=== PATIENT | male | born 1960 | race Caucasian/White ===

== ENCOUNTER 2018-10-13 10:47 | Emergency (ER) | payer MEDICAID, SELFPAY ==
[2018-10-13 10:48] VITALS: BP 120/100; PULSE 90; RESP 16; TEMP 36.6; O2SAT 99; BMI 32.3
--- NOTE | 2018-10-13 11:01 | RAD_ITS ---
STUDY: X-RAY - RIGHT KNEE REASON FOR EXAM: Male, 58 years old. Medial knee pain following a fall. TECHNIQUE: 4 view(s) of the knee. COMPARISON: None. FINDINGS: Normal visualized distal femur. Normal visualized proximal tibia and fibula. Normal proximal tibiofibular articulation. There is mild degenerative arthrosis of the medial femorotibial compartment. Normal lateral femorotibial compartment. Normal patellofemoral articulation. The soft tissue structures are unremarkable. RAD/Knee 4 or More Views IMPRESSION: Degenerative arthrosis. Electronically Signed: Jean-Claude Taylor MD at 11:28 EST Tel [phone], Service support ,
--- NOTE | 2018-10-13 12:12 | ED.VISSUMM ---
- ER Visit Summary Date of Service: 10/13/18 Chief Complaint: Right knee pain History of Present Illness: The patient is a 58 M who presents with right knee pain that began after falling out of a truck bed 2 weeks ago. Patient states the truck was not moving. Patient states the pain is worse over the medial aspect of his knee. Patient describes the pain as aching and throbbing. Patient states the pain is worse with ambulation, complete extension, and flexion. Patient denies any paresthesias or weakness. Patient denies any other injuries. Physical Examination: Vital signs are stable. Patient is afebrile. Patient is in no acute distress. Musculoskeletal exam reveals tenderness over the medial aspect of the right knee. There is a mild effusion noted. There is no obvious deformity noted. Range of motion was limited and complete extension and flexion of the right knee secondary to pain. There is no laxity appreciated. Varus and valgus stress tests were negative. There is pain with valgus stressing however. There is some pain with Ursula testing as well. Sensation was intact to light touch in all dermatomes of the lower extremity. The remaining physical exam is within normal limits. Test Results: X-rays of the right knee were obtained. There is no acute fracture. Emergency Department Course and Treatment: Patient was instructed to ice and elevate the right knee. Patient was given 1 dose of Pres[place] here. Patient was given a prescription for Naprosyn. Patient was advised that this is most likely a meniscus injury. Patient was instructed to follow-up with his primary care physician in 5-7 days for further evaluation. Patient understood and was agreeable with the plan. All questions were answered. Disposition: Discharged home Impression: Right knee sprain This note was generated with [employer] dictation software. It may contain incorrect words, spelling, and punctuation that were not noted in review of the chart prior to signing ED Disposition - Plan for ED Patient: Disposition: Home or Assisted Living Chief Complaint: Lower Extremity Injury Diagnosis: Right knee sprain Instructions: ED Sprain Knee Prescriptions: Naproxen [Naprosyn] 500 mg PO BID PRN #20 tab Referrals: Care Physician,No Primary [Primary Care Provider] -
[2018-10-13] MEDS: HYDROcodone Bitartrate/Apap 5/325 Tablet PO (12:23)
--- OUTSIDE RECORDS SUMMARY | 2018-11-29 07:31 | XMS RPT_ITS ---
:1960 Author Organization [facility] Care Team Providers Name Role Phone Primay Care Physicia, No Primary Care Unavailable Randy Magana Attending Unavailable PROBLEMS PROBLEMS No Problem Records FoundPROCEDURES PROCEDURES No Procedure Records FoundRESULTS RESULTS EMERGENCY DEPARTMENT Observed: 10/13/2018 Status: F Source: [place] SUMMARY 12:16 PM [facility] REPOSITORY [facility] Medical Records Department [address] [place] [address] Emergency Department Summary 10/13/18 1212 MR#: [id number] Acct: [id number] Name: SOLOMON JAIME Rep #: [id number] : 1960 58 From: Randy Magana DO PCP: Care Physician, No Primary Status: PRE ER - ER Visit Summary Date of Service: 10/13/18 Chief Complaint: Right knee pain History of Present Illness: The patient is a 58 M who presents with right knee pain that began after falling out of a truck bed 2 weeks ago. Patient states the truck was not moving. Patient states the pain is worse over the medial aspect of his knee. Patient describes the pain as aching and throbbing. Patient states the pain is worse with ambulation, complete extension, and flexion. Patient denies any paresthesias or weakness. Patient denies any other injuries. Physical Examination: Vital signs are stable. Patient is afebrile. Patient is in no acute distress. Musculoskeletal exam reveals tenderness over the medial aspect of the right knee. There is a mild effusion noted. There is no obvious deformity noted. Range of motion was limited and complete extension and flexion of the right knee secondary to pain. There is no laxity appreciated. Varus and valgus stress tests were negative. There is pain with valgus stressing however. There is some pain with Ursula testing as well. Sensation was intact to light touch in all dermatomes of the lower extremity. The remaining physical exam is within normal limits. Test Results: X-rays of the right knee were obtained. There is no acute fracture. Emergency Department Course and Treatment: Patient was instructed to ice and elevate the right knee. Patient was given 1 dose of [place] here. Patient was given a prescription for Naprosyn. Patient was advised that this is most likely a meniscus injury. Patient was instructed to follow-up with his primary care physician in 5-7 days for further evaluation. Patient understood and was agreeable with the plan. All questions were answered. Disposition: Discharged home Impression: Right knee sprain This note was generated with [employer] dictation software. It may contain incorrect words, spelling, and punctuation that were not noted in review of the chart prior to signing ED Disposition - Plan for ED Patient: Disposition: Home or Assisted Living Chief Complaint: Lower Extremity Injury Diagnosis: Right knee sprain Instructions: ED Sprain Knee Prescriptions: Naproxen [Naprosyn] 500 mg PO BID PRN #20 tab Referrals: Care Physician,No Primary [Primary Care Provider] - What to do if you have Problems For any increased pain, shortness of breath, bleeding, nausea or vomiting, chest pain, or any unexpected problems, contact your Primary Care Provider. Call [facility] ([phone]) or report to the closest Emergency Room. Call 911 if necessary. 10/13/18 1216 <Electronically signed by Randy Magana DO> Date Randy Magana DO Cosigner Signature (If Indicated): Date CC: No Primary Care Physician KNEE 4 OR MORE Observed: 10/13/2018 Status: F Source: [place] VIEWS 10:57 AM [facility] Imaging Services [address] [place] [address] Knee 4 or More Views MR#: [id number] Acct: [id number] Name: SOLOMON JAIME Rep #: [id number] : 1960 M 58 From: Jean-Claude Taylor MD PCP: Care Physician, No Primary Status: PRE ER Study: Knee 4 or More Views Date of Exam: 10/13/18 Exam# [id number] Ordering Dr: Randy Magana DO STUDY: X-RAY - RIGHT KNEE REASON FOR EXAM: Male, 58 years old. Medial knee pain following a fall. TECHNIQUE: 4 view(s) of the knee. COMPARISON: None. FINDINGS: Normal visualized distal femur. Normal visualized proximal tibia and fibula. Normal proximal tibiofibular articulation. There is mild degenerative arthrosis of the medial femorotibial compartment. Normal lateral femorotibial compartment. Normal patellofemoral articulation. The soft tissue structures are unremarkable. RAD/Knee 4 or More Views IMPRESSION: Degenerative arthrosis. Electronically Signed: Jean-Claude Taylor MD at 11:28 EST Tel [phone], Service support , CC: No Primary Care Physician; Randy Magana DO Director Of Graduate Admissions: Signed ALLERGIES ALLERGIES DATE TYPE / CODE NAME / CODE REACTION SEVERITY SOURCE 10/13/2018 Drug No Known Unknown [facility] Allergy/4160 Allergies/F00 Hospital 64372(SNOMED [id number](RXNOR Repository CT) M) ENCOUNTERS ENCOUNTERS ADMIT/DISCHARGE ACCOUNT ADMITTING ENCOUNTER LOCATION SOURCE NUMBER CLASS 10/13/2018/ [id number] Emergency [address] ing:ED Repository PAYERS PAYERS ENCOUNTER GUARANTOR PAYER SUBSCRIBER SOURCE 10/13/2018 SOLOMON Chavez Primary SOLOMON Kathy Yury [id number] Insurance:[facility]NOXDOB: [facility] Number: [id number] [id number] Repository 16639Ltp: [phone]) Date:5801-02-52MU [phone] () [id number], [place] [address]KV: 10/13/2018 Secondary NOT GIVENSILVANA Sher Insurance:SELF PAY [facility] Number: Effective Repository Date:2018-10-13
== END 2018-10-13 12:36 | disposition home or self-care (01) ==
LOC: ED 12:28
PROVIDERS: Emergency Provider Emergency Medicine
DX: S83.91XA Sprain of unspecified site of right knee, initial encounter (principal); W17.89XA Other fall from one level to another, initial encounter; Y93.9 Activity, unspecified; Y92.812 Truck as the place of occurrence of the external cause
CPT/HCPCS: 73564; 99283

== ENCOUNTER 2019-02-17 10:09 | Observation (INO) | payer MEDICAID, SELFPAY ==
[2019-02-17] VITALS (11 sets, daily range): BP systolic 113–149; BP diastolic 79–89; PULSE 73–160; RESP 16–21; TEMP 36.5–36.9; O2SAT 95–98; BMI 30.6; BMI 29.4
--- NOTE | 2019-02-17 10:13 | EKG12_ITS ---
Test Reason : CP Blood Pressure : / mmHG Vent. Rate : 096 BPM Atrial Rate : 096 BPM P-R Int : 152 ms QRS Dur : 080 ms QT Int : 354 ms P-R-T Axes : 055 009 053 degrees QTc Int : 447 ms Normal sinus rhythm Normal ECG Confirmed by DUANE ARECHIGA, ([id number]), deputy editor in chief SRAVANTHI FLORES ([id number]) on 02/20/2019 10:43:35 AM Referred By: Yassine Katz Confirmed By:PAUL ZEPEDA MD
--- NOTE | 2019-02-17 10:20 | RAD_ITS ---
STUDY: X-RAY CHEST REASON FOR EXAM: Male, 58 years old. Chest pain. TECHNIQUE: Single AP portable view of the chest. COMPARISON: Comparison is made with prior study dated October 18, 2015. FINDINGS: EKG electrodes are seen. The lungs are clear and expanded. Scattered calcified granulomas. There is no demonstrated pleural abnormality. Normal size heart. Normal mediastinum and laura. Normal visualized pulmonary arteries. Normal visualized aortic arch and descending thoracic aorta. Normal visualized thoracic spine. Normal visualized ribs, clavicles, and shoulders. There is no demonstrated abnormality of the visualized soft tissue structures of the upper abdomen. RAD/Chest 1 View (Portable) IMPRESSION: Normal x-ray examination of the chest. Electronically Signed: Jean-Claude Taylor, at 10:52 EDT , Service support ,
--- NOTE | 2019-02-17 10:33 | ED.VIS.GEN ---
History of Present Illness Chief Complaint: Chest Pain Informant: Patient Onset: Days - Midsternal chest pressure past 3 days Context: Sudden Onset Timing: Intermittent - Duration 15-20 minutes Quality: Pressure with radiation right shoulder Location: Substernal Current Severity: - - Presently no chest discomfort Maximum Severity: Severe Worsened by: Nothing Relieved by: Nothing Associated Symptoms: Dyspnea and diaphoresis. There is also radiation right shoulder. Narrative: Middle-aged male with history of hypercholesterolemia and hypertension who presents with intermittent midsternal/substernal chest tightness and heaviness radiating to the right shoulder associated with diaphoresis and dyspnea the past 3 days. Duration of discomfort 15-20 minutes. Patient was a smoker of 1 pack/day. He quit 6 months ago. There is a remote history of DVT. He denies pleuritic chest pain. He states when he has the discomfort he has trouble breathing. He denies leg swelling or discoloration. Prior similar symptoms: No Recent Illness/Hospitalization: No - Past Medical History (1) History of hypertension Status: Acute (2) History of hypercholesterolemia Status: Acute Past Medical History - Allergies and Home Meds Allergies/Adverse Reactions: Allergies No Known Allergies Allergy (Verified 02/17/19 10:10) Primary Care Physician: Care Physician,No Primary [Primary Care Provider] - Prior records reviewed: Yes Surgical History: noncontributory Lives: Alone Smoking Status: Former smoker Drugs: None Review of Systems General: Denies: Chills, Fever, Sweats Eyes: Denies: Visual changes - bilaterally, Diplopia ENT: Denies: Rhinorrhea, Sore throat Cardiovascular: Reports: Chest pain. Denies: Palpitations, Heart racing Respiratory: Reports: Dyspnea. Denies: Cough, Sputum, Dyspnea on exertion, Orthopnea, Paroxysmal nocturnal dyspnea Gastrointestinal: Denies: Abdominal pain, Nausea, Vomiting, Diarrhea, Melena, Hematochezia Genitourinary: Denies: Dysuria, Hematuria, Frequency Musculoskeletal: Denies: Back pain, Extremity Pain Skin: Denies: Rash, Wounds Neurological: Denies: Headache, Weakness, Numbness Hematologic: Denies: Easy bruising, Easy bleeding Allergy: Denies: Uticaria Physical Exam Vital Signs/Narrative: Vital Signs Temp Pulse Resp BP Pulse Ox 02/17/19 10:11 98.4 F 160 H 18 134/82 H 95 Inital Vital Signs reviewed: Yes General: Well nourished, Well developed, No Acute Distress Head: Normocephalic - Systems, Atraumatic Eyes: Perrl, EOMI. Negative for: Pale conjunctiva, Scleral icterus, - ENT: Moist mucous membranes, No rhinorrhea Neck: Supple, Nontender Cardiovascular: Regular rate, Regular rhythm, No murmurs, Normal S1, Normal S2 Respiratory: No distress, CTA bilaterally, Chest nontender Abdomen: Soft, Nontender, Nondistended, Normal bowel sounds, No masses. Negative for: Juan's sign Back: Nontender, Normal Inspection Extremities: Nontender, No edema, - - There is no asymmetry, swelling, discoloration, leg vein distention, palpable cords or tenderness along the distribution of the deep venous system. Skin: Normal color, No rash Neurological: Alert, Oriented x3, Cranial nerves II-XII grossly intact, Normal Strength, Normal Sensation Psychological: Normal affect, Normal Mood Diagnostic/Tx/Re-eval Chest X-Ray - ED: 1 View, Read by ED Physician, Normal, Heart, Lungs, Mediastinum, Bony Structures, No Acute Disease Impressions Chest X-Ray 02/17/19 10:20 IMPRESSION: Normal x-ray examination of the chest. Electronically Signed: Jean-Claude Claudia, at 10:52 EDT , Service support , 02/17/19 10:20 Chest 1 View (Portable) [RAD] Stat Laboratory Results 02/17/19 02/17/19 10:23 10:23 WBC 9.4 RBC 4.86 Hgb 15.8 Hct 44.8 MCV 92.2 MCH 32.5 H MCHC 35.3 RDW 12.8 RDW Differential 42.6 Plt Count 244 MPV 10.6 Immature Gran % (Auto) 0.100 Neut % (Auto) 62.8 Lymph % (Auto) 26.5 [place] % (Auto) 8.0 Eos % (Auto) 2.0 Baso % (Auto) 0.6 Absolute Neuts (auto) 5.9 Absolute Lymphs (auto) 2.49 Total Counted Not Reportable Sodium 137 Potassium 4.0 Chloride 105 Carbon Dioxide 24.0 Anion Gap 8 BUN 25 H Creatinine 1.08 Estim Creat Clear Calc 78.86 Est GFR (MDRD) Af Amer 91 Est GFR (MDRD) Non-Af 75 BUN/Creatinine Ratio 23.1 H Glucose 147 H Calcium 8.3 L Troponin I < 0.015 - Rhythm Strip Rhythm Strip: Sinus Rhythm Rate: 92 Ectopy: None - EKG Initial EKG Interpretation: Sinus Rhythm - Ventricular rate 96. ME interval, Q mormonism, QT interval and axis are normal. - Medical Decision Making With associated diaphoresis and radiation to right shoulder increases likelihood for cardiac etiology. Noncardiac etiologies would include reflux, esophagitis, biliary disease. Patient's workup was unremarkable. The hospitalist was paged for further testing. ED Disposition - Plan for ED Patient: Disposition: Acute Care Hospital [facility] Diagnosis: Central chest pain, History of hypercholesterolemia, History of hypertension Referrals: Care Physician,No Primary [Primary Care Provider] -
--- NOTE | 2019-02-17 10:37 | ED.DCSUM_ITS ---
History of Present Illness Chief Complaint: Chest Pain Informant: Patient Onset: Days - Midsternal chest pressure past 3 days Context: Sudden Onset Timing: Intermittent - Duration 15-20 minutes Quality: Pressure with radiation right shoulder Location: Substernal Current Severity: - - Presently no chest discomfort Maximum Severity: Severe Worsened by: Nothing Relieved by: Nothing Associated Symptoms: Dyspnea and diaphoresis. There is also radiation right shoulder. Narrative: Middle-aged male with history of hypercholesterolemia and hypertension who presents with intermittent midsternal/substernal chest tightness and heaviness radiating to the right shoulder associated with diaphoresis and dyspnea the past 3 days. Duration of discomfort 15-20 minutes. Patient was a smoker of 1 pack/day. He quit 6 months ago. There is a remote history of DVT. He denies pleuritic chest pain. He states when he has the discomfort he has trouble breathing. He denies leg swelling or discoloration. Prior similar symptoms: No Recent Illness/Hospitalization: No - Past Medical History (1) History of hypertension Status: Acute (2) History of hypercholesterolemia Status: Acute Past Medical History - Allergies and Home Meds Allergies/Adverse Reactions: Allergies No Known Allergies Allergy (Verified 02/17/19 10:10) Primary Care Physician: Care Physician,No Primary [Primary Care Provider] - Prior records reviewed: Yes Surgical History: noncontributory Lives: Alone Smoking Status: Former smoker Drugs: None Review of Systems General: Denies: Chills, Fever, Sweats Eyes: Denies: Visual changes - bilaterally, Diplopia ENT: Denies: Rhinorrhea, Sore throat Cardiovascular: Reports: Chest pain. Denies: Palpitations, Heart racing Respiratory: Reports: Dyspnea. Denies: Cough, Sputum, Dyspnea on exertion, Orthopnea, Paroxysmal nocturnal dyspnea Gastrointestinal: Denies: Abdominal pain, Nausea, Vomiting, Diarrhea, Melena, Hematochezia Genitourinary: Denies: Dysuria, Hematuria, Frequency Musculoskeletal: Denies: Back pain, Extremity Pain Skin: Denies: Rash, Wounds Neurological: Denies: Headache, Weakness, Numbness Hematologic: Denies: Easy bruising, Easy bleeding Allergy: Denies: Uticaria Physical Exam Vital Signs/Narrative: Vital Signs Temp Pulse Resp BP Pulse Ox 02/17/19 10:11 98.4 F 160 H 18 134/82 H 95 Inital Vital Signs reviewed: Yes General: Well nourished, Well developed, No Acute Distress Head: Normocephalic - Systems, Atraumatic Eyes: Perrl, EOMI. Negative for: Pale conjunctiva, Scleral icterus, - ENT: Moist mucous membranes, No rhinorrhea Neck: Supple, Nontender Cardiovascular: Regular rate, Regular rhythm, No murmurs, Normal S1, Normal S2 Respiratory: No distress, CTA bilaterally, Chest nontender Abdomen: Soft, Nontender, Nondistended, Normal bowel sounds, No masses. Negative for: Juan's sign Back: Nontender, Normal Inspection Extremities: Nontender, No edema, - - There is no asymmetry, swelling, discoloration, leg vein distention, palpable cords or tenderness along the distribution of the deep venous system. Skin: Normal color, No rash Neurological: Alert, Oriented x3, Cranial nerves II-XII grossly intact, Normal Strength, Normal Sensation Psychological: Normal affect, Normal Mood Diagnostic/Tx/Re-eval Chest X-Ray - ED: 1 View, Read by ED Physician, Normal, Heart, Lungs, Mediastinum, Bony Structures, No Acute Disease Impressions Chest X-Ray 02/17/19 10:20 IMPRESSION: Normal x-ray examination of the chest. Electronically Signed: Jean-Claude Claudia, at 10:52 EDT , Service support , 02/17/19 10:20 Chest 1 View (Portable) [RAD] Stat Laboratory Results 02/17/19 02/17/19 10:23 10:23 WBC 9.4 RBC 4.86 Hgb 15.8 Hct 44.8 MCV 92.2 MCH 32.5 H MCHC 35.3 RDW 12.8 RDW Differential 42.6 Plt Count 244 MPV 10.6 Immature Gran % (Auto) 0.100 Neut % (Auto) 62.8 Lymph % (Auto) 26.5 [place] % (Auto) 8.0 Eos % (Auto) 2.0 Baso % (Auto) 0.6 Absolute Neuts (auto) 5.9 Absolute Lymphs (auto) 2.49 Total Counted Not Reportable Sodium 137 Potassium 4.0 Chloride 105 Carbon Dioxide 24.0 Anion Gap 8 BUN 25 H Creatinine 1.08 Estim Creat Clear Calc 78.86 Est GFR (MDRD) Af Amer 91 Est GFR (MDRD) Non-Af 75 BUN/Creatinine Ratio 23.1 H Glucose 147 H Calcium 8.3 L Troponin I < 0.015 - Rhythm Strip Rhythm Strip: Sinus Rhythm Rate: 92 Ectopy: None - EKG Initial EKG Interpretation: Sinus Rhythm - Ventricular rate 96. CT interval, Q christian, QT interval and axis are normal. - Medical Decision Making With associated diaphoresis and radiation to right shoulder increases likelihood for cardiac etiology. Noncardiac etiologies would include reflux, esophagitis, biliary disease. Patient's workup was unremarkable. The hospitalist was paged for further testi ng. ED Disposition - Plan for ED Patient: Disposition: Acute Care Hospital [facility] Diagnosis: Central chest pain, History of hypercholesterolemia, History of hypertension Referrals: Care Physician,No Primary [Primary Care Provider] -
[2019-02-17 10:40] LABS: Absolute Lymphocyte Count 2.49 X10^3/ul (0.83-4.51); Absolute Neutrophil Count 5.9 X10^3/uL (2.0-7.7); Basophil# 0.06 X10^3/uL; Basophil% 0.6 % (0-1); Eosinophil# 0.19 X10^3/uL; Hematocrit 44.8 % (40-54); Hemoglobin 15.8 g/dl (13.0-16.5); Lymphocyte # 2.49 X10^3/ul (4.0); Lymphocyte % 26.5 % (19-41); Mean Corp Hgb Conc 35.3 g/gl (32-36); Mean Corpuscular Hgb 32.5 pg (27.0-32.0); Mean Corpuscular Volume 92.2 fL (80-94); Mean Platelet Vol. 10.6 fl (6.2-12.0); Monocyte# 0.75 X10^3/uL; Neutrophil # 5.89 X10^3/uL (2.7-7.7); Neutrophil % 62.8 % (47-70); POSITIVE COUNT NO; POSITIVE DIFFERENTIAL NO; POSITIVE MORPHOLOGY NO; Platelet Count 244 K/mm3 (150-450); RBC Distribution Width CV 12.8 % (11.6-14.6); RBC Distribution Width SD 42.6 fl (35.1-43.9); Red Blood Count 4.86 M/mm3 (4.6-6.2); White Blood Count 9.4 K/mm3 (4.4-11.0)
[2019-02-17 10:52] LABS: Anion Gap 8 (5-15); BUN 25 mg/dL (7-18); BUN/Creat Ratio 23.1 RATIO (10-20); Calcium,Total 8.3 mg/dL (8.5-10.1); Chloride 105 mmol/L (98-107); Creatinine, Serum 1.08 mg/dL (0.70-1.30); EST Glomerular Filtration Rate 75 mL/min (>60); Est Glom Filt Rate - Afr Amer 91 mL/min (>60); Estimated Creatinine Clearance 78.86 ml/min; Glucose 147 mg/dL (74-106); Sodium Level 137 mmol/L (136-145)
[2019-02-17] MEDS: Aspirin 81 MG TAB.CHEW 324 MG PO (11:01)
--- NOTE | 2019-02-17 11:35 | CASEMGMT ---
RN CM Assessment Introduced role of RN CM to patient.? Patient is alert, oriented and able?to participate in RN CM Assessment. ?Care providers, pharmacy, and demographics verified. Presentation: Chest tightness/heaviness, Dyspnea Re-Admit: No Barriers/Issues: No PCP established, PCP list given to patient. PCP: None Specialists: None [facility]acy[facility] Insurance: Medicaid Rx Benefit: Yes? LNOK: Mother Jennie Florentino LW/HPOA: None, Declined offered information Living Arrangements:? Lives alone in a SS Home, 6 steps to enter ADL?s: Independent with ambulation and ADL's Transportation: Patient drives, DC with Dtr DME: None HHC: None SNF: None Goal: Home DC PLAN: Home with no anticipated needs identified at this time. KELSEY Ambrose
--- NOTE | 2019-02-17 13:42 | EKG12_ITS ---
Test Reason : CP ADMISSION Blood Pressure : / mmHG Vent. Rate : 091 BPM Atrial Rate : 091 BPM P-R Int : 154 ms QRS Dur : 086 ms QT Int : 390 ms P-R-T Axes : 052 018 040 degrees QTc Int : 479 ms Normal sinus rhythm Normal ECG When compared with ECG of 17-FEB-2019 10:19, MANUAL COMPARISON REQUIRED, DATA IS UNCONFIRMED Confirmed by JAMES GAYTAN ([id number]), commercial production editor SRAVANTHI FLORES ([id number]) on 02/23/2019 11:05:38 AM Referred By: Yassine Katz Confirmed By:JAMES GAYTAN
[2019-02-17] MEDS: Morphine 4 MG/ML Syringe IV ×2 (16:27→21:12)
--- NOTE | 2019-02-17 19:52 | HP.PCM_ITS ---
Problem List (1) Central chest pain Status: Acute (2) Right flank discomfort Status: Acute History of Present Illness Date of Admission: 02/17/19 Chief Complaint: Precordial chest pain, right flank pain The patient is a 58 year old M who was seen in the emergency room at [facility] with a chief complaint of precordial chest discomfort which she described as pressure-like in nature lasting upwards of 45 minutes at a time over the last 3 days. He states that the discomfort radiated into his right shoulder and down his right arm, he said it was accompanied by shortness of breath and diaphoresis. Patient states it is not related to any activity and can occur at rest. Patient also complains of right lower back and right flank discomfort over the past 24 hours which is worse on movement. Patient denies any urinary frequency or blood in the urine. Work-up in the emergency room revealed a normal white blood cell count, chemistry panel was remarkable for a BUN of 25, glucose was 147, and troponin was unremarkable. Patient's chest x-ray was normal. EKG shows normal sinus rhythm without evidence of ischemic changes. Patient will be placed in observation status on PCU, enzymes will be cycled, and patient will undergo an exercise nuclear stress test tomorrow if the enzymes remain normal. I have ordered a urinalysis on the patient, his complaints of right flank and right lower back pain appear to be musculoskeletal by his description and on exam he is tender over the muscle areas in the vicinity of the right lower back and flank area. Past Medical History Allergies No Known Allergies Allergy (Verified 02/17/19 10:10) Home Medications: Ambulatory Orders Medication Instructions Recorded Aspirin 81 mg PO DAILY 02/17/19 Atorvastatin Calcium 40 mg PO QHS 02/17/19 Hydrochlorothiazide 12.5 mg PO DAILY 02/17/19 Metoprolol Succinate [Toprol Xl] 25 mg PO DAILY 02/17/19 Surgical History: no surgical history Psychiatric History: No pertinent psych hx Lives: Alone Smoking Status: Former smoker Tobacco Use: Non-smoker Alcohol: Rare Drugs: None - *Family History Maternal History Items: Diabetes, Unknown Review of Systems Constitutional: Denies: Anorexia, Chills, Fever, Night Sweats, Malaise, Weakness, Weight Change, Fatigue Eyes: Denies: Cataracts, Conjunctivae Inflammation, Double vision, Drainage HEENT: Denies: Difficulty Hearing, Difficulty Swallowing, Dysphasia, Ear Pain, Eye Pain, Hearing Changes, Nasal bleeding, Nasal Congestion, Post Nasal Drip Cardiovascular: Reports: Chest Pain, Chest Pressure. Denies: Claudication, Edema, Heaviness, Light Headedness, Orthopnea, Palpitations, Paroxysmal Noc. Dyspnea, Syncope Respiratory: Reports: Shortness of Breath, Shortness of breath at rest. Denies: Cough, Hemoptysis, Pleuritic Pain, Shortness of breath upon exertion, Sputum production, Wheezing Gastrointestinal: Denies: Abdominal Pain, Constipation, Diarrhea, Hematemesis, Hematochezia, Nausea, Melena, Vomiting Genitourinary: Denies: Dysuria, Frequency, Hematuria, Hesitancy, Urgency Musculoskeletal: Reports: Back Pain - Right lower back and flank pain x24 hours. Denies: Foot Pain, Hand Pain, Joint Pain, Joint stiffness, Joint swelling, Joint Tenderness, Leg Pain, Neck Pain Skin: Denies: Dryness, Jaundice, Pruritis, Rash Neurological: Denies: Blurred vision, Double vision, Slurred speech, Difficulty swallowing, Focal weakness, Headaches, Incoordination, Numbness, Tingling Psychiatric: Denies: Anxiety, Depression, Homicidal Ideations, Suicidal Ideations Endocrine: Denies: Change in Body Habitus, Heat/ Cold Intolerance, Polydipsia, Polyuria Hematologic/ Lymphatic: Reports: Hx of blood clot - Past history of PE several years ago. Denies: Adenopathy, Anemia, Easy Bruising, Easy Bleeding, Petechiae, Purpura VTE Information - Inpt Only VTE Present on Admission: No VTE Mechan Device Prophylaxis: None VTE Pharm Prophylaxis ordered?: No Reason prophylaxis not ordered:: Treatment Not Indicated Patient Problems: Active and Suspected Problems History of hypertension (Acute) History of hypercholesterolemia (Acute) Central chest pain (Acute) Right flank discomfort (Acute) - Physical Exam General: Alert, Oriented x3, Cooperative, No apparent distress, Well developed, Well nourished HEENT: Atraumatic, PERRLA, EOMI, Normocephalic Oral: Moist Mucosa Neck: Supple, No JVD, Negative Carotid Bruits, No Nuchal Rigidity, Trachea Midline, Thyroid Normal Size and Texture Lungs: Clear to auscultation, Normal air movement, No rhonchi, No wheeze, No rales Cardiovascular: Regular rate, Regular Rhythm, Normal S1, Normal S2, No murmurs, No Ectopic Activity, PMI Normal, No rub noted, No Gallop Abdomen: Bowel Sounds Present, Soft, Non Tender, Non-Distended, No hernias noted Extremities: No clubbing, No cyanosis, No edema, Capillary Refill Less than 3 Seconds Skin: No rashes, No breakdown Musculoskeletal: Tenderness - There is tenderness to palpation over the right lower lateral back area and flank area Neurological: Cranial nerves II-XII grossly intact, Neuro grossly intact, Sensory exam intact to light touch and pain, Coordination normal Psych/Mental Status: Normal Affect, Appropriate Vital Signs Temp Pulse Resp BP Pulse Ox 97.8 F 76 18 136/88 H 96 02/17/19 16:21 02/17/19 19:01 02/17/19 16:21 02/17/19 16:21 02/17/19 16:21 Oxygen Flow Rate (L/min) 2 Oxygen Delivery Method Room Air Weight: 95.708 kg Body Mass Index (BMI) 29.4 Intake and Output for Last 24 Hours 02/15/19 02/16/19 02/17/19 23:59 23:59 23:59 Intake Total 700 / 700 Balance 700 / 700 Laboratory Tests Past 24 Hrs 02/17/19 02/17/19 02/17/19 10:23 10:23 13:40 WBC 9.4 RBC 4.86 Hgb 15.8 Hct 44.8 MCV 92.2 MCH 32.5 H MCHC 35.3 RDW 12.8 RDW Differential 42.6 Plt Count 244 MPV 10.6 Immature Gran % (Auto) 0.100 Neut % (Auto) 62.8 Lymph % (Auto) 26.5 [place] % (Auto) 8.0 Eos % (Auto) 2.0 Baso % (Auto) 0.6 Absolute Neuts (auto) 5.9 Absolute Lymphs (auto) 2.49 Total Counted Not Reportable Sodium 137 Potassium 4.0 Chloride 105 Carbon Dioxide 24.0 Anion Gap 8 BUN 25 H Creatinine 1.08 Estim Creat Clear Calc 78.86 Est GFR (MDRD) Af Amer 91 Est GFR (MDRD) Non-Af 75 BUN/Creatinine Ratio 23.1 H Glucose 147 H Calcium 8.3 L Troponin I < 0.015 < 0.015 02/17/19 17:05 WBC RBC Hgb Hct MCV MCH MCHC RDW RDW Differential Plt Count MPV Immature Gran % (Auto) Neut % (Auto) Lymph % (Auto) [place] % (Auto) Eos % (Auto) Baso % (Auto) Absolute Neuts (auto) Absolute Lymphs (auto) Total Counted Sodium Potassium Chloride Carbon Dioxide Anion Gap BUN Creatinine Estim Creat Clear Calc Est GFR (MDRD) Af Amer Est GFR (MDRD) Non-Af BUN/Creatinine Ratio Glucose Calcium Troponin I < 0.015 Assessment/Plan All Active Problems History of hypertension (Acute) History of hypercholesterolemia (Acute) Central chest pain (Acute) Right flank discomfort (Acute) #1 precordial chest pressure-etiology unclear, patient will be placed in observation status on PCU, serial cardiac enzymes will be obtained, if these enzymes remain negative, patient will have an exercise nuclear stress test tomorrow #2 right flank/right lower back pain-probably musculoskeletal in nature, UA will be obtained, if the patient's back discomfort continues, plain lumbar x-rays may be obtained tomorrow #3 hypertension #4 hyperlipidemia Code Visit OBSV E&M: 46225 Initial observation care L3
[2019-02-17] MEDS: Atorvastatin Calcium 40 MG Tablet PO (21:13)
[2019-02-18] VITALS (15 sets, daily range): BP systolic 121–148; BP diastolic 77–96; PULSE 83–119; RESP 16–18; TEMP 36.4–36.9; O2SAT 95–97
[2019-02-18 02:44] LABS: Bacteria 0 SEEN /hpf (None Seen); Mucous, Urine 0 SEEN /hpf (<or=2+); Red Blood Cells-Urine 0 SEEN /hpf (0-5); White Blood Cells 0 SEEN /hpf (0-5)
[2019-02-18 02:46] LABS: Color, Urine Yellow (Yellow); Glucose, Dipstick Normal (Normal); Ketone-Dipstick Negative (Negative); Leukocyte Esterase-Dipstick Negative /ul (Negative); Nitrite-Dipstick Negative (Negative); Occult Blood-Urine Negative /ul (Negative); Protein-Dipstick Negative (Negative); Urine Bilirubin Dipstick Negative (Negative); Urine Clarity Clear (Clear); Urine Urobilinogen Normal (Normal); Urine pH 6.5 (5.0 - 8.0)
[2019-02-18 02:58] LABS: Squamous Epithelial Cells - UA 0-5 SEEN /hpf (0-5)
--- NOTE | 2019-02-18 05:55 | EKG12_ITS ---
Test Reason : AM EKG Blood Pressure : / mmHG Vent. Rate : 088 BPM Atrial Rate : 088 BPM P-R Int : 148 ms QRS Dur : 084 ms QT Int : 372 ms P-R-T Axes : 051 026 067 degrees QTc Int : 450 ms Normal sinus rhythm Normal ECG When compared with ECG of 17-FEB-2019 13:39, MANUAL COMPARISON REQUIRED, DATA IS UNCONFIRMED Confirmed by JAMES GAYTAN ([id number]), associate editor SRAVANTHI FLORES ([id number]) on 02/23/2019 11:07:41 AM Referred By: Yassine Katz Confirmed By:JAMES GAYTAN
[2019-02-18] MEDS: Aspirin 81 MG TAB.CHEW PO (05:59)
[2019-02-18 06:51] LABS: Absolute Lymphocyte Count 1.86 X10^3/ul (0.83-4.51); Absolute Neutrophil Count 4.9 X10^3/uL (2.0-7.7); Basophil# 0.06 X10^3/uL; Basophil% 0.8 % (0-1); Eosinophil# 0.22 X10^3/uL; Eosinophils% 2.8 % (0-5); Hemoglobin 15.9 g/dl (13.0-16.5); Lymphocyte # 1.86 X10^3/ul (4.0); Mean Corp Hgb Conc 34.6 g/gl (32-36); Mean Corpuscular Hgb 31.6 pg (27.0-32.0); Mean Corpuscular Volume 91.5 fL (80-94); Mean Platelet Vol. 11.3 fl (6.2-12.0); Monocyte# 0.75 X10^3/uL; Monocyte% 9.7 % (0-10); Neutrophil # 4.85 X10^3/uL (2.7-7.7); Neutrophil % 62.4 % (47-70); Platelet Count 227 K/mm3 (150-450); RBC Distribution Width CV 12.9 % (11.6-14.6); RBC Distribution Width SD 42.5 fl (35.1-43.9); Red Blood Count 5.03 M/mm3 (4.6-6.2); White Blood Count 7.8 K/mm3 (4.4-11.0)
[2019-02-18 06:55] LABS: POSITIVE COUNT NO; POSITIVE DIFFERENTIAL NO; POSITIVE MORPHOLOGY NO; Prothrombin Time (Protime)PT. 13.1 SECONDS (11.7-14.9)
[2019-02-18 06:56] LABS: Partial Thromboplast Time 33.5 Seconds (24.1-36.2)
[2019-02-18 06:59] LABS: BUN 20 mg/dL (7-18); Creatinine, Serum 0.91 mg/dL (0.70-1.30); EST Glomerular Filtration Rate 92 mL/min (>60); Estimated Creatinine Clearance 96.54 ml/min; Glucose 111 mg/dL (74-106)
[2019-02-18 07:00] LABS: Anion Gap 7 (5-15); Calcium,Total 8.4 mg/dL (8.5-10.1); Chloride 108 mmol/L (98-107); Est Glom Filt Rate - Afr Amer 111 mL/min (>60); Potassium 4.3 mmol/L (3.5-5.1); Sodium Level 138 mmol/L (136-145)
--- NOTE | 2019-02-18 10:18 | ECHOD_ITS ---
Reason For Study: CP Procedure This was a 2D Doppler, Color Flow transthoracic echocardiogram. The exam was of adequate technical quality. Exam performed portable in patient room. Left Ventricle Normal LV size. Mild to moderate global left ventricular systolic dysfunction. The estimated ejection fraction is 40 %. Transmitral doppler flow suggestive of impaired relaxation of left ventricle. Right Ventricle Normal RV size. Normal systolic function. Atria Normal left atrium. Normal right atrium. No doppler evidence for ASD. Mitral Valve There is no mitral annular calcification. Normal mitral valve. Trivial mitral valve insufficiency. Tricuspid Valve Normal tricuspid valve. Trivial tricuspid valve insufficiency. Aortic Valve Trisinus/trileaflet aortic valve. Normal aortic valve. Pulmonic Valve The pulmonic valve is not well visualized. Great Vessels Normal sized aortic root. Pericardium/Pleural No pericardial effusion. MMode/2D Measurements & Calculations LVIDd: 3.9 cm IVSd: 1.5 cm Ao root diam: 3.5 cm LVIDs: 3.0 cm LVPWd: 1.1 cm LA dimension: 3.5 cm FS: 21.8 % LAV(MOD-bp): 37.9 ml LVAd ap4: 40.5 cm2 SV(MOD-sp4): 37.5 ml LAV(MOD-bp) Indexed: 17.6 ml/m2 EDV(MOD-sp4): 126.7 ml LAV(MOD-sp2): 33.5 ml EDV(sp4-el): 132.6 ml LAV(MOD-sp4): 35.6 ml LVAs ap4: 31.0 cm2 ESV(MOD-sp4): 89.2 ml ESV(sp4-el): 89.2 ml EF(MOD-sp4): 29.6 % EF(sp4-el): 32.7 % SV(sp4-el): 43.3 ml LA A4 area: 15.4 cm2 RA A4 area: 10.5 cm2 Time Measurements MV dec time: 0.30 sec Doppler Measurements & Calculations MV E max jamshid: 41.5 cm/sec Lat Peak E' Jamshid: 10.8 cm/sec Med Peak E' Jamshid: 7.6 cm/sec MV A max jamshid: 66.1 cm/sec E/E' lat: 3.9 E/E' med: 5.5 MV E/A: 0.63 MV V2 max: 86.7 cm/sec MV P1/2t max jamshid: 56.3 cm/sec Ao V2 max: 104.6 cm/sec MV max P.0 mmHg MV P1/2t: 77.0 msec Ao max P.4 mmHg MV V2 mean: 45.8 cm/sec MV mean P.98 mmHg MV dec slope: 214.1 cm/sec2 MV V2 VTI: 15.1 cm MVA(P1/2t): 2.9 cm2 LV V1 max: 87.6 cm/sec PA V2 max: 110.7 cm/sec LV V1 max P.1 mmHg Interpretation Summary Mild to moderate global left ventricular systolic dysfunction. The estimated ejection fraction is 40 %. Trivial mitral valve insufficiency. Trivial tricuspid valve insufficiency. Transmitral doppler flow suggestive of impaired relaxation of left ventricle Ordering Physician: Yassine Katz Referring Physician: Yassine Katz Performed By: Nithin Gonzalez RCS
--- NOTE | 2019-02-18 10:59 | STRESSREP_ITS ---
Stress Test Report Date: Procedure: Exercise tolerance test/imaging study Indications: Chest pain; dyspnea on exertion Consent: Per the patient Procedure: The patient exercised on a Seth protocol for 3 minutes completing Stage I achieving a peak heart rate of 131 bpm (79 % predicted maximal heart rate) with a peak blood pressure 152/90 mmHg and a peak MET capacity of 4 METs. The baseline ECG demonstrated normal sinus rhythm. The peak exercise ECG demonstrated no obvious ECG changes at the heart rate achieved. There were no cardiac dysrhythmias pretest, during exercise, or recovery. The functional capacity was considered decreased. There was no complaint of chest discomfort during exercise or recovery. The examination was discontinued secondary to dyspnea. Impression: 1. Technically adequate (percent predicted maximal heart rate greater than 85%) exercise tolerance test 2. Peak exercise ECG with no obvious ECG changes at the heart rate achieved 3. There were no cardiac dysrhythmias pretest, during exercise, or recovery 4. Pharmacologic (Regadenoson) evaluation pending Procedure: Pharmacologic stress nuclear imaging study Consent: Per the patient Procedure: The patient underwent pharmacologic (Regadenoson) evaluation with a peak heart rate of 113 beats per minute (68 %predicted maximal heart rate) and a peak blood pressure of 138/80 mmHg. The baseline ECG demonstrated normal sinus rhythm. The peak pharmacologic ECG demonstrated no obvious ECG changes. There were no cardiac dysrhythmias pretest, during pharmacologic infusion, or recovery. There was no complaint of chest discomfort during pharmacologic infusion or recovery. The examination was discontinued secondary to completion of protocol. Impression: 1. Pharmacologic (Regadenoson) evaluation 2. Peak pharmacologic ECG with no obvious ECG changes. 3. There were no cardiac dysrhythmias pretest, during pharmacologic infusion, or recovery. 4. Nuclear images pending Myocardial perfusion imaging study: Technique: The patient was injected with 11.9 millicuries of technetium 99m Cardiolite and subsequently rest SPECT Cardiolite nuclear imaging was obtained in the horizontal long, vertical long, and short axis views. The patient exercised on a Seth protocol for 3 minutes completing Stage I achieving a peak heart rate of 131 bpm (79 % predicted maximal heart rate) with a peak blood pressure 152/90 mmHg and a peak MET capacity of 4 METs. The patient underwent pharmacologic (Regadenoson) evaluation with a peak heart rate of 113 beats per minute (68 %predicted maximal heart rate) and a peak blood pressure of 138/80 mmHg. The patient was injected with 36 millicuries of technetium 99m Cardiolite and subsequently stress SPECT Cardiolite nuclear imaging was obtained in the horizontal long, vertical long, and short axis views. A gated Cardiolite study at peak stress was obtained. Interpretation: Rest and stress SPECT Cardiolite nuclear imaging status post realignment and normalization correction demonstrate during raw image evaluation the possibility of underlying body motion and subsequently the notation at both rest and stress an area of diminished tracer uptake in portions of the basal inferior segments which at rest appear to proceed into the mid to distal inferior segments but following stress appear to be less prominent and/or normalized. However following stress there appears to be somewhat more prominent diminished tracer uptake in portions of the basal to mid inferolateral segments. There is diminished and systolic thickening and brightening in areas of the inferior and inferolateral segments. The gated Cardiolite study demonstrates somewhat diminished myocardial thickening and inward wall motion globally. The reported LVEF is 37 %. Impression: 1. Rest and stress SPECT cardiac nuclear imaging demonstrate myocardial perfusion changes appearing concerning for an element of possible body motion during image acquisition as well as possible shifting soft tissue attenuation/artifact being more prominent at rest as opposed to stress. Of note, an area of stress-induced myocardial ischemia involving portions of the basal towards mid inferolateral segments cannot necessarily be excluded. 2. The gated Cardiolite study suggests a somewhat globally diminished myocardial thickening and inward wall motion and reports an LVEF of 37 %. This note was generated with [employer] software. It may contain incorrect words, spelling, and punctuation that were not noted in checking the note before signing.
[2019-02-18] MEDS: hydroCHLOROthiazide 12.5mg 12.5 MG PO (11:18)
[2019-02-18] MEDS: Metoprolol(XL)Succ 25 MG Tablet PO (11:18)
--- NOTE | 2019-02-18 12:34 | RAD_ITS ---
STUDY: X-RAY - LUMBAR SPINE REASON FOR EXAM: Male, 58 years old. Back pain TECHNIQUE: 3 view(s) of the lumbar spine were obtained. COMPARISON: None FINDINGS: There is straightening of the normal lumbar lordosis. There is no substantial scoliosis. There is a normal alignment of the vertebrae. Normal vertebral bodies and endplates. There is mild L4-L5 degenerative disc disease. The soft tissue structures are unremarkable. RAD/Lumbar Spine 2 or 3 Views IMPRESSION: Straightening of the lumbar lordosis. Mild degenerative disc disease. Electronically Signed: Kristy Cordova, at 13:31 EDT Tel , Service support ,
[2019-02-18] MEDS: 0.9% NaCl Peripheral Flush Adult/Peds IV ×3 (12:37→23:47)
[2019-02-18] MEDS: Morphine 4 MG/ML Syringe IV ×3 (12:37→23:48)
--- NOTE | 2019-02-18 16:43 | PCM.PROGNOTE ---
Patient Problems: Active and Suspected Problems History of hypertension (Acute) History of hypercholesterolemia (Acute) Central chest pain (Acute) Right flank discomfort (Acute) Subjective: Patient was seen and examined today, he continues to complain of right lower flank pain along with right lower back pain area. I did an x-ray of his lumbar spine which showed mild degenerative changes, patient's UA was unremarkable. Patient had a pharmacological nuclear stress test today that could not exclude ischemia, there was noted be a decreased ejection fraction and the patient had an echocardiogram which showed an EF of 40%. Cardiology told me that the patient inform them that he was told in the past he had a bad heart. I talked to the patient about treatment options and told him that he could be discharged and follow-up as an outpatient to get a cardiac catheterization or he could stay in the hospital until Wednesday and undergo cath at that time. Patient opted to stay in the hospital and undergo the cardiac catheterization on Wednesday. I will consult cardiology to see the patient tomorrow. - Physical Exam General: Alert, Oriented x3, Cooperative, No apparent distress, Well developed HEENT: Atraumatic, PERRLA, EOMI, Normocephalic Oral: Moist Mucosa Neck: Supple, No Nuchal Rigidity, Trachea Midline, Thyroid Normal Size and Texture Lungs: Clear to auscultation, Normal air movement, No rhonchi, No wheeze, No rales Cardiovascular: Regular rate, Regular Rhythm, Normal S1, Normal S2, No murmurs, No Ectopic Activity Abdomen: Bowel Sounds Present, Soft, Non Tender, Non-Distended Extremities: No clubbing, No cyanosis, No edema, Capillary Refill Less than 3 Seconds Skin: No rashes, No breakdown Musculoskeletal: Tenderness - There is tenderness to palpation noted in the paravertebral area of the lumbar spine on the right Neurological: Cranial nerves II-XII grossly intact, Neuro grossly intact Psych/Mental Status: Normal Affect, Appropriate, Alert and oriented to time, place, person, mood and affect Vital Signs Temp Pulse Resp BP Pulse Ox 97.8 F 106 H 18 134/87 H 97 02/18/19 11:16 02/18/19 15:33 02/18/19 11:16 02/18/19 12:39 02/18/19 11:16 Oxygen Flow Rate (L/min) 2 Oxygen Delivery Method Room Air Weight: 95.708 kg Body Mass Index (BMI) 29.4 Intake and Output for Last 24 Hours 02/16/19 02/17/19 02/18/19 23:59 23:59 23:59 Intake Total 1197 / 1197 150 / 150 Balance 1197 / 1197 150 / 150 Laboratory Tests Past 24 Hrs 02/17/19 02/17/19 02/18/19 17:05 21:55 05:13 WBC 7.8 RBC 5.03 Hgb 15.9 Hct 46.0 MCV 91.5 MCH 31.6 MCHC 34.6 RDW 12.9 RDW Differential 42.5 Plt Count 227 MPV 11.3 Immature Gran % (Auto) 0.300 Neut % (Auto) 62.4 Lymph % (Auto) 24.0 [place] % (Auto) 9.7 Eos % (Auto) 2.8 Baso % (Auto) 0.8 Absolute Neuts (auto) 4.9 Absolute Lymphs (auto) 1.86 Total Counted Not Reportable PT INR APTT Sodium Potassium Chloride Carbon Dioxide Anion Gap BUN Creatinine Estim Creat Clear Calc Est GFR (MDRD) Af Amer Est GFR (MDRD) Non-Af BUN/Creatinine Ratio Glucose Calcium Troponin I < 0.015 Urine Color Yellow Urine Clarity Clear Urine pH 6.5 Ur Specific [place] 1.010 Urine Protein Negative Urine Glucose (UA) Normal Urine Ketones Negative Urine Occult Blood Negative Urine Nitrite Negative Urine Bilirubin Negative Urine Urobilinogen Normal Ur Leukocyte Esterase Negative Urine RBC 0 SEEN Urine WBC 0 SEEN Ur Squamous Epith Cells 0-5 SEEN Urine Bacteria 0 SEEN Urine Mucus 0 SEEN 02/18/19 02/18/19 05:13 05:13 WBC RBC Hgb Hct MCV MCH MCHC RDW RDW Differential Plt Count MPV Immature Gran % (Auto) Neut % (Auto) Lymph % (Auto) [place] % (Auto) Eos % (Auto) Baso % (Auto) Absolute Neuts (auto) Absolute Lymphs (auto) Total Counted PT 13.1 INR 1.0 APTT 33.5 Sodium 138 Potassium 4.3 Chloride 108 H Carbon Dioxide 23.0 Anion Gap 7 BUN 20 H Creatinine 0.91 Estim Creat Clear Calc 96.54 Est GFR (MDRD) Af Amer 111 Est GFR (MDRD) Non-Af 92 BUN/Creatinine Ratio 22.0 H Glucose 111 H Calcium 8.4 L Troponin I Urine Color Urine Clarity Urine pH Ur Specific [place] Urine Protein Urine Glucose (UA) Urine Ketones Urine Occult Blood Urine Nitrite Urine Bilirubin Urine Urobilinogen Ur Leukocyte Esterase Urine RBC Urine WBC Ur Squamous Epith Cells Urine Bacteria Urine Mucus Medical Necessity - Tobacco Use Smoking Status: Former smoker Tobacco Use: Non-smoker Assessment/Plan All Active Problems History of hypertension (Acute) History of hypercholesterolemia (Acute) Central chest pain (Acute) Right flank discomfort (Acute) #1 precordial chest pressure-etiology unclear, patient stress test is indeterminate, he will need to undergo a cardiac catheterization on Wednesday #2 right flank/right lower back pain-probably musculoskeletal in nature, will continue to monitor his discomfort #3 hypertension #4 hyperlipidemia #5 cardiomyopathy-etiology unclear at this point, patient will be placed on a beta-robbie and RYNE inhibitor, I will also place patient on a statin, Plavix, and an aspirin Code Visit OBSV E&M: 21079 Subsequent observation care L3
--- NOTE | 2019-02-18 16:52 | CT_ITS ---
STUDY: CT ABDOMEN AND PELVIS WITHOUT CONTRAST REASON FOR EXAM: Male, 58 years old. Right flank and back pain RADIATION DOSAGE (If Supplied By Facility): CTDIvol = ( 11.90 ) mGy, DLP = ( 624.53 ) mGycm TECHNIQUE: Transaxial images were obtained from the dome of the diaphragm to the symphysis pubis without oral contrast, and without intravenous contrast. Sagittal and coronal images were reconstructed. Individualized dose optimization techniques were used for this CT. COMPARISON: None. FINDINGS: The visualized lung bases are unremarkable. The visualized portions of the heart are within normal limits. Normal liver. Normal gallbladder and extrahepatic biliary system. Normal spleen. Normal pancreas. Normal bilateral adrenal glands. Normal right kidney. Normal left kidney. Normal visualized stomach. Normal small intestine. There are multiple colonic diverticula consistent with diverticulosis. There is moderate fecal retention throughout the colon. No pericolonic stranding. The appendix is visualized and appears normal. Normal abdominal aorta. Normal inferior vena cava. Normal retroperitoneum. Normal urinary bladder. Prostate is mildly enlarged. Prostate calcifications are present. There is a small umbilical hernia containing fat. Anterior spondylosis and degenerative disc narrowing at multiple levels, most conspicuous at L4-L5 with discogenic sclerosis of the adjacent endplates. CT/Abdomen/Pelvis without Cont IMPRESSION: 1. No hydronephrosis or urinary tract calcifications. Electronically Signed: Charly Marina MD at 17:30 EDT , Service support ,
[2019-02-18] MEDS: Clopidogrel Bisulfate 300 MG Tablet PO (19:14)
[2019-02-18] MEDS: Lisinopril 5 MG Tablet PO (19:14)
[2019-02-18] MEDS: Magnesium Citrate 300 ML 150 ML PO (19:25)
[2019-02-18] MEDS: Atorvastatin Calcium 40 MG Tablet PO (21:59)
[2019-02-18] MEDS: Carvedilol 6.25 MG Tablet PO (21:59)
[2019-02-19] VITALS (11 sets, daily range): BP systolic 100–137; BP diastolic 54–77; PULSE 73–105; RESP 16–18; TEMP 36.4–36.6; O2SAT 96–99
--- NOTE | 2019-02-19 03:26 | NURSING ---
This RN has found the patients heart monitor off two times tonight. Patient states the patch falls off, so he just takes it off. This RN explained to the patient that he needs to leave it on so we can monitor his heart.
[2019-02-19] MEDS: Morphine 4 MG/ML Syringe IV ×2 (03:57→14:43)
[2019-02-19] MEDS: 0.9% NaCl Peripheral Flush Adult/Peds IV ×3 (03:58→14:43)
[2019-02-19] MEDS: Acetaminophen 325 MG Tablet 650 MG PO ×2 (07:44→22:11)
[2019-02-19] MEDS: Aspirin 81 MG TAB.CHEW PO (07:45)
[2019-02-19] MEDS: Morphine 2 MG/ML Syringe IV (09:48)
[2019-02-19] MEDS: Clopidogrel Bisulfate 75 MG Tablet PO (09:52)
[2019-02-19] MEDS: Carvedilol 6.25 MG Tablet PO ×2 (09:52→21:56)
[2019-02-19] MEDS: hydroCHLOROthiazide 12.5mg 12.5 MG PO (09:52)
[2019-02-19] MEDS: Metoprolol(XL)Succ 25 MG Tablet PO (09:53)
[2019-02-19] MEDS: Lisinopril 5 MG Tablet PO (09:53)
--- NOTE | 2019-02-19 10:25 | CON.PCM_ITS ---
Problem List (1) Chest pain Status: Acute Reason for Consult Date of Consultation: 02/19/19 History of Present Illness: The patient is a 58 year old M with past medical history significant for hypertension and dyslipidemia. He also has history of smoking and quit about a year ago. He presented to the emergency room with complaints of anterior chest discomfort. This was perceived as tightness. There was radiation to the right arm shoulder and right side of the neck. Intermittent. [place] to the patient, it would last 10-15 minutes at a time to relieve on its own and then recur. Recently asymptomatic. Positive associated shortness of breath. No diaphoresis. Denies any relationship to activity. Per patient, for the last 3 months, he has been feeling increasingly short of breath with exertion. Denies any orthopnea. Occasional PND. According to him, it feels like as if he stops breathing at night and then wakes up. Patient has had an echocardiogram done. It shows mild global hypokinesis with a left ventricular systolic ejection fraction of around 40%. A pharmacological stress test was also performed. It is reported as not being able to exclude inferolateral ischemia. Upon presentation, patient also complained of right lower back/flank pain. Workup for that has been negative so far. [] Past Medical History Allergies/Adverse Reactions: Allergies No Known Allergies Allergy (Verified 02/17/19 10:10) Home Medications: Ambulatory Orders Medication Instructions Recorded Aspirin 81 mg PO DAILY 02/17/19 Atorvastatin Calcium 40 mg PO QHS 02/17/19 Hydrochlorothiazide 12.5 mg PO DAILY 02/17/19 Metoprolol Succinate [Toprol Xl] 25 mg PO DAILY 02/17/19 Surgical History: no surgical history Psychiatric History: No pertinent psych hx - *Family History Maternal History Items: Diabetes, Unknown Lives: Alone Smoking Status: Former smoker Tobacco Use: Non-smoker Alcohol: Rare Drugs: None Review of Systems - Review of Systems General: Denies: Fever, Chills, Night Sweats HEENT: Denies: Head Aches Cardiovascular: Reports: Chest Discomfort at Rest, Chest Pressure, Chest Tightness, Shortness of Breath with Exertion, PND. Denies: Orthopnea, Peripheral Edema, Palpitations, Near Syncope, Syncope Respiratory: Reports: Shortness of Breath. Denies: Hemoptysis, Wheezing Gastrointestinal: Denies: Abdominal Discomfort, Jaundice, Nausea, Hematemesis, Hematochezia, Melena Neurological: Denies: History of TIA, History of CVA Endocrine: Denies: Heat Intolerance, Cold Intolerance Hematologic/ Lymphatic: Denies: Easy Brusing, Easy Bleeding Subjectve: Appears comfortable. No distress. Objective: Vital Signs Temp Pulse Resp BP Pulse Ox 97.8 F 88 18 123/77 H 97 02/19/19 09:47 02/19/19 09:53 02/19/19 09:47 02/19/19 09:47 02/19/19 09:47 Oxygen Flow Rate (L/min) 2 Oxygen Delivery Method Room Air Weight: 95.708 kg Body Mass Index (BMI) 29.4 Intake and Output for Last 24 Hours 02/17/19 02/18/19 02/19/19 23:59 23:59 23:59 Intake Total 1197 / 1197 1120 / 1120 240 / 240 Balance 1197 / 1197 1120 / 1120 240 / 240 General: Healthy Appearing, Awake, Alert, Oriented x 3, Cooperative, No Acute Distress HEENT: Atraumatic, Normocephalic Oral: Moist Mucosa Neck: Supple, No JVD Lungs: Clear to auscultation Cardiovascular: Regular Rhythm, Normal S1, Normal S2 Abdomen: Bowel Sounds Present, Soft Extremities: No edema Neurological: No Focal Motor or Sensory Deficit Psych/Mental Status: Appropriate Rhythm: Normal sinus rhythm EKG: Normal sinus rhythm. No ischemic changes ECHO: Stress Test: Cardiac Cath: PCI: CT Surgery: Holter monitor: EPS: PPM: CXR: Chest CT Scan: Assessment/Plan 1. Intermittent chest discomfort, radiating to the right neck, shoulder and right arm. Stress test with possibility of inferolateral ischemia. Consider angina pectoris. Advised cardiac catheterization with coronary angiography and possible revascularization. Risks benefits and alternatives explained. He understands these and wishes to proceed. Agree with antiplatelet therapy, beta blockers. Add nitrates. 2. Cardiomyopathy. Functional class II. Continue beta-blockers and RYNE inhibitor. For cardiac catheterization as noted above. 3. Hypertension. 4. Dyslipidemia. 5. Consider workup for sleep apnea. Follow as per internal medicine 6. Lower flank/back pain. Manage as per internal medicine
[2019-02-19] MEDS: Nitroglycerin Oint 1 INCH PACKET TRANSDERM. ×2 (12:51→21:56)
--- NOTE | 2019-02-19 19:30 | PCM.PROGNOTE ---
Patient Problems: Active and Suspected Problems History of hypertension (Acute) History of hypercholesterolemia (Acute) Central chest pain (Acute) Right flank discomfort (Acute) Chest pain (Acute) Subjective: Patient was seen and examined today, he did not complain of any chest pain or shortness of breath. Patient does continue to have some discomfort in his right lower back and flank area, CAT scan done yesterday did not show any pathology to account for this-he does have some mild arthritis in his lower back, it may be that he has musculoskeletal lower back pain. - Physical Exam General: Alert, Oriented x3, Cooperative, No apparent distress, Well developed HEENT: Atraumatic, PERRLA, EOMI, Normocephalic Oral: Moist Mucosa Neck: Supple, No JVD, Trachea Midline, Thyroid Normal Size and Texture Lungs: Clear to auscultation, Normal air movement, No rhonchi, No wheeze, No rales Cardiovascular: Regular rate, Regular Rhythm, Normal S1, Normal S2, No murmurs, No Ectopic Activity, PMI Normal, No rub noted, No Gallop Abdomen: Bowel Sounds Present, Soft, Non Tender, Non-Distended, No hernias noted Extremities: No clubbing, No cyanosis, No edema, Capillary Refill Less than 3 Seconds Skin: No rashes, No breakdown Musculoskeletal: No Tenderness to Palpation of Joints or Extremities Neurological: Cranial nerves II-XII grossly intact, Neuro grossly intact, Sensory exam intact to light touch and pain, Coordination normal Psych/Mental Status: Normal Affect, Appropriate, Alert and oriented to time, place, person, mood and affect Vital Signs Temp Pulse Resp BP Pulse Ox 97.5 F L 82 16 100/54 L 99 02/19/19 18:29 02/19/19 18:29 02/19/19 18:29 02/19/19 18:29 02/19/19 18:29 Oxygen Flow Rate (L/min) 2 Oxygen Delivery Method Room Air Weight: 95.708 kg Body Mass Index (BMI) 29.4 Intake and Output for Last 24 Hours 02/17/19 02/18/19 02/19/19 23:59 23:59 23:59 Intake Total 1197 / 1197 1120 / 1120 1790 / 1790 Balance 1197 / 1197 1120 / 1120 1790 / 1790 Medical Necessity - Tobacco Use Smoking Status: Former smoker Tobacco Use: Non-smoker Assessment/Plan All Active Problems History of hypertension (Acute) History of hypercholesterolemia (Acute) Central chest pain (Acute) Right flank discomfort (Acute) Chest pain (Acute) #1 precordial chest pressure-etiology unclear, patient stress test is indeterminate, he will need to undergo a cardiac catheterization tomorrow #2 right flank/right lower back pain-probably musculoskeletal in nature #3 hypertension #4 hyperlipidemia #5 cardiomyopathy-etiology unclear at this point, continue present medications Code Visit OBSV E&M: 20051 Subsequent observation care L3
[2019-02-19] MEDS: Atorvastatin Calcium 40 MG Tablet PO (21:56)
[2019-02-20] VITALS (12 sets, daily range): BP systolic 107–137; BP diastolic 63–82; PULSE 75–98; RESP 16–18; TEMP 36.5–36.9; O2SAT 95–98
[2019-02-20 05:46] LABS: Prothrombin Time (Protime)PT. 13.2 SECONDS (11.7-14.9)
[2019-02-20 05:47] LABS: Partial Thromboplast Time 33.3 Seconds (24.1-36.2)
[2019-02-20] MEDS: 0.9% Normal Saline 1,000 ML 15 ML IV (05:54)
--- NOTE | 2019-02-20 05:55 | EKG12_ITS ---
Test Reason : AM EKG Blood Pressure : / mmHG Vent. Rate : 073 BPM Atrial Rate : 073 BPM P-R Int : 166 ms QRS Dur : 094 ms QT Int : 398 ms P-R-T Axes : 059 014 051 degrees QTc Int : 438 ms Normal sinus rhythm Normal ECG When compared with ECG of 18-FEB-2019 05:01, MANUAL COMPARISON REQUIRED, DATA IS UNCONFIRMED Confirmed by JAMES GAYTAN ([id number]), publication editor SRAVANTHI FLORES ([id number]) on 02/23/2019 11:10:04 AM Referred By: Yassine Katz Confirmed By:JAMES GAYTAN
[2019-02-20 05:56] LABS: Hematocrit 44.6 % (40-54); Hemoglobin 15.6 g/dl (13.0-16.5); Mean Corpuscular Hgb 32.3 pg (27.0-32.0); Mean Corpuscular Volume 92.3 fL (80-94); Mean Platelet Vol. 10.5 fl (6.2-12.0); Platelet Count 220 K/mm3 (150-450); RBC Distribution Width CV 12.8 % (11.6-14.6); RBC Distribution Width SD 42.9 fl (35.1-43.9); Red Blood Count 4.83 M/mm3 (4.6-6.2); White Blood Count 6.2 K/mm3 (4.4-11.0)
[2019-02-20] MEDS: Aspirin 81 MG TAB.CHEW PO (05:56)
[2019-02-20] MEDS: Carvedilol 6.25 MG Tablet PO (05:56)
[2019-02-20] MEDS: Metoprolol(XL)Succ 25 MG Tablet PO (05:56)
[2019-02-20] MEDS: Clopidogrel Bisulfate 75 MG Tablet PO (05:56)
[2019-02-20] MEDS: Morphine 2 MG/ML Syringe IV ×3 (05:57→11:43)
[2019-02-20] MEDS: Lisinopril 5 MG Tablet PO (05:57)
[2019-02-20] MEDS: 0.9% NaCl Peripheral Flush Adult/Peds IV ×2 (05:58→06:07)
[2019-02-20 06:01] LABS: Anion Gap 5 (5-15); BUN 20 mg/dL (7-18); BUN/Creat Ratio 20.9 RATIO (10-20); Calcium,Total 8.8 mg/dL (8.5-10.1); Chloride 109 mmol/L (98-107); Creatinine, Serum 0.96 mg/dL (0.70-1.30); EST Glomerular Filtration Rate 86 mL/min (>60); Est Glom Filt Rate - Afr Amer 105 mL/min (>60); Estimated Creatinine Clearance 91.51 ml/min; Glucose 108 mg/dL (74-106); Potassium 4.3 mmol/L (3.5-5.1); Sodium Level 139 mmol/L (136-145)
[2019-02-20 06:15] LABS: Scan Indicated on CBC? Y/N NO
--- NOTE | 2019-02-20 08:52 | CASEMGMT ---
According to the [facility] website, the following are in-network tertiary facilities: [facility], [facility], [place], [facility], [facility], [facility], [place], [facility], and . [place] JOSEPH CM
[2019-02-20] MEDS: hydroCHLOROthiazide 12.5mg 12.5 MG PO (10:25)
--- NOTE | 2019-02-20 11:16 | PCM.DC ---
- Discharge Diagnoses Current Active Problems: Current Active and Chronic Problems History of hypertension (Acute) History of hypercholesterolemia (Acute) Central chest pain (Acute) Right flank discomfort (Acute) Chest pain (Acute) You will use the following diet at home:: Cardiac Allergies/Adverse Reactions: Allergies No Known Allergies Allergy (Verified 02/17/19 10:10) Medications to take at Discharge Aspirin 81 mg PO DAILY 02/17/19 Atorvastatin Calcium 40 mg PO QHS 02/17/19 Hydrochlorothiazide 12.5 mg PO DAILY 02/17/19 Metoprolol Succinate [Toprol Xl] 25 mg PO DAILY 02/17/19 Clopidogrel Bisulfate [Plavix] 75 mg PO DAILY #60 tablet 02/20/19 Lisinopril [Zestril] 5 mg PO DAILY #60 tablet 02/20/19 The following prescriptions were given: Clopidogrel Bisulfate [Plavix] 75 mg PO DAILY #60 tablet Lisinopril [Zestril] 5 mg PO DAILY #60 tablet Primary Care Physician: Care Physician,No Primary [Primary Care Provider] - Please follow up with your Primary Care Physician in: in 1-2 weeks Test Results: Test results from this visit will be discussed in further detail at your follow-up appointment, if applicable. Proposed Discharge Date: 02/20/19
--- NOTE | 2019-02-20 11:21 | DCINST_ITS ---
- Discharge Diagnoses Current Active Problems: Current Active and Chronic Problems History of hypertension (Acute) History of hypercholesterolemia (Acute) Central chest pain (Acute) Right flank discomfort (Acute) Chest pain (Acute) You will use the following diet at home:: Cardiac Allergies/Adverse Reactions: Allergies No Known Allergies Allergy (Verified 02/17/19 10:10) Medications to take at Discharge Aspirin 81 mg PO DAILY 02/17/19 Atorvastatin Calcium 40 mg PO QHS 02/17/19 Hydrochlorothiazide 12.5 mg PO DAILY 02/17/19 Metoprolol Succinate [Toprol Xl] 25 mg PO DAILY 02/17/19 Clopidogrel Bisulfate [Plavix] 75 mg PO DAILY #60 tablet 02/20/19 Lisinopril [Zestril] 5 mg PO DAILY #60 tablet 02/20/19 The following prescriptions were given: Clopidogrel Bisulfate [Plavix] 75 mg PO DAILY #60 tablet Lisinopril [Zestril] 5 mg PO DAILY #60 tablet Primary Care Physician: Care Physician,No Primary [Primary Care Provider] - Please follow up with your Primary Care Physician in: in 1-2 weeks Test Results: Test results from this visit will be discussed in further detail at your follow- up appointment, if applicable. Proposed Discharge Date: 02/20/19
--- NOTE | 2019-02-20 11:25 | PCM.DC.SUM ---
Discharge Date and Diagnosis - Problem List Patient Problems: Active and Suspected Problems History of hypertension (Acute) History of hypercholesterolemia (Acute) Central chest pain (Acute) Right flank discomfort (Acute) Chest pain (Acute) Date of Admission: 02/17/19 Date of Discharge: 02/20/19 - Primary Discharge Diagnosis Active and Suspected Problems History of hypertension (Acute) History of hypercholesterolemia (Acute) Central chest pain (Acute) Right flank discomfort (Acute) Chest pain (Acute) Hospital Course and Treatment Summary of Care Provided: The patient is a 58 year old M admitted with chest pain 1. Chest pain patient was placed on a monitored bed [place] was ruled out with serial cardiac enzymes underwent a nuclear stress test which was read as indeterminate consult subsequently placed to cardiology patient underwent left heart catheterization performed on 02/20/2019 which demonstrated only mild CAD cardiology recommended optimization of medical therapy 2. Hypertension-blood pressure controlled, home medications continued with dose adjustment as needed 3. Dyslipidemia-patient is on statin therapy, continued at home dose 4. Cardiomyopathy with an ejection fraction of 40% patient was discharged home on RYNE inhibitors Patient Problems: Active and Suspected Problems History of hypertension (Acute) History of hypercholesterolemia (Acute) Central chest pain (Acute) Right flank discomfort (Acute) Chest pain (Acute) - Physical Exam General: Alert Neck: Supple Lungs: Clear to auscultation Extremities: No clubbing Neurological: Neuro grossly intact Psych/Mental Status: Normal Affect Vital Signs Temp Pulse Resp BP Pulse Ox 97.7 F L 89 18 131/78 H 96 02/20/19 05:51 02/20/19 10:44 02/20/19 10:44 02/20/19 10:44 02/20/19 10:44 Oxygen Flow Rate (L/min) 2 Oxygen Delivery Method Room Air Weight: 95.708 kg Body Mass Index (BMI) 29.4 Intake and Output for Last 24 Hours 02/18/19 02/19/19 02/20/19 23:59 23:59 23:59 Intake Total 1120 / 1120 1790 / 1790 520 / 520 Balance 1120 / 1120 1790 / 1790 520 / 520 Laboratory Tests Past 24 Hrs 02/20/19 02/20/19 02/20/19 05:05 05:05 05:05 WBC 6.2 RBC 4.83 Hgb 15.6 Hct 44.6 MCV 92.3 MCH 32.3 H MCHC 35.0 RDW 12.8 RDW Differential 42.9 Plt Count 220 MPV 10.5 PT 13.2 INR 1.0 APTT 33.3 Sodium 139 Potassium 4.3 Chloride 109 H Carbon Dioxide 25.0 Anion Gap 5 BUN 20 H Creatinine 0.96 Estim Creat Clear Calc 91.51 Est GFR (MDRD) Af Amer 105 Est GFR (MDRD) Non-Af 86 BUN/Creatinine Ratio 20.9 H Glucose 108 H Calcium 8.8 Discharge Diet: No Restrictions Home Medications: Medications to take at Discharge Aspirin 81 mg PO DAILY 02/17/19 Atorvastatin Calcium 40 mg PO QHS 02/17/19 Hydrochlorothiazide 12.5 mg PO DAILY 02/17/19 Metoprolol Succinate [Toprol Xl] 25 mg PO DAILY 02/17/19 Clopidogrel Bisulfate [Plavix] 75 mg PO DAILY #60 tablet 02/20/19 Lisinopril [Zestril] 5 mg PO DAILY #60 tablet 02/20/19 Following Prescrptions Were Given to Patient: Clopidogrel Bisulfate [Plavix] 75 mg PO DAILY #60 tablet Lisinopril [Zestril] 5 mg PO DAILY #60 tablet Primary Care Physician: Care Physician,No Primary [Primary Care Provider] - Please follow up with your Primary Care Physician in: in 1-2 weeks Disposition: Home Minutes spent on discharge:: 35 Patient Condition:: Stable Medical Necessity - Tobacco Use Smoking Status: Former smoker Tobacco Use: Non-smoker Meaningful Use Info Meaningful Use Diagnoses (Choose all that apply): None applicable Code Visit Inpatient E&M: 99283 Disch Hosp
--- NOTE | 2019-02-20 11:55 | PHA.DC.MC ---
Pharmacy Service has performed discharge medication reconciliation and counseling for this patient. The patient's discharge medication list was reviewed for discrepancies and discrepancies were resolved. The patient was counseled on the following discharge medications and changes in medications for homegoing were reviewed. 1. PLAVIX 2. LISINOPRIL The Reason for Use, instructions for use, and potential side effects were reviewed for all new medications. The patient's questions regarding all of their medications were answered. The patient was able to verbally demonstrate an understanding of their discharge medications. Home Medications Aspirin 81 mg PO DAILY 02/17/19 Atorvastatin Calcium 40 mg PO QHS 02/17/19 Hydrochlorothiazide 12.5 mg PO DAILY 02/17/19 Metoprolol Succinate [Toprol Xl] 25 mg PO DAILY 02/17/19 Clopidogrel Bisulfate [Plavix] 75 mg PO DAILY #60 tablet 02/20/19 Lisinopril [Zestril] 5 mg PO DAILY #60 tablet 02/20/19
--- NOTE | 2019-02-20 13:00 | NURSING ---
dressing on right wrist CDI
[2019-02-20 14:45] LABS: Thyroid Stim Hormone (TSH) 1.13 uIU/mL (0.358-3.74)
--- NOTE | 2019-04-05 14:55 | CL.D_ITS ---
Patient Name: SOLOMON JAIME Study Date: 02/20/2019 Performing: Thor Wyatt MD Ht: 71 inches 180 cm : 1960 Wt: 211.9 lbs 96 kg Age: 58 Gender: male BSA: 2.16 PROCEDURE(S) PERFORMED PO95-YEV/COR/LV CLINICAL PROFILE AND INDICATIONS Indications: Suspected CAD Heart Failure: None Stress/Imaging Stress Test w/SPECT MPI: Yes Result: Positive Intermediate RiskStress Test with SP ECT MPI: Positive Intermediate Risk CAD Presentations: Unstable angina. CONCLUSIONS Mild CAD EF is 50-55% No significant or MR Mild CAD EF is 50-55% No significant or MR RECOMMENDATIONS Risk factor management and medical therapy. DESCRIPTION OF PROCEDURE The patient arrived to the procedure lab. The risks and benefits of the procedure as well as a full d escription of our services here and current unavailability of surgical backup were fully explained to the patient and/or their significant other prior to the catheterization. The Timeout was completed, verifying the correct patient and procedure. The patient's procedural site was prepped and draped in the usual fashion. Local anesthetic was given subcutaneously to right radial region with Lidocaine 2% . Using a modified Seldinger technique, arterial access was obtained via the right radial artery, a 6 Fr sheath was inserted. Left Coronary Artery selective angiography was performed in multiple views u sing a 5 Fr. JL3.5 catheter. Left Ventriculography was performed in CARLOS projection using a 5 Fr. JR4. LV to AO pullback pressures were then recorded. Right Coronary Artery selective angiography was then performed in multiple views using a 5 Fr. JR 4 catheter.The arterial sheath was pulled and a TR Band was applied for hemostasis CORONARY ANGIOGRAPHY DOMINANCE: Right Dominant LEFT HEART ASSESSMENT Left Ventricular Ejection Fraction: by LV Gram 50-55 % Normal Left Ventricular systolic function LEFT MAIN: Mild luminal irregularities LEFT ANTERIOR DECENDING ARTERY: Mild luminal irregularities CIRCUMFLEX ARTERY: Mild luminal irregularities RIGHT CORONARY ARTERY: Mild luminal irregularities VALVE FINDINGS: No Aortic Valve Stenosis No Mitral Insufficency COMPLICATIONS No Complications PROCEDURE MEDICATIONS Fentanyl 50 mcg IV Versed 1 mg IV Oxygen: 2 L/min via nasal cannula Heparin given IA 02/20/2019 09:32:02 Verapamil 2.5mg, Ntg 100mcgs, 2000 units of Heparin given IA 02/20/2019 09:32:02 SUMMARY OF HEMODYNAMIC DATA Time AIR REST ECG 09:09:12 LV 107/4, 11 09:36:15 LV 108/4, 11 09:36:18 LVp 104/2, 9 09:36:30 AOp 100/64 (81) 09:36:35 AO 106/74 (89) SA 09:37:00 Signed By Thor Wyatt MD On 02/20/2019 10:16:34 Thor Wyatt MD
== END 2019-02-20 11:21 | disposition home or self-care (01) ==
LOC: ED 11:22 → PCU 12:12
PROVIDERS: Internal Medicine Cardiovascular Disease; Admitting Provider Internal Medicine; Emergency Provider Emergency Medicine; Referring Provider Internal Medicine; Visit Provider Internal Medicine
DX: R07.89 Other chest pain (principal); R06.09 Other forms of dyspnea; M54.5 Low back pain; E78.5 Hyperlipidemia, unspecified; I08.1 Rheumatic disorders of both mitral and tricuspid valves; I25.10 Atherosclerotic heart disease of native coronary artery without angina pectoris; I11.9 Hypertensive heart disease without heart failure; I43 Cardiomyopathy in diseases classified elsewhere; Z86.718 Personal history of other venous thrombosis and embolism; Z87.891 Personal history of nicotine dependence; Z79.899 Other long term (current) drug therapy; Z79.82 Long term (current) use of aspirin
CPT/HCPCS: 36415; 71045; 72100; 74176; 78452; 80048; 81001; 84443; 84484; 85025; 85027; 85610; 85730; 93005; 93017; 93306; 93458; 96374; 96376; 99152; 99153; 99218; 99285; A9500; J7030; Q9957; Q9967; A4216; C1769; C1894; G0378; J2785

== ENCOUNTER 2019-02-22 12:38 | Emergency (ER) | payer MEDICAID, SELFPAY ==
[2019-02-17 13:00] VITALS: BMI 29.4
[2019-02-22 12:39] VITALS: BP 151/96; PULSE 98; RESP 16; TEMP 36.6; O2SAT 98; BMI 30.2
--- NOTE | 2019-02-22 12:54 | RAD_ITS ---
STUDY: X-RAY - RIGHT FOOT CLINICAL: Lateral foot pain after a pop a few days ago, prior fracture about a year ago. TECHNIQUE: 3 view(s) of the foot. COMPARISON: Radiograph report 12/24/2013. FINDINGS: There is a small plantar calcaneal enthesophyte. Normal visualized subtalar, talonavicular, calcaneocuboid, tarsal and tarsometatarsal articulations. There is a nondisplaced transverse fracture of the proximal fifth metatarsal diaphysis with mild associated periosteal reaction and without osseous bridging. There is chronic healed fracture deformity of the second metatarsal diaphysis. Normal metatarsophalangeal joint of the great toe. There is a bipartite tibial sesamoid. Normal interphalangeal joint of the great toe. Normal phalanges of the great toe. Normal second through fifth metatarsophalangeal joints. Normal interphalangeal joints and phalanges of the lesser toes. The soft tissue structures are unremarkable. RAD/Foot min 3 Views IMPRESSION: Nondisplaced fifth metatarsal proximal diaphyseal fracture with mild periosteal reaction without osseous bridging. Healed fracture of the second metatarsal. Electronically Signed: Mahin Cuba MD at 13:28 EDT Tel , Service support ,
--- NOTE | 2019-02-22 12:57 | ED.DCSUM_ITS ---
- ER Visit Summary Date of Service: 02/22/19 Chief Complaint: Right lateral foot pain History of Present Illness: The patient is a 58 M history of hypertension high cholesterol. Patient states about a year ago in [place] he injured his right foot. He had delayed care and did have evaluated for 2 months. Once he had it evaluated 2 months as the initial injury they have terminated right foot fracture. He was basically placed on postop shoe. Done better he never had any surgery on the foot. But 3 days ago was coming down a step and landed on awkwardly and now is having pain in the right lateral metatarsal region. No other injuries. No fever. Physical Examination: Ill-appearing middle-aged male. Vital signs are stable afebrile. No distress. HEENT exam unremarkable. Lungs clear to auscultation bilaterally. Heart regular rhythm no murmur. Chest nontender. Abdomen soft nontender. He is moving all 4 extremities. Neurovascular intact. Specifically right ankle nontender nonswollen. Normal range of motion. Achilles tendon intact. DP pulse intact. Right lateral foot proximal end of the fifth or small metatarsal is tender and swollen. No gross bony deformity. Otherwise is able to wiggle his toes. Normal cap refill touch sensation. The rest of the bones of the foot are nontender and nonswollen. Test Results: Right foot x-ray 3 views show acute fifth or small toe metatarsal fracture on the proximal end. There is also an old healed fracture of the second metatarsal. I went over the films with the patient. This is read both by myself and the radiologist. Emergency Department Course and Treatment: Orthopedic walking boot. Follow-up with orthopedics. [place] for pain 14 no refill. Ice and Motrin. Treatment Plan: Orthopedic boot. [place] and Motrin. Orthopedic follow-up. Disposition: Discharge Impression: Acute right foot fifth metatarsal proximal and acute fracture This note was generated with [employer] dictation software. It may contain incorrect words, spelling, and punctuation that were not noted in review of the chart prior to signing ED Disposition - Plan for ED Patient: Referrals: Sandor Levin MD [Primary Care Provider] -
--- NOTE | 2019-02-22 14:22 | ED.DEP ---
ED Disposition - Plan for ED Patient: Disposition: Home or Assisted Living Instructions: ED Fx Foot Prescriptions: Hydrocodone Bitart/Apap 5-325 [[place] 5MG-325MG] 1 - 2 tab PO Q4H PRN PRN 7 Days #20 tab PRN Reason: Pain Referrals: Isabella Holland DO [STAFF PHYSICIAN] - As soon as possible Additional Instructions: [place] Motrin for pain. Use walking boot to ambulate. Follow-up with orthopedic doctor.
--- NOTE | 2019-02-22 14:27 | DCINST.ED_ITS ---
ED Disposition - Plan for ED Patient: Disposition: Home or Assisted Living Instructions: ED Fx Foot Prescriptions: Hydrocodone Bitart/Apap 5-325 [Alpha 5MG-325MG] 1 - 2 tab PO Q4H PRN PRN 7 Days #20 tab PRN Reason: Pain Referrals: Isabella Holland DO [STAFF PHYSICIAN] - As soon as possible Additional Instructions: Alpha Motrin for pain. Use walking boot to ambulate. Follow-up with orthopedic doctor.
== END 2019-02-22 14:49 | disposition home or self-care (01) ==
PROVIDERS: Emergency Provider Emergency Medicine; Family Provider Family Medicine; PCP Family Medicine
DX: S92.354A Nondisplaced fracture of fifth metatarsal bone, right foot, initial encounter for closed fracture (principal); X58.XXXA Exposure to other specified factors, initial encounter; Y93.89 Activity, other specified; Y92.9 Unspecified place or not applicable; I10 Essential (primary) hypertension; E78.00 Pure hypercholesterolemia, unspecified; Z79.82 Long term (current) use of aspirin; Z79.01 Long term (current) use of anticoagulants; Z79.899 Other long term (current) drug therapy; Z87.891 Personal history of nicotine dependence
CPT/HCPCS: 73630; 99282

== ENCOUNTER 2019-02-27 14:13 | Emergency (ER) | payer MEDICAID, SELFPAY ==
[2019-02-27 14:17] VITALS: BP 135/79; PULSE 107; RESP 17; TEMP 36.7; O2SAT 98; BMI 31.6
--- NOTE | 2019-02-27 15:34 | ED.DCSUM_ITS ---
- ER Visit Summary Date of Service: 02/27/19 Chief Complaint: Right ear pain and drainage History of Present Illness: The patient is a 58 M who noted right ear pain that started yesterday. He denies any recent URI symptoms. He has had prior surgery on that ear with a tube in place. He was also recently seen for right foot fracture. He is out of his pain medication and states he cannot see Dr. Holland until the . Physical Examination: Vital signs unremarkable. Patient sitting upright in bed no acute distress. Head and neck examination reveals mild fluid buildup behind the right TM. His tympanostomy tube is laying in the canal next to the TM. There is no erythema or bulging to indicate acute infection. Heart is regular rate and rhythm. Lung sounds are clear. Abdomen is soft nontender. Extremity examination reveals right lower external he to be in a walking boot. Test Results: [] Emergency Department Course and Treatment: I did review his recent work-up. He was seen on the for a right fifth metatarsal fracture. At that time he was given 14 tabs of [place]. He will be given a refill on the [place] and given a perception for Claritin and attempt to reduce the fluid behind the right TM. Treatment Plan: [] Disposition: Discharge Impression: 1. Otalgia 2. Right foot fracture This note was generated with [employer] dictation software. It may contain incorrect words, spelling, and punctuation that were not noted in review of the chart prior to signing ED Disposition - Plan for ED Patient: Disposition: Home or Assisted Living Instructions: ED Otitis Media Serous Adult Prescriptions: Hydrocodone Bitart/Apap 5-325 [[place] 5MG-325MG] 1 tablet PO Q6H PRN PRN 3 Days #14 tablet PRN Reason: Pain Loratadine/Pseudoephedrine [Claritin-D 12 Hour Tablet] 1 each PO BID #10 tab.er.[id number] Referrals: Isabella Holland DO [STAFF PHYSICIAN] - Keep David appointment Sandor Levin MD [Primary Care Provider] - 5-7 Days
[2019-02-27] MEDS: HYDROcodone Bitartrate/Apap 5/325 Tablet PO (15:51)
== END 2019-02-27 15:59 | disposition home or self-care (01) ==
PROVIDERS: Emergency Provider Emergency Medicine; Family Provider Family Medicine; PCP Family Medicine
DX: H92.01 Otalgia, right ear (principal); S92.351A Displaced fracture of fifth metatarsal bone, right foot, initial encounter for closed fracture; X58.XXXA Exposure to other specified factors, initial encounter; Y93.9 Activity, unspecified; Y92.9 Unspecified place or not applicable; I10 Essential (primary) hypertension; Z87.891 Personal history of nicotine dependence
CPT/HCPCS: 99283

== ENCOUNTER → 2019-03-02 13:08 | Outpatient (CLI) | payer MEDICAID, SELFPAY ==
[2019-03-02 12:58] VITALS: BMI 31.6
--- NOTE | 2019-03-02 13:09 | RAD_ITS ---
STUDY: X-RAY - RIGHT FOOT CLINICAL: Male, 58 years old. Pain TECHNIQUE: 3 view(s) of the foot. COMPARISON: 02/22/2019 FINDINGS: Normal talus, calcaneus, and tarsal bones. Normal visualized subtalar, talonavicular, calcaneocuboid, tarsal and tarsometatarsal articulations. Stable healing fracture of the base of the fifth metatarsal. Remote deformity of the second metatarsal. Normal metatarsophalangeal joint of the great toe. Normal tibial and fibular sesamoid bones. Normal interphalangeal joint of the great toe. Normal phalanges of the great toe. Normal second through fifth metatarsophalangeal joints. Normal interphalangeal joints and phalanges of the lesser toes. The soft tissue structures are unremarkable. RAD/Foot min 3 Views IMPRESSION: Stable healing fracture of the base of the fifth metatarsal. Remote deformity of the second metatarsal. Electronically Signed: Arnol Oliveira MD at 21:34 EDT Tel , Service support ,
== END ==
PROVIDERS: Family Provider Family Medicine; PCP Family Medicine; Referring Provider Physician Assistant; Visit Provider Physician Assistant
DX: M79.671 Pain in right foot (principal)
CPT/HCPCS: 73630

== ENCOUNTER → 2019-03-06 09:25 | Outpatient (CLI) | payer MEDICAID, SELFPAY ==
[2019-03-02 12:58] VITALS: BMI 31.6
[2019-03-06 12:09] LABS: Absolute Lymphocyte Count 1.95 X10^3/ul (0.83-4.51); Absolute Neutrophil Count 2.8 X10^3/uL (2.0-7.7); Basophil# 0.05 X10^3/uL; Basophil% 0.9 % (0-1); Eosinophils% 3.5 % (0-5); Hematocrit 42.8 % (40-54); Hemoglobin 14.5 g/dl (13.0-16.5); Lymphocyte # 1.95 X10^3/ul (4.0); Lymphocyte % 33.9 % (19-41); Mean Corp Hgb Conc 33.9 g/gl (32-36); Mean Corpuscular Hgb 31.3 pg (27.0-32.0); Mean Corpuscular Volume 92.4 fL (80-94); Mean Platelet Vol. 11.5 fl (6.2-12.0); Monocyte# 0.72 X10^3/uL; Monocyte% 12.5 % (0-10); Neutrophil # 2.84 X10^3/uL (2.7-7.7); Neutrophil % 49.2 % (47-70); Platelet Count 219 K/mm3 (150-450); RBC Distribution Width CV 13.2 % (11.6-14.6); RBC Distribution Width SD 43.2 fl (35.1-43.9); Red Blood Count 4.63 M/mm3 (4.6-6.2); White Blood Count 5.8 K/mm3 (4.4-11.0)
[2019-03-06 12:14] LABS: POSITIVE COUNT NO; POSITIVE DIFFERENTIAL NO; POSITIVE MORPHOLOGY NO
[2019-03-06 12:25] LABS: Vitamin B12 1226 pg/mL (211-911); Vitamin D,25 Hydroxy 25.8 ng/mL (29.95-100.01)
[2019-03-06 12:30] LABS: ALB/GLOB Ratio 1.2 RATIO (0.9-2.4); AST(SGOT) 22 U/L (15-37); Alanine Aminotransfer ALT/SGPT 30 U/L (16-61); Alkaline Phosphatase 157 U/L (45-117); Anion Gap 3 (5-15); BUN 28 mg/dL (7-18); Calcium,Total 8.7 mg/dL (8.5-10.1); Chloride 106 mmol/L (98-107); Cholesterol 129 mg/dL (200); Creatinine, Serum 1.27 mg/dL (0.70-1.30); EST Glomerular Filtration Rate 62 mL/min (>60); Est Glom Filt Rate - Afr Amer 75 mL/min (>60); Globulin 3.4 g/dL (2.2-4.2); Glucose 93 mg/dL (74-106); High Density Lipoprotein 43 mg/dL; Magnesium 2.1 mg/dL (1.6-2.6); Protein, Total 7.4 g/dL (6.4-8.2); Sodium Level 136 mmol/L (136-145); Thyroid Stim Hormone (TSH) 2.64 uIU/mL (0.358-3.74); Triglycerides 161 mg/dL; Very Low Density Lipoprotein 32 mg/dL (5-40)
[2019-03-09 09:07] LABS: Testosterone, Free 8.38 ng/dL (5.00-21.00)
[2019-03-09 15:25] LABS: Testosterone, % Free 2.89 % (1.50-4.20); Testosterone, Total 290 ng/dL (264-916)
== END ==
PROVIDERS: Family Provider Family Medicine; PCP Family Medicine; Referring Provider Family Medicine; Visit Provider Family Medicine
DX: I10 Essential (primary) hypertension (principal); E78.5 Hyperlipidemia, unspecified; R53.83 Other fatigue
CPT/HCPCS: 36415; 80053; 80061; 82306; 82607; 83735; 84402; 84403; 84443; 85025

== ENCOUNTER → 2019-03-14 15:10 | Outpatient (CLI) | payer MEDICAID, SELFPAY ==
[2019-03-02 12:58] VITALS: BMI 31.6
--- NOTE | 2019-03-14 15:12 | CT_ITS ---
STUDY: CT RIGHT FOOT REASON FOR EXAM: Male, 58 years old. Arch fracture in 2018 RADIATION DOSAGE (If Supplied By Facility): CTDIvol = ( 7.11 ) mGy, DLP = ( 146.29 ) mGycm TECHNIQUE: Thin section transaxial imaging of the foot was obtained, with sagittal and coronal reconstructed images. Individualized dose optimization techniques were used for this CT. COMPARISON: None. FINDINGS: Normal talus, calcaneus, and tarsal bones. Normal visualized tibiotalar, subtalar, talonavicular, calcaneocuboid, tarsal and tarsometatarsal articulations. A remote deformity of the base of the second metatarsal is noted. 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 Normal metatarsophalangeal joint of the great toe. Normal tibial and fibular sesamoid bones. Normal interphalangeal joint of the great toe. Normal phalanges of the great toe. Normal second through fifth metatarsophalangeal joints. Normal interphalangeal joints and phalanges of the lesser toes. The soft tissue structures are unremarkable. CT/Extremity Lower without Contra IMPRESSION: A remote deformity of the base of the second metatarsal is noted. 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 No acute osseous injury is evident. Electronically Signed: Arnol Oliveira MD at 16:06 EDT Tel , Service support ,
== END ==
PROVIDERS: Family Provider Family Medicine; PCP Family Medicine; Referring Provider Physician Assistant; Visit Provider Physician Assistant
DX: S99.199A Other physeal fracture of unspecified metatarsal, initial encounter for closed fracture (principal)
CPT/HCPCS: 73700

== ENCOUNTER 2019-03-25 15:22 | Emergency (ER) | payer MEDICAID, SELFPAY ==
[2019-03-22 10:10] VITALS: BMI 31.6
[2019-03-25 15:22] VITALS: BP 156/97; PULSE 108; RESP 18; TEMP 36.3; O2SAT 97; BMI 30.7
--- NOTE | 2019-03-25 15:46 | EKG12_ITS ---
Test Reason : CHEST PAIN Blood Pressure : / mmHG Vent. Rate : 105 BPM Atrial Rate : 105 BPM P-R Int : 158 ms QRS Dur : 082 ms QT Int : 356 ms P-R-T Axes : 029 -03 013 degrees QTc Int : 470 ms Sinus tachycardia Otherwise normal ECG Confirmed by BRIDGETT ARECHIGA, ANDREEA ([id number]), communications editor PUNEET CORDOBA ([id number]) on 03/29/2019 11:46:26 AM Referred By: GHAZALA Confirmed By:ANDREEA URIAS MD
--- NOTE | 2019-03-25 15:46 | RAD_ITS ---
STUDY: X-RAY CHEST REASON FOR EXAM: Male, 58 years old. Chest pain, short of breath TECHNIQUE: Portable chest COMPARISON: 02/17/2019 FINDINGS: The lungs are clear and expanded. There is no demonstrated pleural abnormality. There is no change from prior. Normal size heart. Normal mediastinum and laura. Normal visualized pulmonary arteries. Normal visualized aortic arch and descending thoracic aorta. Normal visualized thoracic spine. Normal visualized ribs, clavicles, and shoulders. There is no demonstrated abnormality of the visualized soft tissue structures of the upper abdomen. RAD/Chest 1 View (Portable) IMPRESSION: Normal x-ray examination of the chest. Stable chest. Electronically Signed: Kevin Curtis, at 16:14 EDT Tel , Service support ,
[2019-03-25 15:56] LABS: Absolute Lymphocyte Count 1.61 X10^3/ul (0.83-4.51); Absolute Neutrophil Count 5.1 X10^3/uL (2.0-7.7); Basophil# 0.08 X10^3/uL; Basophil% 1.1 % (0-1); Eosinophil# 0.05 X10^3/uL; Eosinophils% 0.7 % (0-5); Hemoglobin 16.6 g/dl (13.0-16.5); Lymphocyte # 1.61 X10^3/ul (4.0); Lymphocyte % 21.3 % (19-41); Mean Corp Hgb Conc 36.1 g/gl (32-36); Mean Corpuscular Hgb 32.9 pg (27.0-32.0); Mean Corpuscular Volume 91.3 fL (80-94); Mean Platelet Vol. 10.7 fl (6.2-12.0); Monocyte# 0.71 X10^3/uL; Monocyte% 9.4 % (0-10); Neutrophil % 67.4 % (47-70); Platelet Count 214 K/mm3 (150-450); RBC Distribution Width SD 42.7 fl (35.1-43.9); Red Blood Count 5.04 M/mm3 (4.6-6.2); White Blood Count 7.6 K/mm3 (4.4-11.0)
[2019-03-25 15:59] LABS: POSITIVE COUNT NO; POSITIVE DIFFERENTIAL NO; POSITIVE MORPHOLOGY NO
[2019-03-25 16:03] VITALS: PULSE 108; RESP 18; O2SAT 97
[2019-03-25 16:13] LABS: Anion Gap 7 (5-15); BUN 28 mg/dL (7-18); BUN/Creat Ratio 23.5 RATIO (10-20); Calcium,Total 9.3 mg/dL (8.5-10.1); Chloride 107 mmol/L (98-107); Creatinine, Serum 1.19 mg/dL (0.70-1.30); EST Glomerular Filtration Rate 67 mL/min (>60); Est Glom Filt Rate - Afr Amer 81 mL/min (>60); Estimated Creatinine Clearance 73.82 ml/min; Glucose 115 mg/dL (74-106); Potassium 4.1 mmol/L (3.5-5.1); Sodium Level 137 mmol/L (136-145)
--- NOTE | 2019-03-25 16:26 | CT_ITS ---
STUDY: CTA CHEST REASON FOR EXAM: Male, 58 years old. Chest pain, short of breath RADIATION DOSAGE (If Supplied By Facility): CTDIvol = ( 10.80 ) mGy, DLP = ( 1066.95 ) mGycm TECHNIQUE: The examination was performed with the intravenous administration of 100mL IV Isovue 370. Post-processing of the angiographic images was performed, with multiplanar reformation and 3D reconstruction. Individualized dose optimization techniques were used for this CT. COMPARISON: CTA chest 10/14/2015. FINDINGS: There is a stable 4 mm benign left lower lobe pleural-based pulmonary nodule. Normal enhancement of the main pulmonary artery and right and left pulmonary arteries. Evaluation of the more distal segmental and subsegmental pulmonary arteries is limited due to respiratory motion artifact. Normal thoracic aorta and visualized great vessels. There is no demonstrated aortic dissection. Normal heart and pericardium. Normal mediastinum. Normal hilar regions. Normal visualized trachea and bronchi. The lungs are well expanded. Normal pulmonary parenchyma. Normal pleura. Normal chest wall structures. Normal osseous structures. Normal visualized upper abdomen. CT/CTA Chest W/WO Contrast IMPRESSION: No CTA evidence for pulmonary bullae within the main pulmonary arteries, evaluation of the more distal segmental and subsegmental pulmonary arteries is limited due to respiratory motion Stable benign 4 mm left lower lobe pleural-based pulmonary nodule Electronically Signed: Kevin Curtis, at 18:26 EDT Tel , Service support ,
--- NOTE | 2019-03-25 16:29 | ED.VISSUMM ---
- ER Visit Summary Date of Service: 03/25/19 Chief Complaint: chest Pain History of Present Illness: The patient is a 58 M who presents for 3 hours of substernal chest pain with associated shortness of breath, lightheadedness and double vision. Patient states he was walking outside for approximately 20 minutes when he began having the symptoms. He is currently complaining of the substernal chest discomfort, which he describes as it hurts. He also still having the shortness of breath but denies any lightheadedness or blurry vision at this time. He has mild nausea. He states he had similar symptoms recently and had a cardiac work-up. He has a remote history of a unprovoked DVT in the left lower leg. He is currently not on anticoagulation but thinks he is on Plavix and aspirin. He denies smoking. History of hypertension and hypercholesterolemia. Patient took a baby aspirin today. Physical Examination: Vital signs: afebrile, hemodynamically stable, no hypoxia on room air General: well nourished, well developed, in no distress Skin: warm, dry, no rash, no pallor HEENT: normocephalic and atraumatic; PERRL, EOMI, moist mucous membranes Cardiovascular: Tachycardic rate and rhythm without murmurs, no peripheral edema, 2+ pulses all distal extremities Respiratory: No increased work of breathing, lungs are clear to auscultation bilaterally, no rales, rhonchi or wheezing Abdominal: Abdomen is soft, nontender with normoactive bowel sounds, no guarding or rebound, no masses MSK: Moves all extremities, no deformities, normal strength, left lower extremity in a walking boot Neuro: Awake and alert, oriented ?4. No facial droop, sensation and motor function intact and symmetric Test Results: Abnormal Lab Results 03/25/19 03/25/19 03/25/19 15:40 15:40 15:40 WBC 7.6 RBC 5.04 Hgb 16.6 H Hct 46.0 MCV 91.3 MCH 32.9 H MCHC 36.1 H RDW 13.0 RDW Differential 42.7 Plt Count 214 MPV 10.7 Immature Gran % (Auto) 0.100 Neut % (Auto) 67.4 Lymph % (Auto) 21.3 [place] % (Auto) 9.4 Eos % (Auto) 0.7 Baso % (Auto) 1.1 H Absolute Neuts (auto) 5.1 Absolute Lymphs (auto) 1.61 Total Counted Not Reportable PT 13.1 INR 1.0 Sodium 137 Potassium 4.1 Chloride 107 Carbon Dioxide 23.0 Anion Gap 7 BUN 28 H Creatinine 1.19 Estim Creat Clear Calc 73.82 Est GFR (MDRD) Af Amer 81 Est GFR (MDRD) Non-Af 67 BUN/Creatinine Ratio 23.5 H Glucose 115 H Calcium 9.3 Troponin I < 0.015 B-Natriuretic Peptide 03/25/19 15:40 WBC RBC Hgb Hct MCV MCH MCHC RDW RDW Differential Plt Count MPV Immature Gran % (Auto) Neut % (Auto) Lymph % (Auto) [place] % (Auto) Eos % (Auto) Baso % (Auto) Absolute Neuts (auto) Absolute Lymphs (auto) Total Counted PT INR Sodium Potassium Chloride Carbon Dioxide Anion Gap BUN Creatinine Estim Creat Clear Calc Est GFR (MDRD) Af Amer Est GFR (MDRD) Non-Af BUN/Creatinine Ratio Glucose Calcium Troponin I B-Natriuretic Peptide 4.8 Clinical Impression(s) from Imaging Studies Chest X-Ray 03/25/19 15:46 IMPRESSION: Normal x-ray examination of the chest. Stable chest. Electronically Signed: Kevin Curtis at 16:14 EDT Tel , Service support , Chest CTA 03/25/19 16:26 IMPRESSION: No CTA evidence for pulmonary bullae within the main pulmonary arteries, evaluation of the more distal segmental and subsegmental pulmonary arteries is limited due to respiratory motion Stable benign 4 mm left lower lobe pleural-based pulmonary nodule Electronically Signed: Kevin Curtis at 18:26 EDT Tel , Service support , Medications Given Discontinued Medications Aspirin (Aspirin, Baby) 324 mg PO X1 STA Stop: 03/25/19 16:28 Last Admin: 03/25/19 16:46 Dose: 324 mg Nitroglycerin (Nitrostat) 0.4 mg SUBLINGUAL Q5M PRN PRN Reason: Chest pain Last Admin: 03/25/19 16:47 Dose: 0.4 mg Emergency Department Course and Treatment: Chart review shows that patient had a cardiac catheterization and echocardiogram in January of this year. Patient did not require any intervention at that time. EKG showed a sinus rhythm with no ischemic changes. It was mildly tachycardic in rate. Troponin was negative. Labs are otherwise unremarkable. A CTA of the chest was performed to evaluate for pulmonary embolism since patient is having the chest pain or shortness of breath, is tachycardic, and has a remote history of an unprovoked DVT. No PE was noted on the CTA. Prior to discussing the results of patient's work-up and discussing the plan for his care, patient eloped without telling anyone. Treatment Plan: [] Disposition: [] Impression: Chest pain, eloped from ED This note was generated with [employer] dictation software. It may contain incorrect words, spelling, and punctuation that were not noted in review of the chart prior to signing ED Disposition - Plan for ED Patient: Disposition: Home or Assisted Living Referrals: Sandor Levni MD [STAFF PHYSICIAN] -
[2019-03-25 16:38] LABS: Prothrombin Time (Protime)PT. 13.1 SECONDS (11.7-14.9)
[2019-03-25] MEDS: Aspirin 81 MG TAB.CHEW 324 MG PO (16:46)
[2019-03-25] MEDS: Nitroglycerin SL (ED/IMG/CATH) 0.4 MG TABLET SUBLINGUAL (16:47)
[2019-03-25 17:36] LABS: BNP,B-Type NATRIURETIC PEPTIDE 4.8 pg/mL (0-100)
[2019-03-25 18:14] VITALS: PULSE 96; RESP 18; O2SAT 99
--- NOTE | 2019-03-25 18:44 | ED.RN ---
PATIENT LEFT ROOM. WALKED TO TRIAGE STATING HE HAD TO LEAVE. DID NOT WANT TO WAIT TO SPEAK WITH DR, OR SIGN AMA FORM. IV D/C CATHETER INTACT. NO ACTIVE BLEEDING. PATIENT LEFT ED AMBULATORY.
== END 2019-03-25 18:58 | disposition home or self-care (01) ==
LOC: ED 16:46
PROVIDERS: Emergency Provider Emergency Medicine
DX: R07.9 Chest pain, unspecified (principal); Z53.21 Procedure and treatment not carried out due to patient leaving prior to being seen by health care provider; I25.10 Atherosclerotic heart disease of native coronary artery without angina pectoris; I10 Essential (primary) hypertension; E78.00 Pure hypercholesterolemia, unspecified; Z86.718 Personal history of other venous thrombosis and embolism; Z79.82 Long term (current) use of aspirin; Z79.01 Long term (current) use of anticoagulants; Z79.899 Other long term (current) drug therapy
CPT/HCPCS: 71045; 71275; 80048; 83880; 84484; 85025; 85610; 93005; 99284; Q9967; A4216

== ENCOUNTER 2019-03-25 20:33 | Emergency (ER) | payer MEDICAID, SELFPAY ==
[2019-03-25 15:22] VITALS: BMI 30.7
[2019-03-25 20:41] VITALS: BP 132/95; PULSE 110; RESP 18; TEMP 36.8; O2SAT 96; BMI 30.2
--- NOTE | 2019-03-25 21:00 | EKG12_ITS ---
Test Reason : Blood Pressure : / mmHG Vent. Rate : 107 BPM Atrial Rate : 107 BPM P-R Int : 150 ms QRS Dur : 082 ms QT Int : 338 ms P-R-T Axes : 056 023 024 degrees QTc Int : 451 ms Sinus tachycardia Otherwise normal ECG Confirmed by BRIDGETT ARECHIGA, ANDREEA ([id number]), science editor PUNEET CORDOBA ([id number]) on 03/29/2019 11:46:48 AM Referred By: GHAZALA Confirmed By:ANDREEA URIAS MD
--- NOTE | 2019-03-25 21:22 | ED.VISSUMM ---
- ER Visit Summary Date of Service: 03/25/19 Chief Complaint: Chest pain History of Present Illness: The patient is a 58 M who was evaluated earlier this afternoon for chest pain with associated shortness of breath. During patient's work-up he got hungry and left without telling anyone. Patient now presents again to complete his work-up. Patient states he is still having the chest pain and it does not feel any better. In the meantime he went next door and ate a pizza. Upon returning to the emergency department he states he vomited. Physical Examination: Unchanged from prior exam, patient is well-nourished well-developed sitting in bed in no distress. Afebrile, hemodynamically stable, still remains tachycardic at 103. Test Results: Abnormal Lab Results 03/25/19 21:28 Troponin I < 0.015 Medications Given Discontinued Medications Ketorolac Tromethamine (Toradol) 15 mg IV X1 ONE Stop: 03/25/19 21:01 Last Admin: 03/25/19 21:54 Dose: Not Given Emergency Department Course and Treatment: EKG was performed and showed a sinus rhythm rate of 105 without any ischemic changes, unchanged from patient's initial EKG. Since patient's initial troponin was performed 6 hours ago, another troponin was performed to look for any changes. Patient was given Toradol for his pain this time. Patient refused the Toradol and stated he needed something real for his pain especially for his foot. Patient's repeat troponin was negative. Patient still did not want the Toradol. I discussed with him that his work-up from earlier and his repeat EKG and troponin that were unchanged were reassuring that this is not an acute life-threatening cause of his chest pain, including not a pulmonary embolism, dissection, aneurysm, or heart attack. Patient has an appointment on April 12 with his ornamental painter. Patient was told he could have the Toradol for his foot pain, and he continued to decline. He was discharged home well-appearing and in no distress. Treatment Plan: [] Disposition: [] Impression: Chest pain This note was generated with [employer] dictation software. It may contain incorrect words, spelling, and punctuation that were not noted in review of the chart prior to signing ED Disposition - Plan for ED Patient: Disposition: Home or Assisted Living Instructions: ED Chest Pain Atypical Unkn Cause Referrals: Care Physician,No Primary [NON-STAFF] - Additional Instructions: Please keep your cardiology appointment on April 12 as scheduled. Continue all medications as you have been prescribed by your doctors. Use [id number] pain medication as needed for your pain, including your foot pain. If you have any worsening of your condition or any new concerning symptoms, please return immediately to the emergency department for another evaluation.
[2019-03-25 21:47] VITALS: O2SAT 96
[2019-03-25 21:53] VITALS: BP 116/75; PULSE 110; RESP 16; O2SAT 95
--- NOTE | 2019-03-25 22:28 | ED.RN ---
PT LEFT PRIOR TO RECEIVING DISCHARGE INSTRUCTIONS.
== END 2019-03-25 22:29 | disposition home or self-care (01) ==
PROVIDERS: Emergency Provider Emergency Medicine; Family Provider Family Medicine; PCP Family Medicine
DX: R07.9 Chest pain, unspecified (principal); I25.10 Atherosclerotic heart disease of native coronary artery without angina pectoris; I10 Essential (primary) hypertension; E78.00 Pure hypercholesterolemia, unspecified; Z86.718 Personal history of other venous thrombosis and embolism; Z79.82 Long term (current) use of aspirin; Z79.01 Long term (current) use of anticoagulants; Z79.899 Other long term (current) drug therapy; Z53.21 Procedure and treatment not carried out due to patient leaving prior to being seen by health care provider
CPT/HCPCS: 71045; 71275; 80048; 83880; 84484; 85025; 85610; 93005; 99284; 99285; Q9967; A4216

== ENCOUNTER 2019-03-27 10:13 | Emergency (ER) | payer MEDICAID, SELFPAY ==
[2019-03-27 10:13] VITALS: BP 155/83; PULSE 113; RESP 16; TEMP 36.7; O2SAT 95; BMI 29.2
--- NOTE | 2019-03-27 10:56 | ED.DCSUM_ITS ---
- ER Visit Summary Date of Service: 03/27/19 Chief Complaint: Suicidal ideation History of Present Illness: The patient is a 58 M who has had the thought of hurting himself for some time, finally decided that it should be about time and he really means it. He was walking on a railroad track hoping he would get hit. He is not on any medication he has a history of suicidal ideation when he was young, he tells me that was just to act out, he actually really means at this time per him. He will not tell me any stressors, he just keeps telling me that its life. Physical Examination: Not appear in acute distress. Moist mucous membranes, no obvious facial deformity No C-spine tenderness supple neck. Regular rate and rhythm without any obvious murmurs Clear lungs bilaterally speaking in full sentences without any obvious respiratory distress Abdomen soft and nontender no guarding or rebound Moves all extremities without any difficulty or pain. Skin does not show any obvious rashes or lesions, no trauma. Alert oriented ?3 with no gross focal deficit Depressed flat affect Emergency Department Course and Treatment: Patient will be medically cleared. I do believe patient is at risk, he will need to be transferred for psychiatric treatment Disposition:Transfer in guarded condition Impression: Depression with suicidal ideation This note was generated with [employer] dictation software. It may contain incorrect words, spelling, and punctuation that were not noted in review of the chart prior to signing ED Disposition - Plan for ED Patient: Referrals: Valerio Pfeiffer MD [Primary Care Provider] -
[2019-03-27 11:16] LABS: Absolute Neutrophil Count 5.8 X10^3/uL (2.0-7.7); Basophil# 0.09 X10^3/uL; Eosinophil# 0.08 X10^3/uL; Eosinophils% 0.9 % (0-5); Hematocrit 42.7 % (40-54); Hemoglobin 14.9 g/dl (13.0-16.5); Lymphocyte % 22.3 % (19-41); Mean Corp Hgb Conc 34.9 g/gl (32-36); Mean Corpuscular Volume 91.8 fL (80-94); Mean Platelet Vol. 10.7 fl (6.2-12.0); Monocyte# 1.03 X10^3/uL; Monocyte% 11.5 % (0-10); Neutrophil # 5.75 X10^3/uL (2.7-7.7); Neutrophil % 64.2 % (47-70); Platelet Count 229 K/mm3 (150-450); RBC Distribution Width CV 13.2 % (11.6-14.6); RBC Distribution Width SD 43.9 fl (35.1-43.9); Red Blood Count 4.65 M/mm3 (4.6-6.2)
[2019-03-27 11:17] LABS: POSITIVE COUNT NO; POSITIVE DIFFERENTIAL NO; POSITIVE MORPHOLOGY NO
[2019-03-27 11:26] LABS: Anion Gap 11 (5-15); BUN 23 mg/dL (7-18); BUN/Creat Ratio 25.1 RATIO (10-20); Calcium,Total 8.5 mg/dL (8.5-10.1); Chloride 107 mmol/L (98-107); Creatinine, Serum 0.92 mg/dL (0.70-1.30); EST Glomerular Filtration Rate 91 mL/min (>60); Est Glom Filt Rate - Afr Amer 110 mL/min (>60); Estimated Creatinine Clearance 95.49 ml/min; Glucose 76 mg/dL (74-106); Potassium 3.9 mmol/L (3.5-5.1); Sodium Level 139 mmol/L (136-145)
[2019-03-27 11:29] LABS: Amphetamine Urine VISTA NEGATIVE (<1000 ng/mL); Barbiturate Urine VISTA NEGATIVE (< 200 ng/mL); Benzodiazepine Urine VISTA NEGATIVE (< 200 ng/mL); Cocaine Urine VISTA NEGATIVE (< 300 ng/mL); Ecstacy Urine VISTA NEGATIVE (< 500 ng/mL); Methadone Urine VISTA NEGATIVE (< 300 ng/mL); PCP Urine VISTA NEGATIVE (< 25 ng/mL); THC Urine VISTA NEGATIVE (< 50 ng/mL); Vista UDS pH Range 5
--- NOTE | 2019-03-27 12:06 | ED.RN ---
[facility] WITH CRISIS REFERRED THE PT TO DEP
--- NOTE | 2019-03-27 13:16 | ED.RN ---
PER [facility] WANTS A REPEAT ALCOHOL DRAWN ON THE PATIENT TO ENSURE THAT HIS ALCOHOL LEVEL IS DECREASING.
[2019-03-27 14:47] VITALS: BP 140/85; PULSE 95; RESP 16; O2SAT 96
[2019-03-27] MEDS: LORazepam 1 MG Tablet PO (15:39)
--- NOTE | 2019-03-27 15:48 | ED.RN ---
pt became upset about going to [facility]. This RN spoke with pt and had physician talk with pt. pt was able to calm down, PO ativan given.
== END 2019-03-27 18:21 ==
LOC: ED 11:13
PROVIDERS: Emergency Provider Emergency Medicine; Family Provider Family Medicine; PCP Family Medicine
DX: F32.9 Major depressive disorder, single episode, unspecified (principal); R45.851 Suicidal ideations; I25.10 Atherosclerotic heart disease of native coronary artery without angina pectoris; Z79.01 Long term (current) use of anticoagulants; Z79.82 Long term (current) use of aspirin; Z79.899 Other long term (current) drug therapy; Z72.0 Tobacco use
CPT/HCPCS: 80048; 80307; 80320; 85025; 99284; G0480

== ENCOUNTER 2019-04-24 12:44 | Emergency (ER) | payer MEDICAID, SELFPAY ==
[2019-04-17 14:30] VITALS: BMI 29.9
[2019-04-24 12:45] VITALS: BP 142/97; PULSE 92; RESP 17; TEMP 36.7; O2SAT 97; BMI 30.7
--- NOTE | 2019-04-24 15:23 | CT_ITS ---
STUDY: CT BRAIN WITHOUT CONTRAST REASON FOR EXAM: Male, 58 years old. Headache nausea congestion and hypertension RADIATION DOSAGE (If Supplied By Facility): CTDIvol = ( 60.81 ) mGy, DLP = ( 1021.47 ) mGycm TECHNIQUE: Transaxial CT imaging of the brain was performed without administration of intravenous contrast material. Individualized dose optimization techniques were used for this CT. COMPARISON: No relevant priors. FINDINGS: There is no acute intracranial hemorrhage, extra parenchymal fluid collections, hydrocephalus or herniation. There is mild ill-defined diffuse white matter heterogeneity with accentuation of hypodensity, best seen bilaterally in the frontal deep white matter. The skull is intact. CT/Brain/Head without Contrast IMPRESSION: 1. No acute focal findings. 2. Presumed white matter gliosis, this is most commonly associated with atherosclerosis but can be seen with any systemic condition. Electronically Signed: Richelle Mejia, at 16:16 EDT Tel , Service support ,
[2019-04-24] MEDS: DiphenhydrAMINE 50 MG/ML Syringe IV (15:34)
[2019-04-24] MEDS: 0.9% Normal Saline 1,000 ML 999 ML IV (15:35)
[2019-04-24] MEDS: Morphine 4 MG/ML Syringe IV (15:35)
[2019-04-24] MEDS: proCHLORPERazine 10 MG/2 ML Vial IV (15:35)
--- NOTE | 2019-04-24 16:31 | ED.VISSUMM ---
- ER Visit Summary Date of Service: 04/24/19 Chief Complaint: Headache History of Present Illness: The patient is a 58 M presents to the emergency department headache. The patient symptoms began yesterday. He states he had a dull pressure behind both eyes. He also had some nasal drainage and facial fullness. He thought it might of been his sinuses. Today, the headache was worse. He was mildly nauseated with it. He denies any weakness or numbness. He denies any fevers or chills. He is otherwise been in his normal state of health. He had no neck pain. He did take Tylenol with some improvement home. Physical Examination: Well-appearing patient is in no acute distress. Head is normocephalic, atraumatic. Pupils equal round reactive, extraocular muscles intact. There is no temporal artery tenderness. There is no vesicular rash. Neck supple. Kernig's and Brudzinski's are negative. Heart regular rate and rhythm. Lungs clear, chest nontender. Abdomen soft, nontender, nondistended. Neuro exam displays no focal or lateralizing deficit. 2+ symmetric lower extremity reflexes. No clonus. No ataxia or gait abnormality. Test Results: [] Emergency Department Course and Treatment: Patient is very well-appearing. His neck is supple. His oropharynx is widely patent. I did obtain a head CT as he has not had headache like this before. This was unremarkable for acute process. With migraine abortive medications, his headache is resolved. I do feel there may be a component of inflammatory or sinusitis to this. Awaiting the patient short burst of prednisone and Fioricet. He is comfortable with this plan of care. He will be discharged home. Treatment Plan: [] Disposition: Discharge Impression: 1. Headache This note was generated with [employer] dictation software. It may contain incorrect words, spelling, and punctuation that were not noted in review of the chart prior to signing ED Disposition - Plan for ED Patient: Instructions: HEADACHE, Unspecified Prescriptions: Acetaminophen/Butalbital/Caffe [Fioricet] 1 tab PO Q4H PRN PRN #12 tab PRN Reason: Headache Prescription Printed Prednisone 10 mg PO UD #33 tab Prescription Printed Referrals: Valerio Pfeiffer MD [Primary Care Provider] -
[2019-04-24 16:45] VITALS: BP 140/98; PULSE 82; RESP 18; O2SAT 96
== END 2019-04-24 16:46 | disposition home or self-care (01) ==
PROVIDERS: Emergency Provider Emergency Medicine; Family Provider Family Medicine; PCP Family Medicine
DX: R51 Headache (principal); Z72.0 Tobacco use
CPT/HCPCS: 70450; 96361; 96374; 96375; 99282; J7030

== ENCOUNTER 2019-05-19 09:10 | Day surgery (SDC) | payer MEDICAID, SELFPAY ==
[2019-05-02 11:20] VITALS: BMI 30.4
[2019-05-19] VITALS (8 sets, daily range): BP systolic 130–159; BP diastolic 82–103; PULSE 83–103; RESP 16–18; TEMP 36.4–37; O2SAT 91–99; BMI 30.2
--- NOTE | 2019-05-19 11:21 | HP.PCM_ITS ---
History and Physical I have re-examined the patient. There are no clinical changes since date of exam. Intake Vital Signs 05/02/19 Body Mass Index (BMI) 30.4 Intake Visit Reasons: FOOT Is patient in pain?: Yes Pain scale (1-10): 8 Allergies No Known Allergies Allergy (Verified 04/24/19 12:45) [facility] Medical History (Updated 04/27/19 @ 11:47 by Dami Rodriguez DO) Dyslipidemia (Chronic) Atherosclerosis of coronary artery of [place] heart without angina pectoris (Chronic) Cardiomyopathy (Chronic) Essential hypertension (Chronic) History of foot fracture (Acute) Chest pain (Chronic) Chest pain (Resolved) Suicidal ideation (Resolved ~03/27/19) Surgical History (Updated 04/17/19 @ 10:04 by Megan Garcia) History of left heart catheterization (Resolved) Family History (Updated 04/17/19 @ 14:38 by Megan Garcia) Mother Diabetes Hypertension CVA (cerebral vascular accident) Social History (Updated 05/02/19 @ 13:32 by Isabella Holland DO) Smoking Status: Never smoker how long ago did patient quit smokin months ago second hand exposure: No alcohol intake: current alcohol intake frequency: a few times a week substance use type: does not use caffeine: Yes Type: coffee Number of servings: 2 HPI FOOT: Details: Parts of this documentation were recorded by a scribe, this documentation accurately reflects the service provided and the decisions made by me, Isabella Holland DO 05/02/19 1115. SOLOMON JAIME is a 58 year old M here today for right foot surgery consent. He is ambulating without the boot and no antalgic gait. Denies numbness, tingling or other associated symptoms. Patient states his pain is constant in the lateral foot, he has stopped taking all his medications. We do have medical clearance from Dr Pfeiffer. ROS Const Reports system reviewed and no additional complaints, except as docu Eyes Reports system reviewed and no additional complaints, except as docu ENT Reports system reviewed and no additional complaints, except as docu Card Reports system reviewed and no additional complaints, except as docu Resp Reports system reviewed and no additional complaints, except as docu GI Reports system reviewed and no additional complaints, except as docu Musc Reports as per HPI, Reports abnormal walking, Reports joint pain, Reports joint swelling Skin/Breast Reports system reviewed and no additional complaints, except as docu Neuro Yes system reviewed and no additional complaints, except as docu, Yes abnormal walking Psych Reports system reviewed and no additional complaints, except as docu Endo Reports system reviewed and no additional complaints, except as docu Ortho Exam Right Foot/Ankle Skin/Wound: No Soft Tissue Swelling Exam: present TTP FX site ROM: present Pain with ROM Assessment & Plan Problems 1. Closed displaced fracture of fifth metatarsal bone of right foot with delayed healing, subsequent encounter S92.995H Plan Reviewed the pre-operative plans with the patient. Risks and benefits of the procedure were fully explained, including but not limited to infection, neurovascular injury, continued pain, arthritis, stiffness, need for further surgery, re-injury, DVT, PE, general risks of anesthesia, and loss of limb or life. The patient understands all the risks and does wish to proceed with written consent. Reviewed the reasons and differences between a repair by screw vs plate. Explained the post op restrictions, limitations and cast use after surgery with nwb. He can use tylenol and ibuprofen now but stop the ibuprofen a week prior to surgery. Follow up two weeks post op or sooner if pain, swelling, numbness or associated symptoms, or concerns develop. All questions answered. Patient in agreement of plan. Coding Level of Care Code Off vis,est,level 4 Diagnoses Closed displaced fracture of fifth metatarsal bone of right foot with delayed healing, subsequent encounter S90.488S ??Fracture alignment: displaced ??Fracture type: closed
--- NOTE | 2019-05-19 11:23 | DCINST_ITS ---
Discharge Diet: No Restrictions - Keep splint clean and dry, elevate toes above nose as much as possible, follow-up in 2 weeks, call with increased pain numbness [place] or further issues arise Discharge Activity: May Not Drive May shower in (days): 1 Ice area for (Minutes): 20 - Every hour while awake. Weight Bearing Status: Weight bearing as tolerated Keep extremity elevated above heart level: Operative Extremity Call your doctor if your incision/area has: Continuous Slow Oozing, Sudden Increased Bleeding, Increased Pain/ Swelling, Increased Redness, Foul Smelling Discharge Call your doctor if you observe: Fever of 101 or Higher, Coldness, Increased Pain, Numbness or Tingling, Change in Color, Calf discomfort Allergies/Adverse Reactions: Allergies No Known Allergies Allergy (Verified 05/19/19 09:33) Medications to take at Discharge Aspirin 81 mg PO DAILY 02/17/19 Atorvastatin Calcium 40 mg PO QHS 02/17/19 Hydrochlorothiazide 12.5 mg PO DAILY 02/17/19 bupropion HCl XL 300 mg 24 hr tablet, extended release 1 tab PO DAILY 30 Days #30 tab 04/17/19 Metoprolol Succinate 25 mg PO DAILY 05/12/19 Oxycodone HCl/Acetaminophen [Percocet 5/325] 1 - 2 tab PO Q6H PRN PRN 5 Days #28 tab 05/19/19 The following prescriptions were given: Oxycodone HCl/Acetaminophen [Percocet 5/325] 1 - 2 tab PO Q6H PRN PRN 5 Days #28 tab PRN Reason: Pain Transmission Status: Sent to [facility] Primary Care Physician: Valerio Pfeiffer MD [Primary Care Provider] - Test Results: Test results from this visit will be discussed in further detail at your follow- up appointment, if applicable. Please Follow Up With: Isabella Holland, - [phone]
--- NOTE | 2019-05-19 11:24 | OP.PCM_ITS ---
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 He was treated nonoperatively at this point he has a delayed starting nonunion. CT confirms that he is sclerosis on the compression side and delayed healing as well as some sclerosis on the tension side of the plantar aspect of the base of the fifth. At the fracture site of the fracture. Risk benefits alternatives surgery discussed with patient. Risks include but not limited to blood loss, blood clot, infection, neurovascular, failure procedure, loss of life and loss of limb. Patient is aware he would like to proceed with right ORIF of the base of the fifth with graft and plate and screws. Operative note is Patient is a 58-year-old male who injured his right foot about a year ago. Patient seen in preop holding area. Right foot was marked. Patient was treated conservatively but failed to heal CT confirmed sclerosis and a nonunion. Risk benefits alternatives were discussed with patient. Risks include but not limited blood loss blood clot blood clot, infection, neurovascular injury, failure procedure loss of life and loss of limb. Patient would like proceed with surgery. History physical and consent were reviewed. Right foot was marked. Patient brought to the operating placed supine on the operating table. Signed, anesthesia, antibiotics were measured. The right leg was prepped and draped usual sterile fashion with a tourniquet around his upper thigh. We marked out our incision for 5 fifth metatarsal hook plate from [employer]. The leg was elevated same traveling inventory associate rates her pressure 250 torr. We then used a lateral approach to the fifth met of the between the plantar and dorsal skin and about a 3 cm 3 and half centimeter incision. Dissected down tenotomies to level the fascia on top of the extensor abductor digit he. And there is a vein of the saphenous vein that was right on top of this which was coagulated. Ablated. We then dissected on the fascia on top of the digit he minimi and this was retracted plantarly. We able to visualize our nonunion. There is a combination of fluoroscopy and visual inspection to debride the entire callus which was hypertrophic and in some aspects but deafly not healed plantarly. We then used a combination of a curette and a rasp and then drilled with a K wire through the canal both proximally and distally to instill bone blood flow and healing. We then placed we then took about 5 cc of blood from his vein and took and apply that to the cortical bone chips. We then placed those at the fracture site. Please have our mid fifth metatarsal hook plate over top and then placed 126 mm 2.4 cortical screw in the most proximal screw and brought the hook down to bone with the screw as well as with a tamp. We then placed another 2.4 cortical screw distally as this was drilled acentrically and so that we did have further compression at the fracture site after we tightened down the screw which was a second most distal screw. We then placed more bone graft into the fracture defect. We then placed another distal cortical screws 12 mm in length. We then placed two 2.4 locking screws proximally these were to 14 mm screws. We then placed one more locking screw which was in the third distal screw hole which was a 12 mm 2.4 locking screw. Please note that prior to placing the bone graft implant prior to placing the plate we did irrigate the incision with copious amounts of sterile saline. After placing the plate and screws we did over so the fascia of the abductor digit he over top of the plate. Please note the prior during the entire case we did make sure to protect all neurovascular structures especially this from the sural nerve. After closing the fascia over top the plate. We then irrigated again and then closed the skin with deep Vicryl and nylon for the skin. Sterile dressing were applied patient was placed in a posterior short leg splint. Tourniquet was placed for total working time of 95 minutes. Patient tolerated procedure well no complication transferred recovery room in stable condition. Next Postoperative Next Follow-up in 2 weeks Attempted to find she was unavailable did discuss with nursing staff to say that the case went well and that we will see him in 2 weeks and to call us with any concerns Hospital pharmacy has Percocet prescription This note was generated with [employer] software. It may contain incorrect words, spelling, and punctuation that were not noted in checking the note before signing.
[2019-05-19] MEDS: Cefazolin 2 GM in 0.9% Normal Saline 100 ML IV (11:33)
--- NOTE | 2019-05-19 11:50 | RAD_ITS ---
STUDY: X-RAY - RIGHT FOOT CLINICAL: Fifth metatarsal bone graft, internal fixation. TECHNIQUE: 7 intraoperative images of the foot. COMPARISON: Radiographs 03/02/2019. FINDINGS: There is an orthopedic plate and screws transfixing a proximal fifth metatarsal diaphyseal fracture with bone graft in anatomic alignment and position. Electronically Signed: Mahin Cuba MD at 14:01 EDT Tel , Service support , RAD/Foot min 3 Views
[2019-05-19] MEDS: Mupirocin Ointment 22gm Tube 1 APPLIC (13:55)
[2019-05-19] MEDS: HYDROcodone Bitartrate/Apap 5/325 Tablet PO (15:18)
== END 2019-05-19 15:47 | disposition home or self-care (01) ==
LOC: SDC 09:10 → AC 09:12
PROVIDERS: Family Provider Family Medicine; PCP Family Medicine; Referring Provider Orthopaedic Surgery; Visit Provider Orthopaedic Surgery
PROC: (CPT 28485; principal; 2019-05-19 11:35)
DX: S92.351G Displaced fracture of fifth metatarsal bone, right foot, subsequent encounter for fracture with delayed healing (principal); E78.5 Hyperlipidemia, unspecified; I25.10 Atherosclerotic heart disease of native coronary artery without angina pectoris; I10 Essential (primary) hypertension; I42.9 Cardiomyopathy, unspecified; K21.9 Gastro-esophageal reflux disease without esophagitis; Z87.891 Personal history of nicotine dependence; Z86.718 Personal history of other venous thrombosis and embolism; Z86.19 Personal history of other infectious and parasitic diseases
CPT/HCPCS: 01480; 28485; 73630; 76000; C1713; J7120; J2405

== ENCOUNTER 2019-05-27 14:13 | Emergency (ER) | payer MEDICAID, SELFPAY ==
[2019-05-19 10:06] VITALS: BMI 30.2
[2019-05-27 14:13] VITALS: BP 134/84; PULSE 100; RESP 18; TEMP 36.2; O2SAT 96; BMI 30.7
--- NOTE | 2019-05-27 14:31 | ED.VISSUMM ---
- ER Visit Summary Date of Service: 05/27/19 Chief Complaint: Right foot red and swollen with increasing pain post surgery approximately 8 days ago. History of Present Illness: The patient is a 58 M past medical history of hypertension high cholesterol. On 05/19/2019 did surgery on this patient's right foot. He states he needed a surgery and have cadaver bone placed with plate and screws due to a nonhealing fracture. Patient states he has been doing better. Now it is red and swollen. He has had no fever or chills. He seen no pus or other discharge. He did have to have his splint changed in the office on Wednesday. His girlfriend and he were concerned it may be infected so he went to have it looked at today. Also states he has a bad left lower molar which she is having removed by his dentist. Physical Examination: Middle-aged male no acute distress. Vital signs are stable. He is afebrile. HEENT exam show multiple areas of dental decay. He is a tender left lower molar but there is no gingival swelling or abscess. No trismus. Neck nontender no lymphadenopathy. Lungs clear to auscultation. Heart regular rhythm no murmur. Abdomen soft and nontender. Extremities moves all 4. Neurovascular intact. He had a posterior splint and dressing on his right lower extremity which I took down. The suture site is well-healing on the right lateral foot. There is no pus or discharge. Lateral foot is swollen, tender and red consistent with an early soft tissue infection. No crepitance or subcu air. There is no streaking. The ankle and lower leg are not involved. There is no inguinal lymphadenopathy. There is no necrotic tissue. He has normal touch sensation and cap refill of the digits of his toes. He has a normal DP pulse. Test Results: None. Emergency Department Course and Treatment: I spoke with the patient's orthopedic surgeon in [place]. Patient be started on both Bactrim and Keflex for 10 days each. Keflex 4 times a day. Bactrim twice daily. He has appointment see Dr. Holland on Wednesday he will call the office and try to have that moved up till earlier this week. Treatment Plan: Antibiotic both the Keflex and Bactrim for 10 days each. Ice and elevate. Motrin for pain. Limited Percocet for pain. 10 no refill. Follow-up with orthopedic surgeon this week as soon as possible. Call and have appointment moved up. Disposition: Discharge Impression: Acute right foot soft tissue infection (cellulitis) status post right foot surgery for nonhealing fracture Left lower jaw molar fracture This note was generated with [employer] dictation software. It may contain incorrect words, spelling, and punctuation that were not noted in review of the chart prior to signing ED Disposition - Plan for ED Patient: Referrals: Valerio Pfeiffer MD [Primary Care Provider] -
[2019-05-27 14:36] VITALS: BP 134/84; PULSE 100; RESP 18; TEMP 36.2; O2SAT 96
--- NOTE | 2019-05-27 14:44 | ED.DEP ---
ED Disposition - Plan for ED Patient: Disposition: Home or Assisted Living Instructions: ED Wound Infection after surgery Prescriptions: Sulfamethoxazole/Trimethoprim [Bactrim Ds Tablet] 1 ea PO BID #20 tab Prescription Printed Cephalexin [Keflex] 500 mg PO Q6 #40 cap Prescription Printed Oxycodone HCl/Acetaminophen [Percocet 5/325] 1 tab PO Q8H PRN PRN 3 Days #12 tab PRN Reason: Pain Prescription Printed Referrals: Isabella Holland DO [STAFF PHYSICIAN] - As soon as possible Additional Instructions: Call follow-up with Dr. Holland as possible. Call the office on Wednesday. No weightbearing. Ice and elevate to decrease swelling. Motrin for pain and swelling. Limited Percocet for worst pain. Return if he is getting a lot worse with redness moving up in your lower leg and streaks or you develop fever or pus.
[2019-05-27] MEDS: Cephalexin 250 MG Capsule 500 MG PO (15:01)
[2019-05-27] MEDS: oxyCODONE 5 MG Tablet 10 MG PO (15:01)
[2019-05-27] MEDS: Smz/Tmp Ds Tablet 1 TABLET PO (15:02)
[2019-05-27 15:07] VITALS: BP 143/88; PULSE 84; RESP 18
== END 2019-05-27 15:10 | disposition home or self-care (01) ==
PROVIDERS: Emergency Provider Emergency Medicine; Family Provider Family Medicine; PCP Family Medicine
DX: T81.41XA Infection following a procedure, superficial incisional surgical site, initial encounter (principal); L03.115 Cellulitis of right lower limb; S02.5XXA Fracture of tooth (traumatic), initial encounter for closed fracture; X58.XXXA Exposure to other specified factors, initial encounter; I10 Essential (primary) hypertension; E78.00 Pure hypercholesterolemia, unspecified; Z79.82 Long term (current) use of aspirin; Z79.899 Other long term (current) drug therapy
CPT/HCPCS: 99283

== ENCOUNTER → 2019-05-29 20:06 | Outpatient (CLI) | payer MEDICAID, SELFPAY ==
[2019-05-02 11:20] VITALS: BMI 30.4
== END ==
PROVIDERS: Family Provider Family Medicine; PCP Family Medicine; Referring Provider Internal Medicine Critical Care Medicine; Visit Provider Internal Medicine Critical Care Medicine
DX: G47.33 Obstructive sleep apnea (adult) (pediatric) (principal)
CPT/HCPCS: 95810

== ENCOUNTER → 2019-06-01 12:57 | Outpatient (CLI) | payer MEDICAID, SELFPAY ==
[2019-05-27 14:13] VITALS: BMI 30.7
--- NOTE | 2019-06-01 12:55 | RAD_ITS ---
STUDY: X-RAY - RIGHT FOOT CLINICAL: Male, 58 years old. Postop TECHNIQUE: 3 view(s) of the foot. COMPARISON: May 09, 2019 FINDINGS: Normal talus, and tarsal bones. Tiny plantar calcaneal spur is noted Normal visualized subtalar, talonavicular, calcaneocuboid, tarsal and tarsometatarsal articulations. Old healed fracture of the second metatarsal. Postop change status post open reduction internal fixation of proximal fifth metatarsal fracture with fracture fragments in anatomic alignment and position. Very early callus deposition noted Normal metatarsophalangeal joint of the great toe. Normal tibial and fibular sesamoid bones. Normal interphalangeal joint of the great toe. Normal phalanges of the great toe. Normal second through fifth metatarsophalangeal joints. Normal interphalangeal joints and phalanges of the lesser toes. The soft tissue structures are unremarkable. RAD/Foot min 3 Views IMPRESSION: Early healing fracture of the proximal fifth metatarsal status post ORIF Electronically Signed: Jamel Lynne MD at 17:16 EDT , Service support ,
== END ==
PROVIDERS: Family Provider Family Medicine; PCP Family Medicine; Referring Provider Physician Assistant; Visit Provider Physician Assistant
DX: S92.351G Displaced fracture of fifth metatarsal bone, right foot, subsequent encounter for fracture with delayed healing (principal)
CPT/HCPCS: 73630

== ENCOUNTER 2019-06-03 19:41 | Emergency (ER) | payer MEDICAID, SELFPAY ==
[2019-06-01 13:51] VITALS: BMI 30.7
[2019-06-03 19:42] VITALS: BP 133/94; PULSE 87; RESP 18; TEMP 36.1; O2SAT 99; BMI 30.7
--- NOTE | 2019-06-03 19:45 | RAD_ITS ---
STUDY: X-RAY - RIGHT FOOT CLINICAL: Male, 58 years old. Prior fracture, question reinjury. TECHNIQUE: 3 view(s) of the foot. COMPARISON: 06/01/2019. FINDINGS: Tarsal bones and intertarsal joints are unremarkable. First through fourth tarsometatarsal joints are unremarkable. Subacute fifth metatarsal fracture with lateral plate and screws. There is a new fracture of the lateral plate which was not present on the study of 06/01/2019. Old healed second metatarsal fracture with bone remodeling. Metatarsal bones are otherwise unremarkable. Metatarsophalangeal joints, phalanges, and interphalangeal joints are unremarkable. RAD/Foot min 3 Views IMPRESSION: 1. Patient is status post internal fixation of the fifth metatarsal, with new fracture of the lateral plate. No new bone fracture. Electronically Signed: Anila Gilbert MD at 20:16 EDT Tel , Service support ,
--- NOTE | 2019-06-03 22:11 | ED.DCSUM_ITS ---
- ER Visit Summary Date of Service: 06/03/19 Chief Complaint: Right lateral foot pain History of Present Illness: The patient is a 58 M status post right foot surgery for a nonunion of 5th metatarsal fracture. He was seen ER recently there was a questionable early infection was started on antibiotics. 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 He was concerned that he reinjured the foot. Physical Examination: Well-appearing middle-aged male. Vital signs are stable afebrile. No acute distress. HEENT neck heart-lung abdominal exam unremarka ble. Right foot has a well-healed surgical incision. Foot is dry and clean. Normal DP pulse. Neurovascular intact. He is tender around the midportion of the right lateral fifth metatarsal. Test Results: X-ray of the right foot 3 views reveals a plated and screwed proximal right fifth metatarsal fracture. No new injury to the bone however he did fracture the metallic plate. I went over the x-rays with the patient. Emergency Department Course and Treatment: Follow-up with his orthopedic surgeon and [place] santos and micaela. Limited [place] and Motrin for pain. Treatment Plan: Follow-up with his orthopedic surgeon. Disposition: Discharge Impression: Status post right fifth metatarsal orthopedic surgery with plate and screws Fracture of the metallic plate This note was generated with [employer] dictation software. It may contain incorrect words, spelling, and punctuation that were not noted in review of the chart prior to signing ED Disposition - Plan for ED Patient: Referrals: Valerio Pfeiffer MD [Primary Care Provider] -
--- NOTE | 2019-06-03 22:14 | ED.DEP ---
ED Disposition - Plan for ED Patient: Disposition: Home or Assisted Living Prescriptions: Hydrocodone Bitart/Apap 5-325 [[place] 5MG-325MG] 1 tab PO Q4H PRN PRN 4 Days #10 tab PRN Reason: Pain Prescription Printed Referrals: Isabella Holland DO [STAFF PHYSICIAN] - As soon as possible Additional Instructions: Right foot. [place] for pain and Motrin. Follow-up with Dr. Holland
[2019-06-03 22:36] VITALS: RESP 18
== END 2019-06-03 22:36 | disposition home or self-care (01) ==
PROVIDERS: Emergency Provider Emergency Medicine; Family Provider Family Medicine; PCP Family Medicine
DX: T84.213A Breakdown (mechanical) of internal fixation device of bones of foot and toes, initial encounter (principal); M79.671 Pain in right foot; I10 Essential (primary) hypertension; F32.9 Major depressive disorder, single episode, unspecified; Z79.82 Long term (current) use of aspirin; Z79.899 Other long term (current) drug therapy
CPT/HCPCS: 73630; 99282

== ENCOUNTER 2019-06-06 12:28 | Emergency (ER) | payer MEDICAID, SELFPAY ==
[2019-06-06 12:29] VITALS: BP 129/88; PULSE 90; RESP 18; TEMP 37.1; O2SAT 99; BMI 30.8
[2019-06-06 12:51] VITALS: BP 125/70; BP 125/80; PULSE 80; RESP 14; TEMP 36.1; O2SAT 98
--- NOTE | 2019-06-06 13:22 | ED.VISSUMM ---
- ER Visit Summary Date of Service: 06/06/19 Chief Complaint: Foot pain History of Present Illness: The patient is a 58 M with right foot pain. He had surgery for a Prince fracture, and then he fractured the plate on June 03 when he was on stairs. He received 10 [place] but is having continued pain. He has follow-up with a Dr. aCsey on June 09. Physical Examination: Skin appears unremarkable, healing well. He is tender to the area. Neurovascularly intact. Test Results: None performed Emergency Department Course and Treatment: Patient has continued pain. Internal plate is fractured. He is planning to follow-up. He was given a refill of his pain pills for 3 days. Follow-up with his doctor. Treatment Plan: As above Disposition: Discharged Impression: 1. Right foot pain This note was generated with [employer] dictation software. It may contain incorrect words, spelling, and punctuation that were not noted in review of the chart prior to signing ED Disposition - Plan for ED Patient: Referrals: Valerio Pfeiffer MD [Primary Care Provider] -
--- NOTE | 2019-06-06 13:25 | ED.DEP ---
ED Disposition - Plan for ED Patient: Instructions: FRACTURE, Lower Extremity Prescriptions: Oxycodone HCl/Acetaminophen [Percocet 5/325] 1 tab PO Q6H PRN PRN 3 Days #12 tab PRN Reason: Pain Prescription Printed
[2019-06-06] MEDS: oxyCODONE 5 MG Tablet PO (13:51)
[2019-06-06 13:52] VITALS: BP 136/75; PULSE 85; RESP 14; O2SAT 98
== END 2019-06-06 13:53 | disposition home or self-care (01) ==
LOC: ED 13:16
PROVIDERS: Emergency Provider Emergency Medicine; Family Provider Family Medicine; PCP Family Medicine
DX: M79.671 Pain in right foot (principal); I10 Essential (primary) hypertension; Z79.82 Long term (current) use of aspirin; Z79.899 Other long term (current) drug therapy
CPT/HCPCS: 99283

== ENCOUNTER → 2019-06-14 14:36 | Outpatient (CLI) | payer MEDICAID, SELFPAY ==
[2019-06-06 12:29] VITALS: BMI 30.8
[2019-06-14 17:39] LABS: Absolute Lymphocyte Count 0.99 X10^3/uL (0.83-4.51); Basophil# 0.09 X10^3/uL; Basophil% 1.8 % (0-1); Eosinophil# 0.18 X10^3/uL; Eosinophils% 3.5 % (0-5); Hematocrit 43.5 % (40-54); Hemoglobin 14.6 g/dL (13.0-16.5); Lymphocyte # 0.99 X10^3/ul (4.0); Lymphocyte % 19.3 % (19-41); Mean Corp Hgb Conc 33.6 g/dL (32-36); Mean Corpuscular Hgb 32.6 pg (27.0-32.0); Mean Corpuscular Volume 97.1 fL (80-94); Monocyte# 0.82 X10^3/uL; NRBC Flagged by Analyzer 0 % (0-5); Neutrophil # 3.03 X10^3/uL (2.7-7.7); Neutrophil % 59.2 % (47-70); Platelet Count 233 K/mm3 (150-450); RBC Distribution Width CV 14.6 % (11.6-14.6); RBC Distribution Width SD 52.7 fl (35.1-43.9); Red Blood Count 4.48 M/mm3 (4.6-6.2); White Blood Count 5.1 K/mm3 (4.4-11.0)
[2019-06-14 17:59] LABS: ALB/GLOB Ratio 0.9 RATIO (0.9-2.4); AST(SGOT) 479 U/L (15-37); Alanine Aminotransfer ALT/SGPT 863 U/L (16-61); Albumin, Serum 3.1 g/dL (3.2-5.0); Alkaline Phosphatase 296 U/L (45-117); Anion Gap 8 (5-15); BUN 15 mg/dL (7-18); BUN/Creat Ratio 15.6 RATIO (10-20); Calcium,Total 8.4 mg/dL (8.5-10.1); Chloride 106 mmol/L (98-107); Creatinine, Serum 0.96 mg/dL (0.70-1.30); EST Glomerular Filtration Rate 86 mL/min (>60); Est Glom Filt Rate - Afr Amer 103 mL/min (>60); Globulin 3.6 g/dL (2.2-4.2); Glucose 134 mg/dL (74-106); Potassium 4.3 mmol/L (3.5-5.1); Protein, Total 6.7 g/dL (6.4-8.2); Sodium Level 137 mmol/L (136-145)
== END ==
PROVIDERS: Family Provider Family Medicine; PCP Family Medicine; Referring Provider Family Medicine; Visit Provider Nurse Practitioner Family
DX: Z01.818 Encounter for other preprocedural examination (principal)
CPT/HCPCS: 36415; 80053; 85025

== ENCOUNTER → 2019-06-15 16:53 | Outpatient (CLI) | payer MEDICAID, SELFPAY ==
[2019-06-15 14:01] VITALS: BMI 30.9
[2019-06-15 18:14] LABS: AST(SGOT) 407 U/L (15-37); Alanine Aminotransfer ALT/SGPT 823 U/L (16-61); Albumin, Serum 3.3 g/dL (3.2-5.0); Alkaline Phosphatase 306 U/L (45-117); Bilirubin, Direct 0.68 mg/dL (0.00-0.30); GGTP 1077 U/L (15-85); Globulin 3.7 g/dL (2.2-4.2)
== END ==
PROVIDERS: Family Provider Family Medicine; PCP Family Medicine; Referring Provider Family Medicine; Visit Provider Nurse Practitioner Family
DX: R74.8 Abnormal levels of other serum enzymes (principal)
CPT/HCPCS: 36415; 80076; 82977; 86704; 86705; 86706; 86708; 86709; 86803; 87340

== ENCOUNTER → 2019-06-24 11:12 | Outpatient (CLI) | payer MEDICAID, SELFPAY ==
[2019-06-15 14:01] VITALS: BMI 30.9
--- NOTE | 2019-06-24 11:34 | US_ITS ---
STUDY: ABDOMINAL ULTRASOUND - RIGHT UPPER QUADRANT REASON FOR VISIT: Male, 59 years old. Elevated liver enzymes TECHNIQUE: Ultrasound evaluation of the right upper quadrant was performed with real-time and static garcia-scale imaging. TECHNICAL QUALITY: Adequate. COMPARISON: None. FINDINGS: Liver: The liver measures 17.6 cm. There is normal echogenicity of the liver. The bile ducts are within normal limits. There is hepatic color flow. The direction of portal flow is hepatopetal. There is no demonstrated mass lesion. Gallbladder: Normal distended gallbladder. The gallbladder wall measures 2.6 mm. There is a negative sonographic Juan's sign. There is no pericholecystic fluid. There are no gallstones. Common Bile Duct (C.B.D.): The common bile duct measures 3.1 mm. Pancreas: There is normal echogenicity of the visualized pancreas. There is no demonstrated pancreatic mass or cyst. Right Kidney: Normal size of the right kidney. The right kidney measures 11.7 x 5.4 x 5.4 cm. Normal renal cortex. The right cortex measures 1.9 cm. There is no demonstrated renal mass or cyst. There is no right hydronephrosis. US/Abdomen Limited IMPRESSION: 1. No gallstones or biliary dilation. 2. Liver size at the upper limits of normal. Electronically Signed: Charly Marina MD ([place]) at 13:35 EDT , Service support ,
== END ==
PROVIDERS: Family Provider Family Medicine; PCP Family Medicine; Referring Provider Nurse Practitioner Family; Visit Provider Nurse Practitioner Family
DX: R74.8 Abnormal levels of other serum enzymes (principal)
CPT/HCPCS: 76705

== ENCOUNTER → 2019-06-28 13:41 | Outpatient (CLI) | payer MEDICAID, SELFPAY ==
[2019-06-15 14:01] VITALS: BMI 30.9
[2019-06-28 16:07] LABS: AST(SGOT) 539 U/L (15-37); Alanine Aminotransfer ALT/SGPT 863 U/L (16-61); Albumin, Serum 3.1 g/dL (3.2-5.0); Alkaline Phosphatase 311 U/L (45-117); Bilirubin, Direct 0.76 mg/dL (0.00-0.30); GGTP 1195 U/L (15-85); Globulin 3.8 g/dL (2.2-4.2); Protein, Total 6.9 g/dL (6.4-8.2)
== END ==
PROVIDERS: Family Provider Family Medicine; PCP Family Medicine; Referring Provider Family Medicine; Visit Provider Nurse Practitioner Family
DX: R74.8 Abnormal levels of other serum enzymes (principal)
CPT/HCPCS: 36415; 80076; 82977

== ENCOUNTER → 2019-07-07 07:53 | Outpatient (CLI) | payer MEDICAID, SELFPAY ==
[2019-06-15 14:01] VITALS: BMI 30.9
[2019-07-08 14:10] LABS: AFP, Tumor Marker 14.1 ng/mL (0.0-8.3)
== END ==
PROVIDERS: Family Provider Family Medicine; PCP Family Medicine; Referring Provider Podiatrist; Visit Provider Podiatrist
DX: R94.5 Abnormal results of liver function studies (principal)
CPT/HCPCS: 36415; 82105

== ENCOUNTER 2019-09-24 14:53 | Emergency (ER) | payer MEDICAID, SELFPAY ==
[2019-06-15 14:01] VITALS: BMI 30.9
[2019-09-24 14:54] VITALS: BP 142/91; PULSE 114; RESP 20; TEMP 36.3; O2SAT 98; BMI 29.2
--- NOTE | 2019-09-24 15:08 | CT_ITS ---
STUDY: CT ABDOMEN AND PELVIS WITHOUT CONTRAST REASON FOR EXAM: Male, 59 years old. Bilateral flank pain. RADIATION DOSAGE (If Supplied By Facility): CTDIvol = ( 9.56 ) mGy, DLP = ( 518.21 ) mGycm TECHNIQUE: Transaxial images were obtained from the dome of the diaphragm to the symphysis pubis without oral contrast, and without intravenous contrast. Sagittal and coronal images were reconstructed. Individualized dose optimization techniques were used for this CT. COMPARISON: 10/14/2015, 02/18/2019. FINDINGS: The visualized lung bases are unremarkable. A 6 mm nodule in the periphery of the left lower lobe was present in 2014. The visualized portions of the heart are within normal limits. Normal liver. The gallbladder is contracted and suboptimally evaluated. Normal spleen. Normal pancreas. Normal bilateral adrenal glands. Normal right kidney. Normal left kidney. No definite renal or ureteral stones are seen. There is no hydronephrosis on either side. Evaluation of the GI tract is limited by absence of oral contrast. Cannot exclude stomach wall thickening. No dilated loops of bowel or evidence for obstruction. Cannot exclude segmental thickening of the triplett of the small or large bowel. Cannot exclude enteritis or colitis. Moderate diffuse fecal retention. Diverticulosis without definite diverticulitis. Appendix is not seen. Normal abdominal aorta. Normal inferior vena cava. Normal retroperitoneum. Normal urinary bladder. Normal abdominal wall. Degenerative disc disease at L4-L5, otherwise normal osseous structures. CT/Abdomen/Pelvis without Cont IMPRESSION: No definite acute abnormality. GI tract suboptimally evaluated without oral contrast. Gallbladder is contracted and suboptimally evaluated. Electronically Signed: Candido Willis MD at 16:25 EST , Service support ,
--- NOTE | 2019-09-24 15:10 | ED.DCSUM_ITS ---
- ER Visit Summary Date of Service: 09/24/19 Chief Complaint: Lower abdominal pain and bilateral flank pain History of Present Illness: The patient is a 59 M who presents with lower abdominal pain and bilateral flank pain. Patient states this began approximately 3 to 4 days ago. Patient states is been constant. Patient states the pain started in his lower abdomen and has progressed up to his flank areas bilaterally. Patient describes his pain as throbbing. Patient states nothing makes it better or worse. Patient states that initially he thought he was constipated. Patient states she has been having some difficulty urinating but denies any hematuria. Patient denies any fevers or chills. Patient denies any nausea or vomiting. Patient states she does have some shortness of breath when the pain gets bad. Physical Examination: Signs are stable except for mild tachycardia of 114. Patient is afebrile. Patient is in no acute distress. Oral mucosa is pink and moist. Neck is supple. Trachea is midline. There is no JVD. Heart was regular rate and rhythm. Lungs are clear and equal bilaterally. Abdomen is soft. Bowel sounds are normal. There is mild diffuse tenderness. There is bilateral CVA tenderness. There is no rebound or guarding noted. Cranial nerve s II through XII are intact. There are no focal motor or sensory deficits noted. Test Results: CBC and basic metabolic profile within normal limits. Urinalysis was normal. CT scan of the abdomen and pelvis was obtained. There is no acute intra-abdominal process noted. This was interpreted by the radiologist and reviewed by myself. Emergency Department Course and Treatment: Patient was given IV fluids. Patient felt better on reevaluation. Patient was instructed to follow-up with his primary care physician in 5 to 7 days. Patient understood and was agreeable with the plan. All questions were answered. Disposition: Discharge home Impression: 1. Lower abdominal pain This note was generated with [employer] dictation software. It may contain incorrect words, spelling, and punctuation that were not noted in review of the chart prior to signing ED Disposition - Plan for ED Patient: Disposition: Home or Assisted Living Diagnosis: Lower abdominal pain of unknown etiology Instructions: FLANK PAIN, Uncertain Cause, ABDOMINAL PAIN, Unkown Cause, (Male) Referrals: Valerio Pfeiffer MD [Primary Care Provider] - 5-7 Days
[2019-09-24 15:25] LABS: Bacteria 0 SEEN /hpf (None Seen); Mucous, Urine 0 SEEN /hpf (<or=2+); Red Blood Cells-Urine 0 SEEN /hpf (0-5); Squamous Epithelial Cells - UA 0 SEEN /hpf (0-5)
[2019-09-24] MEDS: 0.9% Normal Saline 1,000 ML 1000 ML IV (15:25)
[2019-09-24 15:35] LABS: Color, Urine Yellow (Yellow); Glucose, Dipstick Normal (Normal); Ketone-Dipstick Negative (Negative); Leukocyte Esterase-Dipstick 25 /ul (Negative); Nitrite-Dipstick Negative (Negative); Occult Blood-Urine Negative /ul (Negative); Protein-Dipstick Negative (Negative); Specific Gravity, Urine 1.005 (1.002-1.030); Urine Bilirubin Dipstick Negative (Negative); Urine Clarity Clear (Clear); Urine Urobilinogen 1 mg/dl (Normal)
[2019-09-24 15:35] LABS: Absolute Lymphocyte Count 1.13 X10^3/uL (0.83-4.51); Absolute Neutrophil Count 4.8 X10^3/uL (2.0-7.7); Basophil# 0.05 X10^3/uL; Basophil% 0.7 % (0-1); Eosinophil# 0.07 X10^3/uL; Hemoglobin 14.3 g/dL (13.0-16.5); Lymphocyte # 1.13 X10^3/ul (4.0); Lymphocyte % 16.3 % (19-41); Mean Corp Hgb Conc 34.9 g/dL (32-36); Mean Corpuscular Hgb 34.8 pg (27.0-32.0); Mean Corpuscular Volume 99.8 fL (80-94); Mean Platelet Vol. 11.7 fl (6.2-12.0); Monocyte# 0.88 X10^3/uL; Monocyte% 12.7 % (0-10); NRBC Flagged by Analyzer 0 % (0-5); Neutrophil # 4.78 X10^3/uL (2.7-7.7); Platelet Count 173 K/mm3 (150-450); RBC Distribution Width SD 47.9 fl (35.1-43.9); Red Blood Count 4.11 M/mm3 (4.6-6.2); White Blood Count 6.9 K/mm3 (4.4-11.0)
[2019-09-24 15:46] LABS: White Blood Cells 0-5 SEEN /hpf (0-5)
[2019-09-24 16:16] LABS: Anion Gap 10 (5-15); BUN 9 mg/dL (7-18); BUN/Creat Ratio 8.8 RATIO (10-20); Calcium,Total 8.1 mg/dL (8.5-10.1); Chloride 102 mmol/L (98-107); Creatinine, Serum 1.02 mg/dL (0.70-1.30); EST Glomerular Filtration Rate 80 mL/min (>60); Est Glom Filt Rate - Afr Amer 97 mL/min (>60); Glucose 182 mg/dL (74-106); Potassium 3.7 mmol/L (3.5-5.1); Sodium Level 137 mmol/L (136-145)
== END 2019-09-24 16:51 | disposition home or self-care (01) ==
PROVIDERS: Emergency Provider Emergency Medicine; Family Provider Family Medicine; PCP Family Medicine
DX: R10.30 Lower abdominal pain, unspecified (principal); R10.11 Right upper quadrant pain; R10.12 Left upper quadrant pain; I10 Essential (primary) hypertension; F32.9 Major depressive disorder, single episode, unspecified; F17.200 Nicotine dependence, unspecified, uncomplicated; Z79.82 Long term (current) use of aspirin; Z79.899 Other long term (current) drug therapy
CPT/HCPCS: 74176; 80048; 81001; 85025; 96360; 99284; J7030

== ENCOUNTER 2019-09-26 15:08 | Inpatient (IN) | payer MEDICAID, SELFPAY ==
[2019-09-26 15:08] VITALS: BP 126/79; PULSE 114; RESP 16; TEMP 36.6; O2SAT 98; BMI 31.2
--- NOTE | 2019-09-26 15:33 | CT_ITS ---
STUDY: CT ABDOMEN AND PELVIS WITH CONTRAST REASON FOR EXAM: Male, 59 years old. RADIATION DOSAGE (If Supplied By Facility): CTDIvol = ( 14.38 ) mGy, DLP = ( 1038.48 ) mGycm TECHNIQUE: Transaxial images were obtained from the dome of the diaphragm to the symphysis pubis without oral contrast. IV/Oral Isovue 370 100cc was administered. Sagittal and coronal images were reconstructed. Individualized dose optimization techniques were used for this CT. COMPARISON: 09/24/2019. FINDINGS: Reidentified 6 mm left lower lobe nodule. The visualized portions of the heart are within normal limits. Moderate periportal edema. Hepatic parenchyma is grossly unremarkable. Normal gallbladder and extrahepatic biliary system. Normal spleen. Normal pancreas. Normal bilateral adrenal glands. Normal right kidney. Normal left kidney. Normal visualized stomach. Normal small intestine. Moderate diverticulosis with an area of inflammatory change around the sigmoid colon which may indicating acute diverticulitis. No focal abscesses identified. The appendix is visualized and appears normal. There is diffuse atherosclerotic calcification of the abdominal aorta, without a demonstrated aneurysm. Normal inferior vena cava. Normal retroperitoneum. Normal urinary bladder. There are prostatic calcifications. Normal abdominal wall. There are diffuse degenerative changes of the visualized lumbar spine. CT/Abdomen/Pelvis WITH Contrast IMPRESSION: Findings concerning for acute diverticulitis. Electronically Signed: Fortino Linder, at 18:47 EST Tel , Service support ,
--- NOTE | 2019-09-26 15:34 | ED.DCSUM_ITS ---
History of Present Illness Chief Complaint: Abd Pain Informant: Patient Onset: Days - 5-6 Timing: Waxes and wanes Narrative: Presents with waxing and waning lower abdominal pain for the past 5 to 6 days. Pain is throbbing in nature. Reports pain worse with food. No fevers. Reports pain to the bilateral flank region. He was seen 2 days ago here in the ED with a work-up. Reports was feeling better when he left however symptoms which come and go. No previous similar symptoms. No nausea or vomiting. No history of diverticulitis. No history of upper or lower endoscopies. No urinary symptoms. States he took a laxative yesterday now having loose stools from that. No bloody stools. No abdominal surgeries. He states he ate a small piece of cake prior to arrival. Review of records 2 days ago had renal stone protocol work-up with no acute process, CT scan noncontrast negative with nonvisualized appendix and poor evaluation of GI structures per radiology. Prior similar symptoms: No Past Medical History - Allergies and Home Meds Allergies/Adverse Reactions: Allergies No Known Allergies Allergy (Verified 09/26/19 15:10) Primary Care Physician: Valerio Pfeiffer MD [Primary Care Provider] - Surgical History: no surgical history Smoking Status: Current every day smoker - Family History Maternal Family History: Family History (Last Reviewed 06/15/19 @ 14:14 by Claudia Mendoza NP-C) Mother Diabetes Hypertension CVA (cerebral vascular accident) Family History: Reports: Diabetes, Unknown Review of Systems General: Denies: Chills, Fever, Sweats Eyes: Denies: Visual changes - bilaterally, Diplopia ENT: Denies: Rhinorrhea, Sore throat Cardiovascular: Denies: Chest pain, Palpitations Respiratory: Denies: Dyspnea, Cough, Dyspnea on exertion Gastrointestinal: Reports: Abdominal pain. Denies: Nausea, Vomiting, Diarrhea, Melena, Hematochezia Genitourinary: Denies: Dysuria, Hematuria, Frequency Musculoskeletal: Denies: Back pain, Extremity Pain Skin: Denies: Rash, Wounds Neurological: Denies: Headache, Weakness, Numbness Physical Exam Vital Signs/Narrative: Vital Signs Temp Pulse Resp BP Pulse Ox 09/26/19 15:08 98 F 114 H 16 126/79 H 98 Inital Vital Signs reviewed: Yes General: Well nourished, Well developed, No Acute Distress Head: Normocephalic, Atraumatic Eyes: Perrl, EOMI ENT: Moist mucous membranes, No rhinorrhea Neck: Supple, Nontender Cardiovascular: Regular rate, Regular rhythm, No murmurs, Tachycardia Respiratory: No distress, CTA bilaterally, Chest nontender Abdomen: Soft, Nondistended, Normal bowel sounds, - - Tender palpation suprapubic, mild left lower quadrant, mild right lower quadrant, no guarding or rebound. Back: Nontender, Normal Inspection. Negative for: CVA tenderness Extremities: Nontender, No edema Skin: Normal color, No rash Neurological: Alert, Oriented x3, Cranial nerves II-XII grossly intact, Normal Strength, Normal Sensation Psychological: Normal affect, Normal Mood Diagnostic/Tx/Re-eval Clinical Impression(s) from Imaging Studies Abdomen/Pelvis CT 09/26/19 15:33 IMPRESSION: Findings concerning for acute diverticulitis. Electronically Signed: Fortino Linder, at 18:47 EST Tel , Service support , Abnormal Lab Results 09/26/19 09/26/19 09/26/19 15:53 15:53 15:57 WBC 7.5 RBC 4.42 L Hgb 15.3 Hct 44.9 MCV 101.6 H MCH 34.6 H MCHC 34.1 RDW Std Deviation 49.6 H RDW Coeff of Jacinto 13.2 Plt Count 167 MPV 12.0 Immature Gran % (Auto) 0.300 Neut % (Auto) 63.8 Lymph % (Auto) 18.9 L [place] % (Auto) 12.8 H Eos % (Auto) 2.9 Baso % (Auto) 1.3 H Absolute Neuts (auto) 4.8 Absolute Lymphs (auto) 1.41 Nucleated RBC % 0 Sodium 141 Potassium 3.8 Chloride 108 H Carbon Dioxide 28.0 Anion Gap 5 BUN 13 Creatinine 0.99 Estim Creat Clear Calc 85.00 Est GFR (MDRD) Af Amer 100 Est GFR (MDRD) Non-Af 83 BUN/Creatinine Ratio 13.1 Glucose 100 Calcium 8.5 Total Bilirubin 1.40 H AST 356 H ALT 463 H Alkaline Phosphatase 291 H Total Protein 6.8 Albumin 2.8 L Globulin 4.0 Albumin/Globulin Ratio 0.7 L Lipase 203 Urine Color Yellow Urine Clarity Sl. Cloudy Urine pH 6.5 Ur Specific [place] 1.015 Urine Protein Negative Urine Glucose (UA) Normal Urine Ketones Negative Urine Occult Blood Negative Urine Nitrite Negative Urine Bilirubin Negative Urine Urobilinogen 1 H Ur Leukocyte Esterase Negative Urine RBC 0 SEEN Urine WBC 0 SEEN Ur Squamous Epith Cells 0 SEEN Urine Bacteria 0 SEEN Urine Mucus 0 SEEN - Medical Decision Making Vitals stable, clinically suprapubic pain lower quadrant pain concerns or diverticulitis. Normal noncontrast scan 2 days ago with poor visualization of GI tract due to no contrast. He was reimaged and lab work done due to his symptoms. Contrast was used, confirmed thickening sigmoid concerning for diverticulitis white count is normal. He had transaminitis, initial order for ultrasound in ED however rediscussion with patient states in June he had elevated liver enzymes with ultrasound at that time. That was negative and confirmed. He reports outpatient findings for hepatitis C. He denies any IV drug use. Treated with initial Levsin which did not improve, morphine did not help however Dilaudid did calm down symptoms. With his persistent symptoms requiring pain control I do feel benefit from inpatient management. He started on Cipro and Flagyl IV. I discussed with hospitalist Dr. Blackwood for admission. ED Disposition - Plan for ED Patient: Disposition: Acute Care Hospital [facility] Diagnosis: Sigmoid diverticulitis, Abdominal pain Referrals: Valerio Pfeiffer MD [Primary Care Provider] -
[2019-09-26] MEDS: Hyoscyamine Sulfate 0.125 MG Tablet SUBLINGUAL (16:04)
[2019-09-26 16:05] LABS: Bacteria 0 SEEN /hpf (None Seen); Mucous, Urine 0 SEEN /hpf (<or=2+); Red Blood Cells-Urine 0 SEEN /hpf (0-5); Squamous Epithelial Cells - UA 0 SEEN /hpf (0-5); White Blood Cells 0 SEEN /hpf (0-5)
[2019-09-26] MEDS: 0.9% Normal Saline 1,000 ML 1000 ML IV (16:05)
[2019-09-26 16:12] LABS: Absolute Lymphocyte Count 1.41 X10^3/uL (0.83-4.51); Absolute Neutrophil Count 4.8 X10^3/uL (2.0-7.7); Basophil% 1.3 % (0-1); Eosinophil# 0.22 X10^3/uL; Eosinophils% 2.9 % (0-5); Hematocrit 44.9 % (40-54); Hemoglobin 15.3 g/dL (13.0-16.5); Lymphocyte # 1.41 X10^3/ul (4.0); Lymphocyte % 18.9 % (19-41); Mean Corp Hgb Conc 34.1 g/dL (32-36); Mean Corpuscular Hgb 34.6 pg (27.0-32.0); Mean Corpuscular Volume 101.6 fL (80-94); Monocyte# 0.96 X10^3/uL; Monocyte% 12.8 % (0-10); NRBC Flagged by Analyzer 0 % (0-5); Neutrophil # 4.77 X10^3/uL (2.7-7.7); Neutrophil % 63.8 % (47-70); Platelet Count 167 K/mm3 (150-450); RBC Distribution Width CV 13.2 % (11.6-14.6); RBC Distribution Width SD 49.6 fl (35.1-43.9); Red Blood Count 4.42 M/mm3 (4.6-6.2); White Blood Count 7.5 K/mm3 (4.4-11.0)
[2019-09-26 16:16] LABS: Color, Urine Yellow (Yellow); Glucose, Dipstick Normal (Normal); Ketone-Dipstick Negative (Negative); Leukocyte Esterase-Dipstick Negative /ul (Negative); Nitrite-Dipstick Negative (Negative); Occult Blood-Urine Negative /ul (Negative); Protein-Dipstick Negative (Negative); Specific Gravity, Urine 1.015 (1.002-1.030); Urine Bilirubin Dipstick Negative (Negative); Urine Clarity Sl. Cloudy (Clear); Urine Urobilinogen 1 mg/dl (Normal); Urine pH 6.5 (5.0 - 8.0)
[2019-09-26 16:25] LABS: ALB/GLOB Ratio 0.7 RATIO (0.9-2.4); AST(SGOT) 356 U/L (15-37); Alanine Aminotransfer ALT/SGPT 463 U/L (16-61); Albumin, Serum 2.8 g/dL (3.2-5.0); Alkaline Phosphatase 291 U/L (45-117); Anion Gap 5 (5-15); BUN 13 mg/dL (7-18); BUN/Creat Ratio 13.1 RATIO (10-20); Calcium,Total 8.5 mg/dL (8.5-10.1); Chloride 108 mmol/L (98-107); Creatinine, Serum 0.99 mg/dL (0.70-1.30); EST Glomerular Filtration Rate 83 mL/min (>60); Est Glom Filt Rate - Afr Amer 100 mL/min (>60); Glucose 100 mg/dL (74-106); Lipase 203 U/L (73-393); Potassium 3.8 mmol/L (3.5-5.1); Protein, Total 6.8 g/dL (6.4-8.2); Sodium Level 141 mmol/L (136-145)
[2019-09-26] MEDS: Morphine 4 MG/ML Syringe IV (16:43)
[2019-09-26] MEDS: HYDROmorphone 1 MG/ML Syringe IV ×2 (18:57→23:08)
[2019-09-26] MEDS: metroNIDAZOLE 500 MG/100 ML BAG 100 MG IV (19:06)
--- NOTE | 2019-09-26 19:52 | HP.PCM_ITS ---
Problem List (1) Sigmoid diverticulitis Status: Acute (2) Abdominal pain Status: Acute (3) BMI 30.0-30.9,adult Status: Chronic (4) LINDA (obstructive sleep apnea) Status: Acute (5) Preop cardiovascular exam Status: Acute (6) Dyslipidemia Status: Chronic (7) Atherosclerosis of coronary artery of [place] heart without angina pectoris Status: Chronic Qualifiers: Coronary Disease-Associated Artery/Lesion type: [place] artery Qualified Code(s): I25.10 - Atherosclerotic heart disease of [place] coronary artery without angina pectoris (8) Cardiomyopathy Status: Chronic Qualifiers: Cardiomyopathy type: unspecified Qualified Code(s): I42.9 - Cardiomyopathy, unspecified (9) Essential hypertension Status: Chronic (10) Tobacco abuse Status: Chronic History of Present Illness Date of Admission: 09/26/19 Chief Complaint: abdominal pain The patient is a 59 year old M with a significant history of cardiomyopathy; and hypertension who presented to emergency department with 6 to 7-day history of excruciating dull and throbbing progressively worsening bilateral lower abdominal pain that radiates to his bilateral flanks. His pain improved somewhat in lying in a position. His pain is exacerbated with eating. Initially his symptoms started with constipation and for which reason patient took prune juice and laxative and then developed diarrhea. In regard to the symptoms he first came to emergency department on 09/24/[address] of his abdomen without contrast could not properly visualize his GI tract. Repeat CT of the abdomen and pelvis on this visit was remarkable for findings consistent with acute diverticulitis. On this visit emergent department doctor gave patient Levsin and later morphine which did not help with patient's pain. However patient had improvement with Dilaudid. Past Medical History Past Medical History (Chronic Problems): Chronic Problems (Last Reviewed 09/26/19 @ 21:28 by Amrit Blackwood MD) Tobacco abuse (Chronic) BMI 30.0-30.9,adult (Chronic) Dyslipidemia (Chronic) Atherosclerosis of coronary artery of [place] heart without angina pectoris (Chronic) Cardiomyopathy (Chronic) Essential hypertension (Chronic) Medical History: Medical History (Last Reviewed 09/27/19 @ 04:09 by Amrit Blackwood MD) Dyslipidemia (Chronic) E78.5 Atherosclerosis of coronary artery of [place] heart without angina pectoris (Chronic) I25.10 Cardiomyopathy (Chronic) I42.9 Essential hypertension (Chronic) I10 History of foot fracture Z87.81 Chest pain R07.9 Chest pain (Resolved) R07.9 Suicidal ideation Onset Date: ~03/27/19 R45.851 Allergies No Known Allergies Allergy (Verified 09/26/19 15:10) Home Medications: Ambulatory Orders Medication Instructions Recorded bupropion HCl XL 300 mg 24 hr 300 mg PO DAILY 30 Days #30 tab 04/17/19 tablet, extended release Atorvastatin Calcium [Lipitor] 40 mg PO QHS 09/24/19 Metoprolol Succinate 25 mg PO DAILY 09/24/19 Aspirin 81 mg PO DAILY 09/26/19 hydroCHLOROthiazide 12.5 mg PO DAILY 09/26/19 [Hydrochlorothiazide] Surgical History: Surgical History (Last Reviewed 09/27/19 @ 04:09 by Amrit Blackwood MD) History of left heart catheterization (Resolved) Z98.890 02/20/2019 [facility], Dr. Wyatt mild CAD Psychiatric History: No pertinent psych hx Lives: Alone Smoking Status: Current every day smoker Tobacco Use: Cigarettes - *Family History Maternal Family History: Family History (Last Reviewed 09/27/19 @ 04:10 by Amrit Blackwood MD) Mother Diabetes Hypertension CVA (cerebral vascular accident) History Items: Diabetes, Unknown Review of Systems Constitutional: Reports: Chills. Denies: Fever, Weight Change HEENT: Denies: Head Aches, Sinus Congestion, Sinus Drainage Cardiovascular: Denies: Chest Pain, Palpitations Respiratory: Denies: Cough, Shortness of breath at rest, Sputum production Gastrointestinal: Reports: Abdominal Pain, Constipation - Now resolved, Diarrhea. Denies: Nausea, Vomiting Genitourinary: Denies: Dysuria Musculoskeletal: Denies: Joint Pain, Joint Tenderness Skin: Denies: Rash, Wounds Neurological: Denies: Numbness, Tingling, Focal weakness Psychiatric: Denies: Anxiety, Depression, Homicidal Ideations, Suicidal Ideations Hematologic/ Lymphatic: Denies: Easy Bruising, Easy Bleeding VTE Information - Inpt Only VTE Present on Admission: No VTE Mechan Device Prophylaxis: None VTE Pharm Prophylaxis ordered?: Yes Patient Problems: Active and Suspected Problems (Last Reviewed 09/26/19 @ 21:28 by Amrit Blackwood MD) Sigmoid diverticulitis (Acute) Abdominal pain (Acute) - Physical Exam Vitals/I&O's: Vital Signs Temp Pulse Resp BP Pulse Ox 98 F 114 H 16 126/79 H 98 09/26/19 15:08 09/26/19 15:08 09/26/19 15:08 09/26/19 15:08 09/26/19 15:08 Oxygen Delivery Method Room Air Weight: 98.8 kg Body Mass Index (BMI) 31.2 Intake and Output for Last 24 Hours 09/24/19 09/25/19 09/26/19 23:59 23:59 23:59 Intake Total 1000 / 1000 Balance 1000 / 1000 General: Alert, Oriented x3, Cooperative HEENT: Atraumatic, PERRLA, EOMI, Normocephalic Neck: Supple, No JVD, Negative Carotid Bruits Lungs: Clear to auscultation, Normal air movement Cardiovascular: Regular rate, Regular Rhythm, Normal S1, Normal S2, No murmurs Abdomen: Bowel Sounds Present, Soft, Tender - Left lower quadrant, - - Left CVA tenderness Extremities: No edema, Capillary Refill Less than 3 Seconds Skin: No rashes, No breakdown Musculoskeletal: No Tenderness to Palpation of Joints or Extremities Neurological: Cranial nerves II-XII grossly intact Psych/Mental Status: Normal Affect, Appropriate Laboratory Results 09/26/19 15:53: WBC 7.5, RBC 4.42 L, Hgb 15.3, Hct 44.9, MCV 101.6 H, MCH 34.6 H , MCHC 34.1, RDW Std Deviation 49.6 H, RDW Coeff of Jacinto 13.2, Plt Count 167, MPV 12.0, Immature Gran % (Auto) 0.300, Neut % (Auto) 63.8, Lymph % (Auto) 18.9 L, [place] % (Auto) 12.8 H, Eos % (Auto) 2.9, Baso % (Auto) 1.3 H, Absolute Neuts (auto) 4.8, Absolute Lymphs (auto) 1.41, Nucleated RBC % 0 09/26/19 15:53: Sodium 141, Potassium 3.8, Chloride 108 H, Carbon Dioxide 28.0, Anion Gap 5, BUN 13, Creatinine 0.99, Estim Creat Clear Calc 85.00, Est GFR (MDRD) Af Amer 100, Est GFR (MDRD) Non-Af 83, BUN/Creatinine Ratio 13.1, Glucose 100, Calcium 8.5, Total Bilirubin 1.40 H, AST 356 H, ALT 463 H, Alkaline Phosphatase 291 H, Total Protein 6.8, Albumin 2.8 L, Globulin 4.0, Albumin/Globulin Ratio 0.7 L, Lipase 203 09/26/19 15:57: Urine Color Yellow, Urine Clarity Sl. Cloudy, Urine pH 6.5, Ur Specific [place] 1.015, Urine Protein Negative, Urine Glucose (UA) Normal, Urine Ketones Negative, Urine Occult Blood Negative, Urine Nitrite Negative, Urine Bilirubin Negative, Urine Urobilinogen 1 H, Ur Leukocyte Esterase Negative, Urine RBC 0 SEEN, Urine WBC 0 SEEN, Ur Squamous Epith Cells 0 SEEN, Urine Bacteria 0 SEEN, Urine Mucus 0 SEEN Assessment/Plan All Active Problems (Last Reviewed 09/26/19 @ 21:28 by Amrit Blackwood MD) Sigmoid diverticulitis (Acute) Abdominal pain (Acute) LINDA (obstructive sleep apnea) (Acute) Preop cardiovascular exam (Acute) History of left heart catheterization (Resolved) Chest pain (Resolved) Right flank discomfort (Resolved) The patient is a 59 year old M with a significant history of cardiomyopathy; and hypertension who presented to emergency department with 6 to 7-day history of excruciating dull and throbbing progressively worsening bilateral lower ab dominal pain that radiates to his bilateral flanks; radiographic findings of inflammatory change around the sigmoid colon consistent with likely acute sigmoid diverticulitis. Acute sigmoid diverticulitis. Discussed starting patient on clear liquid diet since patient stated that regular food actually increases his abdominal pain. However patient wants to be on a regular diet. Regular diet ordered. Tylenol for mild pain; oxycodone for moderate pain; and Dilaudid for severe pain Zofran as needed for nausea in the setting of giving patient narcotic. Trend CBC and BMP Hypertension On presentation his blood pressure was not within goal Hydrochlorthiazide and metoprolol continued Trend blood pressure and adjust blood pressure medications History of cardiomyopathy Aspirin; Lipitor; and metoprolol continued. Subcentimeter lung nodule A 6 mm left lower lobe nodule reidentified on this image. Recommend longitudinal follow-up upon discharge. Tobacco abuse. Reportedly patient smokes about 1 stick cigarette a day. Counseled. DVT prophylaxis Subcutaneous Lovenox Code Visit Inpatient E&M: 47814 Init Hosp L3
[2019-09-26] MEDS: Ciprofloxacin 400 MG/200 ML BAG 200 MG IV (20:31)
[2019-09-26 20:33] VITALS: BP 132/97; PULSE 110; RESP 18; TEMP 36.8; O2SAT 97
[2019-09-26 20:49] VITALS: BMI 29.9
[2019-09-26 20:59] VITALS: BP 132/89; PULSE 89; RESP 18; TEMP 36.8; O2SAT 98
[2019-09-26] MEDS: Atorvastatin Calcium 40 MG Tablet PO (21:23)
[2019-09-26] MEDS: oxyCODONE 5 MG Tablet PO (21:25)
[2019-09-27] MEDS: oxyCODONE 5 MG Tablet PO ×3 (01:32→20:10)
[2019-09-27 02:00] VITALS: BP 152/84; PULSE 85; RESP 18; TEMP 36.3; O2SAT 98
[2019-09-27] MEDS: Ciprofloxacin 400 MG/200 ML BAG 200 MG IV ×3 (05:02→21:06)
[2019-09-27] MEDS: HYDROmorphone 1 MG/ML Syringe IV ×3 (05:04→21:13)
[2019-09-27] MEDS: metroNIDAZOLE 500 MG/100 ML BAG 100 MG IV ×3 (06:06→22:09)
--- NOTE | 2019-09-27 06:08 | PN_ITS ---
Patient Problems: Active and Suspected Problems (Last Reviewed 09/27/19 @ 04:09 by Amrit Blackwood MD) Sigmoid diverticulitis (Acute) Abdominal pain (Acute) Reason for Visit: Follow-up on acute diverticulitis: Subjective: Patient was seen and examined. He complains of severe abdominal pain with with food. Denied any fever or chills or nausea vomiting. Vitals/I&O's: Vital Signs Temp Pulse Resp BP Pulse Ox 97.3 F L 85 18 152/84 H 98 09/27/19 02:00 09/27/19 02:00 09/27/19 02:00 09/27/19 02:00 09/27/19 02:00 Oxygen Delivery Method Room Air Weight: 97.5 kg Body Mass Index (BMI) 29.9 Intake and Output for Last 24 Hours 09/25/19 09/26/19 09/27/19 23:59 23:59 23:59 Intake Total 1300 / 1300 880 / 880 Output Total 800 / 800 Balance 1300 / 1300 80 / 80 General: Alert, Oriented x3, Cooperative, No apparent distress HEENT: Atraumatic, PERRLA, EOMI, Normocephalic Oral: Moist Mucosa Neck: Supple Lungs: Clear to auscultation, Normal air movement Cardiovascular: Regular rate, Regular Rhythm, Normal S1, Normal S2, No murmurs Abdomen: Bowel Sounds Present, Soft, Non-Distended, No Hepato-splenomegaly, Tender - over the left lower quadrant with guarding but no RBT. Extremities: No edema Skin: No rashes, No breakdown Musculoskeletal: No Tenderness to Palpation of Joints or Extremities Lymphatic: No Cervical, Supraclavicular, or Inguinal Adenopathy Neurological: Cranial nerves II-XII grossly intact, Neuro grossly intact Psych/Mental Status: Normal Affect, Appropriate Laboratory Results 09/26/19 15:53: WBC 7.5, RBC 4.42 L, Hgb 15.3, Hct 44.9, MCV 101.6 H, MCH 34.6 H , MCHC 34.1, RDW Std Deviation 49.6 H, RDW Coeff of [place] 13.2, Plt Count 167, MPV 12.0, Immature Gran % (Auto) 0.300, Neut % (Auto) 63.8, Lymph % (Auto) 18.9 L, [place] % (Auto) 12.8 H, Eos % (Auto) 2.9, Baso % (Auto) 1.3 H, Absolute Neuts (auto) 4.8, Absolute Lymphs (auto) 1.41, Nucleated RBC % 0 09/26/19 15:53: Sodium 141, Potassium 3.8, Chloride 108 H, Carbon Dioxide 28.0, Anion Gap 5, BUN 13, Creatinine 0.99, Estim Creat Clear Calc 85.00, Est GFR (MDRD) Af Amer 100, Est GFR (MDRD) Non-Af 83, BUN/Creatinine Ratio 13.1, Glucose 100, Calcium 8.5, Total Bilirubin 1.40 H, AST 356 H, ALT 463 H, Alkaline Phosphatase 291 H, Total Protein 6.8, Albumin 2.8 L, Globulin 4.0, Albumin/Globulin Ratio 0.7 L, Lipase 203 09/26/19 15:57: Urine Color Yellow, Urine Clarity Sl. Cloudy, Urine pH 6.5, Ur Specific [place] 1.015, Urine Protein Negative, Urine Glucose (UA) Normal, Urine Ketones Negative, Urine Occult Blood Negative, Urine Nitrite Negative, Urine Bilirubin Negative, Urine Urobilinogen 1 H, Ur Leukocyte Esterase Negative, Urine RBC 0 SEEN, Urine WBC 0 SEEN, Ur Squamous Epith Cells 0 SEEN, Urine Bacter ia 0 SEEN, Urine Mucus 0 SEEN Current Medications Acetaminophen (Tylenol) 650 mg PO Q6H PRN PRN PRN Reason: Pain Score 1-3/Temp > 100.7 F Aspirin ([facility]in, Baby) [facility] Atorvastatin Calcium (Lipitor) 40 mg PO QHS [facility] Last Admin: 09/26/19 21:23 Dose: 40 mg Documented by: Bupropion HCl (Wellbutrin Xl) 300 mg PO DAILY [facility] Dextrose (D50w Syringe) 0 gm IV X1 PRN; Protocol PRN Reason: Hypoglycemia Enoxaparin Sodium (Lovenox) 40 mg SC DAILY [facility] Glucagon () 1 mg IM .X1 PRN PRN Reason: Hypoglycemia Hydrochlorothiazide () 12.5 mg PO DAILY [facility] Hydromorphone HCl (Dilaudid Inj) 1 mg IV Q4H PRN PRN PRN Reason: Pain Score 6-10/10 Last Admin: 09/27/19 05:04 Dose: 1 mg Documented by: Potassium Chloride/Sodium Chloride () 1,000 mls @ 75 mls/hr IV .[id number] [facility] Stop: 09/27/19 10:18 Last Admin: 09/26/19 21:23 Dose: 75 mls/hr Documented by: Metronidazole (Flagyl) 500 mg in 100 mls @ 100 mls/hr IV Q8 [facility] Last Admin: 09/27/19 06:06 Dose: 100 mls/hr Documented by: Ciprofloxacin (Cipro) 400 mg in 200 mls @ 200 mls/hr IV Q12 [facility] Last Infusion: 09/27/19 06:03 Dose: Infused Documented by: Sodium Chloride () 250 mls @ 15 mls/hr IV .[id number] PRN PRN Reason: Saline Flush Influenza Virus Vaccine Quadrival (Flucelvax /Fluzone ) 0.5 ml IM .ONCE ONE Stop: 09/27/19 10:01 Metoprolol Succinate (Toprol Xl (Beta Priscila)) 25 mg PO DAILY [facility] Ondansetron HCl (Zofran) 4 mg IV Q8H PRN PRN PRN Reason: NAUSEA/VOMITING Oxycodone HCl (Oxyir) 5 mg PO Q4H PRN PRN PRN Reason: Pain Score 4-5/10 Last Admin: 09/27/19 01:32 Dose: 5 mg Documented by: Sodium Chloride () 10 - 40 ml IV UD PRN PRN Reason: SALINE FLUSH Medical Necessity - Tobacco Use Smoking Status: Former smoker Tobacco Use: Cigarettes Assessment/Plan All Active Problems (Last Reviewed 09/27/19 @ 04:09 by Amrit Blackwood MD) Sigmoid diverticulitis (Acute) Abdominal pain (Acute) LINDA (obstructive sleep apnea) (Acute) Preop cardiovascular exam (Acute) History of left heart catheterization (Resolved) Chest pain (Resolved) Right flank discomfort (Resolved) 59-year-old male with past medical history of hypertension, chronic systolic CHF who comes in with a one-week history of lower abdominal pain and has been managed as acute diverticulitis. 1. Acute sigmoid diverticulitis, patient remains symptomatic, not much improved We will keep n.p.o., IV fluids, continue IV Cipro and Flagyl Advance diet as tolerated 2. Hypertension, controlled, continue on hydrochlorothiazide and metoprolol Continue to monitor vitals closely 3. Chronic systolic CHF, EF of 40%, no signs of acute exacerbation We will have to be cautious with IV fluids 4. Hyperlipidemia, continue on statin Code Visit Inpatient E&M: 55128 Subs Hosp L2
[2019-09-27 06:16] LABS: Absolute Lymphocyte Count 1.64 X10^3/uL (0.83-4.51); Absolute Neutrophil Count 3.5 X10^3/uL (2.0-7.7); Basophil# 0.11 X10^3/uL; Basophil% 1.7 % (0-1); Eosinophil# 0.32 X10^3/uL; Hematocrit 42.5 % (40-54); Hemoglobin 14.2 g/dL (13.0-16.5); Lymphocyte # 1.64 X10^3/ul (4.0); Lymphocyte % 25.6 % (19-41); Mean Corp Hgb Conc 33.4 g/dL (32-36); Mean Corpuscular Hgb 34.2 pg (27.0-32.0); Mean Corpuscular Volume 102.4 fL (80-94); Mean Platelet Vol. 12.1 fl (6.2-12.0); Monocyte# 0.82 X10^3/uL; Monocyte% 12.8 % (0-10); NRBC Flagged by Analyzer 0 % (0-5); Neutrophil # 3.51 X10^3/uL (2.7-7.7); Neutrophil % 54.7 % (47-70); Platelet Count 145 K/mm3 (150-450); RBC Distribution Width CV 13.2 % (11.6-14.6); RBC Distribution Width SD 50.2 fl (35.1-43.9); Red Blood Count 4.15 M/mm3 (4.6-6.2); White Blood Count 6.4 K/mm3 (4.4-11.0)
[2019-09-27 06:34] LABS: Anion Gap 6 (5-15); BUN 12 mg/dL (7-18); BUN/Creat Ratio 14.5 RATIO (10-20); Chloride 109 mmol/L (98-107); Creatinine, Serum 0.83 mg/dL (0.70-1.30); EST Glomerular Filtration Rate 102 mL/min (>60); Est Glom Filt Rate - Afr Amer 123 mL/min (>60); Estimated Creatinine Clearance 104.58 ml/min; Glucose 156 mg/dL (74-106); Potassium 4.5 mmol/L (3.5-5.1); Sodium Level 136 mmol/L (136-145)
[2019-09-27 06:50] VITALS: O2SAT 98
[2019-09-27 08:25] VITALS: BP 152/97; PULSE 100; RESP 18; TEMP 36.8; O2SAT 98
[2019-09-27] MEDS: hydroCHLOROthiazide 12.5mg 12.5 MG PO (08:31)
[2019-09-27] MEDS: Aspirin 81 MG TAB.CHEW PO (08:31)
[2019-09-27 08:32] VITALS: PULSE 100
[2019-09-27] MEDS: buPROPion (XL) 300 MG TABLET.XL PO (08:32)
[2019-09-27] MEDS: Metoprolol(XL)Succ 25 MG Tablet PO (08:32)
[2019-09-27] MEDS: Enoxaparin 40 MG/0.4 ML Syringe SC (08:32)
[2019-09-27] MEDS: Dext 5%-0.45% NS 1,000 ML 100 ML IV ×2 (09:11→23:33)
--- NOTE | 2019-09-27 13:04 | CASEMGMT ---
RN CM Assessment Intro role of CM to patient in room. Pt is awake alert and able to participate in assessment.Pt denies any care needs, is independent and no DME use. DX: Diverticulitis. INS: [place] advantage. Prescription Coverage: yes PCP: Dr. Pfeiffer Specialists: none Pharmacy: [facility] Plan: home Jigar LOZA RN AC
[2019-09-27 13:39] VITALS: BP 139/96; PULSE 97; RESP 18; TEMP 36.4; O2SAT 100
[2019-09-27 19:34] VITALS: BP 134/93; PULSE 88; RESP 18; TEMP 36.6; O2SAT 100
[2019-09-27] MEDS: Atorvastatin Calcium 40 MG Tablet PO (22:13)
[2019-09-28 01:36] VITALS: BP 123/83; PULSE 79; RESP 18; TEMP 36.8; O2SAT 100
[2019-09-28] MEDS: HYDROmorphone 1 MG/ML Syringe IV ×2 (01:52→06:03)
[2019-09-28] MEDS: metroNIDAZOLE 500 MG/100 ML BAG 100 MG IV (05:56)
[2019-09-28] MEDS: 0.9% Saline Lock 10 ML Syringe IV (06:04)
[2019-09-28 07:59] VITALS: BP 126/90; PULSE 92; RESP 18; TEMP 36.5; O2SAT 97
--- NOTE | 2019-09-28 08:34 | DS.PCM_ITS ---
Discharge Date and Diagnosis - Problem List Patient Problems: Active and Suspected Problems (Last Reviewed 09/27/19 @ 04:09 by Amrit Blackwood MD) Sigmoid diverticulitis (Acute) Abdominal pain (Acute) Date of Admission: 09/26/19 Date of Discharge: 09/28/19 - Primary Discharge Diagnosis Active and Suspected Problems (Last Reviewed 09/27/19 @ 04:09 by Amrit Blackwood MD) Sigmoid diverticulitis (Acute) Abdominal pain (Acute) - Secondary Discharge Diagnosis Chronic Problems (Last Reviewed 09/27/19 @ 04:09 by Amrit Blackwood MD) Tobacco abuse (Chronic) BMI 30.0-30.9,adult (Chronic) Dyslipidemia (Chronic) Atherosclerosis of coronary artery of [place] heart without angina pectoris (Chronic) Cardiomyopathy (Chronic) Essential hypertension (Chronic) Hospital Course and Treatment Summary of Care Provided: [] The patient is a 59 year old M with a significant history of cardiomyopathy; and hypertension was admitted through emergency department with about 1 week history of excruciating progressively worsening bilateral lower abdominal pain that radiates to his bilateral flanks, predominantly over left lower quadrant and CT abdomen findings of inflammatory change around the sigmoid colon consistent with likely acute sigmoid diverticulitis without localized abscess or collection consistent with acute uncomplicated sigmoid diverticulitis. Patient was admitted in MedSurg floor and started on IV Flagyl and Cipro, n.p.o. and IV fluid and pain management. Gradually patient is started on clear liquid diet. Patient still has pain but wants to leave hospital and signed AMA. Patient was given a prescription for Augmentin 875 mg twice daily for 7 days to complete a total of 9 days of antibiotic. Patient was advised to follow-up PCP in 1 to 2 weeks. Patient needs GI follow-up for colonoscopy after weeks of sigmoid diverticulitis or earlier if continues to have persistent pain. Patient other comorbidities including hypertension, chronic systolic heart failure, EF 40%, stable and dyslipidemia are stable. Discharge medication reconciliation done. As patient is signing AMA, formal written discharge instruction not given as per rule, although was verbally instructed. Patient Problems: Active and Suspected Problems (Last Reviewed 09/27/19 @ 04:09 by Amrit Blackwood MD) Sigmoid diverticulitis (Acute) Abdominal pain (Acute) Subjective: Nurse called me that patient wants to leave hospital even though he has abdominal pain mainly in left lower quadrant secondary to acute diverticulitis. Patient on clear liquid diet. Did not have any fever or chills. Briefly seen and examined the patient as patient is in hurry to leave the hospital - Physical Exam Vitals/I&O's: Vital Signs Temp Pulse Resp BP Pulse Ox 97.7 F L 92 18 126/90 H 97 09/28/19 07:59 09/28/19 07:59 09/28/19 07:59 09/28/19 07:59 09/28/19 07:59 Oxygen Delivery Method Room Air Weight: 214 lb 15.211 oz Body Mass Index (BMI) 29.9 Intake and Output for Last 24 Hours 09/26/19 09/27/19 09/28/19 23:59 23:59 23:59 Intake Total 1300 / 1300 4040.41 / 4040.41 1418.33 / 1418.33 Output Total 800 / 800 Balance 1300 / 1300 3240.41 / 3240.41 1418.33 / 1418.33 General: Alert, Oriented x3, Cooperative HEENT: Atraumatic, PERRLA, EOMI, Normocephalic Neck: Supple, No JVD, Negative Carotid Bruits Lungs: Clear to auscultation, Normal air movement, No rhonchi, No wheeze, No rales Cardiovascular: Regular rate, Regular Rhythm, Normal S1, Normal S2, No murmurs Abdomen: Bowel Sounds Present, Soft, Non-Distended, Rebound Tenderness, Tender - Tenderness and rebound tenderness present over both right and left lower quadrants predominantly over left lower quadrant Extremities: No edema, Capillary Refill Less than 3 Seconds Skin: No rashes, No breakdown Musculoskeletal: No Tenderness to Palpation of Joints or Extremities Neurological: Cranial nerves II-XII grossly intact, Neuro grossly intact Psych/Mental Status: Normal Affect, Appropriate Current Medications Acetaminophen (Tylenol) 650 mg PO Q6H PRN PRN PRN Reason: Pain Score 1-3/Temp > 100.7 F [facility], [facility] Admin: 09/27/19 08:31 Dose: 81 mg Documented by: Atorvastatin Calcium (Lipitor) 40 mg PO QHS [facility] Last Admin: 09/27/19 22:13 Dose: 40 mg Documented by: Bupropion HCl (Wellbutrin Xl) 300 mg PO DAILY [facility] Last Admin: 09/27/19 08:32 Dose: 300 mg Documented by: Dextrose (D50w Syringe) 0 gm IV X1 PRN; Protocol PRN Reason: Hypoglycemia Enoxaparin Sodium (Lovenox) 40 mg SC DAILY [facility] Last Admin: 09/27/19 08:32 Dose: 40 mg Documented by: Glucagon () 1 mg IM .X1 PRN PRN Reason: Hypoglycemia Hydrochlorothiazide () 12.5 mg PO DAILY [facility] Last Admin: 09/27/19 08:31 Dose: 12.5 mg Documented by: Hydromorphone HCl (Dilaudid Inj) 1 mg IV Q4H PRN PRN PRN Reason: Pain Score 6-10/10 Last Admin: 09/28/19 06:03 Dose: 1 mg Documented by: Metronidazole (Flagyl) 500 mg in 100 mls @ 100 mls/hr IV Q8 [facility] Last Infusion: 09/28/19 06:56 Dose: Infused Documented by: Ciprofloxacin (Cipro) 400 mg in 200 mls @ 200 mls/hr IV Q12 [facility] Last Infusion: 09/27/19 22:10 Dose: Infused Documented by: Sodium Chloride () 250 mls @ 15 mls/hr IV .[id number] PRN PRN Reason: Saline Flush Dextrose/Sodium Chloride () 1,000 mls @ 100 mls/hr IV .Q10H [facility] Last Admin: 09/28/19 07:43 Dose: Not Given Documented by: Metoprolol Succinate (Toprol Xl (Beta Priscila)) 25 mg PO DAILY [facility] Last Admin: 09/27/19 08:32 Dose: 25 mg Documented by: Ondansetron HCl (Zofran) 4 mg IV Q8H PRN PRN PRN Reason: NAUSEA/VOMITING Oxycodone HCl (Oxyir) 5 mg PO Q4H PRN PRN PRN Reason: Pain Score 4-5/10 Last Admin: 09/27/19 20:10 Dose: 5 mg Documented by: Sodium Chloride () 10 - 40 ml IV UD PRN PRN Reason: SALINE FLUSH Last Admin: 09/28/19 06:04 Dose: 10 ml Documented by: Home Medications: Medications to take at Discharge bupropion HCl XL 300 mg 24 hr tablet, extended release 300 mg PO DAILY 30 Days #30 tab 04/17/19 Atorvastatin Calcium [Lipitor] 40 mg PO QHS 09/24/19 Metoprolol Succinate 25 mg PO DAILY 09/24/19 Aspirin 81 mg PO DAILY 09/26/19 hydroCHLOROthiazide [Hydrochlorothiazide] 12.5 mg PO DAILY 09/26/19 Amox/Clavulanate Tablet [Augmentin Tablet] 875 mg PO Q12H #14 tab 09/28/19 Following Prescrptions Were Given to Patient: Amox/Clavulanate Tablet [Augmentin Tablet] 875 mg PO Q12H #14 tab Transmission Status: Pending to [facility] Primary Care Physician: Valerio Pfeiffer MD [Primary Care Provider] - Medical Necessity - Tobacco Use Smoking Status: Former smoker Tobacco Use: Cigarettes Meaningful Use Info Meaningful Use Diagnoses (Choose all that apply): None applicable Code Visit Inpatient E&M: 37974 Disch Hosp
--- NOTE | 2019-09-28 09:14 | NURSING ---
PATIENT D/C AMA BY . NO WRITTEN INSTRUCTIONS GIVEN BUT VERBAL INSTRUCTIONS TO CONTINUE HOME MEDICATIONS. PRESCIPTION FOR AUGMENTIN E-SCRIPTED TO [facility].
== END 2019-09-28 09:13 | disposition left against medical advice (07) | DRG 244 ==
LOC: ED 19:57 → MS3 20:40
PROVIDERS: Admitting Provider Hospitalist; Emergency Provider Emergency Medicine; Family Provider Family Medicine; PCP Family Medicine; Referring Provider Hospitalist; Visit Provider Internal Medicine
DX: K57.32 Diverticulitis of large intestine without perforation or abscess without bleeding (principal); E78.5 Hyperlipidemia, unspecified; I25.10 Atherosclerotic heart disease of native coronary artery without angina pectoris; I42.9 Cardiomyopathy, unspecified; I11.0 Hypertensive heart disease with heart failure; I50.22 Chronic systolic (congestive) heart failure; Z79.82 Long term (current) use of aspirin; Z79.899 Other long term (current) drug therapy; Z87.891 Personal history of nicotine dependence; Z53.29 Procedure and treatment not carried out because of patient's decision for other reasons
CPT/HCPCS: 36415; 74176; 74177; 80048; 80053; 81001; 83690; 85025; 96360; 99284; 99285; J7030; J7050; Q9967; 90686; A4216; J0744; J7799

== ENCOUNTER 2019-09-28 20:18 | Emergency (ER) | payer MEDICAID, SELFPAY ==
[2019-09-28 20:20] VITALS: BP 136/74; PULSE 111; RESP 18; TEMP 36.7; O2SAT 100; BMI 30.7
--- NOTE | 2019-09-28 20:40 | ED.DCSUM_ITS ---
- ER Visit Summary Date of Service: 09/28/19 Chief Complaint: Lower abdominal pain History of Present Illness: The patient is a 59 M who presents with lower abdominal pain that became worse today. Patient was recently admitted to the hospital for diverticulitis. Patient signed out AGAINST MEDICAL ADVICE this morning because he wanted to go home and eat Thanksgiving dinner. Patient left and did eat a Thanksgiving dinner. Patient was given a prescription for Augmentin prior to being discharged. Patient states pain is worse tonight. Patient admits to some nausea and vomiting. Patient states he had some streaks of blood in his emesis but was not vomiting allison blood. Patient denies any coffee-ground emesis. Patient admits to diarrhea but denies any melena or hematochezia. Physical Examination: Vital signs are stable except for mild tachycardia of 111. Patient is afebrile. Patient is in no acute distress. Oral mucosa is pink and moist. Neck is supple. Trachea is midline. There is no JVD. Heart was regular rate and rhythm. Lungs are clear and equal bilaterally. Abdomen is soft. Bowel sounds are normal. There is no abdominal tenderness. There is no rebound or guarding noted. Cranial nerves II through XII are intact. There are no focal motor or sensory deficits noted. Test Results: CBC normal. Comprehensive metabolic profile showed a bilirubin of 2.1, alk phos was 309, ALT was 523, AST was 503. These have been elevated at t hese levels for the past few months. Lipase was normal. Emergency Department Course and Treatment: Patient was given IV fluids. Patient was given morphine and Zofran here. Patient felt better on reevaluation. She was instructed to continue his Augmentin as previously prescribed. Patient was instructed to take Tylenol as needed for pain. Patient was instructed to follow-up with his primary care physician in 5 to 7 days. Patient understood and was agreeable with the plan. All questions were answered. Disposition: Discharge home Impression: Diverticulitis This note was generated with [employer] dictation software. It may contain incorrect words, spelling, and punctuation that were not noted in review of the chart prior to signing ED Disposition - Plan for ED Patient: Disposition: Home or Assisted Living Diagnosis: Diverticulitis Instructions: Diverticulitis Referrals: Valerio Pfeiffer MD [Primary Care Provider] - 5-7 Days
[2019-09-28 20:58] LABS: Mucous, Urine 0 SEEN /hpf (<or=2+); Red Blood Cells-Urine 0 SEEN /hpf (0-5); Squamous Epithelial Cells - UA 0 SEEN /hpf (0-5)
[2019-09-28] MEDS: 0.9% Normal Saline 1,000 ML 1000 ML IV (21:07)
[2019-09-28] MEDS: Ondansetron 4 MG/2 ML Vial IV (21:08)
[2019-09-28] MEDS: Morphine 4 MG/ML Syringe IV (21:09)
[2019-09-28 21:10] LABS: Absolute Lymphocyte Count 1.12 X10^3/uL (0.83-4.51); Absolute Neutrophil Count 5.4 X10^3/uL (2.0-7.7); Basophil# 0.09 X10^3/uL; Basophil% 1.1 % (0-1); Eosinophil# 0.12 X10^3/uL; Eosinophils% 1.5 % (0-5); Hematocrit 44.1 % (40-54); Hemoglobin 15.5 g/dL (13.0-16.5); Lymphocyte # 1.12 X10^3/ul (4.0); Lymphocyte % 14.1 % (19-41); Mean Corp Hgb Conc 35.1 g/dL (32-36); Mean Corpuscular Hgb 34.6 pg (27.0-32.0); Mean Corpuscular Volume 98.4 fL (80-94); Mean Platelet Vol. 12.4 fl (6.2-12.0); Monocyte# 1.17 X10^3/uL; Monocyte% 14.8 % (0-10); NRBC Flagged by Analyzer 0 % (0-5); Neutrophil # 5.42 X10^3/uL (2.7-7.7); Neutrophil % 68.4 % (47-70); Platelet Count 188 K/mm3 (150-450); RBC Distribution Width CV 12.9 % (11.6-14.6); RBC Distribution Width SD 46.1 fl (35.1-43.9); Red Blood Count 4.48 M/mm3 (4.6-6.2); White Blood Count 7.9 K/mm3 (4.4-11.0)
[2019-09-28 21:37] LABS: Color, Urine Yellow (Yellow); Glucose, Dipstick Normal (Normal); Ketone-Dipstick 5 mg/dl (Negative); Leukocyte Esterase-Dipstick 25 /ul (Negative); Nitrite-Dipstick Negative (Negative); Occult Blood-Urine Negative /ul (Negative); Protein-Dipstick Negative (Negative); Specific Gravity, Urine 1.015 (1.002-1.030); Urine Bilirubin Dipstick Negative (Negative); Urine Clarity Clear (Clear); Urine Urobilinogen 4 mg/dl (Normal)
[2019-09-28 21:51] LABS: ALB/GLOB Ratio 0.8 RATIO (0.9-2.4); AST(SGOT) 503 U/L (15-37); Alanine Aminotransfer ALT/SGPT 523 U/L (16-61); Albumin, Serum 3.1 g/dL (3.2-5.0); Alkaline Phosphatase 309 U/L (45-117); Anion Gap 9 (5-15); BUN 17 mg/dL (7-18); BUN/Creat Ratio 13.7 RATIO (10-20); Calcium,Total 8.3 mg/dL (8.5-10.1); Chloride 101 mmol/L (98-107); Creatinine, Serum 1.24 mg/dL (0.70-1.30); EST Glomerular Filtration Rate 64 mL/min (>60); Est Glom Filt Rate - Afr Amer 77 mL/min (>60); Glucose 168 mg/dL (74-106); Lipase 128 U/L (73-393); Potassium 3.8 mmol/L (3.5-5.1); Protein, Total 7.1 g/dL (6.4-8.2); Sodium Level 137 mmol/L (136-145)
[2019-09-28 21:54] LABS: Bacteria 2+ /hpf (None Seen); White Blood Cells 0-5 SEEN /hpf (0-5)
[2019-09-28 22:18] VITALS: RESP 16
== END 2019-09-28 22:19 | disposition home or self-care (01) ==
PROVIDERS: Emergency Provider Emergency Medicine; Family Provider Family Medicine; PCP Family Medicine
DX: K57.92 Diverticulitis of intestine, part unspecified, without perforation or abscess without bleeding (principal); I10 Essential (primary) hypertension; Z79.82 Long term (current) use of aspirin; Z79.899 Other long term (current) drug therapy; Z87.891 Personal history of nicotine dependence
CPT/HCPCS: 80053; 81001; 83690; 85025; 96361; 96374; 96375; 99285; J7030; A4216; J2405

== ENCOUNTER 2019-10-19 13:18 | Emergency (ER) | payer MEDICAID, SELFPAY ==
[2019-10-18 10:59] VITALS: BMI 28.7
[2019-10-19 13:19] VITALS: BP 129/103; PULSE 98; RESP 20; TEMP 36.7; BMI 29.6
[2019-10-19] MEDS: Lidocaine Jelly 2% 20 ML Syringe (URO-JET) 20 APPLIC TOPICAL (14:10)
[2019-10-19 14:21] LABS: Absolute Lymphocyte Count 1.32 X10^3/uL (0.83-4.51); Absolute Neutrophil Count 4.1 X10^3/uL (2.0-7.7); Basophil# 0.03 X10^3/uL; Basophil% 0.5 % (0-1); Eosinophil# 0.05 X10^3/uL; Eosinophils% 0.8 % (0-5); Hematocrit 44.3 % (40-54); Hemoglobin 15.5 g/dL (13.0-16.5); Lymphocyte # 1.32 X10^3/ul (4.0); Lymphocyte % 20.3 % (19-41); Mean Corpuscular Hgb 33.1 pg (27.0-32.0); Mean Corpuscular Volume 94.7 fL (80-94); Mean Platelet Vol. 12.5 fl (6.2-12.0); Monocyte# 0.95 X10^3/uL; Monocyte% 14.6 % (0-10); NRBC Flagged by Analyzer 0 % (0-5); Neutrophil # 4.13 X10^3/uL (2.7-7.7); Neutrophil % 63.6 % (47-70); Platelet Count 154 K/mm3 (150-450); RBC Distribution Width CV 14.7 % (11.6-14.6); RBC Distribution Width SD 51.2 fl (35.1-43.9); Red Blood Count 4.68 M/mm3 (4.6-6.2); White Blood Count 6.5 K/mm3 (4.4-11.0)
[2019-10-19 14:32] LABS: Anion Gap 6 (5-15); BUN 9 mg/dL (7-18); Calcium,Total 7.8 mg/dL (8.5-10.1); Chloride 104 mmol/L (98-107); Creatinine, Serum 1.12 mg/dL (0.70-1.30); EST Glomerular Filtration Rate 72 mL/min (>60); Est Glom Filt Rate - Afr Amer 87 mL/min (>60); Glucose 125 mg/dL (74-106); Potassium 3.7 mmol/L (3.5-5.1); Sodium Level 135 mmol/L (136-145)
[2019-10-19 14:35] LABS: Bacteria 0 SEEN /hpf (None Seen); Mucous, Urine 0 SEEN /hpf (<or=2+)
[2019-10-19 14:39] LABS: Color, Urine Yellow (Yellow); Glucose, Dipstick Normal (Normal); Ketone-Dipstick 5 mg/dl (Negative); Leukocyte Esterase-Dipstick 25 /ul (Negative); Nitrite-Dipstick Negative (Negative); Occult Blood-Urine 25 /ul (Negative); Protein-Dipstick 15 mg/dl (Negative); Specific Gravity, Urine 1.015 (1.002-1.030); Urine Clarity Sl. Cloudy (Clear); Urine Urobilinogen 8 mg/dl (Normal)
[2019-10-19 14:40] LABS: Urine Bilirubin Dipstick 6 mg/dL (Negative)
[2019-10-19 14:47] LABS: Red Blood Cells-Urine 0-5 SEEN /hpf (0-5); Squamous Epithelial Cells - UA 0-5 SEEN /hpf (0-5); White Blood Cells 0-5 SEEN /hpf (0-5)
--- NOTE | 2019-10-19 15:29 | CT_ITS ---
STUDY: CT ABDOMEN AND PELVIS WITHOUT CONTRAST REASON FOR EXAM: Male, 59 years old. Bilateral flank pain, history of hepatitis C and sigmoid diverticulitis RADIATION DOSAGE (If Supplied By Facility): CTDIvol = ( 10.11 ) mGy, DLP = ( 558.48 ) mGycm TECHNIQUE: Transaxial images were obtained from the dome of the diaphragm to the symphysis pubis without oral contrast, and without intravenous contrast. Sagittal and coronal images were reconstructed. Individualized dose optimization techniques were used for this CT. COMPARISON: Previous recent study of 09/26/2019 FINDINGS: There is a pleural-based 5 mm nodule of the left lower lobe image 19 series 2. This was previously reported. The visualized portions of the heart are within normal limits. Normal liver. There is diffuse gallbladder wall thickening. Normal spleen. Normal pancreas. Normal bilateral adrenal glands. Normal right kidney. Normal left kidney. Normal visualized stomach. Normal small intestine. Normal colon. There is non-visualization of the appendix. There is a small amount of ascites in the paracolic gutters and pelvis. There are calcified plaques of the abdominal aorta. Normal inferior vena cava. Normal retroperitoneum. A Singh catheter is present within a decompressed urinary bladder. A prostatic calcification is noted. The seminal vesicles and seminal vesicle angles appear normal. There is a small umbilical hernia containing fat. There are degenerative changes of the thoracolumbar spine most severely affecting the L4-[address]/Abdomen/Pelvis without Cont IMPRESSION: 1. Stable pleural-based 5 mm nodule of the left lower lobe. 2. There is diffuse gallbladder wall thickening raising the suspicion of cholecystitis. This was not previously seen. No calcified gallstones are noted. 3. There is a small amount of ascites in the paracolic gutters and pelvis. This is new in the interval. 4. A Singh catheter is present within a decompressed urinary bladder. 5. Small fat-containing umbilical hernia. Electronically Signed: Abdulaziz Wilkes MD at 16:18 EST , Service support ,
[2019-10-19] MEDS: 0.9% Normal Saline 1,000 ML 1000 ML IV (16:14)
[2019-10-19] MEDS: Metoclopramide 10 MG/2 ML Vial IV (16:14)
[2019-10-19] MEDS: Mag Hydrox/Al Hydrox/Simeth 30 ML UDC PO (16:19)
--- NOTE | 2019-10-19 16:38 | ED.DCSUM_ITS ---
- ER Visit Summary Date of Service: 10/19/19 Chief Complaint: Lower abdominal pain History of Present Illness: The patient is a 59 M who presents with bilateral lower abdominal pain that began today. Patient states the pain began rather suddenly. Patient states there is been constant for the past 8 hours. Patient states the pain is sharp. Patient states pain is over the lower abdomen. Patient states he has not urinated in the past 8 hours. Patient states his pain is worse when there is pressure in the lower abdomen. Patient admits to some nausea and vomiting. Patient denies any melena or hematochezia. Patient denies any urinary complaints. Patient states he does have a history of hepatitis. Physical Examination: Vital signs are stable. Patient is afebrile. Patient is in no acute distress. Oral mucosa is pink and moist. Neck is supple. Trachea is midline. There is no JVD. Pupils are equal, round, and reactive to light bilaterally. Extraocular muscles are intact. There is scleral icterus noted. Heart was regular rate and rhythm. Lungs are clear and equal bilaterally. Abdomen is soft. Bowel sounds are normal. There is lower abdominal tenderness. There is no rebound or guarding noted. Cranial nerves II through XII are intact. There are no focal motor or sensory deficits noted. Skin is warm and dry. There is jaundice noted. Test Results: CBC and basic metabolic profile were obtained and were within normal limits. Urinalysis does not show any evidence of urinary tract infection. CT scan of the abdomen and pelvis was obtained. There is a small amount of ascites noted. There is diffuse gallbladder wall thickening. There are no calcifications noted. Emergency Department Course and Treatment: Patient was given IV fluids here. Patient was given a GI cocktail and Reglan for his symptoms of heartburn. Singh catheter was placed and returned 350 cc of urine. Since it is only been 8 hours since he has been able to urinate, 350 cc is a normal amount of urine. Given that he has a history of hepatitis, I feel that his icterus and jaundice are chronic. Patient is afebrile and has normal white blood cell count. I do not feel that he has acute cholecystitis especially with his pain being in the lower abdomen. Patient has no peritoneal signs and only a small amount of ascites so I do not feel that patient has spontaneous bacterial peritonitis. I feel the patient is able to be discharged home. Patient was instructed to follow-up with his primary care physician in 5 to 7 days. Patient understood and was agreeable with the plan. All questions were answered. Disposition: Discharge home Impression: Lower abdominal pain This note was generated with [employer] dictation software. It may contain incorrect words, spelling, and punctuation that were not noted in review of the chart prior to signing ED Disposition - Plan for ED Patient: Disposition: Home or Assisted Living Diagnosis: Lower abdominal pain of unknown etiology Instructions: ABDOMINAL PAIN, Unkown Cause, (Male) Referrals: Valerio Pfeiffer MD [Primary Care Provider] - 3-5 Days
[2019-10-19 17:03] VITALS: BP 128/99; PULSE 81; RESP 16; O2SAT 99
== END 2019-10-19 17:06 | disposition home or self-care (01) ==
PROVIDERS: Emergency Provider Emergency Medicine; Family Provider Family Medicine; PCP Family Medicine
DX: R10.30 Lower abdominal pain, unspecified (principal)
CPT/HCPCS: 51702; 74176; 80048; 81001; 85025; 96361; 96374; 99284; J7030; A4216

== ENCOUNTER 2019-10-29 18:48 | Emergency (ER) | payer MEDICAID, SELFPAY ==
[2019-10-29] VITALS (8 sets, daily range): BP systolic 133–158; BP diastolic 73–108; PULSE 108–118; RESP 15–25; TEMP 36.7–37.1; O2SAT 97–100; BMI 30.7; BMI 31.8
--- NOTE | 2019-10-29 19:18 | CT_ITS ---
STUDY: CT BRAIN WITHOUT CONTRAST REASON FOR EXAM: Male, 59 years old. LETHARGIC, JAUNDICE, UNRESPONSIVE, HTN, HEP C, AL RADIATION DOSAGE (If Supplied By Facility): CTDIvol = ( 44.99 ) mGy, DLP = ( 846.73 ) mGycm TECHNIQUE: Transaxial CT imaging of the brain was performed without administration of intravenous contrast material. Individualized dose optimization techniques were used for this CT. COMPARISON: May 24, 2019 FINDINGS: Normal soft tissue structures. Normal calvarium. There is mild cerebral atrophy with widening of the extra-axial spaces and ventricular dilatation. There are areas of decreased attenuation within the white matter tracts of the supratentorial brain, consistent with microvascular disease changes. Normal basal ganglia and thalami. Normal brainstem. Normal cerebellum. There is no intracranial hemorrhage. There are no findings of an acute ischemic infarction. Normal visualized paranasal sinuses. CT/Brain/Head without Contrast IMPRESSION: Chronic involutional changes of the brain. Small vessel ischemia. Electronically Signed: Marisol Borrego MD at 22:04 EST Tel , Service support ,
--- NOTE | 2019-10-29 19:18 | CT_ITS ---
HISTORY: LETHARGIC, JAUNDICE, UNRESPONSIVE, HEP C, HTN, [place] TECHNIQUE: Helically acquired images were obtained of the abdomen and pelvis without oral or IV contrast. A radiation dose optimization technique was used for this scan. COMPARISON: Most recent CT scans of the abdomen and pelvis, are from October 19, September 26, September 24, and February 18, 2019. Most recent chest x-ray is from one hour earlier. FINDINGS: # of images incl. paperwork: 551 LUNG BASES: Pulmonary edema within the lung bases is new. Lungs are less well expanded. Small hiatal hernia remains CT abdomen: Degenerative disc disease, greatest at the L4-L5 level is unchanged The gallbladder is contracted with a thickened wall and pericholecystic fluid. Findings are similar to the October 19 study, and new since the September 26 artery.. Hepatic cirrhosis is more evident on today's study. Thespleen, pancreas, and adrenal glands are normal. The kidneys are normal. The aorta is normal. There is no intra-or extrahepatic biliary ductal dilatation. CT pelvis: Large ascites is present. The prostate gland is not enlarged. The appendix is normal. Series 2 image 147. The bladder is decompressed with a Singh catheter. Abnormal bowel wall thickening within the cecum and ascending colon is new this bowel wall thickening continues into the transverse colon. It may be present in the descending colon as well. The sigmoid colon is mostly decompressed, therefore, bowel wall thickening is not as well perceived. There may be some bowel wall thickening to the ileum as well. Gastric wall thickening is suspected. CT/Abdomen/Pelvis without Cont IMPRESSION: Cirrhosis. Worsening, now large ascites. Collapsed gallbladder with thickened wall and pericholecystic fluid is more severe in appearance in the previous study. Evidence to suggest cholecystitis Individualized dose optimization techniques were used for this CT. at 2138 Reported and signed by: Juan Joy MD Electronically Signed: Juan Joy MD at 21:37 EST Tel , Service support ,
--- NOTE | 2019-10-29 19:19 | EKG12_ITS ---
Test Reason : UNRESONSIVE Blood Pressure : / mmHG Vent. Rate : 109 BPM Atrial Rate : 109 BPM P-R Int : 160 ms QRS Dur : 070 ms QT Int : 376 ms P-R-T Axes : 069 -27 022 degrees QTc Int : 506 ms Sinus tachycardia with occasional Premature ventricular complexes Possible Left atrial enlargement Septal infarct , age undetermined Inferior infarct , age undetermined Abnormal ECG Confirmed by BRIDGETT ARECHIGA, ANDREEA ([id number]), publishing editor SRAVANTHI FLORES ([id number]) on 10/31/2019 9:46:45 AM Referred By: LUCI Confirmed By:ANDREEA URIAS MD
--- NOTE | 2019-10-29 19:19 | RAD_ITS ---
STUDY: X-RAY CHEST REASON FOR EXAM: Male, 59 years old. LETHARGIC, JAUNDICE AND UNRESPONSIVE -- PT UNABLE TO FOLLOW BREATHING INSTRUCTIONS TECHNIQUE: Single AP portable view of the chest. COMPARISON: 03/25/2019 FINDINGS: EKG leads overlie the chest The lungs are underexpanded with chronic interstitial changes, no superimposed acute pulmonary process. There is no demonstrated pleural abnormality. Normal size heart. Normal mediastinum and laura. Normal visualized pulmonary arteries. Normal visualized aortic arch and descending thoracic aorta. Normal visualized thoracic spine. Normal visualized ribs, clavicles, and shoulders. There is no demonstrated abnormality of the visualized soft tissue structures of the upper abdomen. RAD/Chest 1 View (Portable) IMPRESSION: Underexpanded lungs without a superimposed acute pulmonary process Electronically Signed: Zackary Centeno MD at 20:39 EST , Service support ,
[2019-10-29 19:36] LABS: Hematocrit 45.1 % (40-54); Hemoglobin 16.2 g/dL (13.0-16.5); Mean Corp Hgb Conc 35.9 g/dL (32-36); Mean Corpuscular Hgb 33.1 pg (27.0-32.0); Mean Corpuscular Volume 92.2 fL (80-94); Mean Platelet Vol. 12.7 fl (6.2-12.0); POSITIVE COUNT YES; POSITIVE DIFFERENTIAL YES; POSITIVE MORPHOLOGY YES; RBC Distribution Width SD 55.8 fl (35.1-43.9); Red Blood Count 4.89 M/mm3 (4.6-6.2); White Blood Count 7.2 K/mm3 (4.4-11.0)
[2019-10-29 19:47] LABS: Prothrombin Time (Protime)PT. 22.4 SECONDS (11.7-14.9)
[2019-10-29 19:48] LABS: Partial Thromboplast Time 40.5 Seconds (24.1-36.2)
[2019-10-29 20:00] LABS: ALB/GLOB Ratio 0.4 RATIO (0.9-2.4); AST(SGOT) 469 U/L (15-37); Alanine Aminotransfer ALT/SGPT 633 U/L (16-61); Albumin, Serum 2.1 g/dL (3.2-5.0); Alcohol, Blood (Medical)-Serum < 3.0 mg/dL; Alkaline Phosphatase 275 U/L (45-117); Anion Gap 16 (5-15); BUN 41 mg/dL (7-18); BUN/Creat Ratio 17.1 RATIO (10-20); Calcium,Total 8.2 mg/dL (8.5-10.1); Chloride 96 mmol/L (98-107); EST Glomerular Filtration Rate 30 mL/min (>60); Est Glom Filt Rate - Afr Amer 36 mL/min (>60); Estimated Creatinine Clearance 36.17 ml/min; Globulin 4.9 g/dL (2.2-4.2); Glucose 83 mg/dL (74-106); Potassium 3.5 mmol/L (3.5-5.1); Sodium Level 130 mmol/L (136-145)
[2019-10-29 20:06] LABS: Allen Test POS; Base Excess -9 mmol/L (-2 to +2); Bicarbonate 15.1 mmol/L (22-26); Blood Gas Specimen Type ART; O2 Delivery Device Room Air; PO2 82 mmHG (75-100); SITE L Radial; SO2 97 % (95-99); Time Given 1950; Total Carbon Dioxide 16 mmol/L; pCO2 22.3 mmHg (35-45); pH 7.44 (7.35-7.45)
[2019-10-29 20:08] LABS: Acetaminophen (Tylenol) Level < 2.0 ug/mL (10.0-30.0)
[2019-10-29] MEDS: LORazepam 2 MG/ML Syringe 1 MG IV (20:10)
[2019-10-29 20:24] LABS: Differential Indicated MANUAL DIFF
[2019-10-29 20:26] LABS: Absolute Lymphocyte Count 0.43 X10^3/uL (0.83-4.51); Absolute Neutrophil Count 6.3 X10^3/uL (2.0-7.7); Lymphocyte 6 % (19-41); Lymphocyte # 0.43 X10^3/ul (4.0); Monocyte 7 % (0-10); Neutrophil # 6.26 X10^3/uL (2.7-7.7); Neutrophil-Band 32 % (0-5); Neutrophil-Segmented 55 % (47-70); Nucleated Red Bld Cells,Manual 1 % (0-5); Total Cells Counted 100 (MANUAL DIFF)
[2019-10-29 20:27] LABS: Differential Comment SCANNED
[2019-10-29 20:31] LABS: Acanthocytes RARE; Burr Cells RARE; Target Cells RARE
[2019-10-29 20:32] LABS: Anisocytosis 1+
[2019-10-29 20:33] LABS: Bacteria 0 SEEN /hpf (None Seen); Mucous, Urine 0 SEEN /hpf (<or=2+)
[2019-10-29 20:37] LABS: Color, Urine Amber (Yellow); Glucose, Dipstick Normal (Normal); Ketone-Dipstick 5 mg/dl (Negative); Leukocyte Esterase-Dipstick 25 /ul (Negative); Nitrite-Dipstick Negative (Negative); Occult Blood-Urine 250 /ul (Negative); Protein-Dipstick 15 mg/dl (Negative); Urine Bilirubin Dipstick 6 mg/dL (Negative); Urine Clarity Cloudy (Clear); Urine Urobilinogen 8 mg/dl (Normal)
[2019-10-29 20:49] LABS: Amphetamine Urine VISTA POSITIVE (<1000 ng/mL); Barbiturate Urine VISTA NEGATIVE (< 200 ng/mL); Benzodiazepine Urine VISTA NEGATIVE (< 200 ng/mL); Cocaine Urine VISTA NEGATIVE (< 300 ng/mL); Ecstacy Urine VISTA NEGATIVE (< 500 ng/mL); Methadone Urine VISTA NEGATIVE (< 300 ng/mL); PCP Urine VISTA NEGATIVE (< 25 ng/mL); THC Urine VISTA NEGATIVE (< 50 ng/mL); Vista UDS pH Range 6
[2019-10-29 20:51] LABS: Red Blood Cells-Urine 50-100 SEEN /hpf (0-5); Squamous Epithelial Cells - UA 0-5 SEEN /hpf (0-5); White Blood Cells 5-10 SEEN /hpf (0-5)
[2019-10-29 20:52] LABS: Amorphous Sediment 1+ URATE
[2019-10-29 21:18] LABS: Platelet Count 111 K/mm3 (150-450)
[2019-10-29] MEDS: 0.9% Normal Saline 1,000 ML 999 ML IV ×3 (21:23→22:30)
--- NOTE | 2019-10-29 23:42 | ED.DCSUM_ITS ---
- ER Visit Summary Date of Service: 10/29/19 Chief Complaint: Unresponsive History of Present Illness: The patient is a 59 M with a history of hepatitis B and C as well as alcoholic cirrhosis. He presented at an outside ED yesterday because he was not urinating. His family says that the ED wanted to have him admitted to the hospital, but he refused. Overnight he was doing worse and today he is minimally responsive. He is having increasing jaundice and abdominal distention. Otherwise history is limited secondary to his mental condition. Physical Examination: Afebrile. Heart rate 109. Otherwise vitals normal. Patient is somnolent. Arouses to voice. GCS is 9. Head and neck atraumatic. Scleral icterus noted. Heart is tachycardic but regular. Lungs are clear. Abdomen is distended with a fluid wave. Nontender. Trace lower extremity edema, symmetric. Severe jaundice noted Test Results: EKG showed sinus rhythm at a rate of 109 with PVCs. Chest x-ray showed nothing acute. CT brain showed chronic changes. Abdominal CT showed cirrhosis, ascites, thickened gallbladder with pericholecystic fluid concerning for cholecystitis. Platelets 141, sodium 130, CO2 18, anion gap 16, BUN 41, creatinine 2.4. Total bilirubin 23, alk phos 275, ALT 633, AST 469, INR 2.0. Troponin normal. Lactate 6.0. Urinalysis shows signs of red blood cells and 5- 10 white cells. Ammonia 52. Tylenol negative. Alcohol negative. pH 7.438, CO2 22.3, O2 82. Cultures pending. Emergency Department Course and Treatment: Patient presents with encephalopathy and jaundice. Work-up showed hepatitis and jaundice. CT was concerning for cholecystitis. Patient was treated with broad-spectrum antibiotics, Zosyn and vancomycin. He received a fluid bolus. His vital signs remained stable. He did have some trouble cooperating with EKG and CTs, so he received 1 mg of Ativan. Afterwards, he was resting comfortably. No desaturations or hypotension noted. Patient presents with an extensive and complicated medical history. I feel that transfer to a tertiary care center is appropriate. Patient will be admitted at [facility] for further care Treatment Plan: As above Disposition: Transfer Impression: 1. Hepatic encephalopathy 2. Cholecystitis 3. Cirrhosis 4. Septic shock This note was generated with [employer] software. It may contain incorrect words, spelling, and punctuation that were not noted in review of the chart prior to signing ED Disposition - Plan for ED Patient: Referrals: Valerio Pfeiffer MD [Primary Care Provider] -
[2019-10-29 23:51] LABS: Reflex Lactate? Y
[2019-10-30 00:03] VITALS: BP 148/95; BP 151/88; PULSE 114; PULSE 115; RESP 15; TEMP 37.1; O2SAT 98
[2019-10-30 00:18] VITALS: BP 151/80; PULSE 114; RESP 15; O2SAT 98
[2019-10-30 00:58] LABS: Lactic Acid 5.8 mmol/L (0.4-1.9)
--- NOTE | 2019-10-30 05:50 | ED.RN ---
lab called with critical lab results. blood cultures positive at this time. anaerobic gram negative rods. spoke with Marcello with [facility] and updated on results
[2019-10-30 12:23] LABS: Pathologist Review Reviewed
== END 2019-10-30 00:32 | disposition short-term general hospital (02) ==
LOC: ED 19:35
PROVIDERS: Emergency Provider Emergency Medicine; Family Provider Family Medicine; PCP Family Medicine
DX: A41.9 Sepsis, unspecified organism (principal); K81.9 Cholecystitis, unspecified; R65.21 Severe sepsis with septic shock; G93.41 Metabolic encephalopathy; K72.90 Hepatic failure, unspecified without coma; K70.31 Alcoholic cirrhosis of liver with ascites; I25.10 Atherosclerotic heart disease of native coronary artery without angina pectoris; I10 Essential (primary) hypertension; G47.33 Obstructive sleep apnea (adult) (pediatric); R60.0 Localized edema; Z72.0 Tobacco use; Z86.19 Personal history of other infectious and parasitic diseases
CPT/HCPCS: 36600; 51702; 70450; 71045; 74176; 80053; 80307; 80320; 80329; 81001; 82140; 82803; 83605; 84484; 85025; 85610; 85730; 87040; 87077; 87086; 87088; 87186; 93005; 96365; 96366; 96367; 96375; 99285; J7030; J7040; A4216; G0480

== ENCOUNTER → 2019-11-14 13:35 | Outpatient (CLI) | payer MEDICAID, SELFPAY ==
[2019-10-29 18:51] VITALS: BMI 31.8
--- NOTE | 2019-11-14 13:40 | US_ITS ---
PROCEDURE: Ultrasound guided paracentesis. DATE OF EXAMINATION: November 14, 2019. INDICATION: Male, 59 years old. Ascites. PHYSICIAN: Jean-Claude Taylor M.D. TECHNIQUE: The risks, benefits, and alternatives to the procedure were explained to the patient. The specific risks of bleeding, infection, and damage to bowel were detailed and accepted. Witnessed informed consent was obtained. The abdomen was ultrasonographically surveyed. An appropriate pocket of fluid was identified at the right lower quadrant. The skin were cleaned and prepped in the usual sterile fashion. Using ultrasound guidance, the peritoneal cavity was accessed with a 5-Turkmen paracentesis needle/catheter system. The trocar was removed. A total of 2300 ml of direct yellow fluid was removed from the peritoneal cavity. The catheter was removed and a sterile dressing was applied. The procedure was well tolerated. US/Paracentesis with US IMPRESSION: Ultrasound guided paracentesis. Electronically Signed: Jean-Claude Taylor, at 15:10 EST , Service support ,
[2019-11-14 13:51] VITALS: BP 138/89; BP 143/93; BP 148/89; PULSE 16; PULSE 88; PULSE 90; RESP 16; RESP 18; O2SAT 100
== END ==
PROVIDERS: Family Provider Family Medicine; PCP Family Medicine; Referring Provider Internal Medicine; Visit Provider Internal Medicine
DX: K70.31 Alcoholic cirrhosis of liver with ascites (principal)
CPT/HCPCS: 49083

== ENCOUNTER 2019-11-19 00:53 | Inpatient (IN) | payer MEDICAID, SELFPAY ==
[2019-10-29 18:51] VITALS: BMI 31.8
[2019-11-19] VITALS (12 sets, daily range): BP systolic 132–155; BP diastolic 82–98; PULSE 88–111; RESP 15–30; TEMP 36.5–36.9; O2SAT 98–100; BMI 31.5
--- NOTE | 2019-11-19 01:27 | EKG12_ITS ---
Test Reason : CP Blood Pressure : / mmHG Vent. Rate : 103 BPM Atrial Rate : 103 BPM P-R Int : 146 ms QRS Dur : 082 ms QT Int : 384 ms P-R-T Axes : 028 -10 051 degrees QTc Int : 503 ms Sinus tachycardia Low voltage QRS Borderline ECG Confirmed by BRIDGETT ARECHIGA, ANDREEA ([id number]), editorial director PRAVEEN LOPEZ ([id number]) on 11/21/2019 11:21:53 AM Referred By: DIXIE Confirmed By:ANDREEA URIAS MD
--- NOTE | 2019-11-19 01:27 | RAD_ITS ---
STUDY: X-RAY CHEST REASON FOR EXAM: Male, 59 years old. chest pressure and abd pain with distention for the last two days. pt has history of hep B. last paracentesis last Wednesday TECHNIQUE: Single AP portable view of the chest. COMPARISON: 10/29/2019. FINDINGS: The lungs are underexpanded with vascular crowding, left more than right. There is no demonstrated pleural abnormality. Normal size heart. Normal mediastinum and laura. Normal visualized pulmonary arteries. Normal visualized aortic arch and descending thoracic aorta. Normal visualized thoracic spine. Normal visualized ribs, clavicles, and shoulders. There is no demonstrated abnormality of the visualized soft tissue structures of the upper abdomen. RAD/Chest 1 View (Portable) IMPRESSION: Underexpanded lungs with vascular crowding, otherwise no acute process identified. Electronically Signed: Joanne Brush MD at 1:44 EST , Service support ,
--- NOTE | 2019-11-19 01:28 | ED.DCSUM_ITS ---
History of Present Illness Chief Complaint: Chest Pain Informant: Patient Onset: Days - 3 Timing: Intermittent Quality: Pressure Location: Lower substernal Current Severity: Gone Maximum Severity: Moderate Worsened by: Unknown Relieved by: Unknown Associated Symptoms: Abdominal distention, abdominal pain, shortness of breath Narrative: Patient has a history of hepatitis B and resultant cirrhosis. For the last several months, he has had abdominal swelling as a result and jaundice, and has been getting weekly paracentesis at [facility], recently he switched to getting them locally, his last one was on Wednesday which was 5 days ago. He feels like he needs another one, he is very swollen and tight, but he states he is having a lot of diffuse abdominal pain as well which is new. He denies any fevers, nausea, vomiting. He denies bleeding from anywhere including hematemesis, melena, bright red blood per rectum. 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 (2) LINDA (obstructive sleep apnea) Status: Chronic (3) Sigmoid diverticulitis Status: Suspected (4) Atherosclerosis of coronary artery of [place] heart without angina pectoris Status: Chronic (5) Cardiomyopathy Status: Chronic (6) Dyslipidemia Status: Chronic (7) Essential hypertension Status: Chronic Past Medical History - Allergies and Home Meds Allergies/Adverse Reactions: Allergies No Known Allergies Allergy (Verified 11/19/19 06:15) Surgical History: no surgical history Lives: Alone Smoking Status: Former smoker Alcohol: None - Family History Maternal Family History: Family History (Last Reviewed 10/18/19 @ 13:31 by Aisha Wyatt MD) Mother Diabetes Hypertension CVA (cerebral vascular accident) Family History: Reports: Diabetes, Unknown Paternal Family History: Family History (Last Reviewed 10/18/19 @ 13:31 by Aisha Wyatt MD) Mother Diabetes Hypertension CVA (cerebral vascular accident) Family History: Reports: Unknown - Patient states he does not know his father's paternal family history. Review of Systems General: Reports: Malaise. Denies: Chills, Fever, Sweats Eyes: Denies: Visual changes - bilaterally, Diplopia ENT: Denies: Rhinorrhea, Sore throat Cardiovascular: Reports: Chest pain. Denies: Palpitations, Heart racing Respiratory: Reports: Dyspnea - Due to abdominal swelling, per patient. Denies: Cough, Dyspnea on exertion Gastrointestinal: Reports: Abdominal pain. Denies: Nausea, Vomiting, Diarrhea, Melena, Hematochezia Genitourinary: Denies: Dysuria, Hematuria, Frequency Musculoskeletal: Reports: Swelling - legs recently. Denies: Neck pain, Back pain, Extremity Pain Skin: Denies: Rash, Wounds Neurological: Denies: Headache, Weakness, Numbness Physical Exam Vital Signs/Narrative: Vital Signs Temp Pulse Resp BP Pulse Ox 11/19/19 00:57 97.9 F 103 H 30 H 132/98 H 99 11/19/19 00:54 97.9 F 106 H 20 H 132/98 H 99 Inital Vital Signs reviewed: Yes General: Well nourished, Well developed, No Acute Distress Head: Normocephalic, Atraumatic Eyes: Perrl, EOMI, Scleral icterus ENT: Moist mucous membranes, No rhinorrhea Neck: Supple, Nontender, No JVD Cardiovascular: Regular rate, Regular rhythm, No murmurs, Tachycardia - Mild Respiratory: No distress, CTA bilaterally, Chest nontender Abdomen: Soft, Normal bowel sounds, Rebound tenderness - Diffusely. Negative for: Tender Back: Nontender, Normal Inspection Extremities: Nontender, Edema - 2+ BLE, Symmetric Skin: No rash, Jaundice, No Trauma Neurological: Alert, Oriented x3, Cranial nerves II-XII grossly intact, Normal Strength, Normal Sensation Psychological: Normal affect, Normal Mood Diagnostic/Tx/Re-eval Impressions Chest X-Ray 11/19/19 01:27 IMPRESSION: Underexpanded lungs with vascular crowding, otherwise no acute process identified. Electronically Signed: Joanne Brush MD at 1:44 EST , Service support , 11/19/19 01:27 CXR [Chest 1 View (Portable)] [RAD] Stat Laboratory Results 11/19/19 11/19/19 11/19/19 01:10 01:10 01:10 WBC 6.2 RBC 4.01 L Hgb 13.6 Hct 38.6 L MCV 96.3 H MCH 33.9 H MCHC 35.2 RDW Std Deviation 76.9 H RDW Coeff of Jacinto 22.6 H Plt Count 64 L Immature Gran % (Auto) 0.600 Neut % (Auto) 67.8 Lymph % (Auto) 13.3 L Barren % (Auto) 14.4 H Eos % (Auto) 2.3 Baso % (Auto) 1.6 H Absolute Neuts (auto) 4.2 Absolute Lymphs (auto) 0.82 L Nucleated RBC % 0 Differential Comment SCANNED Platelet Estimate SLT DEC Plt Morphology Comment CLUMPED PT 18.7 H INR 1.6 Sodium 133 L Potassium 3.7 Chloride 104 Carbon Dioxide 20.0 L Anion Gap 9 BUN 30 H Creatinine 1.39 H Estim Creat Clear Calc 62.45 Est GFR (MDRD) Af Amer 68 Est GFR (MDRD) Non-Af 56 L BUN/Creatinine Ratio 21.6 H Glucose 137 H Calcium 8.5 Total Bilirubin 21.50 H* AST 392 H ALT 214 H Alkaline Phosphatase 277 H Troponin I < 0.015 Total Protein 6.6 Albumin 2.3 L Globulin 4.3 H Albumin/Globulin Ratio 0.5 L Fluid WBC Fluid Tot Cell Count Fld Polynuclear WBCs # Fld Polynuclear WBCs % Fluid Mononuclear WBCs Fld Mononuclear WBCs % Fluid Glucose Fluid Total Protein Fluid LDH 11/19/19 11/19/19 04:07 04:07 WBC RBC Hgb Hct MCV MCH MCHC RDW Std Deviation RDW Coeff of Jacinto Plt Count Immature Gran % (Auto) Neut % (Auto) Lymph % (Auto) Barren % (Auto) Eos % (Auto) Baso % (Auto) Absolute Neuts (auto) Absolute Lymphs (auto) Nucleated RBC % Differential Comment Platelet Estimate Plt Morphology Comment PT INR Sodium Potassium Chloride Carbon Dioxide Anion Gap BUN Creatinine Estim Creat Clear Calc Est GFR (MDRD) Af Amer Est GFR (MDRD) Non-Af BUN/Creatinine Ratio Glucose Calcium Total Bilirubin AST ALT Alkaline Phosphatase Troponin I Total Protein Albumin Globulin Albumin/Globulin Ratio Fluid WBC 0.080 Fluid Tot Cell Count 0.097 Fld Polynuclear WBCs # 0.003 Fld Polynuclear WBCs % 3.7 Fluid Mononuclear WBCs 0.077 Fld Mononuclear WBCs % 96.3 Fluid Glucose 138 H Fluid Total Protein 0.6 Fluid LDH 50 - Rhythm Strip Rhythm Strip: Sinus Tach Rate: 103 Ectopy: None - EKG Initial EKG Interpretation: No Acute Injury Pattern, Sinus Tachycardia - Medical Decision Making Patient was given several doses of IV analgesics for his pain which helped. He felt much better after we drained his ascites. His initial work-up including blood tests, chest x-ray, EKG were okay except for elevated liver enzymes consistent with his cirrhosis. Given the pain that he was in, and peritoneal signs, I have concern for spontaneous bacterial peritonitis. Patient consented to paracentesis for diagnostic and therapeutic purposes. Please see the procedure note, this was performed without difficulty and the patient tolerated it well. After withdrawing 3 L of ascitic fluid from his abdomen, he is feeling the same, still in pain. He does feel that his belly is less distended. On reexamination he still has peritoneal signs remote from the catheter site on the left side. His total white cell count is 80, PMNs only 3; generally 250 PMN is the accepted cut off for spontaneous bacterial peritonitis, however with persistent pain and peritoneal signs, he should be treated empirically until culture returns. Other tests on the ascites are still pending, including a culture which was sent. Chapo ordered and will discuss with hospitalist for admission. Procedures Procedure(s): Paracentesis --left lower abdominal gutter was visualized with ultrasound showing a good pocket of fluid. The area was prepped and draped in a sterile fashion using chlorhexidine, locally anesthetized with 3 cc of plain 1% lidocaine down to the peritoneum, briefly with drawling a very small amount of nonbloody yellow ascites while doing this, followed by making a very small incision with a #11 blade in the skin superficially and inserting a thoracente sis catheter/needle via Seldinger technique in the same area. Ultrasound guidance was used to direct the catheter/needle into a pocket of ascites. The procedure was painless, the catheter slid in without difficulty or resistance, and nonbloody ascites was immediately available, aspirating throughout the insertion process. A drain hose with a needle was attached and it was inserted into vacuum bottles to drain the fluid. A sampling was taken for testing and analysis. A total of 7-8 L was withdrawn. ED Disposition - Plan for ED Patient: Disposition: [facility] Diagnosis: Diffuse abdominal pain, Cirrhosis of liver due to hepatitis B
[2019-11-19 01:52] LABS: International Normalized Ratio 1.6; Prothrombin Time (Protime)PT. 18.7 SECONDS (11.7-14.9)
[2019-11-19] MEDS: fentaNYL 100 MCG/2 ML Ampul 50 MCG IV (01:55)
[2019-11-19 01:59] LABS: Absolute Lymphocyte Count 0.82 X10^3/uL (0.83-4.51); Absolute Neutrophil Count 4.2 X10^3/uL (2.0-7.7); Basophil% 1.6 % (0-1); Eosinophil# 0.14 X10^3/uL; Eosinophils% 2.3 % (0-5); Hematocrit 38.6 % (40-54); Hemoglobin 13.6 g/dL (13.0-16.5); Lymphocyte # 0.82 X10^3/ul (4.0); Lymphocyte % 13.3 % (19-41); Mean Corp Hgb Conc 35.2 g/dL (32-36); Mean Corpuscular Hgb 33.9 pg (27.0-32.0); Mean Corpuscular Volume 96.3 fL (80-94); Monocyte# 0.89 X10^3/uL; Monocyte% 14.4 % (0-10); NRBC Flagged by Analyzer 0 % (0-5); Neutrophil # 4.19 X10^3/uL (2.7-7.7); Neutrophil % 67.8 % (47-70); POSITIVE COUNT YES; POSITIVE MORPHOLOGY YES; Platelet Count 64 K/mm3 (150-450); RBC Distribution Width CV 22.6 % (11.6-14.6); RBC Distribution Width SD 76.9 fl (35.1-43.9); Red Blood Count 4.01 M/mm3 (4.6-6.2); White Blood Count 6.2 K/mm3 (4.4-11.0)
[2019-11-19 02:10] LABS: ALB/GLOB Ratio 0.5 RATIO (0.9-2.4); AST(SGOT) 392 U/L (15-37); Alanine Aminotransfer ALT/SGPT 214 U/L (16-61); Albumin, Serum 2.3 g/dL (3.2-5.0); Alkaline Phosphatase 277 U/L (45-117); Anion Gap 9 (5-15); BUN 30 mg/dL (7-18); BUN/Creat Ratio 21.6 RATIO (10-20); Calcium,Total 8.5 mg/dL (8.5-10.1); Chloride 104 mmol/L (98-107); Creatinine, Serum 1.39 mg/dL (0.70-1.30); EST Glomerular Filtration Rate 56 mL/min (>60); Est Glom Filt Rate - Afr Amer 68 mL/min (>60); Estimated Creatinine Clearance 62.45 ml/min; Globulin 4.3 g/dL (2.2-4.2); Glucose 137 mg/dL (74-106); Potassium 3.7 mmol/L (3.5-5.1); Protein, Total 6.6 g/dL (6.4-8.2); Sodium Level 133 mmol/L (136-145)
[2019-11-19 02:21] LABS: Differential Indicated SCAN CRITERIA MET
[2019-11-19 02:22] LABS: Differential Comment SCANNED; Platelet Estimate SLT DEC (ADEQ); Platelet Morphology CLUMPED
[2019-11-19] MEDS: Morphine 4 MG/ML Syringe IV ×3 (03:41→13:17)
[2019-11-19 04:28] LABS: Body Fluid Mononuclear WBC # 0.077 10^3/uL; Body Fluid Mononuclear WBC % 96.3 %; Body Fluid Polynuclear WBC # 0.003 10^3/uL; Body Fluid Polynuclear WBC % 3.7 %; Body Fluid Total Cells Counted 0.097 10^3/ul
[2019-11-19 04:53] LABS: Body Fluid QC Type(s) BF1Q; Red Cell Count/Body Fluid 20 /mm3
[2019-11-19 05:48] LABS: Glucose, Body Fluid 138 mg/dL (40-70); LDH,Body Fluid 50 Units/l (Not Establ.); Protein, Body Fluid 0.6 g/dL (Not Establ.)
[2019-11-19 06:11] LABS: Lymphocytes 44 %; Macrophages 10 %; Monocytes 39 %; Neutrophil (Segs) 3 %; Other Cell Type/BF 4 %
[2019-11-19 06:12] LABS: Auto B Fluid Analyzer BKGD Ct COUNTS W/IN LIMITS (W/IN LIMITS)
[2019-11-19 06:13] LABS: Appearance/Body Fluid CLEAR; Color/Body Fluid YELLOW; Source- Body Fluid PERITONEAL FLUID
--- NOTE | 2019-11-19 06:16 | PCM.HP.STD ---
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 (3) Elevated LFTs Status: Chronic (4) Tobacco abuse Status: Chronic (5) BMI 30.0-30.9,adult Status: Chronic (6) LINDA (obstructive sleep apnea) Status: Chronic (7) Dyslipidemia Status: Chronic (8) Atherosclerosis of coronary artery of [place] heart without angina pectoris Status: Chronic Qualifiers: Coronary Disease-Associated Artery/Lesion type: [place] artery Qualified Code(s): I25.10 - Atherosclerotic heart disease of [place] coronary artery without angina pectoris (9) Cardiomyopathy Status: Chronic Qualifiers: Cardiomyopathy type: unspecified Qualified Code(s): I42.9 - Cardiomyopathy, unspecified (10) Essential hypertension Status: Chronic History of Present Illness Date of Admission: 11/19/19 Chief Complaint: Abdominal pain, distention The patient is a 59 y/o M w/ PMHx: LINDA, Cardiomyopathy unclear type, HTN, HLD, Nonobstructive CAD, Tobacco use, Anxiety and Deprssion, Hepatitis B Cirrhosis with frequent paracentesis needs who presents to the [facility] ED on 11/19/19 with history of last paracentesis approximately 5 days prior to current presentation with worsening abdominal tension, distention with diffuse generalized, sharp and dull throbbing at the same time 10 out of 10 in severity abdominal pain with no fevers, nausea, emesis or significant changes in his bowel prompting ED presentation as he felt as though he needed a paracentesis performed. He notes the discomfort has been more significant over the last 2 to 3 days. Work-up in the ED included T 97.9, heart rate 106, BP 132/98, respiratory rate 20, 99% on room air, CBC with WBC 6.2, hemoglobin 13.6, platelets 64 with no evidence of left shift, PT 18.7, INR 1.6, CMP with sodium 133, carbon dioxide 20, BUN/creatinine 30/1.39, glucose 137, total bilirubin 21.5, AST/ALT 392/214, alk phos 277, troponin less than 0.015. In the ED patient ministered fentanyl, morphine, lidocaine as well as aspirin therapy for initial concern for cardiac etiology, rocephin 1 gm IV x 1 administered. In the ED paracentesis performed per ED physician. Past Medical History Past Medical History (Chronic Problems): Chronic Problems (Last Reviewed 10/18/19 @ 13:31 by Aisha Wyatt MD) Cirrhosis of liver due to hepatitis B (Chronic) Elevated LFTs (Chronic) Tobacco abuse (Chronic) BMI 30.0-30.9,adult (Chronic) LINDA (obstructive sleep apnea) (Chronic) Chest pain (Chronic) Dyslipidemia (Chronic) Atherosclerosis of coronary artery of [place] heart without angina pectoris (Chronic) Cardiomyopathy (Chronic) Essential hypertension (Chronic) Medical History: Medical History (Last Reviewed 10/18/19 @ 13:31 by Aisha Wyatt MD) Chest pain (Chronic) R07.9 Suicidal ideation (Resolved) Onset Date: ~03/27/19 R45.851 Dyslipidemia (Chronic) E78.5 Atherosclerosis of coronary artery of [place] heart without angina pectoris (Chronic) I25.10 Cardiomyopathy (Chronic) I42.9 Essential hypertension (Chronic) I10 Chest pain (Resolved) R07.9 History of foot fracture (Resolved) Z87.81 Allergies No Known Allergies Allergy (Verified 11/19/19 06:15) Home Medications: Ambulatory Orders Medication Instructions Recorded Lactulose [Kristalose] 20 gm PO TID 11/19/19 Metoprolol Tartrate 12.5 mg PO BID 11/19/19 Surgical History: Surgical History (Last Reviewed 10/18/19 @ 13:31 by Aisha Wyatt MD) History of left heart catheterization (Resolved) Z98.890 02/20/2019 [facility], Dr. Wyatt mild CAD Surgical History: - - Right foot surgery with hardware, ear tube placements. Psychiatric History: Anxiety, Depression Lives: Alone Smoking Status: Former smoker - Patient quit cigarette tobacco usage approximately 6 years prior. Tobacco Use: Non-smoker Alcohol: Rare Drugs: None - Patient does have significant polysubstance use history, never intravenous but has been clean several years. - *Family History Maternal Family History: Family History (Last Reviewed 10/18/19 @ 13:31 by Aisha Wyatt MD) Mother Diabetes Hypertension CVA (cerebral vascular accident) History Items: Diabetes, Unknown Paternal Family History: Family History (Last Reviewed 10/18/19 @ 13:31 by Aisha Wyatt MD) Mother Diabetes Hypertension CVA (cerebral vascular accident) History Items: Unknown - Patient states he does not know his father's paternal family history. Review of Systems Constitutional: Reports: Anorexia, Malaise, Weakness, Fatigue. Denies: Chills, Fever, Weight Change HEENT: Denies: Head Aches, Sinus Congestion, Sinus Drainage Cardiovascular: Denies: Chest Pain, Palpitations Respiratory: Reports: Shortness of Breath, Shortness of breath at rest, Shortness of breath upon exertion. Denies: Cough, Sputum production Gastrointestinal: Reports: Abdominal Pain, Nausea. Denies: Vomiting Genitourinary: Denies: Dysuria Musculoskeletal: Reports: Joint Pain. Denies: Joint Tenderness Skin: Reports: Jaundice. Denies: Rash, Wounds Neurological: Denies: Numbness, Tingling, Focal weakness Psychiatric: Reports: Anxiety, Depression. Denies: Homicidal Ideations, Suicidal Ideations Hematologic/ Lymphatic: Reports: Easy Bruising, Easy Bleeding VTE Information - Inpt Only VTE Present on Admission: No VTE Mechan Device Prophylaxis: SCD's VTE Pharm Prophylaxis ordered?: No Reason prophylaxis not ordered:: Medical Contraindication Patient Problems: Active and Suspected Problems (Last Reviewed 10/18/19 @ 13:31 by Aisha Wyatt MD) Diffuse abdominal pain (Acute) SBP (spontaneous bacterial peritonitis) (Acute) Subjective: Laying in the ED bed, fatigued appearing, notes pain lessening but still uncomfortable. Objective: Physical Examination: General: awake, alert, oriented x 3 and cooperative, laying in the ED bed, fatigued appearance. Skin: Jaundiced color, turgor, no icterus, cyanosis. HEENT: AT/NC, EOMI, PERRLA, evident scleral icterus, moderately dry MM, no carotid bruits or JVD noted. Lungs: CTA bilaterally, moderate effort, moderate decrease BL bases, no rales, ronchi or wheezing. Heart: Mildly tachycardic with regular; no gallop, rub audible. Abdomen: Abdomen now soft, previously very tense and distended, still generalized discomfort with palpation, no significant rebound or guarding but for ED physician did have this, distant normal bowel sounds, difficult to assess HSM secondary to ongoing paracentesis. Extremities: no cyanosis, clubbing, bilateral lower extremity pedal 1+ pitting edema. Neurological: patient awake, alert, oriented x 3; cognitive function intact; pupils equally reactive to light and accomodation; cranial nerves II-XII grossly normal, moving all 4 extremities, no focal deficits, strength utterly to severely globally Karen secondary to acute presentation. Psychiatric: affect appears fatigued, no acute evidence of depressive or anxiety feelings. - Physical Exam Vitals/I&O's: Vital Signs Temp Pulse Resp BP Pulse Ox 97.9 F 106 H 15 147/90 H 100 11/19/19 00:57 11/19/19 06:14 11/19/19 06:14 11/19/19 06:14 11/19/19 06:14 Oxygen Delivery Method Room Air Weight: 226 lb 3.108 oz Body Mass Index (BMI) 31.5 Laboratory Results 11/19/19 01:10: WBC 6.2, RBC 4.01 L, Hgb 13.6, Hct 38.6 L, MCV 96.3 H, MCH 33.9 H, MCHC 35.2, RDW Std Deviation 76.9 H, RDW Coeff of Jacinto 22.6 H, Plt Count 64 L, Immature Gran % (Auto) 0.600, Neut % (Auto) 67.8, Lymph % (Auto) 13.3 L, [place] % (Auto) 14.4 H, Eos % (Auto) 2.3, Baso % (Auto) 1.6 H, Absolute Neuts (auto) 4.2, Absolute Lymphs (auto) 0.82 L, Nucleated RBC % 0, Differential Comment SCANNED, Platelet Estimate SLT DEC, Plt Morphology Comment CLUMPED 11/19/19 01:10: PT 18.7 H, INR 1.6 11/19/19 01:10: Sodium 133 L, Potassium 3.7, Chloride 104, Carbon Dioxide 20.0 L, Anion Gap 9, BUN 30 H, Creatinine 1.39 H, Estim Creat Clear Calc 62.45, Est GFR (MDRD) Af Amer 68, Est GFR (MDRD) Non-Af 56 L, BUN/Creatinine Ratio 21.6 H, Glucose 137 H, Calcium 8.5, Total Bilirubin 21.50 H*, AST 392 H, ALT 214 H, Alkaline Phosphatase 277 H, Troponin I < 0.015, Total Protein 6.6, Albumin 2.3 L, Globulin 4.3 H, Albumin/Globulin Ratio 0.5 L 11/19/19 04:07: Fluid Glucose 138 H, Fluid Total Protein 0.6, Fluid LDH 50 11/19/19 04:07: Fluid Amylase Pending 11/19/19 04:07: Fluid Source PERITONEAL FLUID, Fluid Color YELLOW, Fluid Appearance CLEAR, Fluid WBC 0.080, Fluid RBC 20, Fluid Tot Cell Count 0.097, Fld Polynuclear WBCs # 0.003, Fld Polynuclear WBCs % 3.7, Fluid Mononuclear WBCs 0.077, Fld Mononuclear WBCs % 96.3, Fluid Neutrophils 3, Fluid Lymphocytes 44, Fluid Monocytes 39, Fluid Macrophages 10, Fluid Other Cells 4, Fl Pathologist Comment May follow, Fluid Comment 2 SEE COMMENT Current Medications Ceftriaxone Sodium (Rocephin) 1 gm in 50 mls @ 100 mls/hr IV X1 ONE Stop: 11/19/19 06:25 Assessment/Plan All Active Problems (Last Reviewed 10/18/19 @ 13:31 by Aisha Wyatt MD) Diffuse abdominal pain (Acute) SBP (spontaneous bacterial peritonitis) (Acute) Fatigue (Acute) Abdominal pain (Acute) Suicidal ideation (Resolved ~03/27/19) Preop cardiovascular exam (Acute) History of left heart catheterization (Resolved) Chest pain (Resolved) History of foot fracture (Resolved) Right flank discomfort (Resolved) The patient is a 59 y/o M w/ PMHx: LINDA, Cardiomyopathy unclear type, HTN, HLD, Nonobstructive CAD, Tobacco use, Anxiety and Deprssion, Hepatitis B Cirrhosis with frequent paracentesis needs who presents to the [facility] ED on 11/19/19 with history of last paracentesis approximately 5 days prior to current presentation with worsening abdominal tension, distention with diffuse generalized 10 out of 10 abdominal pain with no fevers, nausea, emesis or significant changes in his bowel prompting ED presentation as he felt as though he needed a paracentesis performed. 1. Acute Intractable Abdominal Pain secondary to Concern for Acute SBP with Decompensated Cirrhosis secondary to Hepatitis B w/ Elevated Bilirubin, LFTs: Will admit to [facility], discussed albumin supplementation with ED physician and he noted intention for replacement in the ED, ongoing paracentesis upon evaluation, will maintain on low Na/DM diet, water 1500 ml restriction, straight Lasix IV diuresis regimen, obtain NH level with continued home lactulose Katerin, consider initiation of spironolactone if BP would tolerate although may be already on this regimen, awaiting med rec per family. Paracentesis performed per ED physician,, ongoing awaiting results, initiate rocephin 2 gm daily in interim. 2. CAD: 04/2019 catheterization w/ EF 50-55%, nonobstructive CAD, holding aspirin and statin given LFT abnormalities, continue metoprolol. 3. Cardiomyopathy, Unclear type: 04/2019 ECHO w/ EF 40%, catheterization w/ EF 50-55%, nonobstructive CAD, holding aspirin and statin given LFT abnormalities, continue metoprolol. 4. Hypertension: Initiate IV Lasix as noted, holding oral Lasix, continue metoprolol, PRN hydralazine. 5. Hyperlipidemia: Holding statin given LFT elevation. 6. Tobacco Abuse: Encouraged cessation, inpatient consultation per RT, NR if desired. 7. LINDA: Encouraged outpatient sleep study follow-up. Following with Dr. Rodriguez outpatient. 8. Anxiety and depression: Previously on Wellbutrin however this was discontinued once he was noted to have rising LFTs. 9. Hyperglycemia: Potentially stress response, will obtain hemoglobin A1c to be cautious. 10. DVT prophylaxis: SCDs, defer chemoprophylaxis given current liver presentation.
[2019-11-19] MEDS: Ceftriaxone 1 GM/50 ML BAG IV (06:30)
--- NOTE | 2019-11-19 06:33 | NURSING ---
315 abd pain, ? sbp white
[2019-11-19] MEDS: Dicyclomine 20 MG/2 ML Vial IM (08:13)
[2019-11-19] MEDS: Albumin Human 25% (100 mL) 25 GM/100 ML BAG IV (08:20)
[2019-11-19] MEDS: 0.9% Saline Lock 10 ML Syringe IV ×2 (09:59→17:53)
[2019-11-19 10:01] LABS: Hemoglobin A1c 4.2 % (4.2-6.3)
[2019-11-19] MEDS: Metoprolol Tartrate 25 MG Tablet 12.5 MG PO ×2 (10:02→21:37)
[2019-11-19] MEDS: Famotidine 20 MG Tablet PO ×2 (10:02→21:36)
[2019-11-19] MEDS: Furosemide 40 MG/4 ML Vial IV ×2 (10:02→17:53)
[2019-11-19 10:06] LABS: Ammonia < 10.0 umol/L (11-32)
[2019-11-19] MEDS: Lactulose 20 GM/30 ML UDC PO ×2 (13:12→21:35)
[2019-11-19] MEDS: Mag Hydrox/Al Hydrox/Simeth 30 ML UDC PO (15:57)
[2019-11-19] MEDS: oxyCODONE 5 MG Tablet PO ×2 (16:04→20:23)
--- NOTE | 2019-11-19 17:28 | PCM.HOSP.N ---
Hospitalist Note Patient was seen and examined briefly today, he still does appear to have some abdominal distention-his abdomen is tympanic, I have urged the patient to get up and walk around. Patient is alert and oriented x3, he is also afebrile. Labs will be repeated tomorrow, continue present treatment.
[2019-11-19] MEDS: Ondansetron 4 MG/2 ML Vial IV (21:45)
[2019-11-20] VITALS (7 sets, daily range): BP systolic 121–140; BP diastolic 81–95; PULSE 97–103; RESP 18–20; TEMP 36.6–36.9; O2SAT 98–100
[2019-11-20] MEDS: oxyCODONE 5 MG Tablet PO ×2 (00:57→05:02)
[2019-11-20] MEDS: Morphine 4 MG/ML Syringe IV ×2 (02:23→05:57)
[2019-11-20] MEDS: Lactulose 20 GM/30 ML UDC PO ×2 (05:02→14:58)
[2019-11-20 06:38] LABS: Absolute Lymphocyte Count 0.95 X10^3/uL (0.83-4.51); Absolute Neutrophil Count 6.4 X10^3/uL (2.0-7.7); Basophil# 0.15 X10^3/uL; Basophil% 1.7 % (0-1); Eosinophil# 0.18 X10^3/uL; Hematocrit 40.1 % (40-54); Hemoglobin 14.4 g/dL (13.0-16.5); Lymphocyte # 0.95 X10^3/ul (4.0); Lymphocyte % 10.5 % (19-41); Mean Corp Hgb Conc 35.9 g/dL (32-36); Mean Corpuscular Hgb 34.3 pg (27.0-32.0); Mean Corpuscular Volume 95.5 fL (80-94); Mean Platelet Vol. 12.9 fl (6.2-12.0); Monocyte# 1.32 X10^3/uL; Monocyte% 14.6 % (0-10); NRBC Flagged by Analyzer 0 % (0-5); Neutrophil # 6.38 X10^3/uL (2.7-7.7); Neutrophil % 70.6 % (47-70); POSITIVE COUNT YES; POSITIVE MORPHOLOGY YES; Platelet Count 95 K/mm3 (150-450); RBC Distribution Width CV 22.7 % (11.6-14.6)
[2019-11-20 06:58] LABS: ALB/GLOB Ratio 0.6 RATIO (0.9-2.4); AST(SGOT) 385 U/L (15-37); Alanine Aminotransfer ALT/SGPT 205 U/L (16-61); Albumin, Serum 2.4 g/dL (3.2-5.0); Alkaline Phosphatase 234 U/L (45-117); Anion Gap 10 (5-15); BUN 28 mg/dL (7-18); BUN/Creat Ratio 18.7 RATIO (10-20); Calcium,Total 8.7 mg/dL (8.5-10.1); Chloride 105 mmol/L (98-107); EST Glomerular Filtration Rate 51 mL/min (>60); Est Glom Filt Rate - Afr Amer 62 mL/min (>60); Estimated Creatinine Clearance 57.87 ml/min; Globulin 3.8 g/dL (2.2-4.2); Glucose 103 mg/dL (74-106); Potassium 4.4 mmol/L (3.5-5.1); Protein, Total 6.2 g/dL (6.4-8.2); Sodium Level 134 mmol/L (136-145)
[2019-11-20 08:01] LABS: Anisocytosis 1+
[2019-11-20 08:02] LABS: Platelet Estimate MOD DEC (ADEQ); Platelet Morphology CLUMPED
[2019-11-20 08:03] LABS: Differential Indicated SCAN CRITERIA MET
[2019-11-20 08:04] LABS: Pathologist Review May foll
[2019-11-20] MEDS: 0.9% Saline Lock 10 ML Syringe IV ×6 (08:35→17:19)
[2019-11-20] MEDS: Morphine 2 MG/ML Syringe IV ×2 (08:35→16:31)
--- NOTE | 2019-11-20 09:47 | RAD_ITS ---
STUDY: X-RAY - ABDOMEN/PELVIS REASON FOR EXAM: Male, 59 years old. ABDOMINAL DISTENTION AND PAIN TECHNIQUE: AP supine and upright views of the abdomen and pelvis. COMPARISON: None. FINDINGS: Normal visualized lung bases. There is a paralytic ileus of the small intestine with mild gaseous distention. Gas is seen within the colon . There is no demonstrated free abdominal air. The visualized liver, spleen and kidneys are grossly normal in size and morphology. Normal soft tissue structures. Normal visualized osseous structures. RAD/Abdomen Single View IMPRESSION: Gas is seen throughout the small bowel and colon. This most likely represents an ileus pattern. Follow-up is recommended. Electronically Signed: Jean-Claude Taylor, at 14:19 EST , Service support ,
[2019-11-20] MEDS: Metoprolol Tartrate 25 MG Tablet 12.5 MG PO (09:55)
[2019-11-20] MEDS: Famotidine 20 MG Tablet PO (09:55)
[2019-11-20] MEDS: oxyCODONE 5 MG Tablet 10 MG PO ×2 (09:55→14:58)
[2019-11-20] MEDS: Furosemide 40 MG/4 ML Vial IV ×2 (09:55→17:18)
--- NOTE | 2019-11-20 10:57 | PCM.PN.HOSP ---
Patient Problems: Active and Suspected Problems (Last Reviewed 10/18/19 @ 13:31 by Aisha Wyatt MD) Diffuse abdominal pain (Acute) SBP (spontaneous bacterial peritonitis) (Acute) Reason for Visit: ascites Subjective: Still with significant abdominal pain. Has been able to eat some toast, some flatus. Still with significant abdominal pain and distention. Vitals/I&O's: Vital Signs Temp Pulse Resp BP Pulse Ox 36.6 C 99 20 H 128/87 H 100 11/20/19 09:54 11/20/19 10:31 11/20/19 09:54 11/20/19 09:54 11/20/19 09:54 Oxygen Delivery Method Room Air Weight: 88.8 kg Body Mass Index (BMI) 31.5 Intake and Output for Last 24 Hours 11/18/19 11/19/19 11/20/19 23:59 23:59 23:59 Intake Total 1660 / 1660 Output Total 1275 / 1925 1050 / 1050 Balance 385 / -265 -1050 / -1050 General: Alert, - - uncomfortable, afebrile HEENT: Atraumatic, Normocephalic, - - icterus Oral: Moist Mucosa, No Gingival or Mucosal Lesions/ Ulcerations Neck: No Nodes, Trachea Midline Lungs: Clear to auscultation, Normal air movement, No rhonchi, No wheeze, No rales Cardiovascular: Regular rate, Regular Rhythm, Normal S1, Normal S2, No murmurs Abdomen: Hypoactive Bowel Sounds, Distended, Tender Extremities: No clubbing, No edema, No Calf Tenderness Skin: No rashes, - - jaundice Musculoskeletal: No Tenderness to Palpation of Joints or Extremities, No Muscle Wasting Neurological: Muscle tone normal, Coordination normal Psych/Mental Status: Appropriate, Anxious Microbiology Past 72 Hours 11/19/19 04:07 Fluid - Ascites Gram Stain - Final Laboratory Results 11/20/19 05:50: WBC 9.0, RBC 4.20 L, Hgb 14.4, Hct 40.1, MCV 95.5 H, MCH 34.3 H, MCHC 35.9, RDW Std Deviation 77.0 H, RDW Coeff of Jacinto 22.7 H, Plt Count 95 L, MPV 12.9 H, Immature Gran % (Auto) 0.600, Neut % (Auto) 70.6 H, Lymph % (Auto) 10.5 L, [place] % (Auto) 14.6 H, Eos % (Auto) 2.0, Baso % (Auto) 1.7 H, Absolute Neuts (auto) 6.4, Absolute Lymphs (auto) 0.95, Nucleated RBC % 0, Differential Comment COMMENT, Diff Path Review May foll, Platelet Estimate MOD DEC, Plt Morphology Comment CLUMPED, Anisocytosis 1+ 11/20/19 05:50: Sodium 134 L, Potassium 4.4, Chloride 105, Carbon Dioxide 19.0 L, Anion Gap 10, BUN 28 H, Creatinine 1.50 H, Estim Creat Clear Calc 57.87, Est GFR (MDRD) Af Amer 62, Est GFR (MDRD) Non-Af 51 L, BUN/Creatinine Ratio 18.7, Glucose 103, Calcium 8.7, Total Bilirubin 21.10 H*, AST 385 H, ALT 205 H, Alkaline Phosphatase 234 H, Total Protein 6.2 L, Albumin 2.4 L, Globulin 3.8, Albumin/Globulin Ratio 0.6 L abdominal xray reviewed and showed extremely distended bowel loops. Current Medications Acetaminophen (Tylenol) 650 mg PO Q6H PRN PRN PRN Reason: Pain Score 1-3/Temp > 100.7 F Al Hydroxide/Mg Hydroxide (Mylanta Ii) 30 ml PO Q6H PRN PRN PRN Reason: Gastric Burning Last Admin: 11/19/19 15:57 Dose: 30 ml Documented by: Albuterol Sulfate (Ventolin Aerosols) 2.5 mg INHALATION Q2H PRN PRN PRN Reason: Shortness of Breath/Wheezing Famotidine (Pepcid) 20 mg PO BID [facility] Last Admin: 11/20/19 09:55 Dose: 20 mg Documented by: Furosemide (Lasix) 40 mg IV BID@1000,1800 [facility] Last Admin: 11/20/19 09:55 Dose: 40 mg Documented by: Glucagon () 1 mg IM .X1 PRN PRN Reason: Hypoglycemia Guaifenesin (Robitussin) 20 ml PO Q4H PRN PRN PRN Reason: COUGH Hydralazine HCl (Apresoline Iv) 10 mg IV Q4H PRN PRN PRN Reason: SBP > 160 Ceftriaxone Sodium 2 gm/ (Sodium Chloride) 50 mls @ 100 mls/hr IV Q24@2200 [facility] Last Infusion: 11/19/19 22:06 Dose: Infused Documented by: Sodium Chloride () 250 mls @ 15 mls/hr IV .[id number] PRN PRN Reason: Saline Flush Dextrose (Dextrose 10%-Water) 250 mls @ 999 mls/hr IV .Q16M PRN; Protocol PRN Reason: HYPOGLYCEMIA Lactulose (Chronulac, Cephulac) 20 gm PO TID [facility] Last Admin: 11/20/19 05:02 Dose: 20 gm Documented by: Magnesium Hydroxide (Milk Of Magnesia) 30 ml PO DAILY PRN PRN PRN Reason: Constipation Melatonin (Melatonin) 3 mg PO QHS PRN PRN PRN Reason: INSOMNIA Metoprolol Tartrate (Lopressor (Beta Priscila)) 12.5 mg PO BID [facility] Last Admin: 11/20/19 09:55 Dose: 12.5 mg Documented by: Morphine Sulfate () 2 mg IV Q3H PRN PRN PRN Reason: breakthrough pain Last Admin: 11/20/19 08:35 Dose: 2 mg Documented by: Non-Formulary Medication (Entecavir) 1 mg PO DAILY@0600 [facility] Ondansetron HCl (Zofran) 4 mg IV Q8H PRN PRN PRN Reason: NAUSEA/VOMITING Last Admin: 11/19/19 21:45 Dose: 4 mg Documented by: Oxycodone HCl (Oxyir) 5 mg PO Q4H PRN PRN PRN Reason: Pain Score 4-5/10 Last Admin: 11/20/19 05:02 Dose: 5 mg Documented by: Oxycodone HCl (Oxyir) 10 mg PO Q4H PRN PRN PRN Reason: Pain Score 6-10/10 Last Admin: 11/20/19 09:55 Dose: 10 mg Documented by: Prochlorperazine Edisylate (Compazine Iv) 5 mg IV Q4H PRN PRN PRN Reason: Breakthrough nausea/vomiting Rifaximin (Xifaxan) 550 mg PO BID [facility] Sodium Chloride () 10 - 40 ml IV UD PRN PRN Reason: SALINE FLUSH Last Admin: 11/20/19 09:56 Dose: 10 ml Documented by: Spironolactone (Aldactone) 50 mg PO DAILY [facility] Throat Lozenges (Cepacol Sore Throat Lozenge) 1 lozenge MUCOUS MEM Q2H PRN PRN PRN Reason: Sore throat or cough STROKE Vital Signs/Narrative: Vital Signs Temp Pulse Resp BP Pulse Ox 11/20/19 10:31 99 11/20/19 09:55 99 11/20/19 09:54 36.6 C 99 20 H 128/87 H 100 11/20/19 08:31 99 Medical Necessity - Tobacco Use Smoking Status: Former smoker Tobacco Use: Non-smoker Assessment/Plan All Active Problems (Last Reviewed 10/18/19 @ 13:31 by Aisha Wyatt MD) Diffuse abdominal pain (Acute) SBP (spontaneous bacterial peritonitis) (Acute) Fatigue (Acute) Abdominal pain (Acute) Suicidal ideation (Resolved ~03/27/19) Preop cardiovascular exam (Acute) History of left heart catheterization (Resolved) Chest pain (Resolved) History of foot fracture (Resolved) Right flank discomfort (Resolved) 1. Ileus v SBO extremely distended bowel on AXR (also CXR from 11/19) check CT NPO avoid NG for now (unknown if pt has varices) start IV Reglan 2. 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 He says his dtr is a willing compatible donor. Continue rifaximin and lactulose 3. Ascites doubt SBP given the negative findings for infection and new findings for #1 continue abx for now, but if cx negative in another 24h, then will dc abx. was having a paracentesis weekly only on 25 of spironolactone, could increase but will hold since he will be NPO for now on IV furosemide 4. CKD 3 monitor with diuretic ? hepatorenal syndrome 5. VTE prophylaxis: hold chemical prophylaxis given cirrhosis. scds. Code Visit Inpatient E&M: 50842 Subs Hosp L3
--- NOTE | 2019-11-20 11:18 | CT_ITS ---
STUDY: CT ABDOMEN AND PELVIS WITHOUT CONTRAST REASON FOR EXAM: Male, 59 years old. Abd pain/ileus on xray. Pt had oral contrast only. Hx of cardiomyopathy, HTN and Hep C. RADIATION DOSAGE (If Supplied By Facility): CTDIvol = ( 13.48 ) mGy, DLP = ( 770.75 ) mGycm TECHNIQUE: Transaxial images were obtained from the dome of the diaphragm to the symphysis pubis without oral contrast, and without intravenous contrast. Sagittal and coronal images were reconstructed. Individualized dose optimization techniques were used for this CT. COMPARISON: Comparison is made with prior examination dated October 29, 2019. FINDINGS: Increased markings at the lung bases more prominent on the left side suggestive of atelectasis. The visualized portions of the heart are within normal limits. There is evidence of ascites. An air-fluid level is seen in the anterior aspect of the right upper quadrant. This may be due to recent paracentesis although perforation of the viscus cannot be excluded. A small amount of free air is seen within the abdominal cavity. Normal liver. Normal gallbladder and extrahepatic biliary system. Normal spleen. Normal pancreas. Normal bilateral adrenal glands. Normal right kidney. Normal left kidney. Gaseous distention of the stomach. There is gaseous distention of the small bowel with multiple air-fluid levels. A large amount of fecal material is seen in the right hemicolon. Gas and fecal material is also seen in the left hemicolon and rectum. Normal colon. The appendix is visualized and appears normal. There is diffuse atherosclerotic calcification of the abdominal aorta, without a demonstrated aneurysm. Normal inferior vena cava. Normal retroperitoneum. Normal urinary bladder. Normal abdominal wall. Normal osseous structures. CT/Abdomen/Pel W ORAL Cont Only IMPRESSION: Ascites. Free intraperitoneal air. The patient did have a recent paracentesis although rupture of a viscus should be ruled out. Distended small bowel loops with air in the colon. This may represent an ileus pattern. Electronically Signed: Jean-Claude Taylor, at 14:39 EST , Service support ,
[2019-11-20] MEDS: Ondansetron 4 MG/2 ML Vial IV ×2 (11:39→19:45)
[2019-11-20] MEDS: Metoclopramide 10 MG/2 ML Vial 5 MG IV ×2 (11:54→17:17)
--- NOTE | 2019-11-20 13:30 | CASEMGMT ---
JAKE RAMSEY Face to Face with patient for initial transition planning/care coordination assessment. JAKE RAMSEY introduced self and role at [facility]. Patient lying in bed, alert and oriented. Patient willing to participate in assessment and is able to answer all questions appropriately. Care providers, pharmacy, and demographics verified. Patient wishes to discharge home, denies need for home health at this time. Patient states he has no further needs or concerns at this time. CM to follow for discharge planning needs that may arise. PCP: [place] but patient states doctor has fired him due to no shows. JAKE RAMSEY to provide list of in-network PCPs Specialists: none Preferred Pharmacy: [facility] Insurance: [place] Prescription Benefit: yes Living Will/HPOA: none LNOK: daughter Living Arrangements: Patient lives alone in 1st floor apartment. Patient is independent but has friend that comes and helps with cleaning. Transportation: Daughter DME/HHC: Patient has cane and walker at home. Patient states he has a cpap machine but does not wear. Patient denies previous HHC. Disposition Plan: Patient to discharge home with family support and follow-up plans in place. Gauri LOZA, RN, CM
[2019-11-20 14:14] LABS: Pathologist Comment/Body Fluid Reviewed
[2019-11-20] MEDS: rifAXIMin 550 MG Tablet PO (14:58)
[2019-11-20] MEDS: Spironolactone 50 MG Tablet PO (14:58)
[2019-11-20] MEDS: proCHLORPERazine 10 MG/2 ML Vial 5 MG IV (16:31)
--- NOTE | 2019-11-20 16:31 | CASEMGMT ---
Tertiary facilities in-network with [place] insurance: [facility], [facility], [facility], [facility], [facility], [facility].
[2019-11-20] MEDS: HYDROmorphone 1 MG/ML Syringe IV ×2 (17:19→19:45)
--- NOTE | 2019-11-20 17:51 | DS.PCM_ITS ---
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) Elevated LFTs (Chronic) Tobacco abuse (Chronic) BMI 30.0-30.9,adult (Chronic) LINDA (obstructive sleep apnea) (Chronic) Chest pain (Chronic) Dyslipidemia (Chronic) Atherosclerosis of coronary artery of [place] heart without angina pectoris (Chronic) Cardiomyopathy (Chronic) Essential hypertension (Chronic) Hospital Course and Treatment Imaging Results: 11/20/19 09:47 XRAY Abdomen [Abdomen Single View] [RAD] Urgent 11/20/19 11:18 Abdomen/Pel W ORAL Cont Only [CT] Urgent Clinical Impression(s) from Imaging Studies Chest X-Ray 11/19/19 01:27 IMPRESSION: Underexpanded lungs with vascular crowding, otherwise no acute process identified. Electronically Signed: Joanne Brush MD at 1:44 EST , Service support , KUB X-Ray 11/20/19 09:47 IMPRESSION: Gas is seen throughout the small bowel and colon. This most likely represents an ileus pattern. Follow-up is recommended. Electronically Signed: Jean-Claude Taylor, at 14:19 EST , Service support , Abdomen CT 11/20/19 11:18 IMPRESSION: Ascites. Free intraperitoneal air. The patient did have a recent paracentesis although rupture of a viscus should be ruled out. Distended small bowel loops with air in the colon. This may represent an ileus pattern. Electronically Signed: Jean-Claude Taylor, at 14:39 EST , Service support , Operations: None Procedures: Paracentesis Summary of Care Provided: The patient is a 59 year old M presents with abdominal pain. Seen in ED and diagnosed with SBP and had an US-guided paracentesis, which removed 7-8 liters. Received 25g of albumin afterwards. Started on ceftriaxone. Today, I saw the patient and he was still very distended so abdominal x-ray was ordered. Abdominal x-ray look like an ileus, then a CT scan of his abdomen was performed to see if he had bowel obstruction. It showed ileus but also what was some intra-abdominal free air. I spoke with Dr. Byrne, who reviewed the images and felt that this was attentionally more than what would be expected just with a paracentesis and recommended transfer to tertiary facility. Told the patient and he initially wanted [facility] given close proximity. I spoke with [facility] and given his cirrhosis and complexity recommended transfer to [facility]. I spoke with internal medicine, hepatology, surgery as well as SICU. Patient has been accepted by a Dr. Bro of the SICU. Discussed the case and stated that the patient is currently hemodynamically stable. The surgeon I spoke with earlier recommended broaden antibiotics from ceftriaxone over to Cipro, metronidazole and fluconazole. [facility] to pick the patient up and transfer the patient over to the surgical intensive care unit. [] Patient Problems: Active and Suspected Problems (Last Reviewed 10/18/19 @ 13:31 by Aisha Wyatt MD) Diffuse abdominal pain (Acute) SBP (spontaneous bacterial peritonitis) (Acute) - Physical Exam Vitals/I&O's: Vital Signs Temp Pulse Resp BP Pulse Ox 36.7 C 100 18 140/81 H 99 11/20/19 14:56 11/20/19 14:56 11/20/19 14:56 11/20/19 14:56 11/20/19 14:56 Oxygen Delivery Method Room Air Weight: 88.8 kg Body Mass Index (BMI) 31.5 Intake and Output for Last 24 Hours 11/18/19 11/19/19 11/20/19 23:59 23:59 23:59 Intake Total 1660 / 1660 Output Total 1275 / 1925 1050 / 1050 Balance 385 / -265 -1050 / -1050 Microbiology Past 72 Hours 11/19/19 04:07 Fluid - Ascites Gram Stain - Final 11/19/19 04:07 Fluid - Ascites Body Fluid Culture - Preliminary No growth-Final to follow Laboratory Results 11/19/19 04:07: Fl Pathologist Comment Reviewed 11/20/19 05:50: WBC 9.0, RBC 4.20 L, Hgb 14.4, Hct 40.1, MCV 95.5 H, MCH 34.3 H, MCHC 35.9, RDW Std Deviation 77.0 H, RDW Coeff of Jacinto 22.7 H, Plt Count 95 L, MPV 12.9 H, Immature Gran % (Auto) 0.600, Neut % (Auto) 70.6 H, Lymph % (Auto) 10.5 L, [place] % (Auto) 14.6 H, Eos % (Auto) 2.0, Baso % (Auto) 1.7 H, Absolute Neuts (auto) 6.4, Absolute Lymphs (auto) 0.95, Nucleated RBC % 0, Differential Comment COMMENT, Diff Path Review March foll, Platelet Estimate MOD DEC, Plt Morphology Comment CLUMPED, Anisocytosis 1+ 11/20/19 05:50: Sodium 134 L, Potassium 4.4, Chloride 105, Carbon Dioxide 19.0 L , Anion Gap 10, BUN 28 H, Creatinine 1.50 H, Estim Creat Clear Calc 57.87, Est GFR (MDRD) Af Amer 62, Est GFR (MDRD) Non-Af 51 L, BUN/Creatinine Ratio 18.7, Glucose 103, Calcium 8.7, Total Bilirubin 21.10 H*, AST 385 H, ALT 205 H, Alkaline Phosphatase 234 H, Total Protein 6.2 L, Albumin 2.4 L, Globulin 3.8, Albumin/Globulin Ratio 0.6 L Current Medications Acetaminophen (Tylenol) 650 mg PO Q6H PRN PRN PRN Reason: Pain Score 1-3/Temp > 100.7 F Al Hydroxide/Mg Hydroxide (Mylanta Ii) 30 ml PO Q6H PRN PRN PRN Reason: Gastric Burning Last Admin: 11/19/19 15:57 Dose: 30 ml Documented by: Albuterol Sulfate (Ventolin Aerosols) 2.5 mg INHALATION Q2H PRN PRN PRN Reason: Shortness of Breath/Wheezing Glucagon () 1 mg IM .X1 PRN PRN Reason: Hypoglycemia Guaifenesin (Robitussin) 20 ml PO Q4H PRN PRN PRN Reason: COUGH Hydralazine HCl (Apresoline Iv) 10 mg IV Q4H PRN PRN PRN Reason: SBP > 160 Hydromorphone HCl (Dilaudid Inj) 1 mg IV Q2H PRN PRN PRN Reason: Pain Score 6-10/10 Last Admin: 11/20/19 17:19 Dose: 1 mg Documented by: Hydromorphone HCl (Dilaudid Inj) 0.5 mg IV Q2H PRN PRN PRN Reason: Pain Score 4-5/10 Sodium Chloride () 250 mls @ 15 mls/hr IV .[id number] PRN PRN Reason: Saline Flush Dextrose (Dextrose 10%-Water) 250 mls @ 999 mls/hr IV .Q16M PRN; Protocol PRN Reason: HYPOGLYCEMIA Sodium Chloride () 1,000 mls @ 75 mls/hr IV .[id number] [facility] Lactulose (Chronulac, Cephulac) 20 gm PO TID [facility] Last Admin: 11/20/19 14:58 Dose: 20 gm Documented by: Magnesium Hydroxide (Milk Of Magnesia) 30 ml PO DAILY PRN PRN PRN Reason: Constipation Melatonin (Melatonin) 3 mg PO QHS PRN PRN PRN Reason: INSOMNIA Metoclopramide HCl (Reglan) 5 mg IV Q6 [facility] Last Admin: 11/20/19 17:17 Dose: 5 mg Documented by: Metoprolol Tartrate (Lopressor (Beta Priscila)) 12.5 mg PO BID [facility] Last Admin: 11/20/19 09:55 Dose: 12.5 mg Documented by: Ondansetron HCl (Zofran) 4 mg IV Q6H PRN PRN PRN Reason: NAUSEA/VOMITING Oxycodone HCl (Oxyir) 5 mg PO Q4H PRN PRN PRN Reason: Pain Score 4-5/10 Last Admin: 11/20/19 05:02 Dose: 5 mg Documented by: Oxycodone HCl (Oxyir) 10 mg PO Q4H PRN PRN PRN Reason: Pain Score 6-10/10 Last Admin: 11/20/19 14:58 Dose: 10 mg Documented by: Prochlorperazine Edisylate (Compazine Iv) 5 mg IV Q4H PRN PRN PRN Reason: Breakthrough nausea/vomiting Last Admin: 11/20/19 16:31 Dose: 5 mg Documented by: Rifaximin (Xifaxan) 550 mg PO BID [facility] Last Admin: 11/20/19 14:58 Dose: 550 mg Documented by: Sodium Chloride () 10 - 40 ml IV UD PRN PRN Reason: SALINE FLUSH Last Admin: 11/20/19 17:19 Dose: 20 ml Documented by: Spironolactone (Aldactone) 50 mg PO DAILY [facility] Last Admin: 11/20/19 14:58 Dose: 50 mg Documented by: Throat Lozenges (Cepacol Sore Throat Lozenge) 1 lozenge MUCOUS MEM Q2H PRN PRN PRN Reason: Sore throat or cough Discharge Diet: - - NPO Home Medications: Medications to take at Discharge Entecavir 1 mg PO DAILY@0600 11/19/19 Metoprolol Tartrate 12.5 mg PO BID 11/19/19 Rifaximin [Xifaxan] 550 mg PO BID 11/19/19 Acetaminophen 500 mg PO Q6H PRN PRN 11/20/19 Aspirin 500 mg PO DAILY 11/20/19 Ciprofloxacin HCl 500 mg PO DAILY 11/20/19 Dextran 70/Hypromellose [Genteal Tears 0.1%-0.3% Drop] 1 drp OP DAILY PRN PRN 11/20/19 Folic Acid 1 mg PO DAILY 11/20/19 Furosemide [Lasix] 40 mg PO DAILY 11/20/19 Lactulose [Chronulac, Cephulac] 20 gm PO TID 11/20/19 Pantoprazole Sodium [Protonix] 40 mg PO DAILY 11/20/19 Spironolactone 50 mg PO DAILY 11/20/19 Testosterone 11/20/19 Thiamine Mononitrate (Vit B1) [Vitamin B-1] 100 mg PO TID 11/20/19 Primary Care Physician: Valerio Pfeiffer MD [Primary Care Provider] - Disposition: Acute care Hospital Minutes spent on discharge:: 90 Patient Condition:: Guarded Medical Necessity - Tobacco Use Smoking Status: Former smoker Tobacco Use: Non-smoker Meaningful Use Info Meaningful Use Diagnoses (Choose all that apply): None applicable Code Visit Inpatient E&M: 59475 Disch Hosp
--- NOTE | 2019-11-20 18:26 | NURSING ---
female phoned in from [facility] critical transport. updated on pt status, vitals, labs. etc. states will arrange transport to come get pt. bed assignment given g53 bed 10. report number [phone]
--- NOTE | 2019-11-20 18:27 | NURSING ---
[facility] called bed at [facility] G53 bed 10... nurse to nurse report [phone]
[2019-11-20] MEDS: 0.9% Normal Saline 1,000 ML 75 ML IV (18:39)
[2019-11-20] MEDS: Ciprofloxacin 200 MG/100 ML BAG 100 MG IV (19:58)
[2019-11-21 14:43] LABS: Amylase Body Fluid 32 U/L (.)
== END 2019-11-20 21:30 | disposition short-term general hospital (02) | DRG 254 ==
LOC: ED 05:57 → MS3 06:28
PROVIDERS: Admitting Provider Family Medicine; Emergency Provider Emergency Medicine; PCP Family Medicine
DX: K66.8 Other specified disorders of peritoneum (principal); K56.7 Ileus, unspecified; K74.69 Other cirrhosis of liver; E78.5 Hyperlipidemia, unspecified; I10 Essential (primary) hypertension; B19.10 Unspecified viral hepatitis B without hepatic coma; R18.8 Other ascites; I42.9 Cardiomyopathy, unspecified; G47.33 Obstructive sleep apnea (adult) (pediatric); I25.10 Atherosclerotic heart disease of native coronary artery without angina pectoris; Z87.891 Personal history of nicotine dependence
CPT/HCPCS: 36415; 71045; 74018; 74176; 80053; 82140; 82150; 82945; 83036; 83615; 84157; 84484; 85025; 85610; 87070; 87075; 87205; 89050; 93005; 97802; 99251; 99285; J7030; J7050; P9047; A4216; G0463; J0696; J0744; J1940; J2405

== ENCOUNTER 2019-12-03 07:34 | Emergency (ER) | payer MEDICAID, SELFPAY ==
[2019-11-19 08:57] VITALS: BMI 31.5
[2019-12-03 07:37] VITALS: BP 126/67; PULSE 97; RESP 17; TEMP 36.6; O2SAT 98; BMI 31.2
--- NOTE | 2019-12-03 08:03 | US_ITS ---
INDICATION: Pain and swelling.. COMPARISON: None. TECHNIQUE: The scrotum was scanned in transverse and longitudinal planes. A combination of grayscale, B-mode and color Doppler imaging was utilized. FINDINGS: Right testicle: Measures 3.7 x 2.6 x 2.5 cm. Echotexture is heterogeneous. There is no right testicular cyst or mass identified. Left testicle: Measures 3.7 x 2.2 x 2.2 cm. Echotexture is heterogeneous. There is no left testicular cyst or mass identified. Right epididymis: Measures 11 x 9 x 11 mm in length. No cyst or mass noted. Left epididymis: Measures 12 x 15 x 9 mm in length. No cyst or mass noted. Hydroceles: None. Varicoceles: None. Flow: Doppler interrogation of both testes demonstrates normal arterial spectral waveform. There is no evidence of testicular torsion. There is diffuse thickening and edema of the scrotal wall bilaterally measuring about 2.2 cm. US/Testicular with Arterial Flow IMPRESSION: 1. Somewhat heterogeneous testicles. 2. No evidence of testicular torsion at the time this examination was performed. 3. Slightly prominent ventricles bilaterally. 4. No evidence of hydroceles or varicoceles 5. Diffuse thickening of the scrotal wall with edema.. Electronically Signed: Rajendra Weir MD at 11:28 EST Tel , Service support ,
--- NOTE | 2019-12-03 08:04 | ED.VIS.GEN ---
History of Present Illness Chief Complaint: Male Pain/Injury Detail of Chief Complaint: Scrotal swelling Informant: Patient Onset: Yesterday Narrative: Patient was recently hospitalized at [facility] for ascites, possible spontaneous bacterial peritonitis, cirrhosis and hepatitis. Patient states he got out of the hospital 1 or 2 days ago. Yesterday he noted his scrotum swelling more. He states his legs and abdomen have been swollen and are starting to decrease. He still able to urinate without difficulty. 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 Smoking Status: Former smoker - Family History Paternal Family History: Family History (Last Reviewed 10/18/19 @ 13:31 by Aisha Wyatt MD) Mother Diabetes Hypertension CVA (cerebral vascular accident) Family History: Reports: Unknown - Patient states he does not know his father's paternal family history. Maternal Family History: Family History (Last Reviewed 10/18/19 @ 13:31 by Aisha Wyatt MD) Mother Diabetes Hypertension CVA (cerebral vascular accident) Family History: Reports: Diabetes, Unknown Review of Systems General: Denies: Chills, Fever Eyes: Denies: Visual changes - bilaterally ENT: Denies: Bilateral ear pain Cardiovascular: Denies: Chest pain Respiratory: Denies: Dyspnea, Cough Gastrointestinal: Denies: Abdominal pain, Nausea, Vomiting, Diarrhea Genitourinary: Reports: - - Scrotal edema Musculoskeletal: Denies: Myalgias, Arthralgias Skin: Denies: Rash Neurological: Denies: Headache Allergy: Denies: Uticaria Physical Exam Vital Signs/Narrative: Vital Signs Temp Pulse Resp BP Pulse Ox 12/03/19 07:37 97.8 F 97 17 126/67 H 98 Inital Vital Signs reviewed: Yes General: Well nourished, Well developed Head: Normocephalic ENT: Moist mucous membranes Neck: Supple Cardiovascular: Regular rate, Regular rhythm Respiratory: No distress, CTA bilaterally Abdomen: Soft, Nontender, Normal bowel sounds, - - Abdomen slightly distended : - - Scrotal edema. No skin erythema or thickening. testicles nontender. Extremities: Edema Skin: - - Skin slightly jaundiced Neurological: Alert, Oriented x3 Psychological: Normal affect Diagnostic/Tx/Re-eval Impressions Testicular Ultrasound 12/03/19 08:03 IMPRESSION: 1. Somewhat heterogeneous testicles. 2. No evidence of testicular torsion at the time this examination was performed. 3. Slightly prominent ventricles bilaterally. 4. No evidence of hydroceles or varicoceles 5. Diffuse thickening of the scrotal wall with edema.. Electronically Signed: Rajendra Weir MD at 11:28 EST Tel , Service support , 12/03/19 08:03 US Testicular [Testicular with Arterial Flow] [US] Stat Laboratory Results 12/03/19 12/03/19 08:15 08:15 WBC 5.4 RBC 2.87 L Hgb 9.9 L Hct 27.7 L MCV 96.5 H MCH 34.5 H MCHC 35.7 RDW Std Deviation 71.8 H RDW Coeff of Jacinto 20.3 H Plt Count 62 L Immature Gran % (Auto) 0.200 Neut % (Auto) 52.9 Lymph % (Auto) 20.0 [place] % (Auto) 23.8 H Eos % (Auto) 1.8 Baso % (Auto) 1.3 H Absolute Neuts (auto) 2.9 Absolute Lymphs (auto) 1.08 Nucleated RBC % 0 Differential Comment SCANNED Platelet Estimate MOD DEC Anisocytosis 2+ Microcytosis 1+ Macrocytosis 1+ Sodium 134 L Potassium 3.2 L Chloride 103 Carbon Dioxide 18.0 L Anion Gap 13 BUN 23 H Creatinine 1.63 H Estim Creat Clear Calc 53.25 Est GFR (MDRD) Af Amer 56 L Est GFR (MDRD) Non-Af 47 L BUN/Creatinine Ratio 14.1 Glucose 100 Calcium 7.8 L Total Bilirubin 12.60 H Direct Bilirubin 9.44 H AST 189 H ALT 107 H Alkaline Phosphatase 192 H Total Protein 5.9 L Albumin 2.7 L Globulin 3.2 Lipase 652 H - Medical Decision Making Patient presents with scrotal edema that is come on since he was discharged in the hospital a few days ago. I was able to review his labs from [facility] that were obtained on the . Total bilirubin has gone from 15.1 down to 12.6. AST is grossly unchanged, 178-189. I advised the patient I believe his edema is secondary to him sitting upright more and this being dependent edema. I recommended more supportive underwear to help reduce the swelling. He has an appointment to see his doctors in [place] in 1 week. ED Disposition - Plan for ED Patient: Disposition: Home or Assisted Living Diagnosis: Dependent edema Referrals: Lilia Eagle MD [Primary Care Provider] - Additional Instructions: As discussed, wear supportive underwear to help with fluid reabsorption. Follow-up with your specialists next week as scheduled.
[2019-12-03 08:32] LABS: Absolute Lymphocyte Count 1.08 X10^3/uL (0.83-4.51); Absolute Neutrophil Count 2.9 X10^3/uL (2.0-7.7); Basophil# 0.07 X10^3/uL; Basophil% 1.3 % (0-1); Eosinophils% 1.8 % (0-5); Hematocrit 27.7 % (40-54); Hemoglobin 9.9 g/dL (13.0-16.5); Lymphocyte # 1.08 X10^3/ul (4.0); Mean Corp Hgb Conc 35.7 g/dL (32-36); Mean Corpuscular Hgb 34.5 pg (27.0-32.0); Mean Corpuscular Volume 96.5 fL (80-94); Monocyte# 1.29 X10^3/uL; Monocyte% 23.8 % (0-10); NRBC Flagged by Analyzer 0 % (0-5); Neutrophil # 2.86 X10^3/uL (2.7-7.7); Neutrophil % 52.9 % (47-70); POSITIVE COUNT YES; POSITIVE MORPHOLOGY YES; Platelet Count 62 K/mm3 (150-450); RBC Distribution Width CV 20.3 % (11.6-14.6); RBC Distribution Width SD 71.8 fl (35.1-43.9); Red Blood Count 2.87 M/mm3 (4.6-6.2); White Blood Count 5.4 K/mm3 (4.4-11.0)
[2019-12-03] MEDS: fentaNYL 100 MCG/2 ML Ampul 25 MCG IV (08:40)
[2019-12-03 08:44] LABS: AST(SGOT) 189 U/L (15-37); Alanine Aminotransfer ALT/SGPT 107 U/L (16-61); Albumin, Serum 2.7 g/dL (3.2-5.0); Alkaline Phosphatase 192 U/L (45-117); Anion Gap 13 (5-15); BUN 23 mg/dL (7-18); BUN/Creat Ratio 14.1 RATIO (10-20); Bilirubin, Direct 9.44 mg/dL (0.00-0.30); Calcium,Total 7.8 mg/dL (8.5-10.1); Chloride 103 mmol/L (98-107); Creatinine, Serum 1.63 mg/dL (0.70-1.30); EST Glomerular Filtration Rate 47 mL/min (>60); Est Glom Filt Rate - Afr Amer 56 mL/min (>60); Estimated Creatinine Clearance 53.25 ml/min; Globulin 3.2 g/dL (2.2-4.2); Glucose 100 mg/dL (74-106); Lipase 652 U/L (73-393); Potassium 3.2 mmol/L (3.5-5.1); Protein, Total 5.9 g/dL (6.4-8.2); Sodium Level 134 mmol/L (136-145)
[2019-12-03 08:45] LABS: Differential Indicated SCAN CRITERIA MET
[2019-12-03 08:59] LABS: Anisocytosis 2+; Differential Comment SCANNED; Macrocytosis 1+; Microcytosis 1+; Platelet Estimate MOD DEC (ADEQ)
[2019-12-03 10:16] VITALS: BP 136/71; PULSE 88; RESP 16; O2SAT 99
== END 2019-12-03 11:46 | disposition home or self-care (01) ==
PROVIDERS: Emergency Provider Emergency Medicine; PCP Internal Medicine; Referring Provider Internal Medicine
DX: N50.89 Other specified disorders of the male genital organs (principal); I10 Essential (primary) hypertension; I25.10 Atherosclerotic heart disease of native coronary artery without angina pectoris; I42.9 Cardiomyopathy, unspecified; E78.5 Hyperlipidemia, unspecified; K74.60 Unspecified cirrhosis of liver; Z87.891 Personal history of nicotine dependence; Z79.899 Other long term (current) drug therapy
CPT/HCPCS: 76870; 80048; 80076; 83690; 85025; 93976; 96374; 99284; A4216

== ENCOUNTER 2019-12-11 03:37 | Emergency (ER) | payer MEDICAID, SELFPAY ==
[2019-12-11 03:38] VITALS: BP 133/78; PULSE 106; RESP 30; TEMP 36.5; O2SAT 99; BMI 27.8
--- NOTE | 2019-12-11 04:07 | ED.VISSUMM ---
- ER Visit Summary Date of Service: 12/11/19 Chief Complaint: Abdominal pain History of Present Illness: The patient is a 59 M who presents with abdominal pain that became worse today. Patient describes the pain is dull and throbbing. Patient states pain is diffuse. Patient states he has a history of hepatitis A and B and gets frequent paracentesis. Patient denies any fevers or chills. Patient denies any nausea or vomiting. Patient denies any diarrhea, melena, or hematochezia. Patient denies any dysuria or hematuria. Patient states his pain does radiate into his back. Patient admits to some mild weakness. Physical Examination: Vital signs are stable except for mild tachypnea of 30 and mild tachycardia of 106. Patient is afebrile. Patient is in no acute distress. Oral mucosa is pink and moist. Neck is supple. Trachea is midline. There is no JVD noted. Heart was regular rate and rhythm. Lungs are diminished bilaterally. There is good respiratory effort noted. Abdomen is soft. There is diffuse tenderness. There is some mild tenderness with percussion. There is ascites noted. There is no caput medusa noted. Skin is jaundiced. There is scleral icterus noted. Cranial nerves II through XII are intact. There are no focal motor or sensory deficits noted. Test Results: CBC and comprehensive metabolic profile were obtained. Total bilirubin was 8.0 which was improved compared to previous results. Lipase was 696 which is similar to previous results. Urinalysis does not show any evidence of urinary tract infection. Emergency Department Course and Treatment: Patient was given IV fluids and morphine here. Patient was given a repeat dose of morphine. Patient had no further pain on reevaluation. There is no tenderness with percussion on reevaluation. I do not feel the patient has spontaneous bacterial peritonitis. Patient was tested for this recently and his peritoneal fluid was normal. Patient states he has an appointment tomorrow for paracentesis. Patient was instructed to follow-up with this. Patient was given a prescription for a short course of [place] for pain. Patient understands and is agreeable with the plan. All questions were answered. Disposition: Discharge home Impression: 1. Abdominal pain 2. Ascites This note was generated with [employer] software. It may contain incorrect words, spelling, and punctuation that were not noted in review of the chart prior to signing ED Disposition - Plan for ED Patient: Disposition: Home or Assisted Living Diagnosis: Abdominal pain Instructions: ABDOMINAL PAIN, Unkown Cause, (Male) Prescriptions: Hydrocodone Bitart/Apap 5-325 [[place] 5MG-325MG] 1 tab PO Q4H PRN PRN 1 Days #6 tab PRN Reason: Pain Prescription Printed Referrals: Lilia Eagle MD [Primary Care Provider] - 3-5 Days Additional Instructions: Follow-up with your paracentesis as scheduled tomorrow
[2019-12-11] MEDS: Morphine 4 MG/ML Syringe IV ×2 (04:21→05:51)
[2019-12-11 04:28] LABS: Absolute Lymphocyte Count 1.11 X10^3/uL (0.83-4.51); Absolute Neutrophil Count 4.3 X10^3/uL (2.0-7.7); Basophil# 0.06 X10^3/uL; Basophil% 0.9 % (0-1); Eosinophil# 0.21 X10^3/uL; Hematocrit 26.9 % (40-54); Hemoglobin 9.4 g/dL (13.0-16.5); Lymphocyte # 1.11 X10^3/ul (4.0); Mean Corp Hgb Conc 34.9 g/dL (32-36); Mean Corpuscular Hgb 33.9 pg (27.0-32.0); Mean Corpuscular Volume 97.1 fL (80-94); Monocyte# 1.28 X10^3/uL; Monocyte% 18.4 % (0-10); NRBC Flagged by Analyzer 0 % (0-5); Neutrophil # 4.25 X10^3/uL (2.7-7.7); Neutrophil % 61.3 % (47-70); POSITIVE COUNT YES; POSITIVE MORPHOLOGY YES; RBC Distribution Width CV 20.1 % (11.6-14.6); RBC Distribution Width SD 70.4 fl (35.1-43.9); Red Blood Count 2.77 M/mm3 (4.6-6.2); White Blood Count 6.9 K/mm3 (4.4-11.0)
[2019-12-11 04:39] LABS: ALB/GLOB Ratio 0.6 RATIO (0.9-2.4); AST(SGOT) 199 U/L (15-37); Alanine Aminotransfer ALT/SGPT 103 U/L (16-61); Albumin, Serum 2.4 g/dL (3.2-5.0); Alkaline Phosphatase 253 U/L (45-117); Anion Gap 10 (5-15); BUN 23 mg/dL (7-18); BUN/Creat Ratio 17.7 RATIO (10-20); Calcium,Total 7.8 mg/dL (8.5-10.1); Chloride 111 mmol/L (98-107); EST Glomerular Filtration Rate 60 mL/min (>60); Est Glom Filt Rate - Afr Amer 73 mL/min (>60); Estimated Creatinine Clearance 66.77 ml/min; Glucose 123 mg/dL (74-106); Lipase 696 U/L (73-393); Potassium 3.5 mmol/L (3.5-5.1); Protein, Total 6.4 g/dL (6.4-8.2); Sodium Level 137 mmol/L (136-145)
[2019-12-11 04:50] LABS: Differential Indicated SCAN CRITERIA MET
[2019-12-11 04:51] LABS: Anisocytosis 2+; Differential Comment SCANNED; Platelet Estimate ADEQUATE (ADEQ); Target Cells 2+
[2019-12-11 05:37] VITALS: BP 135/77; PULSE 98; RESP 16; O2SAT 100
[2019-12-11 06:11] LABS: Bacteria 0 SEEN /hpf (None Seen); Mucous, Urine 0 SEEN /hpf (<or=2+); Red Blood Cells-Urine 0 SEEN /hpf (0-5); Squamous Epithelial Cells - UA 0 SEEN /hpf (0-5); White Blood Cells 0 SEEN /hpf (0-5)
[2019-12-11 06:12] LABS: Color, Urine Yellow (Yellow); Glucose, Dipstick Normal (Normal); Ketone-Dipstick Negative (Negative); Leukocyte Esterase-Dipstick Negative /ul (Negative); Nitrite-Dipstick Negative (Negative); Occult Blood-Urine Negative /ul (Negative); Protein-Dipstick Negative (Negative); Specific Gravity, Urine 1.015 (1.002-1.030); Urine Bilirubin Dipstick Negative (Negative); Urine Clarity Clear (Clear); Urine Urobilinogen Normal (Normal)
[2019-12-11 07:15] VITALS: BP 138/80
== END 2019-12-11 07:47 | disposition home or self-care (01) ==
PROVIDERS: Emergency Provider Emergency Medicine; PCP Internal Medicine
DX: R10.9 Unspecified abdominal pain (principal); R18.8 Other ascites; Z86.19 Personal history of other infectious and parasitic diseases
CPT/HCPCS: 80053; 81001; 83690; 85025; 96374; 96376; 99285; A4216

== ENCOUNTER → 2019-12-12 09:58 | Outpatient (CLI) | payer MEDICAID, SELFPAY ==
[2019-11-19 08:57] VITALS: BMI 31.5
[2019-12-11 03:38] VITALS: BMI 27.8
--- NOTE | 2019-12-12 10:00 | US_ITS ---
PROCEDURE: Ultrasound guided paracentesis. DATE OF EXAMINATION: December 12, 2019. INDICATION: Male, 59 years old. Ascites. PHYSICIAN: Jean-Claude Taylor M.D. TECHNIQUE: The risks, benefits, and alternatives to the procedure were explained to the patient. The specific risks of bleeding, infection, and damage to bowel were detailed and accepted. Witnessed informed consent was obtained. The abdomen was ultrasonographically surveyed. An appropriate pocket of fluid was identified at the left lower quadrant. The skin were cleaned and prepped in the usual sterile fashion. Using ultrasound guidance, the peritoneal cavity was accessed with a 5-Thai paracentesis needle/catheter system. The trocar was removed. A total of 750 ml of tejal-colored fluid were removed from the peritoneal cavity. The catheter was removed and a sterile dressing was applied. The procedure was well tolerated. US/Paracentesis with US IMPRESSION: Ultrasound guided paracentesis. Electronically Signed: Jean-Claude Taylor, at 12:47 EST , Service support ,
[2019-12-12 11:08] VITALS: BP 120/63; BP 123/71; BP 126/66; PULSE 86; PULSE 88; RESP 18; TEMP 36.5; O2SAT 100
--- NOTE | 2019-12-12 15:06 | NURSING ---
Pt talked with social work in nursing office to discuss possible solutions to missing specialist appointments in [place]. JAKE Bang then walked with pt to waiting room where pt's daughter was waiting. Pt aware next appt 12/26/2019.
== END ==
PROVIDERS: PCP Internal Medicine; Referring Provider Internal Medicine; Visit Provider Internal Medicine
DX: K70.31 Alcoholic cirrhosis of liver with ascites (principal)
CPT/HCPCS: 49083; A4216

== ENCOUNTER 2019-12-16 19:59 | Emergency (ER) | payer MEDICAID, SELFPAY ==
[2019-12-16 20:01] VITALS: BP 124/55; PULSE 103; RESP 18; TEMP 37.4; O2SAT 99; BMI 29.9
--- NOTE | 2019-12-16 20:31 | ED.DCSUM_ITS ---
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 He states he is currently on liver transplant list at [facility]. He has met with palliative care, but has not seen all the people required to get him signed up for them to help treat his pain. Patient states he was told when his pain flares he should just go the emergency room. Patient has a degree of chronic pain but states it is worse today. It is generalized in nature, slightly worse in the right upper quadrant. He denies nausea or vomiting. 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 Smoking Status: Never smoker - Family History Paternal Family History: Family History (Last Reviewed 10/18/19 @ 13:31 by Aisha Wyatt MD) Mother Diabetes Hypertension CVA (cerebral vascular accident) Family History: Reports: Unknown - Patient states he does not know his father's paternal family history. Maternal Family History: Family History (Last Reviewed 10/18/19 @ 13:31 by Aisha Wyatt MD) Mother Diabetes Hypertension CVA (cerebral vascular accident) Family History: Reports: Diabetes, Unknown Review of Systems General: Denies: Chills, Fever Eyes: Denies: Visual changes - bilaterally ENT: Denies: Bilateral ear pain Cardiovascular: Denies: Chest pain Respiratory: Denies: Dyspnea, Cough Gastrointestinal: Reports: Abdominal pain. Denies: Nausea, Vomiting, Diarrhea Musculoskeletal: Denies: Swelling, Extremity Pain Skin: Denies: Rash Neurological: Denies: Headache Allergy: Denies: Uticaria Physical Exam Vital Signs/Narrative: Vital Signs Temp Pulse Resp BP Pulse Ox 12/16/19 20:01 99.3 F H 103 H 18 124/55 H 99 Inital Vital Signs reviewed: Yes General: Well nourished, Well developed Head: Normocephalic Eyes: [place], EOMI, Scleral icterus ENT: Moist mucous membranes Cardiovascular: Regular rate, Regular rhythm Respiratory: No distress, CTA bilaterally Abdomen: Soft, Normal bowel sounds, Tender - Abdomen is distended with mild tenderness diffusely. Extremities: Nontender Skin: Normal color, Jaundice - Mild jaundice Neurological: Alert Psychological: Normal affect Diagnostic/Tx/Re-eval Laboratory Results 12/16/19 12/16/19 12/16/19 20:35 20:35 21:10 WBC 6.1 RBC 3.02 L Hgb 10.5 L Hct 29.8 L MCV 98.7 H MCH 34.8 H MCHC 35.2 RDW Std Deviation 76.5 H RDW Coeff of [place] 21.4 H Plt Count 86 L MPV TNP Immature Gran % (Auto) 0.300 Neut % (Auto) 59.3 Lymph % (Auto) 17.5 L [place] % (Auto) 19.3 H Eos % (Auto) 2.5 Baso % (Auto) 1.1 H Absolute Neuts (auto) 3.6 Absolute Lymphs (auto) 1.07 Nucleated RBC % 0 Differential Comment SCANNED Platelet Estimate MOD DEC Hypochromasia 1+ Anisocytosis 1+ Target Cells 1+ Sodium 137 Potassium 4.2 Chloride 112 H Carbon Dioxide 19.0 L Anion Gap 6 BUN 22 H Creatinine 1.09 Estim Creat Clear Calc 77.20 Est GFR (MDRD) Af Amer 90 Est GFR (MDRD) Non-Af 74 BUN/Creatinine Ratio 20.2 H Glucose 138 H Calcium 8.0 L Total Bilirubin 5.80 H Direct Bilirubin 4.03 H AST 193 H ALT 99 H Alkaline Phosphatase 294 H Total Protein 7.0 Albumin 2.3 L Globulin 4.7 H Lipase 949 H Urine Color Yellow Urine Clarity Clear Urine pH 6.0 Ur Specific [place] 1.010 Urine Protein Negative Urine Glucose (UA) Normal Urine Ketones Negative Urine Occult Blood Negative Urine Nitrite Negative Urine Bilirubin Negative Urine Urobilinogen Normal Ur Leukocyte Esterase Negative Urine RBC 0 SEEN Urine WBC 0-5 SEEN Ur Squamous Epith Cells 0 SEEN Urine Bacteria 0 SEEN Urine Mucus 0 SEEN - Medical Decision Making Patient is initially given a dose of morphine followed by a dose of Dilaudid 0.5 mg. On repeat evaluation he reports feeling significantly improved. On review of his labs from his last 2 visits to the ER his numbers are continuing to improve. Patient is reassured with this. He will begin a prescription for 6 tabs of [place]. ED Disposition - Plan for ED Patient: Disposition: Home or Assisted Living Diagnosis: Abdominal pain Instructions: ABDOMINAL PAIN, Unkown Cause, (Male) Prescriptions: Hydrocodone Bitart/Apap 5-325 [[place] 5MG-325MG] 1 tablet PO Q6H PRN PRN 3 Days #6 tablet PRN Reason: Pain Referrals: Lilia Eagle MD [Primary Care Provider] -
[2019-12-16] MEDS: Ondansetron 4 MG/2 ML Vial IV (20:44)
[2019-12-16] MEDS: Morphine 4 MG/ML Syringe IV (20:44)
[2019-12-16 20:50] LABS: Absolute Lymphocyte Count 1.07 X10^3/uL (0.83-4.51); Absolute Neutrophil Count 3.6 X10^3/uL (2.0-7.7); Basophil# 0.07 X10^3/uL; Basophil% 1.1 % (0-1); Eosinophil# 0.15 X10^3/uL; Eosinophils% 2.5 % (0-5); Hematocrit 29.8 % (40-54); Hemoglobin 10.5 g/dL (13.0-16.5); Lymphocyte # 1.07 X10^3/ul (4.0); Lymphocyte % 17.5 % (19-41); Mean Corp Hgb Conc 35.2 g/dL (32-36); Mean Corpuscular Hgb 34.8 pg (27.0-32.0); Mean Corpuscular Volume 98.7 fL (80-94); Monocyte# 1.18 X10^3/uL; Monocyte% 19.3 % (0-10); NRBC Flagged by Analyzer 0 % (0-5); Neutrophil # 3.61 X10^3/uL (2.7-7.7); Neutrophil % 59.3 % (47-70); POSITIVE COUNT YES; POSITIVE MORPHOLOGY YES; Platelet Count 86 K/mm3 (150-450); RBC Distribution Width CV 21.4 % (11.6-14.6); RBC Distribution Width SD 76.5 fl (35.1-43.9); Red Blood Count 3.02 M/mm3 (4.6-6.2); White Blood Count 6.1 K/mm3 (4.4-11.0)
[2019-12-16 20:56] VITALS: BP 134/85; PULSE 93; RESP 19; O2SAT 100
[2019-12-16 20:56] LABS: Differential Indicated SCAN CRITERIA MET
[2019-12-16 21:18] LABS: AST(SGOT) 193 U/L (15-37); Alanine Aminotransfer ALT/SGPT 99 U/L (16-61); Albumin, Serum 2.3 g/dL (3.2-5.0); Alkaline Phosphatase 294 U/L (45-117); Anion Gap 6 (5-15); BUN 22 mg/dL (7-18); BUN/Creat Ratio 20.2 RATIO (10-20); Bilirubin, Direct 4.03 mg/dL (0.00-0.30); Chloride 112 mmol/L (98-107); Creatinine, Serum 1.09 mg/dL (0.70-1.30); EST Glomerular Filtration Rate 74 mL/min (>60); Est Glom Filt Rate - Afr Amer 90 mL/min (>60); Globulin 4.7 g/dL (2.2-4.2); Glucose 138 mg/dL (74-106); Lipase 949 U/L (73-393); Potassium 4.2 mmol/L (3.5-5.1); Sodium Level 137 mmol/L (136-145)
[2019-12-16 21:21] LABS: Anisocytosis 1+; Differential Comment SCANNED; Hypochromasia 1+; Platelet Estimate MOD DEC (ADEQ); Target Cells 1+
[2019-12-16 21:21] LABS: Bacteria 0 SEEN /hpf (None Seen); Color, Urine Yellow (Yellow); Glucose, Dipstick Normal (Normal); Ketone-Dipstick Negative (Negative); Leukocyte Esterase-Dipstick Negative /ul (Negative); Mucous, Urine 0 SEEN /hpf (<or=2+); Nitrite-Dipstick Negative (Negative); Occult Blood-Urine Negative /ul (Negative); Protein-Dipstick Negative (Negative); Red Blood Cells-Urine 0 SEEN /hpf (0-5); Squamous Epithelial Cells - UA 0 SEEN /hpf (0-5); Urine Bilirubin Dipstick Negative (Negative); Urine Clarity Clear (Clear); Urine Urobilinogen Normal (Normal)
[2019-12-16 21:35] LABS: White Blood Cells 0-5 SEEN /hpf (0-5)
[2019-12-16] MEDS: HYDROmorphone 0.5 MG/0.5 ML SYRINGE IV (21:52)
[2019-12-16 22:35] VITALS: BP 137/86; PULSE 99; RESP 18; O2SAT 94
== END 2019-12-16 22:56 | disposition home or self-care (01) ==
PROVIDERS: Emergency Provider Emergency Medicine; PCP Internal Medicine
DX: R10.9 Unspecified abdominal pain (principal); I25.10 Atherosclerotic heart disease of native coronary artery without angina pectoris; G47.33 Obstructive sleep apnea (adult) (pediatric); E78.5 Hyperlipidemia, unspecified; G89.29 Other chronic pain; K74.60 Unspecified cirrhosis of liver; B18.1 Chronic viral hepatitis B without delta-agent; Z79.899 Other long term (current) drug therapy
CPT/HCPCS: 80048; 80076; 81001; 83690; 85025; 96374; 96375; 99285; A4216; J2405

== ENCOUNTER 2019-12-19 14:54 | Emergency (ER) | payer MEDICAID, SELFPAY ==
[2019-12-19 14:56] VITALS: BP 127/66; PULSE 93; RESP 18; TEMP 37.2; O2SAT 99; BMI 30.7
--- NOTE | 2019-12-19 15:44 | ED.DCSUM_ITS ---
History of Present Illness Chief Complaint: Abd Pain Informant: Patient - Abdominal Pain/Flank Pain Onset: Today Context: Gradual Onset - Started after he urinated although he had no issues urinating or dysuria Timing: Continuous Quality: Aching Location: Diffuse - radiates around to low back Current Severity: Moderate Maximum Severity: Moderate Worsened by: Nothing Relieved by: Nothing - Nausea/Vomiting/Emesis GI Symptom: Negative for: Nausea, Vomiting - Diarrhea/Melena/Hematochezia GI Symptom: Negative for: Diarrhea, Melena, Hematochezia Associated Symptoms: Negative for: Dysuria, Frequency, Hematuria, Urgency Narrative: Patient started having diffuse abdominal pain earlier today, has gradually progressively worsened throughout the day. Denies any known fevers or chills. He states he is a little short of breath, but he qualifies this and saying that it hurts in his abdomen to take a deep breath. He has cirrhosis and is on a transplant list but also being considered for palliative care currently as well in the meantime. He gets biweekly paracentesis, his last one was over a week ago. They took out less fluid but he states he does not feel like he is really full and in dire need of a paracentesis now. He has been having loose bowel movements due to taking lactulose. He states his urine looked normal and not very orange like it had in the past. 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 Lives: Alone Smoking Status: Former smoker - Family History Paternal Family History: Family History (Last Reviewed 10/18/19 @ 13:31 by Aisha Wyatt MD) Mother Diabetes Hypertension CVA (cerebral vascular accident) Family History: Reports: Unknown - Patient states he does not know his father's paternal family history. Maternal Family History: Family History (Last Reviewed 10/18/19 @ 13:31 by Aisha Wyatt MD) Mother Diabetes Hypertension CVA (cerebral vascular accident) Family History: Reports: Diabetes, Unknown Review of Systems General: Denies: Chills, Fever, Sweats Eyes: Denies: Visual changes - bilaterally, Diplopia ENT: Denies: Rhinorrhea, Sore throat Cardiovascular: Denies: Chest pain, Palpitations Respiratory: Denies: Dyspnea, Cough, Dyspnea on exertion Gastrointestinal: Reports: Abdominal pain. Denies: Nausea, Vomiting, Diarrhea, Melena, Hematochezia Genitourinary: Denies: Dysuria, Hematuria, Frequency Musculoskeletal: Reports: Back pain. Denies: Neck pain, Extremity Pain Skin: Denies: Rash, Wounds Neurological: Denies: Headache, Weakness, Numbness Physical Exam Vital Signs/Narrative: Vital Signs Temp Pulse Resp BP Pulse Ox 12/19/19 14:56 98.9 F 93 18 127/66 H 99 Inital Vital Signs reviewed: Yes General: Well nourished, Well developed, No Acute Distress Head: Normocephalic, Atraumatic Eyes: Perrl, EOMI, Scleral icterus ENT: Moist mucous membranes, No rhinorrhea Neck: Supple, Nontender, No lymphadenopathy Cardiovascular: Regular rate, Regular rhythm, No murmurs. Negative for: Tachycardia Respiratory: No distress, CTA bilaterally, Chest nontender Abdomen: Soft, Normal bowel sounds, Tender - diffusely, moderately, Rebound tenderness - diffusely, - - distended w/ fluid wave; not tense Back: Nontender, Normal Inspection Extremities: Nontender, Edema - 1+ BLE to knees; compression stockings in place Skin: Normal color, No rash Neurological: Alert, Oriented x3, Cranial nerves II-XII grossly intact, Normal Strength, Normal Sensation, Normal Gait Psychological: Normal affect, Normal Mood Diagnostic/Tx/Re-eval Impressions Abdomen/Pelvis CT 12/19/19 16:13 IMPRESSION: 1. Diffuse abdominal and pelvic ascites. 2. There is mild gaseous distention of the transverse colon. 3. Multiple descending colonic diverticula are present. No free air is seen. No demonstrated small bowel obstruction. Unremarkable appendix. Electronically Signed: Eyal Dumont MD at 17:58 EST , Service support , 12/19/19 16:13 CT Abd [Abdomen/Pelvis without Cont] [CT] Stat 12/20/19 00:55 Fluid - Ascites Gram Stain - Preliminary Laboratory Results 12/19/19 12/19/19 12/19/19 15:55 15:55 15:55 WBC 5.7 RBC 2.88 L Hgb 9.9 L Hct 29.0 L MCV 100.7 H MCH 34.4 H MCHC 34.1 RDW Std Deviation 77.2 H RDW Coeff of Jacinto 20.9 H Plt Count 86 L MPV TNP Immature Gran % (Auto) 0.200 Neut % (Auto) 59.3 Lymph % (Auto) 19.8 Winkler % (Auto) 15.7 H Eos % (Auto) 3.9 Baso % (Auto) 1.1 H Absolute Neuts (auto) 3.4 Absolute Lymphs (auto) 1.12 Nucleated RBC % 0 Platelet Estimate MOD DEC RBC Morphology N CHROM Anisocytosis RARE Macrocytosis RARE PT 19.4 H INR 1.7 Sodium 140 Potassium 3.5 Chloride 114 H Carbon Dioxide 18.0 L Anion Gap 8 BUN 27 H Creatinine 1.11 Estim Creat Clear Calc 78.20 Est GFR (MDRD) Af Amer 88 Est GFR (MDRD) Non-Af 72 BUN/Creatinine Ratio 24.3 H Glucose 130 H Lactic Acid Calcium 8.0 L Total Bilirubin 4.90 H AST 174 H ALT 94 H Alkaline Phosphatase 307 H Total Protein 6.6 Albumin 2.2 L Globulin 4.4 H Albumin/Globulin Ratio 0.5 L Urine Color Urine Clarity Urine pH Ur Specific [place] Urine Protein Urine Glucose (UA) Urine Ketones Urine Occult Blood Urine Nitrite Urine Bilirubin Urine Urobilinogen Ur Leukocyte Esterase Urine RBC Urine WBC Ur Squamous Epith Cells Urine Bacteria Urine Mucus Fluid WBC Fluid Tot Cell Count Fld Polynuclear WBCs # Fld Polynuclear WBCs % Fluid Mononuclear WBCs Fld Mononuclear WBCs % 12/19/19 12/19/19 12/20/19 15:55 16:30 00:55 WBC RBC Hgb Hct MCV MCH MCHC RDW Std Deviation RDW Coeff of Jacinto Plt Count MPV Immature Gran % (Auto) Neut % (Auto) Lymph % (Auto) Winkler % (Auto) Eos % (Auto) Baso % (Auto) Absolute Neuts (auto) Absolute Lymphs (auto) Nucleated RBC % Platelet Estimate RBC Morphology Anisocytosis Macrocytosis PT INR Sodium Potassium Chloride Carbon Dioxide Anion Gap BUN Creatinine Estim Creat Clear Calc Est GFR (MDRD) Af Amer Est GFR (MDRD) Non-Af BUN/Creatinine Ratio Glucose Lactic Acid 1.5 Calcium Total Bilirubin AST ALT Alkaline Phosphatase Total Protein Albumin Globulin Albumin/Globulin Ratio Urine Color Yellow Urine Clarity Sl. Cloudy Urine pH 6.5 Ur Specific [place] 1.010 Urine Protein Negative Urine Glucose (UA) Normal Urine Ketones Negative Urine Occult Blood Negative Urine Nitrite Negative Urine Bilirubin Negative Urine Urobilinogen Normal Ur Leukocyte Esterase Negative Urine RBC 0 SEEN Urine WBC 0 SEEN Ur Squamous Epith Cells 0 SEEN Urine Bacteria 0 SEEN Urine Mucus 0 SEEN Fluid WBC 0.285 Fluid Tot Cell Count 0.307 Fld Polynuclear WBCs # 0.019 Fld Polynuclear WBCs % 6.7 Fluid Mononuclear WBCs 0.266 Fld Mononuclear WBCs % 93.3 - Medical Decision Making This patient is recurrent chronic abdominal pain associated with his ascites. However he continues to have significant peritoneal signs today on exam, which gives me concern for spontaneous bacterial peritonitis. Patient was agreeable to a paracentesis. Due to volume in the emergency department, and the fact that radiology was still here, we requested them to perform it under ultrasound guidance but they refused because they were too busy with other outpatients. Therefore there was a significant delay in my performing the paracentesis on this patient because of ED volume and lack of additional personnel. I checked on the patient regularly, he remained clinically and hemodynamically stable, he did require intermittent doses of analgesics which were given. We were eventually able to perform the paracentesis without any apparent complication or difficulty. He felt much better after the fluid was withdrawn, about 2 L. He is drastically different, much better than the last encounter I had with this patient when I also had concerned about SBP. His counts are very assuring. He has 19 PMNs, significantly below the conservative cutoff of 250. I attempted to get a lactate measurement of the ascites and a pH, however those are send out tests and will not return tonight. Gram stain is negative. Culture is sent. He was given Rocephin 2 g empirically. However given how improved he is now, I do not think he has spontaneous bacterial peritonitis or needs to be admitted. Last time we admitted him with this, he ended up having some peritoneal air and was transferred to [facility], where he states he was evaluated for 9 days without any need for further abdominal intervention or surgery and did not have a ruptured viscus. If he develops that pain again he was encouraged to return to the ER for reevaluation but his CT today shows no sign of any acute abnormality and his labs are similar to usual with no leukocytosis at this time. He is comfortable with this overall plan. Procedures Procedure(s): Ultrasound-guided paracentesis performed by ED physician. Patient was consented, prepped and draped in a sterile fashion, with chlorhexidine. Anesthetized with 5 cc of local 1% plain lidocaine, a small incision was made with a razor to allow passage of the catheter, which was inserted via Seldinger technique with ultrasound guidance into a small pocket of fluid in the right lower lateral quadrant gutter. A total of 2 L of watery yellow ascites was withdrawn. A sample of it was sent for testing. Bandage was placed after the catheter was withdrawn. There were no complications and patient tolerated well. ED Disposition - Plan for ED Patient: Disposition: Home or Assisted Living Diagnosis: Diffuse abdominal pain, Ascites of liver Instructions: Ascites, Paracentesis Referrals: Lilia Eagle MD [Primary Care Provider] - As Needed (and Palliative Care as directed by them) Additional Instructions: If your pain get significantly worse within the next 24 hours or you develop a fever, return to the ER. You may be able to call interventional radiology and push your next paracentesis back until either the end of next week or the beginning of the next one.
[2019-12-19] MEDS: Morphine 4 MG/ML Syringe IV ×3 (16:08→21:28)
[2019-12-19] MEDS: 0.9% Normal Saline 1,000 ML 15 ML IV (16:10)
[2019-12-19 16:12] LABS: Absolute Lymphocyte Count 1.12 X10^3/uL (0.83-4.51); Absolute Neutrophil Count 3.4 X10^3/uL (2.0-7.7); Basophil# 0.06 X10^3/uL; Basophil% 1.1 % (0-1); Eosinophil# 0.22 X10^3/uL; Eosinophils% 3.9 % (0-5); Hemoglobin 9.9 g/dL (13.0-16.5); Lymphocyte # 1.12 X10^3/ul (4.0); Lymphocyte % 19.8 % (19-41); Mean Corp Hgb Conc 34.1 g/dL (32-36); Mean Corpuscular Hgb 34.4 pg (27.0-32.0); Mean Corpuscular Volume 100.7 fL (80-94); Monocyte# 0.89 X10^3/uL; Monocyte% 15.7 % (0-10); NRBC Flagged by Analyzer 0 % (0-5); Neutrophil # 3.36 X10^3/uL (2.7-7.7); Neutrophil % 59.3 % (47-70); POSITIVE COUNT YES; POSITIVE MORPHOLOGY YES; Platelet Count 86 K/mm3 (150-450); RBC Distribution Width CV 20.9 % (11.6-14.6); RBC Distribution Width SD 77.2 fl (35.1-43.9); Red Blood Count 2.88 M/mm3 (4.6-6.2); White Blood Count 5.7 K/mm3 (4.4-11.0)
[2019-12-19 16:13] LABS: Differential Indicated SCAN CRITERIA MET
--- NOTE | 2019-12-19 16:13 | CT_ITS ---
STUDY: CT ABDOMEN AND PELVIS WITHOUT CONTRAST REASON FOR EXAM: Male, 59 years old. INCREASED SHORTNESS OF BREATH,ABD PAIN -- HEP A and amp; B -- 750ML REMOVED W/ PARA 12/12/19 RADIATION DOSAGE (If Supplied By Facility): CTDIvol = ( 14.91 ) mGy, DLP = ( 804.40 ) mGycm TECHNIQUE: Transaxial images were obtained from the dome of the diaphragm to the symphysis pubis without oral contrast, and without intravenous contrast. Sagittal and coronal images were reconstructed. Individualized dose optimization techniques were used for this CT. COMPARISON: CT of abdomen and pelvis dated November 20, 2019 FINDINGS: The visualized lung bases are unremarkable. Reidentification of diffuse abdominal and pelvic ascites. No change in cirrhotic liver and multiple venous varices associated with portal vein hypertension. The gallbladder is contracted. Unremarkable pancreas. Unremarkable spleen. Unremarkable kidneys. No hydronephrosis or stones are seen. There is mild gaseous distention of the transverse colon. Multiple descending colonic diverticula are present. No free air is seen. No demonstrated small bowel obstruction. Unremarkable appendix. There is diffuse atherosclerotic calcification of the abdominal aorta, without a demonstrated aneurysm. Normal inferior vena cava. Normal retroperitoneum. Normal urinary bladder. There is a small umbilical hernia containing fat. There are diffuse degenerative changes of the visualized lumbar spine. CT/Abdomen/Pelvis without Cont IMPRESSION: 1. Diffuse abdominal and pelvic ascites. 2. There is mild gaseous distention of the transverse colon. 3. Multiple descending colonic diverticula are present. No free air is seen. No demonstrated small bowel obstruction. Unremarkable appendix. Electronically Signed: Eyal Dumont MD at 17:58 EST , Service support ,
[2019-12-19 16:22] LABS: International Normalized Ratio 1.7; Prothrombin Time (Protime)PT. 19.4 SECONDS (11.7-14.9)
[2019-12-19 16:31] LABS: ALB/GLOB Ratio 0.5 RATIO (0.9-2.4); AST(SGOT) 174 U/L (15-37); Alanine Aminotransfer ALT/SGPT 94 U/L (16-61); Albumin, Serum 2.2 g/dL (3.2-5.0); Alkaline Phosphatase 307 U/L (45-117); Anion Gap 8 (5-15); BUN 27 mg/dL (7-18); BUN/Creat Ratio 24.3 RATIO (10-20); Chloride 114 mmol/L (98-107); Creatinine, Serum 1.11 mg/dL (0.70-1.30); EST Glomerular Filtration Rate 72 mL/min (>60); Est Glom Filt Rate - Afr Amer 88 mL/min (>60); Globulin 4.4 g/dL (2.2-4.2); Glucose 130 mg/dL (74-106); Lactic Acid 1.5 mmol/L (0.4-1.9); Potassium 3.5 mmol/L (3.5-5.1); Protein, Total 6.6 g/dL (6.4-8.2); Sodium Level 140 mmol/L (136-145)
[2019-12-19 16:43] LABS: Bacteria 0 SEEN /hpf (None Seen); Mucous, Urine 0 SEEN /hpf (<or=2+); Red Blood Cells-Urine 0 SEEN /hpf (0-5); Squamous Epithelial Cells - UA 0 SEEN /hpf (0-5); White Blood Cells 0 SEEN /hpf (0-5)
[2019-12-19 16:44] LABS: Anisocytosis RARE; Macrocytosis RARE; Platelet Estimate MOD DEC (ADEQ); Red Cell Morphology N CHROM NORMAL (NORM C&C)
[2019-12-19 16:49] LABS: Color, Urine Yellow (Yellow); Glucose, Dipstick Normal (Normal); Ketone-Dipstick Negative (Negative); Leukocyte Esterase-Dipstick Negative /ul (Negative); Nitrite-Dipstick Negative (Negative); Occult Blood-Urine Negative /ul (Negative); Protein-Dipstick Negative (Negative); Urine Bilirubin Dipstick Negative (Negative); Urine Clarity Sl. Cloudy (Clear); Urine Urobilinogen Normal (Normal); Urine pH 6.5 (5.0 - 8.0)
[2019-12-19 17:17] VITALS: BP 129/97; PULSE 82; RESP 15; O2SAT 95
[2019-12-19 17:18] VITALS: BP 137/89; PULSE 88; RESP 12; O2SAT 100
[2019-12-19 19:13] VITALS: BP 112/67; PULSE 89; RESP 16; O2SAT 100
[2019-12-19 21:30] VITALS: BP 112/74; PULSE 90; RESP 16; O2SAT 100
[2019-12-19 23:28] VITALS: BP 118/82; PULSE 87; RESP 13; O2SAT 96
[2019-12-20] MEDS: Morphine 4 MG/ML Syringe IV (00:11)
[2019-12-20 01:35] VITALS: BP 123/79; PULSE 91; RESP 18; O2SAT 100
[2019-12-20 01:35] LABS: Body Fluid Mononuclear WBC # 0.266 10^3/uL; Body Fluid Mononuclear WBC % 93.3 %; Body Fluid Polynuclear WBC # 0.019 10^3/uL; Body Fluid Polynuclear WBC % 6.7 %; Body Fluid Total Cells Counted 0.307 10^3/ul; White Blood Count/Body Fluid 0.285 10^3/uL
[2019-12-20 02:39] LABS: Auto B Fluid Analyzer BKGD Ct COUNTS W/IN LIMITS (W/IN LIMITS)
[2019-12-20 02:40] VITALS: BP 123/79; PULSE 88; RESP 16; O2SAT 99
[2019-12-20 02:40] LABS: Appearance/Body Fluid CLEAR; Body Fluid QC Type(s) BF1Q; Color/Body Fluid YELLOW; Source- Body Fluid ASCITES FLUID
[2019-12-20 02:42] LABS: Red Cell Count/Body Fluid 158 /mm3
[2019-12-20 03:09] LABS: Lymphocytes 73 %; Mesothelial Cells 1 %; Monocytes 19 %; Neutrophil (Segs) 7 %
[2019-12-20 05:02] VITALS: BP 124/72; PULSE 88; RESP 16; O2SAT 96
[2019-12-20 12:32] LABS: Pathologist Comment/Body Fluid Reviewed
== END 2019-12-20 06:57 | disposition home or self-care (01) ==
PROVIDERS: Emergency Provider Emergency Medicine; PCP Internal Medicine
DX: R10.9 Unspecified abdominal pain (principal); R18.8 Other ascites; I10 Essential (primary) hypertension; I42.9 Cardiomyopathy, unspecified; I25.10 Atherosclerotic heart disease of native coronary artery without angina pectoris; K74.60 Unspecified cirrhosis of liver; Z87.891 Personal history of nicotine dependence; Z79.899 Other long term (current) drug therapy; G47.33 Obstructive sleep apnea (adult) (pediatric); E78.5 Hyperlipidemia, unspecified
CPT/HCPCS: 74176; 80053; 81001; 83605; 85025; 85610; 87040; 87070; 87075; 87086; 87205; 89050; 96365; 96375; 96376; 99283; J7030; J7050; A4216; J0696

== ENCOUNTER 2019-12-25 13:22 | Emergency (ER) | payer MEDICAID, SELFPAY ==
[2019-12-25 13:23] VITALS: BP 130/85; PULSE 88; RESP 16; TEMP 36.2; O2SAT 100; BMI 30.7
[2019-12-25] MEDS: Morphine 4 MG/ML Syringe IV ×2 (15:20→17:15)
[2019-12-25] MEDS: Ondansetron 4 MG/2 ML Vial IV (15:20)
[2019-12-25 15:22] VITALS: BP 121/77; PULSE 86; RESP 18; O2SAT 100
[2019-12-25 15:44] LABS: Absolute Lymphocyte Count 0.99 X10^3/uL (0.83-4.51); Absolute Neutrophil Count 4.1 X10^3/uL (2.0-7.7); Basophil# 0.07 X10^3/uL; Basophil% 1.1 % (0-1); Eosinophils% 3.2 % (0-5); Hematocrit 32.6 % (40-54); Hemoglobin 11.1 g/dL (13.0-16.5); Lymphocyte # 0.99 X10^3/ul (4.0); Lymphocyte % 16.1 % (19-41); Mean Corpuscular Hgb 34.8 pg (27.0-32.0); Mean Corpuscular Volume 102.2 fL (80-94); Monocyte# 0.83 X10^3/uL; Monocyte% 13.5 % (0-10); NRBC Flagged by Analyzer 0 % (0-5); Neutrophil # 4.05 X10^3/uL (2.7-7.7); Neutrophil % 65.8 % (47-70); POSITIVE COUNT YES; POSITIVE MORPHOLOGY YES; Platelet Count 98 K/mm3 (150-450); RBC Distribution Width CV 19.9 % (11.6-14.6); RBC Distribution Width SD 73.8 fl (35.1-43.9); Red Blood Count 3.19 M/mm3 (4.6-6.2); White Blood Count 6.2 K/mm3 (4.4-11.0)
[2019-12-25 15:47] LABS: Bacteria 0 SEEN /hpf (None Seen); Mucous, Urine 0 SEEN /hpf (<or=2+); Red Blood Cells-Urine 0 SEEN /hpf (0-5); Squamous Epithelial Cells - UA 0 SEEN /hpf (0-5); White Blood Cells 0 SEEN /hpf (0-5)
[2019-12-25 15:54] LABS: Differential Indicated SCAN CRITERIA MET
[2019-12-25 15:54] LABS: Color, Urine Yellow (Yellow); Glucose, Dipstick Normal (Normal); Ketone-Dipstick Negative (Negative); Leukocyte Esterase-Dipstick Negative /ul (Negative); Nitrite-Dipstick Negative (Negative); Occult Blood-Urine Negative /ul (Negative); Protein-Dipstick Negative (Negative); Specific Gravity, Urine 1.005 (1.002-1.030); Urine Bilirubin Dipstick Negative (Negative); Urine Clarity Clear (Clear); Urine Urobilinogen Normal (Normal); Urine pH 6.5 (5.0 - 8.0)
[2019-12-25 15:57] LABS: ALB/GLOB Ratio 0.5 RATIO (0.9-2.4); AST(SGOT) 236 U/L (15-37); Alanine Aminotransfer ALT/SGPT 137 U/L (16-61); Albumin, Serum 2.4 g/dL (3.2-5.0); Alkaline Phosphatase 351 U/L (45-117); Anion Gap 5 (5-15); BUN 19 mg/dL (7-18); BUN/Creat Ratio 15.1 RATIO (10-20); Calcium,Total 8.2 mg/dL (8.5-10.1); Chloride 109 mmol/L (98-107); Creatinine, Serum 1.26 mg/dL (0.70-1.30); EST Glomerular Filtration Rate 63 mL/min (>60); Est Glom Filt Rate - Afr Amer 76 mL/min (>60); Estimated Creatinine Clearance 68.89 ml/min; Globulin 5.1 g/dL (2.2-4.2); Glucose 90 mg/dL (74-106); Lipase 659 U/L (73-393); Potassium 3.7 mmol/L (3.5-5.1); Protein, Total 7.5 g/dL (6.4-8.2); Sodium Level 137 mmol/L (136-145)
[2019-12-25 16:09] LABS: International Normalized Ratio 1.5
[2019-12-25 16:11] LABS: Partial Thromboplast Time 38.2 Seconds (24.1-36.2)
[2019-12-25 16:13] LABS: Anisocytosis 1+; Differential Comment SCANNED; Platelet Estimate MOD DEC (ADEQ); Target Cells RARE
[2019-12-25 17:00] VITALS: BP 127/79; PULSE 93; RESP 18; O2SAT 99
--- NOTE | 2019-12-25 17:08 | ED.VISSUMM ---
- ER Visit Summary Date of Service: 12/25/19 Chief Complaint: Abdominal pain History of Present Illness: The patient is a 59 M presents with exacerbation of chronic abdominal pain that became worse today. Patient states his pain is diffuse. Patient states he has a history of ascites and hepatitis B. Patient admits to nausea but denies any vomiting. Patient states nothing makes his pain better or worse. Patient describes his pain as aching. Patient does admit to some diarrhea but denies any melena or hematochezia. Patient denies any dysuria or hematuria. Patient denies any fevers or chills. Patient states he had a recent paracentesis that was negative. Physical Examination: Vital signs are stable. Patient is afebrile. Patient is in no acute distress. Pupils are equal, round, and reactive to light bilaterally. Extraocular muscles are intact. There is scleral icterus noted. Oral mucosa is pink and moist. Neck is supple. Trachea is midline. There is no JVD. Heart was regular rate and rhythm. Lungs are clear and equal bilaterally. Abdomen is soft. Bowel sounds are normal. There is diffuse tenderness. There is no rebound or guarding noted. Cranial nerves II through XII are intact. There are no focal motor or sensory deficits noted. Skin is warm and dry. There is jaundice. Test Results: CBC was essentially within normal limits. Comprehensive metabolic profile showed an elevated bilirubin of 4.3 and mildly elevated alk phos, ALT, and AST. These were all improved compared to previous results. Lipase was 659 which is improved from previous result. INR is 1.5. Emergency Department Course and Treatment: Patient was given morphine and Zofran here. Patient was still having pain on reevaluation. Patient was given a repeat dose of morphine. Patient was advised of his results. Patient was instructed to follow-up with his primary care physician this week as scheduled. Patient understands and is agreeable with the plan. All questions were answered. Disposition: Discharge home Impression: Abdominal pain This note was generated with [email or web address] dictation software. It may contain incorrect words, spelling, and punctuation that were not noted in review of the chart prior to signing ED Disposition - Plan for ED Patient: Disposition: Home or Assisted Living Diagnosis: Abdominal pain Instructions: ED Cirrhosis Referrals: Lilia Eagle MD [Primary Care Provider] - Keep David appointment
== END 2019-12-25 17:27 | disposition home or self-care (01) ==
PROVIDERS: Emergency Provider Emergency Medicine; PCP Internal Medicine
DX: R10.9 Unspecified abdominal pain (principal); B19.10 Unspecified viral hepatitis B without hepatic coma; K74.60 Unspecified cirrhosis of liver; Z79.899 Other long term (current) drug therapy; Z87.891 Personal history of nicotine dependence
CPT/HCPCS: 80053; 81001; 83690; 85025; 85610; 85730; 96374; 96375; 96376; 99283; A4216; J2405

== ENCOUNTER → 2019-12-26 09:00 | Outpatient (CLI) | payer MEDICAID, SELFPAY ==
[2019-11-19 08:57] VITALS: BMI 31.5
== END ==
PROVIDERS: PCP Internal Medicine; Referring Provider Internal Medicine; Visit Provider Internal Medicine
DX: K70.31 Alcoholic cirrhosis of liver with ascites (principal)
CPT/HCPCS: J7040

== ENCOUNTER 2019-12-27 11:05 | Emergency (ER) | payer MEDICAID, SELFPAY ==
[2019-12-27 11:06] VITALS: BP 132/70; PULSE 91; RESP 20; TEMP 36.7; O2SAT 99; BMI 29.2
--- NOTE | 2019-12-27 12:20 | RAD_ITS ---
EXAM DESCRIPTION: PORTABLE AP CHEST CLINICAL HISTORY: 59 years Male, SOB AND ABDOMEN PAIN. SOB AND ABDOMEN PAIN. COMPARISON: Previous portable chest obtained on 11/19/2019 FINDINGS: The thorax is intact. The heart and mediastinum appear to be within normal limits. The lungs appear to be well areated without evidence of pneumonic consolidation or pleural effusion. RAD/Chest 1 View (Portable) IMPRESSION: Normal portable chest. Electronically Signed: Valerio Craft, at 13:42 EST Tel , Service support ,
[2019-12-27 12:35] LABS: Absolute Lymphocyte Count 1.16 X10^3/uL (0.83-4.51); Absolute Neutrophil Count 3.3 X10^3/uL (2.0-7.7); Basophil# 0.07 X10^3/uL; Basophil% 1.3 % (0-1); Eosinophil# 0.14 X10^3/uL; Eosinophils% 2.6 % (0-5); Hemoglobin 10.8 g/dL (13.0-16.5); Lymphocyte # 1.16 X10^3/ul (4.0); Lymphocyte % 21.4 % (19-41); Mean Corp Hgb Conc 33.8 g/dL (32-36); Mean Corpuscular Hgb 34.5 pg (27.0-32.0); Mean Corpuscular Volume 102.2 fL (80-94); Monocyte# 0.77 X10^3/uL; Monocyte% 14.2 % (0-10); NRBC Flagged by Analyzer 0 % (0-5); Neutrophil # 3.25 X10^3/uL (2.7-7.7); Neutrophil % 60.1 % (47-70); POSITIVE COUNT YES; POSITIVE MORPHOLOGY YES; Platelet Count 97 K/mm3 (150-450); RBC Distribution Width CV 19.5 % (11.6-14.6); RBC Distribution Width SD 73.6 fl (35.1-43.9); Red Blood Count 3.13 M/mm3 (4.6-6.2); White Blood Count 5.4 K/mm3 (4.4-11.0)
[2019-12-27 12:38] LABS: Differential Indicated SCAN CRITERIA MET
[2019-12-27] MEDS: HYDROmorphone 1 MG/ML Syringe IV ×2 (12:42→14:39)
[2019-12-27] MEDS: Ondansetron 4 MG/2 ML Vial IV (12:42)
[2019-12-27 12:43] LABS: Mucous, Urine 0 SEEN /hpf (<or=2+); Red Blood Cells-Urine 0 SEEN /hpf (0-5); Squamous Epithelial Cells - UA 0 SEEN /hpf (0-5)
[2019-12-27 12:45] LABS: Color, Urine Yellow (Yellow); Glucose, Dipstick Normal (Normal); Ketone-Dipstick Negative (Negative); Leukocyte Esterase-Dipstick Negative /ul (Negative); Nitrite-Dipstick Negative (Negative); Occult Blood-Urine Negative /ul (Negative); Protein-Dipstick Negative (Negative); Specific Gravity, Urine 1.015 (1.002-1.030); Urine Bilirubin Dipstick Negative (Negative); Urine Clarity Clear (Clear); Urine Urobilinogen Normal (Normal); Urine pH 6.5 (5.0 - 8.0)
[2019-12-27 12:47] LABS: AST(SGOT) 232 U/L (15-37); Alanine Aminotransfer ALT/SGPT 129 U/L (16-61); Albumin, Serum 2.6 g/dL (3.2-5.0); Alkaline Phosphatase 341 U/L (45-117); Anion Gap 4 (5-15); BUN 22 mg/dL (7-18); Bilirubin, Direct 3.58 mg/dL (0.00-0.30); Calcium,Total 8.5 mg/dL (8.5-10.1); Chloride 113 mmol/L (98-107); Creatinine, Serum 1.22 mg/dL (0.70-1.30); EST Glomerular Filtration Rate 65 mL/min (>60); Est Glom Filt Rate - Afr Amer 79 mL/min (>60); Estimated Creatinine Clearance 71.15 ml/min; Glucose 91 mg/dL (74-106); Potassium 3.9 mmol/L (3.5-5.1); Protein, Total 7.6 g/dL (6.4-8.2); Sodium Level 139 mmol/L (136-145)
[2019-12-27 12:57] LABS: Bacteria 1+ /hpf (None Seen); White Blood Cells 0-5 SEEN /hpf (0-5)
[2019-12-27 13:07] LABS: Anisocytosis 2+; Hypochromasia 1+; Platelet Estimate SLT DEC (ADEQ)
--- NOTE | 2019-12-27 14:25 | ED.DCSUM_ITS ---
History of Present Illness Chief Complaint: Abd Pain Narrative: Presents with chronic recurrent abdominal pain. He has a history of hepatitis B, he is chronically jaundice and has appointments at [facility] with GI. He has no fever chills cough congestion. He has no radiation to his back. He has no diarrhea or constipation. All his symptoms are chronic, he is supposed to see pain management but has not gotten any analgesics from them yet. Past Medical History - Allergies and Home Meds Allergies/Adverse Reactions: Allergies No Known Allergies Allergy (Verified 12/27/19 11:05) Primary Care Physician: Lilia Eagle MD [Primary Care Provider] - Past Medical History: - - Hepatitis B Surgical History: - - Right foot surgery with hardware, ear tube placements. Smoking Status: Former smoker - Family History Paternal Family History: Family History (Last Reviewed 10/18/19 @ 13:[address] Aisha Wyatt MD) Mother Diabetes Hypertension CVA (cerebral vascular accident) Family History: Reports: Unknown - Patient states he does not know his father's paternal family history. Maternal Family History: Family History (Last Reviewed 10/18/19 @ 13:[address] Aisha Wyatt MD) Mother Diabetes Hypertension CVA (cerebral vascular accident) Family History: Reports: Diabetes, Unknown Review of Systems General: Denies: Fever Eyes: Reports: - - Chronic scleral icterus unchanged Cardiovascular: Denies: Chest pain Respiratory: Denies: Dyspnea, Cough Gastrointestinal: Reports: Abdominal pain. Denies: Vomiting, Diarrhea Musculoskeletal: Denies: Myalgias Skin: Denies: Rash Neurological: Denies: Headache, Weakness Hematologic: Denies: Easy bruising, Easy bleeding Allergy: Denies: Swelling of the mouth Physical Exam Vital Signs/Narrative: Vital Signs Temp Pulse Resp BP Pulse Ox 12/27/19 11:06 98.1 F 91 20 H 132/70 H 99 General: Well nourished, No Acute Distress, Acute Distress Head: Normocephalic Eyes: Scleral icterus ENT: Moist mucous membranes Neck: Supple Cardiovascular: Regular rate, Regular rhythm Respiratory: No distress Abdomen: Soft, - - There is right upper quadrant and epigastric tenderness. No obvious fluid wave the abdomen has some adipose tissue but is not significantly distended. Back: Nontender Extremities: Nontender Skin: Jaundice Neurological: Alert, Normal Strength Diagnostic/Tx/Re-eval - Medical Decision Making Patient's blood work shows chronic hyperbilirubinemia which is unchanged as well as the transaminases. He is given analgesia in the emergency department he appears well, all his symptoms are chronic so he can follow-up outpatient he does not have any new findings today. If anything changes he is to return. ED Disposition - Plan for ED Patient: Disposition: Home or Assisted Living Diagnosis: Hepatitis B Instructions: Common Myths About Pain Medications Prescriptions: Oxycodone [Oxyir] 5 mg PO Q4H PRN PRN 3 Days #5 tablet PRN Reason: Pain Or Fever Transmission Status: Sent to [facility] - [place] Referrals: Lilia Eagle MD [Primary Care Provider] - 2 Days
[2019-12-27 14:43] VITALS: RESP 18
[2019-12-27 14:49] VITALS: BP 127/83
== END 2019-12-27 14:50 | disposition home or self-care (01) ==
PROVIDERS: Emergency Provider Emergency Medicine; PCP Internal Medicine
DX: B19.10 Unspecified viral hepatitis B without hepatic coma (principal); Z87.891 Personal history of nicotine dependence
CPT/HCPCS: 71045; 80048; 80076; 81001; 85025; 96374; 96375; 96376; 99284; A4216; J2405

== ENCOUNTER 2020-12-11 18:08 | Emergency (ER) | payer MEDICAID, SELFPAY ==
[2020-12-11 18:09] VITALS: BP 136/85; PULSE 90; PULSE 95; RESP 18; TEMP 35.9; O2SAT 100; O2SAT 98; BMI 31.1
--- NOTE | 2020-12-11 18:29 | ED.DCSUM_ITS ---
History of Present Illness Chief Complaint: Edema Narrative: Chief complaints is edema. Patient has no lower extremity edema. His complaint is left heel pain. He is however concerned about a possible DVT since he has had them in the past. He has no leg pain or edema or calf swelling. No recent travel or any other risk factors. His pain is on the plantar side of his heel and it hurts when he walks. No known injury. No fever or chills. Pain is minimal until he bears weight on it. Past medical history: Hepatitis C, prior DVT Medications: Reviewed Social history: Noncontributory no recent trauma Review of systems: All systems negative except as indicated General: Denies: Fever Cardiovascular: Denies: Chest pain Respiratory: Denies: Dyspnea, Cough Gastrointestinal: Denies: Abdominal pain, Nausea, Vomiting Musculoskeletal: Left heel pain as in HPI Skin: Denies: Rash Neurological: No weakness or paresthesias Psych: Reports: negative Hematologic: Denies: Easy bruising, Easy bleeding. Prior clotting Past Medical History - Allergies and Home Meds Allergies/Adverse Reactions: Allergies No Known Allergies Allergy (Verified 12/27/19 11:05) Primary Care Physician: Lilia Eagle MD [STAFF PHYSICIAN] - Surgical History: - - Right foot surgery with hardware, ear tube placements. Smoking Status: Former smoker - Family History Paternal Family History: Family History (Last Reviewed 10/18/19 @ 13:[address] Aisha Wyatt MD) Mother Diabetes Hypertension CVA (cerebral vascular accident) Family History: Reports: Unknown - Patient states he does not know his father's paternal family history. Maternal Family History: Family History (Last Reviewed 10/18/19 @ 13:[address] Aisha Wyatt MD) Mother Diabetes Hypertension CVA (cerebral vascular accident) Family History: Reports: Diabetes, Unknown Physical Exam Vital Signs/Narrative: Vital Signs Temp Pulse Resp BP Pulse Ox 12/11/20 18:09 96.7 F L 90 18 136/85 H 100 Diagnostic/Tx/Re-eval Left foot x-ray interpreted by emergency doctor and radiologist shows a spur otherwise no fracture. - Medical Decision Making Patient is found to have a heel spur, he may have some plantar fasciitis along with the heel pain otherwise I will discharge him with podiatry follow-up ED Disposition - Plan for ED Patient: Disposition: Home or Assisted Living Diagnosis: Heel spur Instructions: ED Heel Spur Prescriptions: Naproxen [Naprosyn] 500 mg PO BID PRN #20 tab Transmission Status: Pending to [facility] #30 Referrals: Debra Bourgeois DPM [STAFF PHYSICIAN] - 3-5 Days
--- NOTE | 2020-12-11 18:30 | RAD_ITS ---
STUDY: X-RAY - LEFT FOOT CLINICAL: Male, 60 years old. EDEMA TO LEFT HEEL, PT THINKS IT''S A BLOOD CLOT. TECHNIQUE: 3 view(s) of the foot. COMPARISON: None. FINDINGS: Minimal dorsal enthesophyte and a moderate sized plantar spur of the calcaneus. Normal visualized subtalar, talonavicular, calcaneocuboid, tarsal and tarsometatarsal articulations. Normal metatarsi. Normal metatarsophalangeal joint of the great toe. Normal tibial and fibular sesamoid bones. Normal interphalangeal joint of the great toe. Old fracture deformity of the distal end of the proximal phalanx of the great toe. Normal second through fifth metatarsophalangeal joints. Normal interphalangeal joints and phalanges of the lesser toes. The soft tissue structures are unremarkable. RAD/Foot min 3 Views IMPRESSION: Minimal dorsal enthesophyte and a moderate plantar spur of the calcaneus. No unremarkable soft tissue findings of the heel pad. Old fracture for many of the proximal phalanx of the great toe. Otherwise no acute bone or joint findings. Electronically Signed: Lila Sheldon MD at 18:52 EST , Service support ,
== END 2020-12-11 19:18 | disposition home or self-care (01) ==
PROVIDERS: Emergency Provider Emergency Medicine; PCP Family Medicine
DX: M77.8 Other enthesopathies, not elsewhere classified (principal); Z87.891 Personal history of nicotine dependence; Z86.718 Personal history of other venous thrombosis and embolism
CPT/HCPCS: 73630; 99282

== ENCOUNTER 2021-08-21 23:37 | Emergency (ER) | payer MEDICAID, SELFPAY ==
[2021-08-21 23:38] VITALS: BP 119/79; PULSE 80; RESP 16; TEMP 36.6; O2SAT 99; BMI 29.9
--- NOTE | 2021-08-22 00:12 | RAD_ITS ---
STUDY: X-RAY - LUMBAR SPINE REASON FOR EXAM: Male, 61 years old. Chronic low back pain, no injury TECHNIQUE: 3 view(s) of the lumbar spine were obtained. COMPARISON: 02/18/2019 FINDINGS: Normal lumbar lordosis. Mild levoscoliosis centered on L4. There is a normal alignment of the vertebrae. There is multilevel endplate spondylosis of the lumbar vertebrae. There is multi-level degenerative disc disease with multi-level disc space narrowing. The soft tissue structures are unremarkable. RAD/Lumbar Spine 2 or 3 Views IMPRESSION: Mid to lower lumbar spine degenerative disease with mild levoscoliosis centered on L4. Electronically Signed: Ke Perkins MD at 1:48 EDT Tel , Service support ,
[2021-08-22] MEDS: Orphenadrine 60 MG/2 ML Ampul IM (00:24)
[2021-08-22] MEDS: morphine 10 MG/ML Syringe 8 MG IM (00:25)
[2021-08-22] MEDS: Ondansetron ODT 4 MG Tablet PO (00:26)
--- NOTE | 2021-08-22 01:47 | EX.ED.DYSGE1 ---
HPI History of Present Illness Chief Complaint: Back Narrative Narrative: Patient is a 11-year-old male who states 2 days ago he was helping his friend lift a transmission into a car. He denies any direct trauma or pain at the time but states that afterwards he noticed some pain in his right sided low back. He states this time has passed the pain has progressed. He denies any loss of bowel or bladder control or IV drug use. He states that he has been trying [id number] medications with minimal symptom improvement and therefore comes in for evaluation. [facility] Medical History (Updated 08/22/21 @ 01:[address] Jerardo Escobar DO) Atherosclerosis of coronary artery of [place] heart without angina pectoris Cardiomyopathy Chest pain Chest pain Dyslipidemia Essential hypertension History of foot fracture Suicidal ideation (~03/27/19) Home Medications entecavir 1 mg PO DAILY@0600 11/19/19 [History Last Taken Unknown] metoprolol tartrate 12.5 mg PO BID 11/19/19 [History Last Taken Unknown] rifaximin 550 mg PO BID 11/19/19 [History Last Taken Unknown] folic acid 1 mg PO DAILY 11/20/19 [History Last Taken Unknown] thiamine mononitrate (vit B1) 100 mg PO TID 11/20/19 [History Last Taken Unknown] amitriptyline 10 mg PO QHS 12/03/19 [History Last Taken Unknown] atorvastatin 20 mg PO QHS 12/03/19 [History Last Taken Unknown] hyoscyamine sulfate 0.25 mg PO Q8 12/03/19 [History Last Taken Unknown] zinc sulfate 220 mg PO DAILY 12/03/19 [History Last Taken Unknown] lactulose 10 gm PO TID 12/11/19 [History Last Taken Unknown] naproxen 500 mg PO BID PRN #20 tab 12/11/20 [Rx Last Taken Unknown] methocarbamol 500 mg PO Q6H PRN #56 tab 08/22/21 [Rx Last Taken Unknown] oxycodone-acetaminophen [Endocet] 1 tab PO Q6H PRN 3 Days #12 tab 08/22/21 [Rx Last Taken Unknown] Allergy/AdvReac Type Severity Reaction Status Date / Time No Known Allergies Allergy Verified 08/21/21 23:40 Family History Mother Diabetes Hypertension CVA (cerebral vascular accident) Surgical History History of left heart catheterization Social History (Updated 10/18/19 @ 13:[address] Aisha Wyatt MD) Smoking Status: Former smoker how long ago did patient quit smokin months ago second hand exposure: No alcohol intake: never substance use type: does not use caffeine: Yes Type: carbonated beverages and coffee Number of servings: 1 ROS ROS ED Constitutional Constitutional ED: Denies chills or fever(s) ENT ENT ED: Denies sore throat Cardiovascular Cardiovascular: Denies chest pain Respiratory/Chest Respiratory/Chest: Denies cough or dyspnea Gastrointestinal Gastrointestinal: Denies abdominal pain, diarrhea, nausea or vomiting Genitourinary Genitourinary ED: Denies dysuria Musculoskeletal Musculoskeletal: Reports back pain; Denies myalgias Integumentary Denies rash Neurologic Neurologic: Denies headache(s) Hematologic/Lymphatic Hematologic/Lymphatic: Denies easy bleeding or easy bruising EXAM Physical Exam Const Vital Signs: 08/21/21 23:38 Temperature 97.9 F Temperature Source Temporal Pulse Rate 80 Respiratory Rate 16 Blood Pressure 119/79 Blood Pressure Mean 92 Pulse Ox 99 Oxygen Delivery Method Room Air Positive well nourished and well developed General Appearance ED: well developed Eyes PERRL and EOMs intact bilaterally Neck supple Resp normal respiratory effort and clear to auscultation bilaterally Cardio regular rate and regular rhythm GI non-tender and non-distended Auscultation: normoactive bowel sounds Palpation: soft Back/Spine Back/Spine Narrative: No bony deformity or step-off of the thoracic or lumbar spine but there is lower midline pain with palpation. There is also right-sided paralumbar tension and spasm noted that worsens with extension and rotation. No saddle anesthesia. Negative straight leg raise. No clonus or Babinski. Patellar reflexes are plus 2 out of 4 bilaterally Extremity normal to inspection Neuro oriented x3 and CN's II-XII intact bilaterally Sensorium / Orientation: alert Psych mental status grossly normal Skin no rashes or lesions noted MDM MDM MDM Narrative Medical decision making narrative: Patient presented to the ER with back pain but no direct trauma. He also had no risk factors for cauda equina or epidural abscess. With the midline pain on palpation I did elect to perform an x-ray which revealed no acute spondylolisthesis or compression fracture. Clinically symptoms are consistent with a lumbosacral strain after treatment in the ER patient reported feeling better. Therefore with x-rays revealing no acute fracture and exam does not show changes concerning for neuro claudication he is safe for discharge Radiography Diagnostic Testing: X-ray of the lumbar spine shows degenerative disc disease at the L5-S1 vertebrae but otherwise no acute fracture dislocation or spondylolisthesis Discharge Plan Triage Chief Complaint: Back ED Provider: Jerardo Escobar Dx/Rx/DC Orders Clinical Impression: Acute myofascial strain of lumbosacral region Instructions: Understanding Lumbosacral Strain, Lumbar Stretch (Flexibility) Prescriptions: New methocarbamol 500 mg tablet 500 mg PO Q6H PRN (Reason: Muscle pain/spasm) Qty: 56 RF: 0 oxycodone-acetaminophen [Endocet] 5-325 mg tablet 1 tab PO Q6H PRN (Reason: pain) 3 Days Qty: 12 RF: 0 No Action metoprolol tartrate 25 MG tablet 12.5 mg PO BID RF: 0 entecavir 1 MG tablet 1 mg PO DAILY@0600 RF: 0 rifaximin 550 MG tablet 550 mg PO BID RF: 0 folic acid 1 MG tablet 1 mg PO DAILY RF: 0 thiamine mononitrate (vit B1) 100 MG tablet 100 mg PO TID RF: 0 atorvastatin 20 MG tablet 20 mg PO QHS RF: 0 amitriptyline 10 MG tablet 10 mg PO QHS RF: 0 hyoscyamine sulfate 0.125 MG tablet 0.25 mg PO Q8 RF: 0 zinc sulfate 220 MG capsule 220 mg PO DAILY RF: 0 lactulose 10 GM/15 ML solution 10 gm PO TID RF: 0 naproxen 500 MG tablet 500 mg PO BID PRN Qty: 20 RF: 0 Primary Care Provider: Yassine Alberto Referrals: Yassine Alberto MD [Primary Care Provider] - Disposition Disposition: Home, Self Care
[2021-08-22] MEDS: oxyCODONE 5 MG Tablet 10 MG PO (02:08)
== END 2021-08-22 02:10 | disposition home or self-care (01) ==
PROVIDERS: Emergency Provider Emergency Medicine; PCP Family Medicine
DX: S39.012A Strain of muscle, fascia and tendon of lower back, initial encounter (principal); I25.10 Atherosclerotic heart disease of native coronary artery without angina pectoris; Z87.891 Personal history of nicotine dependence; X58.XXXA Exposure to other specified factors, initial encounter
CPT/HCPCS: 72100; 96372; 99283

== ENCOUNTER 2022-07-15 14:21 | Emergency (ER) | payer MEDICAID, SELFPAY ==
[2022-07-15 14:22] VITALS: BP 159/101; PULSE 112; RESP 14; TEMP 35.8; O2SAT 98; BMI 29.6
--- NOTE | 2022-07-15 15:16 | EDS_ITS ---
HPI History of Present Illness HPI Narrative: Patient presents with left foot pain that began 3 days ago. Patient is unsure how he injured his foot. Patient states the pain is over the fifth metatarsal area. Patient describes the pain as throbbing. Patient states pain is worse with any pressure or weightbearing. Patient states nothing seems to help with the pain. Patient admits to occasional tingling in his fourth and fifth toes but denies any weakness. Patient denies any pain in the ankle or proximal fibula. Chief Complaint: Lower Extremity Injury Informant: patient Occured/Mechanism Mechanism/Context: Yes unknown Onset/Context/Timing Onset: Days (3) Timing: Continuous Quality of Pain: Throbbing Worsened by: Weightbearing and pressure Relieved by: Nothing Associated Symptoms Associated Symptoms: Negative for Parasthesia [facility] Medical History (Updated 07/15/22 @ 16:[address] Randy Magana, DO) Atherosclerosis of coronary artery of [place] heart without angina pectoris Cardiomyopathy Chest pain Chest pain Cirrhosis of liver due to hepatitis B Dyslipidemia Essential hypertension History of foot fracture Suicidal ideation (~03/27/19) Home Medications entecavir 1 mg tablet 1 mg PO DAILY@0600 hep B 11/19/19 [History Last Taken Unknown] metoprolol tartrate 25 mg tablet 12.5 mg PO BID Check with primary doctor 11/19/19 [History Last Taken Unknown] rifaximin 550 mg tablet 550 mg PO BID brain health 11/19/19 [History Last Taken Unknown] folic acid 1 mg tablet 1 mg PO DAILY supplement 11/20/19 [History Last Taken Unknown] thiamine mononitrate (vit B1) 100 mg tablet 100 mg PO TID Check with primary doctor 11/20/19 [History Last Taken Unknown] amitriptyline 10 mg tablet 10 mg PO QHS 12/03/19 [History Last Taken Unknown] atorvastatin 20 mg tablet 20 mg PO QHS 12/03/19 [History Last Taken Unknown] hyoscyamine sulfate 0.125 mg tablet 0.25 mg PO Q8 12/03/19 [History Last Taken Unknown] zinc sulfate 50 mg zinc (220 mg) capsule 220 mg PO DAILY 12/03/19 [History Last Taken Unknown] lactulose 10 gram/15 mL (15 mL) oral solution 10 gm PO TID 12/11/19 [History Last Taken Unknown] naproxen 500 mg tablet 500 mg PO BID PRN #20 tabs 12/11/20 [Rx Last Taken Unknown] methocarbamol 500 mg tablet 500 mg PO Q6H PRN Muscle pain/spasm #56 tabs 08/22/21 [Rx Last Taken Unknown] oxycodone-acetaminophen 5 mg-325 mg tablet (Endocet) 1 tab PO Q6H PRN pain 3 days #12 tabs 08/22/21 [Rx Last Taken Unknown] hydrocodone-acetaminophen 5-325mg 5mg-325mg 1 tab PO Q6H PRN PRN Pain 3 days #10 TABLETS 07/15/22 [Rx Last Taken Unknown] walking boot #1 ea 07/15/22 [Rx Last Taken Unknown] Allergy/AdvReac Type Severity Reaction Status Date / Time No Known Allergies Allergy Verified 07/15/22 14:22 Family History Mother Diabetes Hypertension CVA (cerebral vascular accident) Surgical History History of left heart catheterization Social History Smoking Status: Light Smoker (<10/day) how long ago did patient quit smokin months ago second hand exposure: No alcohol intake: never substance use type: does not use caffeine: Yes Type: carbonated beverages and coffee Number of servings: 1 ROS ROS ED Constitutional Constitutional ED: Denies chills or fever(s) Eyes Eyes: Denies blurry vision or change in vision ENT ENT ED: Denies rhinorrhea or sore throat Cardiovascular Cardiovascular: Denies chest pain or palpitations Respiratory/Chest Respiratory/Chest: Denies cough or dyspnea Gastrointestinal Gastrointestinal: Denies nausea or vomiting Genitourinary Genitourinary ED: Denies dysuria or hematuria Musculoskeletal Musculoskeletal: Denies back pain or neck pain Integumentary Denies abscess or rash Neurologic Neurologic: Denies headache(s) or weakness Allergic/Immunologic Allergic/Immunologic ED: Denies mouth swelling or urticaria EXAM Physical Exam Const Vital Signs: 07/15/22 14:22 Temperature 96.4 F L Temperature Source Temporal Pulse Rate 112 H Respiratory Rate 14 Blood Pressure 159/101 H Blood Pressure Mean 120 Pulse Ox 98 Oxygen Delivery Method Room Air Positive well nourished and well developed General Appearance ED: well developed and NAD HEENT Reports moist mucous membranes Neck full ROM and supple Extremity Extremity Narrative: There is tenderness and mild edema over the fifth metatarsal. There is no bony crepitance or step-off. There is no obvious deformity noted. Range of motion was slightly limited in all motions of the left foot secondary to pain. There is no tenderness over the medial or lateral malleoli or proximal fibula. Pedal pulses are equal bilaterally. Sensation was intact to light touch in all digits. Capillary refill was less than 2 seconds in all digits. General Extremety ED: Negative for cyanosis General Extremity: Negative for cyanosis Neuro oriented x3, CN's II-XII intact bilaterally, moves all extremities and no sensory deficits noted Sensorium / Orientation: alert Motor Exam: strength 5/5 throughout Psych mental status grossly normal Skin no wounds MDM MDM MDM Narrative Medical decision making narrative: X-rays of the left foot were obtained. There are 3 views. On my interpretation, there is a nondisplaced fracture through the base of the fifth metatarsal into the intermetatarsal joint. There is some mild soft tissue swelling. Radiologist also interpreted the x-rays and agrees. Patient was given a boot orthosis. Patient was given crutches. Patient was instructed to ice and elevate the left foot. Patient was given a prescription for a short course of [place]. Patient was instructed to follow-up with his primary care physician in 5 to 7 days. Patient was also given a referral for orthopedics. Patient understood and was agreeable with the plan. All questions were answered. Radiography Diagnostic Testing: Clinical Impression(s) from Imaging Studies Foot X-Ray 07/15/22 15:35 IMPRESSION: Fracture base of fifth metatarsal bone. Electronically Signed: Benton Perez MD at 16:48 EDT Reading Location ID and State: [facility] / [place] , Service support , Discharge Plan Triage Chief Complaint: Lower Extremity Injury ED Provider: Randy Magana Dx/Rx/DC Orders Clinical Impression: Closed fracture of fifth metatarsal bone of left foot, Cirrhosis of liver due to hepatitis B Instructions: ED Fracture, Foot Prescriptions: New hydrocodone-acetaminophen [hydrocodone-acetaminophen] 5-325 mg tablet 1 tab PO Q6H PRN PRN (Reason: Pain) 3 Days Qty: 10 0RF (DME) walking boot large See Rx Instructions .Route .MEDSUPPLY Qty: 1 0RF Rx Instructions: As directed No Action metoprolol tartrate 25 MG tablet 12.5 mg PO BID entecavir 1 MG tablet 1 mg PO DAILY@0600 rifaximin 550 MG tablet 550 mg PO BID folic acid 1 MG tablet 1 mg PO DAILY thiamine mononitrate (vit B1) 100 MG tablet 100 mg PO TID atorvastatin 20 MG tablet 20 mg PO QHS amitriptyline 10 MG tablet 10 mg PO QHS hyoscyamine sulfate 0.125 MG tablet 0.25 mg PO Q8 zinc sulfate 220 MG capsule 220 mg PO DAILY lactulose 10 GM/15 ML solution 10 gm PO TID naproxen 500 MG tablet 500 mg PO BID PRN Qty: 20 0RF methocarbamol 500 mg tablet 500 mg PO Q6H PRN (Reason: Muscle pain/spasm) Qty: 56 0RF oxycodone-acetaminophen [Endocet] 5-325 mg tablet 1 tab PO Q6H PRN (Reason: pain) 3 Days Qty: 12 0RF Primary Care Provider: Yassine Alberto Referrals: Yassine Alberto MD [Primary Care Provider] - 5-7 Days Jasen Almanzar MD [Med Staff - Active Staff] - 3-5 Days Disposition Disposition: Home, Self Care
--- NOTE | 2022-07-15 15:35 | RAD_ITS ---
EXAM: XR LEFT FOOT COMPLETE, 3 OR MORE VIEWS CLINICAL INDICATION: Injury/Pain TECHNIQUE: Frontal, lateral and oblique views of the left foot. This report was created using [employer] report generation technology. COMPARISON: 12/11/2020 FINDINGS: BONES/JOINTS: Fracture base of fifth metatarsal bone. There is a calcaneal spur. Preservation of the joint space. No sclerotic or destructive changes observed. SOFT TISSUES: Unremarkable. No soft tissue swelling or gas. No radiopaque foreign body. RAD/Foot min 3 Views IMPRESSION: Fracture base of fifth metatarsal bone. Electronically Signed: Benton Perez MD at 16:48 EDT ,
--- NOTE | 2022-07-15 17:50 | ED.RN ---
pt stated he knows how to use his crutches.
== END 2022-07-15 17:51 | disposition home or self-care (01) ==
PROVIDERS: Emergency Provider Emergency Medicine; PCP Family Medicine; Visit Provider Emergency Medicine
DX: S92.352A Displaced fracture of fifth metatarsal bone, left foot, initial encounter for closed fracture (principal); K74.60 Unspecified cirrhosis of liver; B19.10 Unspecified viral hepatitis B without hepatic coma; I25.10 Atherosclerotic heart disease of native coronary artery without angina pectoris; Z87.891 Personal history of nicotine dependence; X58.XXXA Exposure to other specified factors, initial encounter
CPT/HCPCS: 73630; 99283

== ENCOUNTER 2023-10-26 16:53 | Emergency (ER) | payer MEDICAID, SELFPAY ==
[2023-10-26 16:54] VITALS: BP 133/90; PULSE 101; RESP 18; TEMP 36.8; O2SAT 98; BMI 31.1
--- NOTE | 2023-10-26 16:57 | EKG12_ITS ---
Test Reason : CHEST PAIN Blood Pressure : / mmHG Vent. Rate : 100 BPM Atrial Rate : 100 BPM P-R Int : 148 ms QRS Dur : 080 ms QT Int : 342 ms P-R-T Axes : 028 -16 029 degrees QTc Int : 441 ms Normal sinus rhythm Normal ECG Confirmed by ANDREEA URIAS MD ([id number]), scientific publications editor KIRA WRIGHT ([id number]) on 11/02/2023 8:18:15 AM Referred By: AR Confirmed By:ANDREEA URIAS MD
--- NOTE | 2023-10-26 17:19 | ED.VIS.CHEST ---
HPI History of Present Illness Chief Complaint: Chest Pain Informant: patient Onset/Context/Timing Onset: Days Activity at onset: gradual Timing: Intermittent Quality: Positive for Sharp and Stabbing Location: Substernal and Left Chest Current Severity: Gone Maximum Severity: Mild Worsened By: Nothing Relieved By: Nothing Associated Symptoms: Positive for Dyspnea; Negative for Vomiting Narrative Narrative: 63-year-old male history of CAD, cardiomyopathy hepatitis induced cirrhosis prior DVT in his left leg. Patient states he has had intermittent chest pain last 3 days. Off-and-on. Not associated with exertion. Mild shortness of breath. No nausea. Describes a sharp pain that comes and goes. No leg pain or swelling. States he had a heart cath several years ago which was negative. No recent travel, surgery or immobilization. No hemoptysis. Prior Similar Symptoms: No Recent Illness/Hospitalization: No CVD Risk Factors: Positive for Smoking; Negative for Hypertension, Diabetes, Hypercholesterolemia or Family History 1' </=55 PE Risk Factors: Positive for Prior DVT or PE; Negative for Recent Travel/Surgery, Recent Immobilization or OCP + Smoking + >/=35 TAD Risk Factors: Negative for Marfan's Syndrome [facility] Medical History Atherosclerosis of coronary artery of [place] heart without angina pectoris Cardiomyopathy Chest pain Chest pain Cirrhosis of liver due to hepatitis B Dyslipidemia Essential hypertension History of foot fracture Suicidal ideation (~03/27/19) Home Medications entecavir 1 mg tablet 1 mg PO DAILY@0600 hep B 11/19/19 [History Last Taken Unknown] metoprolol tartrate 25 mg tablet 12.5 mg PO BID Check with primary doctor 11/19/19 [History Last Taken Unknown] rifaximin 550 mg tablet 550 mg PO BID brain health 11/19/19 [History Last Taken Unknown] folic acid 1 mg tablet 1 mg PO DAILY supplement 11/20/19 [History Last Taken Unknown] thiamine mononitrate (vit B1) 100 mg tablet 100 mg PO TID Check with primary doctor 11/20/19 [History Last Taken Unknown] amitriptyline 10 mg tablet 10 mg PO QHS 12/03/19 [History Last Taken Unknown] atorvastatin 20 mg tablet 20 mg PO QHS 12/03/19 [History Last Taken Unknown] hyoscyamine sulfate 0.125 mg tablet 0.25 mg PO Q8 12/03/19 [History Last Taken Unknown] zinc sulfate 50 mg zinc (220 mg) capsule 220 mg PO DAILY 12/03/19 [History Last Taken Unknown] lactulose 10 gram/15 mL (15 mL) oral solution 10 gm PO TID 12/11/19 [History Last Taken Unknown] naproxen 500 mg tablet 500 mg PO BID PRN #20 tabs 12/11/20 [Rx Last Taken Unknown] methocarbamol 500 mg tablet 500 mg PO Q6H PRN Muscle pain/spasm #56 tabs 08/22/21 [Rx Last Taken Unknown] oxycodone-acetaminophen 5 mg-325 mg tablet (Endocet) 1 tab PO Q6H PRN pain 3 days #12 tabs 08/22/21 [Rx Last Taken Unknown] hydrocodone-acetaminophen 5-325mg 5mg-325mg 1 tab PO Q6H PRN PRN Pain 3 days #10 TABLETS 07/15/22 [Rx Last Taken Unknown] walking boot #1 ea 07/15/22 [Rx Last Taken Unknown] Allergy/AdvReac Type Severity Reaction Status Date / Time No Known Allergies Allergy Verified 10/26/23 16:54 Family History Mother Diabetes Hypertension CVA (cerebral vascular accident) Surgical History History of left heart catheterization Social History Smoking Status: Current every day smoker tobacco type: cigarettes how long ago did patient quit smokin months ago second hand exposure: No alcohol intake: never substance use type: does not use caffeine: Yes Type: carbonated beverages and coffee Number of servings: 1 ROS ROS ED ROS Narrative Chest pain. No recent illness. No hemoptysis. Review of Systems ROS Unobtainable: Denies due to encephalopathy Constitutional Constitutional ED: Denies chills or fever(s) Eyes Eyes: Denies none ENT ENT ED: Denies ear pain Cardiovascular Cardiovascular: Reports as per HPI and chest pain; Denies palpitations Respiratory/Chest Respiratory/Chest: Reports dyspnea; Denies cough Gastrointestinal Gastrointestinal: Denies abdominal pain Genitourinary Genitourinary ED: Denies dysuria or hematuria Musculoskeletal Musculoskeletal: Denies arthralgias or back pain Integumentary Denies abscess or Abrasions Neurologic Neurologic: Denies headache(s) Psychiatric Psychiatric: Denies anxiety or depression Endocrine Endocrinology: Denies cold intolerance Hematologic/Lymphatic Hematologic/Lymphatic: Denies easy bleeding Allergic/Immunologic Allergic/Immunologic ED: Denies mouth swelling, tongue swelling or urticaria EXAM Physical Exam Narrative Exam Narrative: 63-year-old male vital signs stable afebrile. Pulse ox 98% room air no hypoxia. H EENT exam unremarkable. Neck nontender. Lungs clear to auscultation bilaterally. Heart regular rate and rhythm no murmur. Chest wall nontender. Abdomen soft nontender. Moving all 4 extremities. Calves are nontender without edema or cords. Neurologically is awake and alert with no focal motor deficits. Const Vital Signs: 10/26/23 16:54 10/26/23 16:57 10/26/23 16:57 Temperature 98.3 F Temperature Source Temporal Pulse Rate 101 H Respiratory Rate 18 Respiratory Effort Short of Breath Blood Pressure 133/90 H Blood Pressure Mean 104 Pulse Ox 98 Oxygen Delivery Method Room Air Room Air 10/26/23 17:53 Temperature Temperature Source Pulse Rate 97 Respiratory Rate 18 Respiratory Effort Blood Pressure 118/73 Blood Pressure Mean 88 Pulse Ox 96 Oxygen Delivery Method Room Air Positive well nourished and well developed; Negative for obese, cachectic, contractures or unkempt General Appearance ED: well developed and NAD; Negative for unkempt, cachectic, contractures or pallor Nutritional Appearance: Negative for cachectic or obese HEENT Reports moist mucous membranes normocephalic and atraumatic; Negative for trauma or tenderness Eyes PERRL and EOMs intact bilaterally General Eye ED: Negative for pale conjunctiva or scleral icterus Neck no lymphadenopathy, supple and no JVD General: Negative for tenderness Chest Wall inspection of chest normal and palpation of chest normal Chest: Negative for tenderness Resp normal respiratory effort and clear to auscultation bilaterally Effort and Inspection: Negative for respiratory distress Auscultation: Negative for rales, rhonchi, wheezes or diminished lung sounds Cardio regular rate, regular rhythm, S1 normal heart sound, S2 normal heart sound and no murmurs Rate: Negative for bradycardia or tachycardic Rhythm: Negative for abnormal rhythm Peripheral Pulses: pulses 2+ throughout GI normal to inspection, nondistended, normoactive bowel sounds, soft to palpation, non-tender and non-distended Back/Spine no CVA tenderness and no thoracic nor lumbar tenderness General Back: Negative for CVA tenderness Cervical Spine: Negative for cervical spine tenderness Extremity normal to inspection General Extremety ED: Negative for edema, pulses abnormal or tenderness General Extremity: Negative for edema or pulses abnormal Neuro oriented x3 and CN's II-XII intact bilaterally Sensorium / Orientation: awake, alert, oriented to person, oriented to place and oriented to time; Negative for confused, lethargic or stuporous Motor Exam: strength 5/5 throughout Psych mental status grossly normal Appearance: Negative for unkempt Attitude: No agitated Mood & Affect: Negative for depressed, anxious or tearful Skin no rashes or lesions noted and no wounds General Skin Exam: Negative for jaundice or pallor Rashes: No rashes noted Trauma: Negative for abrasion or laceration Heart Score History: Slightly/Non-Suspicious ECG: Normal Age: >45 - <65 years Risk Factors: 1 or 2 Risk Factors Troponin: </= Normal Limit Score: 2 MDM MDM MDM Narrative Medical decision making narrative: 63-year-old male no cardiac history of prior DVT but that was 10 to 15 years ago. With atypical intermittent chest pain. Not reproducible. Cardiac workup and a D-dimer. Exam is benign. Repeat exam patient doing well at 7:05 PM. Awaiting second troponin. He and I went over his test results. As always a second troponin is not elevated he will be discharged home with outpatient follow-up. History & Record Review Discussion w/independent historian: Patient Additional record(s) reviewed:: Prior inpatient record, Prior outpatient record, Prior ED visit, Prior labs and No prior records Lab Data Attestation: I reviewed the patient's lab results. Lab results narrative: CBC unremarkable. White count 8 H&H of 15 and 44. Platelets 160. D-dimer negative at 0.33 Chemistries show a gap of 2 BUN of 31 creatinine 1.1. Initial troponin 8. Chest x-ray chronic changes no acute process. Labs: Laboratory Results - last 24 hr 10/26/23 10/26/23 17:31 17:35 WBC 8.1 RBC 4.65 Hgb 15.0 Hct 44.5 MCV 95.7 H MCH 32.3 H MCHC 33.7 RDW Std Deviation 45.1 H RDW Coeff of Jacinto 12.8 Plt Count 160 MPV 12.0 Immature Gran % (Auto) 0.400 Neut % (Auto) 63.7 Lymph % (Auto) 20.1 [place] % (Auto) 12.7 H Eos % (Auto) 1.6 Baso % (Auto) 1.5 H Absolute Neuts (auto) 5.2 Absolute Lymphs (auto) 1.63 Nucleated RBC % 0 D-Dimer Quant (PE/DVT) 0.33 Sodium 140 Potassium 4.1 Chloride 111 H Carbon Dioxide 27.0 Anion Gap 2 L BUN 31 H Creatinine 1.18 Estim Creat Clear Calc 70.02 Est GFR (MDRD) Af Amer 81 Est GFR (MDRD) Non-Af 67 BUN/Creatinine Ratio 26.3 H Glucose 105 Calcium 8.9 Troponin I High Sens 8 Radiography Chest X-Ray - ED: 1 View, Read by ED Physician, Normal, Heart, Lungs, Mediastinum, Bony Structures and No Acute Disease Diagnostic Testing: Clinical Impression(s) from Imaging Studies Chest X-Ray 10/26/23 17:34 IMPRESSION: No acute radiographic abnormalities. Electronically Signed: Venancio Chino MD at 17:46 EST , Chest x-ray, portable, single view, interpreted by myself shows no acute process. Normal cardiac silhouette. Normal mediastinum. Normal lung butler. Chronic changes. Rhythm Strip Rhythm Strip: Sinus Rhythm Rate: 100 Ectopy: None EKG Initial EKG: Attestation: I personally reviewed and interpreted this EKG as follows: Interpretation: Sinus Rhythm and No Acute Injury Pattern Comments: Sinus rhythm rate of 100 no acute signs of UT or ischemia. Discharge Plan Triage Chief Complaint: Chest Pain ED Provider: Darryn Santiago Dx/Rx/DC Orders Prescriptions: No Action metoprolol tartrate 25 MG tablet 12.5 mg PO BID entecavir 1 MG tablet 1 mg PO DAILY@0600 rifaximin 550 MG tablet 550 mg PO BID folic acid 1 MG tablet 1 mg PO DAILY thiamine mononitrate (vit B1) 100 MG tablet 100 mg PO TID atorvastatin 20 MG tablet 20 mg PO QHS amitriptyline 10 MG tablet 10 mg PO QHS hyoscyamine sulfate 0.125 MG tablet 0.25 mg PO Q8 zinc sulfate 220 MG capsule 220 mg PO DAILY lactulose 10 GM/15 ML solution 10 gm PO TID naproxen 500 MG tablet 500 mg PO BID PRN Qty: 20 0RF methocarbamol 500 mg tablet 500 mg PO Q6H PRN (Reason: Muscle pain/spasm) Qty: 56 0RF oxycodone-acetaminophen [Endocet] 5-325 mg tablet 1 tab PO Q6H PRN (Reason: pain) 3 Days Qty: 12 0RF hydrocodone-acetaminophen [hydrocodone-acetaminophen] 5-325 mg tablet 1 tab PO Q6H PRN PRN (Reason: Pain) 3 Days Qty: 10 0RF (DME) walking boot large See Rx Instructions .Route .MEDSUPPLY Qty: 1 0RF Rx Instructions: As directed Primary Care Provider: Yassine Alberto Referrals: Yassine Alberto MD [Primary Care Provider] -
--- NOTE | 2023-10-26 17:34 | RAD_ITS ---
INDICATION: chest pain EXAMINATION/TECHNIQUE: X-RAY - XR Chest 1 View COMPARISON: 12/27/2019. FINDINGS: The lungs are clear. Tortuous and calcified thoracic aorta. The heart is not enlarged. No pleural effusion or pneumothorax. No acute osseous abnormalities. RAD/Chest 1 View (Portable) IMPRESSION: No acute radiographic abnormalities. Electronically Signed: Venancio Chino MD at 17:46 EST ,
[2023-10-26 17:53] VITALS: BP 118/73; PULSE 97; RESP 18; O2SAT 96
[2023-10-26 17:56] LABS: Absolute Lymphocyte Count 1.63 X10^3/uL (0.83-4.51); Absolute Neutrophil Count 5.2 X10^3/uL (2.0-7.7); Basophil# 0.12 X10^3/uL; Basophil% 1.5 % (0-1); Eosinophil# 0.13 X10^3/uL; Eosinophils% 1.6 % (0-5); Hematocrit 44.5 % (40-54); Lymphocyte # 1.63 X10^3/ul (0.83-4.51); Lymphocyte % 20.1 % (19-41); Mean Corp Hgb Conc 33.7 g/dL (32-36); Mean Corpuscular Hgb 32.3 pg (27.0-32.0); Mean Corpuscular Volume 95.7 fL (80-94); Monocyte# 1.03 X10^3/uL; Monocyte% 12.7 % (0-10); NRBC Flagged by Analyzer 0 % (0-5); Neutrophil # 5.15 X10^3/uL (2.7-7.7); Neutrophil % 63.7 % (47-70); Platelet Count 160 K/mm3 (150-450); RBC Distribution Width CV 12.8 % (11.6-14.6); RBC Distribution Width SD 45.1 fl (35.1-43.9); Red Blood Count 4.65 M/mm3 (4.6-6.2); White Blood Count 8.1 K/mm3 (4.4-11.0)
[2023-10-26 17:57] LABS: D-Dimer Quantitative (DVT/PE) 0.33 FEU/ug/m (0.27-0.49)
[2023-10-26 18:09] LABS: Anion Gap 2 (5-15); BUN 31 mg/dL (7-18); BUN/Creat Ratio 26.3 RATIO (10-20); Calcium,Total 8.9 mg/dL (8.5-10.1); Chloride 111 mmol/L (98-107); Creatinine, Serum 1.18 mg/dL (0.70-1.30); EST Glomerular Filtration Rate 67 mL/min (>60); Est Glom Filt Rate - Afr Amer 81 mL/min (>60); Estimated Creatinine Clearance 70.02 ml/min; Glucose 105 mg/dL (74-106); Potassium 4.1 mmol/L (3.5-5.1); Sodium Level 140 mmol/L (136-145); Troponin-I HS (w/2H Reflex) 8 pg/mL (3.0-78.0)
[2023-10-26 19:00] VITALS: BP 152/98; PULSE 93; RESP 14; O2SAT 96
[2023-10-26 19:49] LABS: Reflex Troponin-HS? (from REC) Y
[2023-10-26 20:39] LABS: Troponin-I HS 9 pg/mL (3.0-78.0)
[2023-10-26 21:15] VITALS: BP 152/98; PULSE 93; RESP 14; O2SAT 96
== END 2023-10-26 21:15 | disposition home or self-care (01) ==
LOC: ED 18:17
PROVIDERS: Emergency Provider Emergency Medicine; PCP Family Medicine; Visit Provider Emergency Medicine
DX: R07.9 Chest pain, unspecified (principal); I25.10 Atherosclerotic heart disease of native coronary artery without angina pectoris; F17.210 Nicotine dependence, cigarettes, uncomplicated; Z86.718 Personal history of other venous thrombosis and embolism
CPT/HCPCS: 71045; 80048; 84484; 85025; 85379; 93005; 99284; A4216

== ENCOUNTER 2024-01-04 10:15 | Emergency (ER) | payer MEDICAID, SELFPAY ==
[2024-01-04 10:16] VITALS: BP 102/79; PULSE 96; RESP 18; TEMP 37.2; O2SAT 99; BMI 28.8
--- NOTE | 2024-01-04 11:25 | CT_ITS ---
STUDY: CT ABDOMEN AND PELVIS WITH CONTRAST REASON FOR EXAM: Male, 63 years old. Abdominal pain RADIATION DOSAGE (If Supplied By Facility): CTDIvol = ( 14.11 ) mGy, DLP = ( 987.38 ) mGycm TECHNIQUE: IV 100mL Isovue-300 was administered. Transaxial images were obtained from the dome of the diaphragm to the symphysis pubis. Multiplanar coronal and sagittal images were reformatted. Individualized Dose Optimization Techniques Were Used For This CT. COMPARISON: Prior study dated: 11/20/2019 FINDINGS: The visualized lung bases are unremarkable. The visualized portions of the heart are within normal limits. There is a diffuse contour abnormality of the liver consistent with cirrhotic changes. Collateral veins are again seen consistent with portal venous hypertension. Gallstone is again seen. Normal spleen size. Adjacent splenule. Normal pancreas. Normal bilateral adrenal glands. Normal right kidney. Normal left kidney. Severely distended stomach. Nonspecific fluid-filled small bowel loops without evidence of bowel obstruction. Mild diverticulosis without evidence of acute diverticulitis. The appendix is visualized and appears normal. There is mild atherosclerotic calcification of the abdominal aorta, without a demonstrated aneurysm. No retroperitoneal adenopathy. Mild circumferential thickening of the bladder wall probably due to underdistention. Small umbilical hernia containing fat. Degenerative changes in the lower lumbar spine. CT/Abdomen/Pelvis W IV Cont ONLY IMPRESSION: 1. Cirrhosis of the liver and portal venous hypertension unchanged. 2. Markedly distended stomach. 3. Nonspecific fluid-filled small bowel loops without evidence of bowel obstruction. Enteritis or a cyst possible. 4. Gallstone unchanged. Electronically Signed: Rajendra Weir MD at 12:53 EST ,
--- NOTE | 2024-01-04 11:31 | EDS_ITS ---
HPI History of Present Illness Chief Complaint: Abd Pain Detail of Chief Complaint: Abdominal pain, vomiting, diarrhea Informant: patient Onset/Context/Timing Onset: Today Narrative Narrative: Patient presents secondary to upper abdominal pain, vomiting, and diarrhea that started this morning. He denies blood in his stool. No fever or chills. [facility] Medical History (Updated 01/04/24 @ 15:[address] Lesly Kaye MD) Atherosclerosis of coronary artery of [place] heart without angina pectoris Cardiomyopathy Chest pain Cirrhosis of liver due to hepatitis B Diverticulitis Dyslipidemia Essential hypertension History of foot fracture Suicidal ideation (~03/27/19) Home Medications entecavir 1 mg tablet 1 mg PO DAILY@0600 hep B 11/19/19 [History Last Taken Unknown] metoprolol tartrate 25 mg tablet 12.5 mg PO BID Check with primary doctor 11/19/19 [History Last Taken Unknown] rifaximin 550 mg tablet 550 mg PO BID brain health 11/19/19 [History Last Taken Unknown] folic acid 1 mg tablet 1 mg PO DAILY supplement 11/20/19 [History Last Taken Unknown] thiamine mononitrate (vit B1) 100 mg tablet 100 mg PO TID Check with primary doctor 11/20/19 [History Last Taken Unknown] amitriptyline 10 mg tablet 10 mg PO QHS 12/03/19 [History Last Taken Unknown] atorvastatin 20 mg tablet 20 mg PO QHS 12/03/19 [History Last Taken Unknown] hyoscyamine sulfate 0.125 mg tablet 0.25 mg PO Q8 12/03/19 [History Last Taken Unknown] zinc sulfate 50 mg zinc (220 mg) capsule 220 mg PO DAILY 12/03/19 [History Last Taken Unknown] lactulose 10 gram/15 mL (15 mL) oral solution 10 gm PO TID 12/11/19 [History Last Taken Unknown] naproxen 500 mg tablet 500 mg PO BID PRN #20 tabs 12/11/20 [Rx Last Taken Unknown] methocarbamol 500 mg tablet 500 mg PO Q6H PRN Muscle pain/spasm #56 tabs 08/22/21 [Rx Last Taken Unknown] oxycodone-acetaminophen 5 mg-325 mg tablet (Endocet) 1 tab PO Q6H PRN pain 3 days #12 tabs 08/22/21 [Rx Last Taken Unknown] hydrocodone-acetaminophen 5-325mg 5mg-325mg 1 tab PO Q6H PRN PRN Pain 3 days #10 TABLETS 07/15/22 [Rx Last Taken Unknown] walking boot #1 ea 07/15/22 [Rx Last Taken Unknown] dicyclomine 20 mg tablet 20 mg PO TID PRN abdominal pain #14 tabs 01/04/24 [Rx Last Taken Unknown] ondansetron 4 mg disintegrating tablet 4 mg PO Q8H PRN PRN Nausea #10 tabs 01/04/24 [Rx Last Taken Unknown] Allergy/AdvReac Type Severity Reaction Status Date / Time No Known Allergies Allergy Verified 01/04/24 10:15 Family History Mother Diabetes Hypertension CVA (cerebral vascular accident) Surgical History History of left heart catheterization Social History Smoking Status: Current every day smoker tobacco type: cigarettes how long ago did patient quit smokin months ago second hand exposure: No alcohol intake: never substance use type: does not use caffeine: Yes Type: carbonated beverages and coffee Number of servings: 1 ROS ROS ED Constitutional Constitutional ED: Denies chills or fever(s) Eyes Eyes: Denies change in vision or discharge from eye(s) ENT ENT ED: Denies discharge from eye(s), rhinorrhea or sore throat Cardiovascular Cardiovascular: Denies chest pain or palpitations Respiratory/Chest Respiratory/Chest: Denies cough or dyspnea Gastrointestinal Gastrointestinal: Reports abdominal pain, diarrhea, nausea and vomiting Genitourinary Genitourinary ED: Denies dysuria Musculoskeletal Musculoskeletal: Denies back pain or extremity pain Integumentary Denies Abrasions or rash Neurologic Neurologic: Denies headache(s) or weakness Allergic/Immunologic Allergic/Immunologic ED: Denies lip swelling or urticaria EXAM Physical Exam Const Vital Signs: 01/04/24 10:16 01/04/24 12:32 Temperature 99 F Temperature Source Temporal Pulse Rate 96 81 Respiratory Rate 18 18 Blood Pressure 102/79 108/70 Blood Pressure Mean 86 82 Pulse Ox 99 97 Oxygen Delivery Method Room Air Room Air Positive well nourished and well developed General Appearance ED: well developed HEENT Reports moist mucous membranes Eyes EOMs intact bilaterally Chest Wall inspection of chest normal and palpation of chest normal Resp normal respiratory effort and clear to auscultation bilaterally Cardio regular rate and regular rhythm GI GI Narrative: Moderate diffuse tenderness to palpation. Active bowel sounds are noted. Extremity normal to inspection Neuro oriented x3 and no sensory deficits noted Motor Exam: strength 5/5 throughout Psych mental status grossly normal Skin no rashes or lesions noted MDM MDM MDM Narrative Medical decision making narrative: IV line established. Patient given Zofran and Bentyl for nausea and pain. Labwork obtained to evaluate for leukocytosis, anemia, and electrolyte derangement. CT scan of the abdomen pelvis obtained to evaluate for potential cholecystitis, pancreatitis, colitis. History & Record Review Discussion w/independent historian: Patient Additional record(s) reviewed:: Prior labs Lab Data Attestation: I reviewed the patient's lab results. Labs: Laboratory Results - last 24 hr 01/04/24 11:40 WBC 10.8 RBC 5.72 Hgb 18.8 H* Hct 54.6 H MCV 95.5 H MCH 32.9 H MCHC 34.4 RDW Std Deviation 47.5 H RDW Coeff of Jacinto 13.6 Plt Count 160 MPV 11.3 Immature Gran % (Auto) 0.500 Neut % (Auto) 94.6 H Lymph % (Auto) 1.2 L [place] % (Auto) 3.1 Eos % (Auto) 0.2 Baso % (Auto) 0.4 Absolute Neuts (auto) 10.2 H Absolute Lymphs (auto) 0.13 L Nucleated RBC % 0 Differential Comment COMMENT Diff Path Review May foll Sodium 137 Potassium 5.1 Chloride 105 Carbon Dioxide 25.0 Anion Gap 7 BUN 54 H Creatinine 1.87 H Estim Creat Clear Calc 49.90 Est GFR (MDRD) Af Amer 47 L Est GFR (MDRD) Non-Af 39 L BUN/Creatinine Ratio 28.9 H Glucose 177 H Calcium 9.4 Total Bilirubin 1.30 H Direct Bilirubin 0.32 H AST 35 ALT 36 Alkaline Phosphatase 143 H Total Protein 8.2 Albumin 4.2 Globulin 4.0 Lipase 32 Radiography Diagnostic Testing: Clinical Impression(s) from Imaging Studies Abdomen/Pelvis CT 01/04/24 11:25 IMPRESSION: 1. Cirrhosis of the liver and portal venous hypertension unchanged. 2. Markedly distended stomach. 3. Nonspecific fluid-filled small bowel loops without evidence of bowel obstruction. Enteritis or a cyst possible. 4. Gallstone unchanged. Electronically Signed: Rajendra Weir MD at 12:53 EST , Treatment and Re-Evaluation :: CBC was a white count of 10.8 with 94% neutrophils. Hemoglobin is concentrated at 18.8. Chemistry studies reveal a BUN of 54 and a creatinine 1.87. Previous creatinine was 1.18 in late October. Glucose is 177. LFTs significant only for an alk phos of 143. CT scan with IV contrast obtained. He has evidence of cirrhosis with portal venous hypertension. He has a distended stomach and nonspecific fluid-filled small bowel loops. No evidence of obstruction. Patient's history and exam findings are most consistent with gastroenteritis. Katy rodriguez has received 2 L of IV fluid here for hydration. He is tolerating p.o. without difficulty. He will be given prescription for Zofran as well as Bentyl. Return instructions given. Discharge Plan Triage Chief Complaint: Abd Pain ED Provider: Lesly Kaye Dx/Rx/DC Orders Clinical Impression: Gastroenteritis, Dehydration Instructions: ED Dehydration (Adult), ED Gastroenteritis, Viral (Adult) Prescriptions: New ondansetron 4 mg tablet,disintegrating 4 mg PO Q8H PRN PRN (Reason: Nausea) Qty: 10 0RF dicyclomine 20 mg tablet 20 mg PO TID PRN (Reason: abdominal pain) Qty: 14 0RF No Action metoprolol tartrate 25 MG tablet 12.5 mg PO BID entecavir 1 MG tablet 1 mg PO DAILY@0600 rifaximin 550 MG tablet 550 mg PO BID folic acid 1 MG tablet 1 mg PO DAILY thiamine mononitrate (vit B1) 100 MG tablet 100 mg PO TID atorvastatin 20 MG tablet 20 mg PO QHS amitriptyline 10 MG tablet 10 mg PO QHS hyoscyamine sulfate 0.125 MG tablet 0.25 mg PO Q8 zinc sulfate 220 MG capsule 220 mg PO DAILY lactulose 10 GM/15 ML solution 10 gm PO TID naproxen 500 MG tablet 500 mg PO BID PRN Qty: 20 0RF methocarbamol 500 mg tablet 500 mg PO Q6H PRN (Reason: Muscle pain/spasm) Qty: 56 0RF oxycodone-acetaminophen [Endocet] 5-325 mg tablet 1 tab PO Q6H PRN (Reason: pain) 3 Days Qty: 12 0RF hydrocodone-acetaminophen [hydrocodone-acetaminophen] 5-325 mg tablet 1 tab PO Q6H PRN PRN (Reason: Pain) 3 Days Qty: 10 0RF (DME) walking boot large See Rx Instructions .Route .MEDSUPPLY Qty: 1 0RF Rx Instructions: As directed Primary Care Provider: Yassine Alberto Referrals: Yassine Alberto MD [Primary Care Provider] - 1 Week Disposition Disposition: Home, Self Care
[2024-01-04] MEDS: 0.9% Normal Saline (1000mL) 1,000 ML 1000 ML IV (11:46)
[2024-01-04] MEDS: Dicyclomine 20 MG/2 ML Vial IM (11:46)
[2024-01-04] MEDS: Ondansetron 4 MG/2 ML Vial IV (11:46)
[2024-01-04 11:49] LABS: Absolute Lymphocyte Count 0.13 X10^3/uL (0.83-4.51); Absolute Neutrophil Count 10.2 X10^3/uL (2.0-7.7); Basophil# 0.04 X10^3/uL; Basophil% 0.4 % (0-1); Eosinophil# 0.02 X10^3/uL; Eosinophils% 0.2 % (0-5); Hematocrit 54.6 % (40-54); Lymphocyte # 0.13 X10^3/ul (0.83-4.51); Lymphocyte % 1.2 % (19-41); Mean Corp Hgb Conc 34.4 g/dL (32-36); Mean Corpuscular Hgb 32.9 pg (27.0-32.0); Mean Corpuscular Volume 95.5 fL (80-94); Mean Platelet Vol. 11.3 fl (6.2-12.0); Monocyte# 0.34 X10^3/uL; Monocyte% 3.1 % (0-10); NRBC Flagged by Analyzer 0 % (0-5); Neutrophil # 10.22 X10^3/uL (2.7-7.7); Neutrophil % 94.6 % (47-70); POSITIVE DIFFERENTIAL YES; Platelet Count 160 K/mm3 (150-450); RBC Distribution Width CV 13.6 % (11.6-14.6); RBC Distribution Width SD 47.5 fl (35.1-43.9); Red Blood Count 5.72 M/mm3 (4.6-6.2); White Blood Count 10.8 K/mm3 (4.4-11.0)
[2024-01-04 11:57] LABS: Differential Indicated SCAN CRITERIA MET; Hemoglobin 18.8 g/dL (13.0-16.5)
[2024-01-04 12:10] LABS: AST(SGOT) 35 U/L (15-37); Alanine Aminotransfer ALT/SGPT 36 U/L (16-61); Albumin, Serum 4.2 g/dL (3.2-5.0); Alkaline Phosphatase 143 U/L (45-117); Anion Gap 7 (5-15); BUN 54 mg/dL (7-18); BUN/Creat Ratio 28.9 RATIO (10-20); Bilirubin, Direct 0.32 mg/dL (0.00-0.30); Calcium,Total 9.4 mg/dL (8.5-10.1); Chloride 105 mmol/L (98-107); Creatinine, Serum 1.87 mg/dL (0.70-1.30); EST Glomerular Filtration Rate 39 mL/min (>60); Est Glom Filt Rate - Afr Amer 47 mL/min (>60); Glucose 177 mg/dL (74-106); Lipase 32 U/L (13-75); Potassium 5.1 mmol/L (3.5-5.1); Protein, Total 8.2 g/dL (6.4-8.2); Sodium Level 137 mmol/L (136-145)
[2024-01-04 12:32] VITALS: BP 108/70; PULSE 81; RESP 18; O2SAT 97
[2024-01-04] MEDS: 0.9% Normal Saline (1000mL) 1,000 ML 999 ML IV (13:19)
[2024-01-04 15:49] VITALS: BP 149/95; PULSE 79; RESP 18; TEMP 35.7; O2SAT 100
[2024-01-07 08:45] LABS: Pathologist Review Reviewed
== END 2024-01-04 15:50 | disposition home or self-care (01) ==
PROVIDERS: Emergency Provider Emergency Medicine; PCP Family Medicine; Visit Provider Emergency Medicine
DX: K52.9 Noninfective gastroenteritis and colitis, unspecified (principal); E86.0 Dehydration; F17.210 Nicotine dependence, cigarettes, uncomplicated; I25.10 Atherosclerotic heart disease of native coronary artery without angina pectoris
CPT/HCPCS: 74177; 80048; 80076; 83690; 85025; 96361; 96372; 96374; 99283; J7030; Q9967; J2405

== ENCOUNTER 2024-01-23 12:33 | Emergency (ER) | payer MEDICAID, SELFPAY ==
[2024-01-23 12:33] VITALS: BP 131/102; PULSE 105; RESP 18; TEMP 35.8; O2SAT 97; BMI 29.1
--- NOTE | 2024-01-23 13:13 | ED.VIS.LOWEX ---
HPI History of Present Illness Chief Complaint: Lower Extremity Injury Informant: patient Narrative Narrative: Patient presents saying he has chronic pain in his right foot for the past 7 years, he broke it, pointing to the base of the fifth metatarsal, and states it was plated but then the plate broke and then he got shuffled around and still cannot get care for it. He is not sure who he has seen and newly has not but he is looking for referral to someone that he has not seen who may be able to help him. He states the [facility] was sending him to [place] and other places that are far away from here, where he lives. He presents here to the ER on Wednesday, asking for something for pain to help him get through as well. He denies any new symptoms such as a new injury, or fevers, redness. He points to the lateral aspect of the talus and states he has some pain there as well. All of this is chronic. [facility] Medical History Atherosclerosis of coronary artery of [place] heart without angina pectoris Cardiomyopathy Chest pain Cirrhosis of liver due to hepatitis B Diverticulitis Dyslipidemia Essential hypertension History of foot fracture Suicidal ideation (~03/27/19) Home Medications entecavir 1 mg tablet 1 mg PO DAILY@0600 hep B 11/19/19 [History Last Taken Unknown] metoprolol tartrate 25 mg tablet 12.5 mg PO BID Check with primary doctor 11/19/19 [History Last Taken Unknown] rifaximin 550 mg tablet 550 mg PO BID brain health 11/19/19 [History Last Taken Unknown] folic acid 1 mg tablet 1 mg PO DAILY supplement 11/20/19 [History Last Taken Unknown] thiamine mononitrate (vit B1) 100 mg tablet 100 mg PO TID Check with primary doctor 11/20/19 [History Last Taken Unknown] amitriptyline 10 mg tablet 10 mg PO QHS 12/03/19 [History Last Taken Unknown] atorvastatin 20 mg tablet 20 mg PO QHS 12/03/19 [History Last Taken Unknown] hyoscyamine sulfate 0.125 mg tablet 0.25 mg PO Q8 12/03/19 [History Last Taken Unknown] zinc sulfate 50 mg zinc (220 mg) capsule 220 mg PO DAILY 12/03/19 [History Last Taken Unknown] lactulose 10 gram/15 mL (15 mL) oral solution 10 gm PO TID 12/11/19 [History Last Taken Unknown] naproxen 500 mg tablet 500 mg PO BID PRN #20 tabs 12/11/20 [Rx Last Taken Unknown] methocarbamol 500 mg tablet 500 mg PO Q6H PRN Muscle pain/spasm #56 tabs 08/22/21 [Rx Last Taken Unknown] walking boot #1 ea 07/15/22 [Rx Last Taken Unknown] dicyclomine 20 mg tablet 20 mg PO TID PRN abdominal pain #14 tabs 01/04/24 [Rx Last Taken Unknown] ondansetron 4 mg disintegrating tablet 4 mg PO Q8H PRN PRN Nausea #10 tabs 01/04/24 [Rx Last Taken Unknown] oxycodone 5 mg tablet 5 mg PO Q6H PRN pain 2 days #8 tabs 01/23/24 [Rx Last Taken Unknown] Allergy/AdvReac Type Severity Reaction Status Date / Time No Known Allergies Allergy Verified 01/23/24 12:39 Family History Mother Diabetes Hypertension CVA (cerebral vascular accident) Surgical History History of left heart catheterization Social History Smoking Status: Current every day smoker tobacco type: cigarettes how long ago did patient quit smokin months ago second hand exposure: No alcohol intake: never substance use type: does not use caffeine: Yes Type: carbonated beverages and coffee Number of servings: 1 ROS ROS ED Constitutional Constitutional ED: Denies chills or fever(s) Musculoskeletal Musculoskeletal: Reports extremity pain; Denies neck pain Integumentary Denies Abrasions, rash or wounds Neurologic Neurologic: Denies paresthesias or weakness EXAM Physical Exam Const Vital Signs: 01/23/24 12:33 Temperature 96.4 F L Temperature Source Temporal Pulse Rate 105 H Respiratory Rate 18 Blood Pressure 131/102 H Blood Pressure Mean 111 Pulse Ox 97 Oxygen Delivery Method Room Air Positive well nourished and well developed General Appearance ED: well developed and NAD Neck full ROM and supple Back/Spine normal ROM and normal to inspection Extremity normal to inspection Extremity Narrative: Antalgic gait but able. Tender at the base of the fifth metatarsal there is no overlying wounds or cellulitis. Mildly tender lateral aspect of the talus, there is no swelling or redness there either. Nontender at the ankle otherwise. Neurovascular intact distally. Neuro oriented x3, no focal motor deficits and no sensory deficits noted Sensorium / Orientation: alert Psych mental status grossly normal and thought process normal Skin no wounds Rashes: no rashes MDM MDM MDM Narrative Medical decision making narrative: I reviewed some old records as well as an [place] report. Seems he was here July before last, doctor documented that he had an acute injury and appear to have an acute fracture. He was given a prescription for [place] which is the only prescription on the [place] report noted. He has a history of cirrhosis, so I would prefer not given him acetaminophen, I will give him a one-time prescription for oxycodone and referral to podiatry locally. I did review the x-rays from 07/2022, consistent with a [place] fracture my interpretation. History & Record Review Additional record(s) reviewed:: Prior ED visit and Other (Prior x-ray foot) Discharge Plan Triage Chief Complaint: Lower Extremity Injury ED Provider: Hank Becker Dx/Rx/DC Orders Clinical Impression: Fracture of base of fifth metatarsal bone, Chronic pain in right foot Instructions: Fifth Metatarsal Fx Prescriptions: New oxycodone 5 mg tablet 5 mg PO Q6H PRN (Reason: pain) 2 Days Qty: 8 0RF Continued metoprolol tartrate 25 MG tablet 12.5 mg PO BID entecavir 1 MG tablet 1 mg PO DAILY@0600 rifaximin 550 MG tablet 550 mg PO BID folic acid 1 MG tablet 1 mg PO DAILY thiamine mononitrate (vit B1) 100 MG tablet 100 mg PO TID atorvastatin 20 MG tablet 20 mg PO QHS amitriptyline 10 MG tablet 10 mg PO QHS hyoscyamine sulfate 0.125 MG tablet 0.25 mg PO Q8 zinc sulfate 220 MG capsule 220 mg PO DAILY lactulose 10 GM/15 ML solution 10 gm PO TID naproxen 500 MG tablet 500 mg PO BID PRN Qty: 20 0RF methocarbamol 500 mg tablet 500 mg PO Q6H PRN (Reason: Muscle pain/spasm) Qty: 56 0RF (DME) walking boot large See Rx Instructions .Route .MEDSUPPLY Qty: 1 0RF Rx Instructions: As directed ondansetron 4 mg tablet,disintegrating 4 mg PO Q8H PRN PRN (Reason: Nausea) Qty: 10 0RF dicyclomine 20 mg tablet 20 mg PO TID PRN (Reason: abdominal pain) Qty: 14 0RF Discontinued oxycodone-acetaminophen [Endocet] 5-325 mg tablet 1 tab PO Q6H PRN (Reason: pain) 3 Days Qty: 12 0RF hydrocodone-acetaminophen [hydrocodone-acetaminophen] 5-325 mg tablet 1 tab PO Q6H PRN PRN (Reason: Pain) 3 Days Qty: 10 0RF Primary Care Provider: Yassine Alberto Referrals: Don Barton DPM [Med Staff - Active Staff] - (call for appt) Disposition Disposition: Home, Self Care
[2024-01-23 13:40] VITALS: BP 143/88; PULSE 92; RESP 14; TEMP 36.8; O2SAT 99
== END 2024-01-23 13:41 | disposition home or self-care (01) ==
PROVIDERS: Emergency Provider Emergency Medicine; PCP Family Medicine; Visit Provider Emergency Medicine
DX: S92.351A Displaced fracture of fifth metatarsal bone, right foot, initial encounter for closed fracture (principal); G89.29 Other chronic pain; M79.671 Pain in right foot; F17.210 Nicotine dependence, cigarettes, uncomplicated; I25.10 Atherosclerotic heart disease of native coronary artery without angina pectoris; X58.XXXA Exposure to other specified factors, initial encounter
CPT/HCPCS: 99282

== ENCOUNTER 2024-05-27 16:10 | Emergency (ER) | payer MEDICAID, SELFPAY ==
[2024-05-27 16:10] VITALS: BP 115/85; PULSE 113; RESP 18; TEMP 36.6; O2SAT 97; BMI 27.2
--- NOTE | 2024-05-27 16:28 | EX.ED.DYSGE1 ---
HPI <VERONICA Menezes - Last Filed: 05/27/24 17:27> History of Present Illness Chief Complaint: Lower Extremity Injury Narrative Narrative: Patient is a 63-year-old male that does not take any medications daily presents to the emergency department with right knee pain. Patient states multiple months ago, he was going down the steps when he heard a pop in the medial aspect of the right knee. Over the last several weeks, has been having worsening pain, and worsening stiffness. He does not have an orthopedic. He is here for evaluation. He has tried [id number] medications however still hurting. PFS <VERONICA Menezes - Last Filed: 05/27/24 17:27> [facility] Medical History Atherosclerosis of coronary artery of [place] heart without angina pectoris Cardiomyopathy Chest pain Cirrhosis of liver due to hepatitis B Diverticulitis Dyslipidemia Essential hypertension History of foot fracture Suicidal ideation (~03/27/19) Home Medications ?Medication ?Instructions ?Recorded ?Last Taken ?Type entecavir 1 mg tablet 1 mg PO DAILY@0600 hep B 11/19/19 Unknown History metoprolol tartrate 25 mg tablet 12.5 mg PO BID Check with primary 11/19/19 Unknown History doctor rifaximin 550 mg tablet 550 mg PO BID brain health 11/19/19 Unknown History folic acid 1 mg tablet 1 mg PO DAILY supplement 11/20/19 Unknown History thiamine mononitrate (vit B1) 100 100 mg PO TID Check with primary 11/20/19 Unknown History mg tablet doctor amitriptyline 10 mg tablet 10 mg PO QHS 12/03/19 Unknown History atorvastatin 20 mg tablet 20 mg PO QHS 12/03/19 Unknown History hyoscyamine sulfate 0.125 mg tablet 0.25 mg PO Q8 12/03/19 Unknown History zinc sulfate 50 mg zinc (220 mg) 220 mg PO DAILY 12/03/19 Unknown History capsule lactulose 10 gram/15 mL (15 mL) 10 gm PO TID 12/11/19 Unknown History oral solution naproxen 500 mg tablet 500 mg PO BID PRN #20 tabs 12/11/20 Unknown Rx methocarbamol 500 mg tablet 500 mg PO Q6H PRN Muscle 08/22/21 Unknown Rx pain/spasm #56 tabs walking boot #1 ea 07/15/22 Unknown Rx dicyclomine 20 mg tablet 20 mg PO TID PRN abdominal pain 01/04/24 Unknown Rx #14 tabs ondansetron 4 mg disintegrating 4 mg PO Q8H PRN PRN Nausea #10 tabs 01/04/24 Unknown Rx tablet oxycodone 5 mg tablet 5 mg PO Q6H PRN pain 2 days #8 tabs 01/23/24 Unknown Rx naproxen 500 mg tablet (Naprosyn) 500 mg PO BID PRN pain #20 tabs 05/27/24 Unknown Rx Allergy/AdvReac Type Severity Reaction Status Date / Time No Known Allergies Allergy Verified 05/27/24 16:10 Family History Mother Diabetes Hypertension CVA (cerebral vascular accident) Surgical History History of left heart catheterization Social History Smoking Status: Current every day smoker tobacco type: cigarettes how long ago did patient quit smokin months ago second hand exposure: No alcohol intake: never substance use type: does not use caffeine: Yes Type: carbonated beverages and coffee Number of servings: 1 ROS <VERONICA Menezes - Last Filed: 05/27/24 17:27> ROS ED ROS Narrative Constitutional: Negative for fever, chills, weight loss, weakness Eyes: Negative for vision loss, vision change, double vision ENT: Negative for any sore throat, ear pain, congestion Cardiovascular: Negative for any chest pain, tightness, palpitations Respiratory: Negative for any cough, sputum production, hemoptysis, dyspnea, dyspnea on exertion, orthopnea Gastrointestinal: Negative for any abdominal pain, nausea, vomiting, diarrhea, constipation, blood in stool, blood in vomit : Negative for any urinary frequency, dysuria, retention, blood in urine Muscle skeletal: Negative for any neck pain, back pain. Positive for right knee pain Neurological: Negative for any headache, syncope, dizziness Skin: Negative for any rashes, itching, abrasions, lacerations Psychiatric: Negative for any depression, anxiety, stress, suicidal ideation, homicidal ideation Hematologic: Negative for any excessive bruising, easy bleeding EXAM <VERONICA Menezes - Last Filed: 05/27/24 17:27> Physical Exam Narrative Exam Narrative: Vital signs reviewed. plenomegaly Extremities: No peripheral edema, no signs of gross trauma or deformity. Active full range of motion of all extremities. Intact extensor mechanism, pain on palpation to the medial aspect, posterior. Is able to flex and extend however flexion causes more discomfort. No neurological focal deficit. No signs of trauma. Neuro: Cranial nerves II through XII intact, no focal neurological deficits. Skin: Clean dry and intact with no rash, purpura, petechiae, vesicles or pustules. Backs/flank: No CVA tenderness, no midline spinal tenderness, no deformity. Psych: Normal mood and affect. No SI, HI or acute psychosis. Const Vital Signs: 05/27/24 16:10 Temperature 97.8 F Temperature Source Temporal Pulse Rate 113 H Respiratory Rate 18 Blood Pressure 115/85 H Blood Pressure Mean 95 Pulse Ox 97 Oxygen Delivery Method Room Air <Dr. Hank Becker MD - Last Filed: 05/27/24 17:37> Physical Exam Const Vital Signs: 05/27/24 16:10 Temperature 97.8 F Temperature Source Temporal Pulse Rate 113 H Respiratory Rate 18 Blood Pressure 115/85 H Blood Pressure Mean 95 Pulse Ox 97 Oxygen Delivery Method Room Air MDM <VERONICA Menezes - Last Filed: 05/27/24 17:27> MDM Radiography Diagnostic Testing: Clinical Impression(s) from Imaging Studies Knee X-Ray 05/27/24 16:32 IMPRESSION: Degenerative changes. Small joint effusion. Lateral patellar tilt. Electronically Signed: Marisol Borrego MD at 16:48 EDT , Treatment and Re-Evaluation :: Differential diagnosis includes however is not limited to: Knee sprain, knee contusion, internal derangement, patellar fracture, joint effusion, tendinitis Patient appears to be in no obvious distress, vital signs are stable, patient is nontoxic-appearing. Presenting to the emerged part with right knee pain is been ongoing for several weeks. X-rays will be obtained. All radiologic examinations were read, reviewed by the emergency department attending. From these reads, a plan of care will be put in place.\ X-ray shows degenerative changes, small joint effusion, lateral patellar tilt. Patient will receive a Reji bandage. Patient will be given anti-inflammatories, orthopedic follow-up. He happy the plan of care, instructed return for any worsening symptoms, stable for discharge. <Dr. Hank Becker MD - Last Filed: 05/27/24 17:37> [facility] Narrative Medical decision making narrative: I have personally performed a face to face assessment of the patient and have reviewed the CHACHO Note. I performed a substantive portion of the visit including all aspects of the following. My calles findings include: History is twisted right knee while going down some steps about 3 months ago, persistent pain mostly medially anterior right knee, maybe a little swelling not a lot, this is the first time he has had it evaluated. Exam is limited flexion due to pain. Media small effusion not anything large. Excellent short arc range of motion until he gets to the point of limitation extreme flexion. Extensor mechanism intact. All ligaments stable with short endpoints, no laxity including anterior and posterior drawer. These exhibit no pain, but stressing the MCL makes his pain a little worse. He does have some tenderness at the plica center [place], but also more at the medial joint line. Medical Decison Making 4 view x-ray series of the right knee on my interpretation shows no acute fracture or dislocated patella. Discussed with the patient for now we will do anti-inflammatories and an Reji wrap to help limit his flexion, advised following up with PCP and/orthopedics, will probably need an MRI and further evaluation. Other additions or changes: [None] Radiography Diagnostic Testing: Clinical Impression(s) from Imaging Studies Knee X-Ray 05/27/24 16:32 IMPRESSION: Degenerative changes. Small joint effusion. Lateral patellar tilt. Electronically Signed: Marisol Borrego MD at 16:48 EDT , Discharge Plan Triage Chief Complaint: Lower Extremity Injury ED Midlevel Provider: Ke Flores ED Provider: Hank Becker Dx/Rx/DC Orders Clinical Impression: Injury of knee Instructions: ED Knee Effusion, ED Knee Sprain, ED ACL PCL Prescriptions: New naproxen [Naprosyn] 500 mg tablet 500 mg PO BID PRN (Reason: pain) Qty: 20 0RF No Action metoprolol tartrate 25 MG tablet 12.5 mg PO BID entecavir 1 MG tablet 1 mg PO DAILY@0600 rifaximin 550 MG tablet 550 mg PO BID folic acid 1 MG tablet 1 mg PO DAILY thiamine mononitrate (vit B1) 100 MG tablet 100 mg PO TID atorvastatin 20 MG tablet 20 mg PO QHS amitriptyline 10 MG tablet 10 mg PO QHS hyoscyamine sulfate 0.125 MG tablet 0.25 mg PO Q8 zinc sulfate 220 MG capsule 220 mg PO DAILY lactulose 10 GM/15 ML solution 10 gm PO TID naproxen 500 MG tablet 500 mg PO BID PRN Qty: 20 0RF methocarbamol 500 mg tablet 500 mg PO Q6H PRN (Reason: Muscle pain/spasm) Qty: 56 0RF (DME) walking boot large See Rx Instructions .Route .MEDSUPPLY Qty: 1 0RF Rx Instructions: As directed ondansetron 4 mg tablet,disintegrating 4 mg PO Q8H PRN PRN (Reason: Nausea) Qty: 10 0RF dicyclomine 20 mg tablet 20 mg PO TID PRN (Reason: abdominal pain) Qty: 14 0RF oxycodone 5 mg tablet 5 mg PO Q6H PRN (Reason: pain) 2 Days Qty: 8 0RF Primary Care Provider: Yassine Alberto Referrals: Amrit Mulligan DO [Med Staff - Active Staff] - Yassine Alberto MD [Primary Care Provider] - Activity Restrictions/Additional Instructions: Please ensure that you ice and elevate. Use anti-inflammatories. Follow-up with orthopedics. Print Language: [place]ien Disposition Disposition: Home, Self Care
--- NOTE | 2024-05-27 16:32 | RAD_ITS ---
INDICATION: knee pain EXAMINATION/TECHNIQUE: X-RAY - RIGHT XR Knee Complete 4 Views or More 4 VIEWS COMPARISON: Prior study dated: October 13, 2018 FINDINGS: SOFT TISSUES: No soft tissue swelling or gas. No radiopaque foreign body. BONES/JOINTS: No acute fracture or subluxation.. Normal alignment. There are degenerative changes of the medial compartment characterized by joint space narrowing and subchondral sclerosis. There is lateral patellar tilt. There are degenerative changes of the patellofemoral articulation. There is a small joint effusion. No sclerotic or destructive changes observed. RAD/Knee 4 or More Views IMPRESSION: Degenerative changes. Small joint effusion. Lateral patellar tilt. Electronically Signed: Marisol Borrego MD at 16:48 EDT ,
== END 2024-05-27 17:39 | disposition home or self-care (01) ==
PROVIDERS: Emergency Provider Emergency Medicine; PCP Family Medicine; Visit Provider Emergency Medicine
DX: S89.91XA Unspecified injury of right lower leg, initial encounter (principal); I25.10 Atherosclerotic heart disease of native coronary artery without angina pectoris; F17.210 Nicotine dependence, cigarettes, uncomplicated; X58.XXXA Exposure to other specified factors, initial encounter
CPT/HCPCS: 73564; 99282

== ENCOUNTER 2024-06-25 20:38 | Emergency (ER) | payer MEDICAID, SELFPAY ==
[2024-06-25 20:39] VITALS: BP 132/86; PULSE 101; RESP 18; TEMP 36.2; O2SAT 97; BMI 26.7
[2024-06-25 22:02] VITALS: BP 134/91; PULSE 98; RESP 18; TEMP 36.6; O2SAT 97
[2024-06-25] MEDS: hydrOXYzine PAM 25 MG Capsule 50 MG PO (22:03)
--- NOTE | 2024-06-26 22:36 | EDS_ITS ---
HPI History of Present Illness Chief Complaint: Mental Health Informant: patient Narrative Narrative: Presents by private vehicle overwhelming stress. States he is getting ready to move trying to sign and moving to a new place. States he has been issues. This has been over 2 weeks. He has been more short tempered yelling in his kids. He denies any suicidal ideations. Denies homicidal ideations. Denies auditory or visual hallucinations. Occasional marijuana use. Remote alcohol use with cirrhosis history. He states he is here for medication help him calm down. He then wants referral for outpatient evaluation. [facility] Medical History Atherosclerosis of coronary artery of [place] heart without angina pectoris Cardiomyopathy Chest pain Cirrhosis of liver due to hepatitis B Diverticulitis Dyslipidemia Essential hypertension History of foot fracture Suicidal ideation (~03/27/19) Home Medications ?Medication ?Instructions ?Recorded ?Last Taken ?Type entecavir 1 mg tablet 1 mg PO DAILY@0600 hep B 11/19/19 Unknown History metoprolol tartrate 25 mg tablet 12.5 mg PO BID Check with primary 11/19/19 Unknown History doctor rifaximin 550 mg tablet 550 mg PO BID brain health 11/19/19 Unknown History folic acid 1 mg tablet 1 mg PO DAILY supplement 11/20/19 Unknown History thiamine mononitrate (vit B1) 100 100 mg PO TID Check with primary 11/20/19 Unknown History mg tablet doctor amitriptyline 10 mg tablet 10 mg PO QHS 12/03/19 Unknown History atorvastatin 20 mg tablet 20 mg PO QHS 12/03/19 Unknown History hyoscyamine sulfate 0.125 mg tablet 0.25 mg PO Q8 12/03/19 Unknown History zinc sulfate 50 mg zinc (220 mg) 220 mg PO DAILY 12/03/19 Unknown History capsule lactulose 10 gram/15 mL (15 mL) 10 gm PO TID 12/11/19 Unknown History oral solution naproxen 500 mg tablet 500 mg PO BID PRN #20 tabs 12/11/20 Unknown Rx methocarbamol 500 mg tablet 500 mg PO Q6H PRN Muscle 08/22/21 Unknown Rx pain/spasm #56 tabs walking boot #1 ea 07/15/22 Unknown Rx dicyclomine 20 mg tablet 20 mg PO TID PRN abdominal pain 01/04/24 Unknown Rx #14 tabs ondansetron 4 mg disintegrating 4 mg PO Q8H PRN PRN Nausea #10 tabs 01/04/24 Unknown Rx tablet oxycodone 5 mg tablet 5 mg PO Q6H PRN pain 2 days #8 tabs 01/23/24 Unknown Rx naproxen 500 mg tablet (Naprosyn) 500 mg PO BID PRN pain #20 tabs 05/27/24 Unknown Rx hydroxyzine HCl 50 mg tablet 50 mg PO TID PRN stress or anxiety 06/25/24 Unknown Rx #30 tabs Allergy/AdvReac Type Severity Reaction Status Date / Time No Known Allergies Allergy Verified 05/27/24 16:10 Family History Mother Diabetes Hypertension CVA (cerebral vascular accident) Surgical History History of left heart catheterization Social History Smoking Status: Current every day smoker tobacco type: cigarettes how long ago did patient quit smokin months ago second hand exposure: No alcohol intake: never substance use type: does not use caffeine: Yes Type: carbonated beverages and coffee Number of servings: 1 ROS ROS ED Constitutional Constitutional ED: Denies chills, fever(s) or sweats Eyes Eyes: Denies change in vision ENT ENT ED: Denies dysphagia or sore throat Cardiovascular Cardiovascular: Denies chest pain, leg edema, palpitations or racing heartbeat Respiratory/Chest Respiratory/Chest: Denies cough, dyspnea or dyspnea on exertion Gastrointestinal Gastrointestinal: Denies abdominal pain, diarrhea, nausea or vomiting Genitourinary Genitourinary ED: Denies dysuria, hematuria or urinary frequency Musculoskeletal Musculoskeletal: Denies back pain, extremity pain or neck pain Integumentary Denies rash or wounds Neurologic Neurologic: Denies headache(s), paresthesias or weakness Psychiatric Psychiatric: Reports other Details: Stress ; Denies suicidal ideation or suicidal thoughts EXAM Physical Exam Const Positive well nourished and well developed General Appearance ED: well developed and NAD HEENT Reports moist mucous membranes normocephalic and atraumatic Eyes EOMs intact bilaterally and conjunctivae normal General Eye ED: Yes normal appearance of both eyes Neck no lymphadenopathy and supple General: Negative for tenderness Chest Wall Chest: Negative for tenderness Resp normal respiratory effort and normal air movement Effort and Inspection: symmetric chest movement; Negative for respiratory distress Cardio regular rate, regular rhythm and no murmurs Peripheral Pulses: pulses 2+ throughout GI normal to inspection, nondistended, normoactive bowel sounds and non-tender Palpation: Negative for guarding or rebound tenderness present Back/Spine no CVA tenderness and no thoracic nor lumbar tenderness Extremity normal to inspection General Extremety ED: Negative for edema or tenderness General Extremity: Negative for edema Neuro oriented x3 and no sensory deficits noted Sensorium / Orientation: awake and alert Psych Psych Narrative: Cooperative denies suicidal homicidal ideations. Seems appropriate. Skin no rashes or lesions noted and no wounds MDM MDM MDM Narrative Medical decision making narrative: Interventions / MDM: Differential diagnosis: Acute stress disorder, history of marijuana use. History of cirrhosis. Diagnosis considered but do not suspect: N/A My EKG interpretation: N/A Imaging independently reviewed and interpreted by myself: N/A External documents reviewed: N/A Test considered but not ordered:N/A ED course: Patient examined such stress situation at this time with his move. He denies suicidal homicidal ideations. Currently he seems appropriate. Do not feel he requires any labs or pink slip. He is started on hydroxyzine. Discussed sedation effects. He has a ride. Prescription for meds to beds written for the patient. He is given follow-up as an outpatient, discussed PCP could write additional medications which she needs to be started as an outpatient. All questions were answered. Re-evaluation: stable Disposition discussed with patient/family/significant other: Patient Case discussed with consulting clinician: N/A This note was generated with [employer] dictation software. It may contain incorrect words, spelling, and punctuation that were not noted in checking the note before signing. Discharge Plan Triage Chief Complaint: Mental Health ED Provider: Reilly Kirkpatrick Dx/Rx/DC Orders Clinical Impression: Acute stress disorder, Hx of cirrhosis Instructions: Responding Better to Stress, ED Anxiety Reaction Prescriptions: New hydroxyzine HCl 50 mg tablet 50 mg PO TID PRN (Reason: stress or anxiety) Qty: 30 0RF No Action metoprolol tartrate 25 MG tablet 12.5 mg PO BID entecavir 1 MG tablet 1 mg PO DAILY@0600 rifaximin 550 MG tablet 550 mg PO BID folic acid 1 MG tablet 1 mg PO DAILY thiamine mononitrate (vit B1) 100 MG tablet 100 mg PO TID atorvastatin 20 MG tablet 20 mg PO QHS amitriptyline 10 MG tablet 10 mg PO QHS hyoscyamine sulfate 0.125 MG tablet 0.25 mg PO Q8 zinc sulfate 220 MG capsule 220 mg PO DAILY lactulose 10 GM/15 ML solution 10 gm PO TID naproxen 500 MG tablet 500 mg PO BID PRN Qty: 20 0RF methocarbamol 500 mg tablet 500 mg PO Q6H PRN (Reason: Muscle pain/spasm) Qty: 56 0RF (DME) walking boot large See Rx Instructions .Route .MEDSUPPLY Qty: 1 0RF Rx Instructions: As directed ondansetron 4 mg tablet,disintegrating 4 mg PO Q8H PRN PRN (Reason: Nausea) Qty: 10 0RF dicyclomine 20 mg tablet 20 mg PO TID PRN (Reason: abdominal pain) Qty: 14 0RF oxycodone 5 mg tablet 5 mg PO Q6H PRN (Reason: pain) 2 Days Qty: 8 0RF naproxen [Naprosyn] 500 mg tablet 500 mg PO BID PRN (Reason: pain) Qty: 20 0RF Primary Care Provider: Yassine Alberto Referrals: Yassine Alberto MD [Primary Care Provider] - 3-5 Days Behavioral,Health [facility] [Group of Physicians] - 3-5 Days Activity Restrictions/Additional Instructions: Use medication as prescribed to help with stress and anxiety symptoms. Discussed with your doctor or behavioral health outpatient with follow-up for further medications as needed. Print Language: Syriac Disposition Disposition: Home, Self Care Discharge Date/Time: 06/25/24 22:05
== END 2024-06-25 22:05 | disposition home or self-care (01) ==
PROVIDERS: Emergency Provider Emergency Medicine; PCP Family Medicine; Visit Provider Emergency Medicine
DX: F43.0 Acute stress reaction (principal); I25.10 Atherosclerotic heart disease of native coronary artery without angina pectoris; F12.90 Cannabis use, unspecified, uncomplicated; F17.210 Nicotine dependence, cigarettes, uncomplicated
CPT/HCPCS: 99282

== ENCOUNTER 2025-01-19 12:53 | Emergency (ER) | payer MEDICAID, SELFPAY ==
[2025-01-19 12:54] VITALS: BP 148/110; PULSE 98; RESP 20; TEMP 36.2; O2SAT 99; BMI 30.4
[2025-01-19 13:42] LABS: Absolute Lymphocyte Count 1.37 X10^3/uL (0.83-4.51); Absolute Neutrophil Count 3.6 X10^3/uL (2.0-7.7); Basophil% 1.7 % (0-1); Eosinophil# 0.16 X10^3/uL; Eosinophils% 2.7 % (0-5); Hemoglobin 17.2 g/dL (13.0-16.5); Lymphocyte # 1.37 X10^3/ul (0.83-4.51); Lymphocyte % 23.4 % (19-41); Mean Corp Hgb Conc 35.8 g/dL (32-36); Mean Corpuscular Hgb 33.3 pg (27.0-32.0); Mean Corpuscular Volume 92.8 fL (80-94); Mean Platelet Vol. 11.6 fl (6.2-12.0); Monocyte# 0.59 X10^3/uL; Monocyte% 10.1 % (0-10); NRBC Flagged by Analyzer 0 % (0-5); Neutrophil # 3.62 X10^3/uL (2.7-7.7); Neutrophil % 61.9 % (47-70); Platelet Count 152 K/mm3 (150-450); RBC Distribution Width CV 12.8 % (11.6-14.6); RBC Distribution Width SD 43.8 fl (35.1-43.9); Red Blood Count 5.17 M/mm3 (4.6-6.2); White Blood Count 5.9 K/mm3 (4.4-11.0)
[2025-01-19 13:56] VITALS: BP 150/106; O2SAT 99
[2025-01-19 14:00] VITALS: BP 143/96
[2025-01-19 14:20] LABS: ALB/GLOB Ratio 1.5 RATIO (0.9-2.4); AST(SGOT) 29 U/L (<=37); Alanine Aminotransfer ALT/SGPT 22 U/L (<=46); Albumin, Serum 4.6 g/dL (3.4-4.8); Alkaline Phosphatase 148 U/L (40-129); Anion Gap 12 (5-15); BUN 21 mg/dL (4-19); BUN/Creat Ratio 20.6 RATIO (10-20); Calcium,Total 8.9 mg/dL (7.6-11.0); Chloride 105 mmol/L (98-108); Creatinine, Serum 1.01 mg/dL (0.70-1.20); EST Glomerular Filtration Rate 84 (>60); Globulin 3.1 g/dL (2.2-4.2); Glucose 111 mg/dL (70-99); Potassium 4.3 mmol/L (3.3-5.1); Protein, Total 7.6 g/dL (5.9-8.4); Sodium Level 136 mmol/L (133-145)
--- NOTE | 2025-01-19 14:22 | ED.VIS.BACK ---
HPI History of Present Illness Chief Complaint: Flank Pain Detail of Chief Complaint: Bilateral low back pain greater left than right Informant: patient Onset/Context/Timing Onset: Days (3 days prior to presentation) Context: Sudden Onset Chronic pain exacerbated by: Any type of movement Injury: - (Patient states pain started when he was getting out of bed 3 days ago) Timing: Continuous and Waxes and wanes Location: Lumbar Maximum Severity: Severe Worsened by: improves with Movement, Ambulation, Bending and Lifting Relieved by: Nothing Associated Symptoms Associated Symptoms: - (Denies radicular pain. Denies saddle paresthesia or anesthesia. Denies foot drop.); Negative for Numbness, Tingling, Radiation to Right Leg, Radiation to Left Leg, Fever, Abdominal Pain, Dysuria, Unable to Ambulate, Unable to Transfer, Urinary Retention, Urinary Incontinence, Constipation or Fecal Incontinence Narrative Narrative: Patient is a 64-year-old male. He has history of cirrhosis due to hepatitis B, spontaneous bacterial peritonitis, obstructive sleep apnea, dyslipidemia, atherosclerotic coronary disease, cardiomegaly and hypertension who presents with bilateral low back pain after rising from a supine position 3 days ago from bed. He denies bowel or bladder dysfunction. He denies saddle paresthesia or anesthesia. He denies radicular pain. He denies dragging his foot. He states it hurts to move. He denies fever, chills night sweats. He denies dysuria, frequency, urgency or hematuria. He denies history of trauma. He states he has had back pain before but nothing like this. Prior similar symptoms: - (Per HPI narrative) Recent Illness/Hospitalization: No PFSH [facility] Medical History Cirrhosis of liver due to hepatitis B Diverticulitis History of foot fracture Chest pain Suicidal ideation (~03/27/19) Dyslipidemia Atherosclerosis of coronary artery of [place] heart without angina pectoris Cardiomyopathy Essential hypertension Home Medications ?Medication ?Instructions ?Recorded ?Last Taken ?Type entecavir 1 mg tablet 1 mg PO DAILY@0600 hep B 11/19/19 Unknown History metoprolol tartrate 25 mg tablet 12.5 mg PO BID Check with primary 11/19/19 Unknown History doctor rifaximin 550 mg tablet 550 mg PO BID [employer] health 11/19/19 Unknown History folic acid 1 mg tablet 1 mg PO DAILY supplement 11/20/19 Unknown History thiamine mononitrate (vit B1) 100 100 mg PO TID Check with primary 11/20/19 Unknown History mg tablet doctor amitriptyline 10 mg tablet 10 mg PO QHS 12/03/19 Unknown History atorvastatin 20 mg tablet 20 mg PO QHS 12/03/19 Unknown History hyoscyamine sulfate 0.125 mg tablet 0.25 mg PO Q8 12/03/19 Unknown History zinc sulfate 50 mg zinc (220 mg) 220 mg PO DAILY 12/03/19 Unknown History capsule lactulose 10 gram/15 mL (15 mL) 10 gm PO TID 12/11/19 Unknown History oral solution naproxen 500 mg tablet 500 mg PO BID PRN #20 tabs 12/11/20 Unknown Rx methocarbamol 500 mg tablet 500 mg PO Q6H PRN Muscle 08/22/21 Unknown Rx pain/spasm #56 tabs walking boot #1 ea 07/15/22 Unknown Rx dicyclomine 20 mg tablet 20 mg PO TID PRN abdominal pain 01/04/24 Unknown Rx #14 tabs ondansetron 4 mg disintegrating 4 mg PO Q8H PRN PRN Nausea #10 tabs 01/04/24 Unknown Rx tablet oxycodone 5 mg tablet 5 mg PO Q6H PRN pain 2 days #8 tabs 01/23/24 Unknown Rx naproxen 500 mg tablet (Naprosyn) 500 mg PO BID PRN pain #20 tabs 05/27/24 Unknown Rx hydroxyzine HCl 50 mg tablet 50 mg PO TID PRN stress or anxiety 06/25/24 Unknown Rx #30 tabs diazepam 2 mg tablet (Valium) 2 mg PO TID #7 tabs 01/19/25 Unknown Rx hydrocodone-acetaminophen 5-325mg 1 tab PO Q6H PRN PRN Pain 3 days 01/19/25 Unknown Rx 5mg-325mg #10 TABLETS naproxen 500 mg tablet 500 mg PO BID #14 tabs 01/19/25 Unknown Rx Allergy/AdvReac Type Severity Reaction Status Date / Time No Known Allergies Allergy Verified 01/19/25 12:54 Family History Mother Diabetes Hypertension CVA (cerebral vascular accident) Surgical History History of left heart catheterization Social History Smoking Status: Light Smoker (<10/day) how long ago did patient quit smokin months ago second hand exposure: No alcohol intake: never substance use type: does not use caffeine: Yes Type: carbonated beverages and coffee Number of servings: 1 ROS ROS ED Constitutional Constitutional ED: Denies chills, fever(s), subjective, sweats or weight loss ENT ENT ED: Reports other Details: No dental pain or recent dental procedure. ; Denies ear pain, rhinorrhea or sore throat Cardiovascular Cardiovascular: Denies chest pain, orthopnea or palpitations Respiratory/Chest Respiratory/Chest: Denies dyspnea, dyspnea on exertion or orthopnea Gastrointestinal Gastrointestinal: Denies abdominal pain, constipation, diarrhea, nausea or vomiting Genitourinary Genitourinary ED: Denies dysuria, hematuria or urinary frequency Musculoskeletal Musculoskeletal: Reports back pain; Denies arthralgias or myalgias Integumentary Denies rash Neurologic Neurologic: Reports other Details: Further detailed HPI narrative ; Denies paresthesias or weakness Hematologic/Lymphatic Hematologic/Lymphatic: Denies easy bleeding or easy bruising EXAM Physical Exam Const Vital Signs: 01/19/25 12:54 01/19/25 13:56 01/19/25 14:00 Temperature 97.1 F L Temperature Source Temporal Pulse Rate 98 Respiratory Rate 20 H Blood Pressure 148/110 H 150/106 H 143/96 H Blood Pressure Mean 122 120 111 Pulse Ox 99 99 Oxygen Delivery Method Room Air 01/19/25 15:00 Temperature Temperature Source Pulse Rate Respiratory Rate Blood Pressure 145/93 H Blood Pressure Mean 110 Pulse Ox 98 Oxygen Delivery Method Positive well nourished and well developed Constitutional Narrative: BMI is 30.5. Patient vitals are noted. Blood pressure slightly elevated. He appears uncomfortable. He is lying flat on his back. General Appearance ED: well developed; Negative for pallor HEENT HEENT Narrative: Head is atraumatic normocephalic. Mucosa moist. Ears normal. Nares patent. Eyes PERRL and EOMs intact bilaterally General Eye ED: Negative for pale conjunctiva or scleral icterus Resp normal respiratory effort Cardio regular rate and regular rhythm GI normal to inspection, nondistended, normoactive bowel sounds, soft to palpation, non-tender, non-distended and no masses Back/Spine Negative for no thoracic nor lumbar tenderness Back/Spine Narrative: There is tenderness both right and left paralumbar region significantly greater on the left. There are spasms noted on the left. Straight leg test is negative both right and left. He complained of pain on the left side at 15 degrees on the left and 30 degrees on the right. There was no radicular pain. He has normal sensation L3-S1 dermatome. EHL is intact. 5/5 strength with plantar and dorsi flexion. DP pulses palpable bilaterally. Patella and ankle reflex are 2+ and symmetric. There is no clonus or Babinski sign noted. Visualization of the back was limited due to his pain. Will reevaluate after he has been medicated. Lumbar Spine / Lower Back: ROM limited and straight leg raise negative bilaterally Extremity normal to inspection and no clubbing, cyanosis or edema Neuro oriented x3 and no sensory deficits noted Sensorium / Orientation: alert Motor Exam: strength 5/5 throughout Deep Tendon Reflexes: Rt Patellar (L4): 2+, Lt Patellar (L4): 2+, Rt Ankle (S1): 2+ and Lt Ankle (S1): 2+ Deep Tendon Reflexes Back: Rt Patellar (L4): 2+, Lt Patellar (L4): 2+, Rt Ankle (S1): 2+ and Lt Ankle (S1): 2+ Plantar Reflex: Downgoing: bilateral Psych mental status grossly normal Skin no rashes or lesions noted and no wounds General Skin Exam: Negative for jaundice or pallor MDM MDM MDM Narrative Medical decision making narrative: Patient with low back pain. History and physical is consistent with muscular pain. His history and physical is not consistent with herniated disc, spontaneous epidural hematoma or epidural abscess. There is no concern for cauda equina either. Plan is to medicate with IV ketorolac, morphine, Zofran parenterally and Valium p.o. since we do not have parenteral Valium. Nurse protocol orders were placed in triage. He had a CBC competence of metabolic panel and UA. In my opinion this does not represent urologic disease. His hemoglobin is slightly up in the past. History & Record Review Additional record(s) reviewed:: Prior ED visit and Prior labs Lab Data Attestation: I reviewed the patient's lab results. Lab results narrative: Comprehensive metabolic panel is unremarkable. Alkaline phosphatase is slightly elevated 148 and glucose is 111. CO2 is 19 with a normal anion gap. 30 minutes UA is negative. Labs: Laboratory Results - last 24 hr 01/19/25 01/19/25 13:33 14:19 WBC 5.9 RBC 5.17 Hgb 17.2 H Hct 48.0 MCV 92.8 MCH 33.3 H MCHC 35.8 RDW Std Deviation 43.8 RDW Coeff of Jacinto 12.8 Plt Count 152 MPV 11.6 Immature Gran % (Auto) 0.200 Neut % (Auto) 61.9 Lymph % (Auto) 23.4 Hardin % (Auto) 10.1 H Eos % (Auto) 2.7 Baso % (Auto) 1.7 H Absolute Neuts (auto) 3.6 Absolute Lymphs (auto) 1.37 Nucleated RBC % 0 Sodium 136 Potassium 4.3 Chloride 105 Carbon Dioxide 19.0 L Anion Gap 12 BUN 21 H Creatinine 1.01 Estim Creat Clear Calc 91.00 Est GFR (MDRD) Non-Af 84 BUN/Creatinine Ratio 20.6 H Glucose 111 H Calcium 8.9 Total Bilirubin 0.60 AST 29 ALT 22 Alkaline Phosphatase 148 H Total Protein 7.6 Albumin 4.6 Globulin 3.1 Albumin/Globulin Ratio 1.5 Urine Color Yellow Urine Clarity Clear Urine pH 6.5 Ur Specific Robertson 1.010 Urine Protein 15 H Urine Glucose (UA) Normal Urine Ketones Negative Urine Occult Blood Negative Urine Nitrite Negative Urine Bilirubin Negative Urine Urobilinogen Normal Ur Leukocyte Esterase Negative Urine RBC 0-5 SEEN Urine WBC 0-5 SEEN Ur Squamous Epith Cells 0 SEEN Urine Bacteria 0 SEEN Urine Mucus 0 SEEN Treatment and Re-Evaluation Narrative: Patient was reassessed at 1558. He was able to roll out of bed. Still appears uncomfortable. Additional dose of morphine was ordered. He was discharged to home with prescription for opiate analgesia, NSAID and Valium. Discharge Plan Triage Chief Complaint: Flank Pain ED Provider: Michael Barcenas Dx/Rx/DC Orders Clinical Impression: Acute bilateral low back pain without sciatica, Dyslipidemia, BMI 30.0-30.9,adult, Cirrhosis of liver due to hepatitis B, Cardiomyopathy, Spasm of lumbar paraspinous muscle, Elevated blood pressure reading with diagnosis of hypertension Instructions: ED Back Sprain/Strain, ED Back Spasm, No Trauma (Child) Prescriptions: New hydrocodone-acetaminophen 5-325 mg tablet 1 tab PO Q6H PRN PRN (Reason: Pain) 3 Days Qty: 10 0RF naproxen 500 mg tablet 500 mg PO BID Qty: 14 0RF diazepam [Valium] 2 mg tablet 2 mg PO TID Qty: 7 0RF No Action metoprolol tartrate 25 MG tablet 12.5 mg PO BID entecavir 1 MG tablet 1 mg PO DAILY@0600 rifaximin 550 MG tablet 550 mg PO BID folic acid 1 MG tablet 1 mg PO DAILY thiamine mononitrate (vit B1) 100 MG tablet 100 mg PO TID atorvastatin 20 MG tablet 20 mg PO QHS amitriptyline 10 MG tablet 10 mg PO QHS hyoscyamine sulfate 0.125 MG tablet 0.25 mg PO Q8 zinc sulfate 220 MG capsule 220 mg PO DAILY lactulose 10 GM/15 ML solution 10 gm PO TID naproxen 500 MG tablet 500 mg PO BID PRN Qty: 20 0RF methocarbamol 500 mg tablet 500 mg PO Q6H PRN (Reason: Muscle pain/spasm) Qty: 56 0RF (DME) walking boot large See Rx Instructions .Route .MEDSUPPLY Qty: 1 0RF Rx Instructions: As directed ondansetron 4 mg tablet,disintegrating 4 mg PO Q8H PRN PRN (Reason: Nausea) Qty: 10 0RF dicyclomine 20 mg tablet 20 mg PO TID PRN (Reason: abdominal pain) Qty: 14 0RF oxycodone 5 mg tablet 5 mg PO Q6H PRN (Reason: pain) 2 Days Qty: 8 0RF naproxen [Naprosyn] 500 mg tablet 500 mg PO BID PRN (Reason: pain) Qty: 20 0RF hydroxyzine HCl 50 mg tablet 50 mg PO TID PRN (Reason: stress or anxiety) Qty: 30 0RF Primary Care Provider: Yassine Alberto Referrals: Yassine Alberto MD [Primary Care Provider] - 3-5 Days if not improving Activity Restrictions/Additional Instructions: Apply ice to your lower back 6-8 times a day for the next 3 days. Print Language: Libyan Disposition Disposition: Home, Self Care
[2025-01-19 14:24] LABS: Bacteria 0 SEEN /hpf (None Seen); Mucous, Urine 0 SEEN /hpf (<or=2+); Squamous Epithelial Cells - UA 0 SEEN /hpf (0-5)
[2025-01-19 14:28] LABS: Color, Urine Yellow (Yellow); Glucose, Dipstick Normal (Normal); Ketone-Dipstick Negative (Negative); Leukocyte Esterase-Dipstick Negative /ul (Negative); Nitrite-Dipstick Negative (Negative); Occult Blood-Urine Negative /ul (Negative); Protein-Dipstick 15 mg/dl (Negative); Urine Bilirubin Dipstick Negative (Negative); Urine Clarity Clear (Clear); Urine Urobilinogen Normal (Normal); Urine pH 6.5 (5.0 - 8.0)
[2025-01-19] MEDS: Morphine 4 MG/ML Syringe IV ×2 (14:30→16:17)
[2025-01-19] MEDS: Ondansetron 4 MG/2 ML Vial IV (14:30)
[2025-01-19] MEDS: Ketorolac 15 MG/ML Vial IV (14:31)
[2025-01-19] MEDS: diazePAM 5 MG Tablet 2.5 MG PO (14:31)
[2025-01-19 14:44] LABS: White Blood Cells 0-5 SEEN /hpf (0-5)
[2025-01-19 14:45] LABS: Red Blood Cells-Urine 0-5 SEEN /hpf (0-5)
[2025-01-19 15:00] VITALS: BP 145/93; O2SAT 98
[2025-01-19 16:00] VITALS: BP 165/100; PULSE 68; RESP 18; TEMP 36.8; O2SAT 100
== END 2025-01-19 16:33 | disposition home or self-care (01) ==
PROVIDERS: Emergency Provider Emergency Medicine; PCP Family Medicine; Visit Provider Emergency Medicine
DX: M54.50 Low back pain, unspecified (principal); K74.60 Unspecified cirrhosis of liver; I42.9 Cardiomyopathy, unspecified; B19.10 Unspecified viral hepatitis B without hepatic coma; M62.830 Muscle spasm of back; E78.5 Hyperlipidemia, unspecified; I25.10 Atherosclerotic heart disease of native coronary artery without angina pectoris; I10 Essential (primary) hypertension; F17.200 Nicotine dependence, unspecified, uncomplicated
CPT/HCPCS: 80053; 81001; 85025; 96374; 96375; 96376; 99283; A4216; J2405

== ENCOUNTER 2025-08-09 16:09 | Emergency (ER) | payer MEDICAID, SELFPAY ==
[2025-08-09 16:09] VITALS: BP 128/109; PULSE 96; RESP 16; TEMP 36.8; O2SAT 98; BMI 36.6
--- NOTE | 2025-08-09 17:27 | EX.ED.DYSGE1 ---
HPI History of Present Illness Chief Complaint: Lower Extremity Injury Detail of Chief Complaint: Atraumatic right knee pain and swelling Informant: patient and spouse/S.O. Onset/Context/Timing Onset: Days (Onset Wednesday, August 06) Context: Sudden Onset Timing: Continuous Quality: Pain predominantly anterior and popliteal fossa Location: right knee Current Severity: Moderate Maximum Severity: Severe Worsened by: Movement and weightbearing Relieved by: Nothing Associated Symptoms Associated Symptoms: heavy no respiratory cardiac symptoms. Prior history of DVT. Narrative Narrative: Patient 65-year-old male. He presents because of atraumatic right knee pain anteriorly as well as posteriorly. He does endorse swelling. He denies history of gout or pseudogout. Denies fever, chills night sweats. He has had no recent procedures done. He has no history of prior injury to the knee. Prior similar symptoms: No Recent Illness/Hospitalization: No PFSH [facility] Medical History Cirrhosis of liver due to hepatitis B Diverticulitis History of foot fracture Chest pain Suicidal ideation (~03/27/19) Dyslipidemia Atherosclerosis of coronary artery of [place] without angina pectoris Cardiomyopathy Essential hypertension Home Medications ?Medication ?Instructions ?Recorded ?Last Taken ?Type entecavir 1 mg tablet 1 mg PO DAILY@0600 hep B 11/19/19 Unknown History metoprolol tartrate 25 mg tablet 12.5 mg PO BID Check with primary 11/19/19 Unknown History doctor rifaximin 550 mg tablet 550 mg PO BID brain health 11/19/19 Unknown History folic acid 1 mg tablet 1 mg PO DAILY supplement 11/20/19 Unknown History thiamine mononitrate (vit B1) 100 100 mg PO TID Check with primary 11/20/19 Unknown History mg tablet doctor amitriptyline 10 mg tablet 10 mg PO QHS 12/03/19 Unknown History atorvastatin 20 mg tablet 20 mg PO QHS 12/03/19 Unknown History hyoscyamine sulfate 0.125 mg tablet 0.25 mg PO Q8 12/03/19 Unknown History zinc sulfate 50 mg zinc (220 mg) 220 mg PO DAILY 12/03/19 Unknown History capsule lactulose 10 gram/15 mL (15 mL) 10 gm PO TID 12/11/19 Unknown History oral solution naproxen 500 mg tablet 500 mg PO BID PRN #20 tabs 12/11/20 Unknown Rx methocarbamol 500 mg tablet 500 mg PO Q6H PRN Muscle 08/22/21 Unknown Rx pain/spasm #56 tabs walking boot #1 ea 07/15/22 Unknown Rx dicyclomine 20 mg tablet 20 mg PO TID PRN abdominal pain 01/04/24 Unknown Rx #14 tabs ondansetron 4 mg disintegrating 4 mg PO Q8H PRN PRN Nausea #10 tabs 01/04/24 Unknown Rx tablet oxycodone 5 mg tablet 5 mg PO Q6H PRN pain 2 days #8 tabs 01/23/24 Unknown Rx naproxen 500 mg tablet (Naprosyn) 500 mg PO BID PRN pain #20 tabs 05/27/24 Unknown Rx hydroxyzine HCl 50 mg tablet 50 mg PO TID PRN stress or anxiety 06/25/24 Unknown Rx #30 tabs diazepam 2 mg tablet (Valium) 2 mg PO TID #7 tabs 01/19/25 Unknown Rx hydrocodone-acetaminophen 5-325mg 1 tab PO Q6H PRN PRN Pain 3 days 01/19/25 Unknown Rx 5mg-325mg #10 TABLETS naproxen 500 mg tablet 500 mg PO BID #14 tabs 01/19/25 Unknown Rx Allergy/AdvReac Type Severity Reaction Status Date / Time No Known Allergies Allergy Verified 08/09/25 16:11 Family History Mother Diabetes Hypertension CVA (cerebral vascular accident) Surgical History History of left heart catheterization Social History Smoking Status: Light Smoker (<10/day) how long ago did patient quit smokin months ago second hand exposure: No alcohol intake: never substance use type: does not use caffeine: Yes Type: carbonated beverages and coffee Number of servings: 1 ROS ROS ED Constitutional Constitutional ED: Denies chills, fever(s), subjective, sweats or weight loss Cardiovascular Cardiovascular: Denies chest pain or palpitations Respiratory/Chest Respiratory/Chest: Denies cough, dyspnea or dyspnea on exertion Musculoskeletal Musculoskeletal: Reports other Details: Documented HPI narrative ; Denies arthralgias, back pain, myalgias or neck pain Integumentary Denies rash Psychiatric Psychiatric: Denies anxiety or depression Hematologic/Lymphatic Hematologic/Lymphatic: Reports systems reviewed and no addt'l complaints, except as documented EXAM Physical Exam Const Vital Signs: 08/09/25 16:09 08/09/25 19:13 Temperature 98.3 F Temperature Source Oral Pulse Rate 96 89 Respiratory Rate 16 17 Blood Pressure 128/109 H 143/104 H Blood Pressure Mean 115 117 Pulse Ox 98 100 Oxygen Delivery Method Room Air Room Air Positive well nourished and well developed General Appearance ED: well developed and NAD; Negative for pallor HEENT Reports moist mucous membranes HEENT Narrative: Head is atraumatic and normocephalic. Ears normal. Nares patent. Eyes PERRL and EOMs intact bilaterally General Eye ED: Negative for scleral icterus Resp normal respiratory effort Cardio regular rate and regular rhythm GI normal to inspection, nondistended, normoactive bowel sounds Extremity Negative for normal to inspection Extremity Narrative: There is swelling of the right knee compared to the left. There is evidence of a suprapatella effusion. The patellas not ballotable. There is fullness in the popliteal fossa consistent with a Rascon's cyst. There is no swelling of the calf. There is no tenderness on the distribution deep venous system other than the fullness in the popliteal fossa. There is no leg vein distention. There is no evidence of cellulitis of the knee. The knee is not warm. He does have pain with passive flexion extension. Neuro oriented x3 and CN's II-XII intact bilaterally Sensorium / Orientation: alert Skin no rashes or lesions noted, no wounds and skin turgor normal General Skin Exam: elasticity normal; Negative for jaundice or pallor MDM MDM MDM Narrative Medical decision making narrative: Patient with atraumatic effusion of the knee. This may be due to osteoarthritis, crystal induced arthritis versus pyogenic. Do not believe this to be pyogenic. Will obtain x-ray. He was medicated with Naprosyn and opiate analgesia. He has no contraindication to NSAIDs other than it causes him upset stomach. Lab Data Labs: Laboratory Results - last 24 hr 08/09/25 19:38 Synovial WBC 1.2170 H Synovial RBC [address] Synovial Tot Cell Ct 1.2410 H Synov Polynuclear WBCs 0.304 Synov Mononuclear WBCs 0.913 Synovial Polynuclear % 24.9 Synovial Mononuclear % 75.1 Radiography Diagnostic Testing: Clinical Impression(s) from Imaging Studies Knee X-Ray 08/09/25 17:44 IMPRESSION: Diffuse osteopenia of visualized bones. Tricompartmental degenerative changes more prominent within medial compartment. No evidence of any displaced fracture deformity. Reading Location: [facility] Treatment and Re-Evaluation :: When patient was bending over he developed spasm in his back. He requested something for his spasm. He was treated with Valium. Patient left prior to the Gram stain results. They are still not available at the time of this dictation 0124. Suspect patient does not have a septic arthritis. Crystals are also pending. He apparently felt better after the injection with steroid. Procedures Other Procedures Procedure(s): Arthrocentesis right knee. Consent was signed prior to procedure. Patient was prepped draped sterile manner. Medial approach. The area was anesthetized medial side with 1% lidocaine without epi. 30 cc of a dark straw-colored fluid was aspirated. The fluid was clear. Fluid was sent for analysis. Kenalog was injected into the joint. Discharge Plan Triage Chief Complaint: Lower Extremity Injury ED Provider: Michael Barcenas Dx/Rx/DC Orders Clinical Impression: Effusion of knee joint right, Rascon's cyst of knee, OA (osteoarthritis) of knee, Spasm of lumbar paraspinous muscle, Essential hypertension Instructions: ED Rascon's Cyst, ED Fluid on the Knee Prescriptions: No Action metoprolol tartrate 25 MG tablet 12.5 mg PO BID entecavir 1 MG tablet 1 mg PO DAILY@0600 rifaximin 550 MG tablet 550 mg PO BID folic acid 1 MG tablet 1 mg PO DAILY thiamine mononitrate (vit B1) 100 MG tablet 100 mg PO TID atorvastatin 20 MG tablet 20 mg PO QHS amitriptyline 10 MG tablet 10 mg PO QHS hyoscyamine sulfate 0.125 MG tablet 0.25 mg PO Q8 zinc sulfate 220 MG capsule 220 mg PO DAILY lactulose 10 GM/15 ML solution 10 gm PO TID naproxen 500 MG tablet 500 mg PO BID PRN Qty: 20 0RF methocarbamol 500 mg tablet 500 mg PO Q6H PRN (Reason: Muscle pain/spasm) Qty: 56 0RF (DME) walking boot large See Rx Instructions .Route .MEDSUPPLY Qty: 1 0RF Rx Instructions: As directed ondansetron 4 mg tablet,disintegrating 4 mg PO Q8H PRN PRN (Reason: Nausea) Qty: 10 0RF dicyclomine 20 mg tablet 20 mg PO TID PRN (Reason: abdominal pain) Qty: 14 0RF oxycodone 5 mg tablet 5 mg PO Q6H PRN (Reason: pain) 2 Days Qty: 8 0RF naproxen [Naprosyn] 500 mg tablet 500 mg PO BID PRN (Reason: pain) Qty: 20 0RF hydroxyzine HCl 50 mg tablet 50 mg PO TID PRN (Reason: stress or anxiety) Qty: 30 0RF hydrocodone-acetaminophen 5-325 mg tablet 1 tab PO Q6H PRN PRN (Reason: Pain) 3 Days Qty: 10 0RF naproxen 500 mg tablet 500 mg PO BID Qty: 14 0RF diazepam [Valium] 2 mg tablet 2 mg PO TID Qty: 7 0RF Primary Care Provider: Yassine Alberto Referrals: Yassine Alberto MD [Primary Care Provider, Family Practice] Print Language: Peruvian Disposition Disposition: Home, Self Care
[2025-08-09] MEDS: HYDROcodone Bitartrate/Apap 5/325 Tablet PO (17:34)
--- NOTE | 2025-08-09 17:44 | RAD_ITS ---
PROCEDURE: KNEE 4 OR MORE VIEWS 08/09/2025 REASON FOR EXAM: INJURY/PAIN TECHNIQUE: Procedure Code: RADKN Modality: DX Procedure: KNEE 4 OR MORE VIEWS Laterality: Right COMPARISON: None FINDINGS: Bones: Diffuse osteopenia of visualized bones. Small osteophyte calcification within popliteal fossa. Joints: Advanced degenerative changes of knee joint more prominent along medial compartment. Effusion: Small joint effusion Soft tissues: Soft tissue swelling overlying knee joint. Other: RAD/Knee 4 or More Views IMPRESSION: Diffuse osteopenia of visualized bones. Tricompartmental degenerative changes more prominent within medial compartment. No evidence of any displaced fracture deformity. Reading Location: [id number]
[2025-08-09] MEDS: Lidocaine 1% (20 ml mdv) 20 ML Vial INFILT (18:35)
[2025-08-09 19:13] VITALS: BP 143/104; PULSE 89; RESP 17; O2SAT 100
[2025-08-09 20:55] LABS: Synovial Fld Mononuclear WBC # 0.913 10^3/ul; Synovial Fld Mononuclear WBC % 75.1 %; Synovial Fld Polynuclear WBC # 0.304 10^3/uL; Synovial Fld Polynuclear WBC % 24.9 %; Total Cell Count Synovial Fld 1.2410 10^3/uL (0.000-0.000); WBC / Synovial Fluid 1.2170 10^3/uL (0.000-0.002)
--- NOTE | 2025-08-09 22:28 | ED.RN ---
PT reports that he needed to leave that he was unable to stay any longer, this nurse stated that I understood him not being able to wait and that I would talk to the doctor. This RN found Dr. Barcenas performing a sterile procedure, immediately went back to talk to the patient and the patient had ambulated off the unit. This RN instructed the patient earlier that he would not be able to drive due to the norco and valium that was given to him. The patient voiced understanding.
[2025-08-09 23:11] LABS: AUTO B FLUID DILUENT BKGD CT WBC <0.1 RBC <0.01 (W<.1,R<.01); Source / Synovial Fluid RIGHT KNEE; Source- Body Fluid SYNOVIAL
[2025-08-09 23:12] LABS: Color / Synovial Fluid Yellow (Pale Yellow)
[2025-08-09 23:13] LABS: Appearance /Synovial Fluid Cloudy (CLEAR); Body Fluid QC Type(s) BF1Q, BF2Q
[2025-08-10 01:19] LABS: RBC /Synovial Fluid 232 /mm3 (0)
[2025-08-10 01:48] LABS: Monocyte /Synovial Fluid 19 %
[2025-08-10 01:51] LABS: Other Cell /Synovial Fluid 31 %
[2025-08-10 02:27] LABS: CRYSTALS, BODY FLUID NO CRYSTALS SEEN
== END 2025-08-10 01:37 | disposition home or self-care (01) ==
PROVIDERS: Emergency Provider Emergency Medicine; PCP Family Medicine; Visit Provider Emergency Medicine
DX: M25.461 Effusion, right knee (principal); I42.9 Cardiomyopathy, unspecified; M25.561 Pain in right knee; M17.11 Unilateral primary osteoarthritis, right knee; M71.21 Synovial cyst of popliteal space [Baker], right knee; M62.838 Other muscle spasm; I10 Essential (primary) hypertension; E78.5 Hyperlipidemia, unspecified; I25.10 Atherosclerotic heart disease of native coronary artery without angina pectoris; F17.200 Nicotine dependence, unspecified, uncomplicated; Z79.899 Other long term (current) drug therapy
CPT/HCPCS: 20610; 73564; 87070; 87075; 87205; 89050; 89051; 89060; 99282